=== PATIENT | female | born 1950 | race Caucasian/White ===

== ENCOUNTER 2020-11-24 10:51 | Outpatient (REF) | payer MEDICARE, SELFPAY ==
[2020-11-24 19:21] LABS: Baso%MD 0.6 %; Eos%MD 0.9 %; Hematocrit 33.1 % (37-47); Hemoglobin 10.3 g/dl (12.0-16.0); IG%MD 0.9 %; Lymph%MD 27.3 %; Mean Corpuscular HGB Conc 31.1 g/dl (31.0-35.0); Mean Corpuscular Hemoglobin 26.8 pg (27.0-33.0); Mean Corpuscular Volume 86.2 fL (80-98); Mean Platelet Volume 8.9 fL (9.4-12.3); Mono%MD 9.5 %; NRBC Pct Auto 0.4 /100WBC (0.0-0.2); Neut%MD 60.8 %; Platelet Count 364 X10*3/uL (160-400); Red Blood Count 3.84 X10*6/uL (4.20-5.50); Red Cell Distribution Width 18.8 % (11.0-16.0); White Blood Count 7.8 X10*3/uL (4.8-10.8)
[2020-11-25 06:49] LABS: Band Neutrophils Percent 0 % (3-5); Eosinophils Absolute Manual 0.1 X10*3/UL (0.0-0.8); Eosinophils Percent Manual 1 % (0-4); Lymphocytes Absolute Manual 2.7 X10*3/uL (0.6-4.8); Lymphocytes Percent Manual 35 % (20-40); Monocytes Absolute Manual 0.7 X10*3/uL (0.0-1.2); Monocytes Percent Manual 9 % (2-11); Neutrophils Absolute Manual 4.3 X10*3/uL (2.2-7.9); Neutrophils Percent Manual 55 % (45-73)
[2020-11-25 06:53] LABS: Platelet Estimate NORMAL (NORMAL); Platelet Morphology Comment NORMAL; RBC Morphology NORMAL
== END 2020-11-24 10:52 | disposition home or self-care (01) ==
LOC: HO.MDS 10:51
PROVIDERS: Visit Provider Internal Medicine
DX: D64.9 Anemia, unspecified (principal)
CPT/HCPCS: 36415; 36430; 85007; 85027; 86850; 86900; 86901; 86923; P9016

== ENCOUNTER 2021-03-19 12:34 | Outpatient (REF) | payer MEDICARE, SELFPAY ==
--- NOTE | ~2021-03-19 | MM_ITS ---
EXAMINATION: MM SCREENING DIGITAL BREAST TOMOSYNTHESIS, BILATERAL CLINICAL INFORMATION: Screening. Asymptomatic. The lifetime risk of breast cancer based on the Tyrer-Cuzick Model is 3.6%. COMPARISON: Mammography: September 02, 2019 and studies dating back to July 05, 2012 TECHNIQUE: Digital breast tomosynthesis is performed in both the craniocaudal and mediolateral oblique views along with computer-aided detection (CAD). Synthesized 2D images are generated from the tomosynthesis. FINDINGS: There are scattered areas of fibroglandular density (ACR BI-RADS breast composition Category b). There are no significant masses, abnormal calcifications, or other abnormalities. MM/MM tomosynthesis screening BI IMPRESSION: There are no significant changes from prior study. ASSESSMENT: BI-RADS 1: Negative RECOMMENDATION: Routine annual mammography screening. This patient's information was entered into a reminder system with a target due date for their next mammogram.
== END 2021-03-19 12:35 | disposition home or self-care (01) ==
LOC: HO.MAMMO 12:34
PROVIDERS: Visit Provider Internal Medicine
DX: Z12.31 Encounter for screening mammogram for malignant neoplasm of breast (principal)
CPT/HCPCS: 77063; 77067

== ENCOUNTER 2021-05-10 11:34 | Outpatient (REF) | payer MEDICARE, SELFPAY ==
[2021-05-10 13:52] LABS: MANUAL DIFF FLAG NO
[2021-05-10 14:01] LABS: Basophils Percent Auto 0.4 % (0-2); Eosinophils Absolute Auto 0.1 X10*3/uL (0.0-0.4); Eosinophils Percent Auto 1.7 % (0-4); Hematocrit 29.4 % (37-47); Hemoglobin 9.1 g/dl (12.0-16.0); Imm Gran Abs Auto 0.02 X10*3/uL (0.00-0.03); Imm Gran Pct Auto 0.4 % (0.0-0.4); Immature Retic Fraction 34.9 % (3.0-15.9); Lymphocytes Absolute Auto 1.7 X10*3/uL (1.2-4.9); Lymphocytes Percent Auto 34.7 % (20-40); Mean Corpuscular Hemoglobin 29.8 pg (27.0-33.0); Mean Corpuscular Volume 96.4 fL (80-98); Mean Platelet Volume 9.2 fL (9.4-12.3); Monocytes Absolute Auto 0.2 X10*3/uL (0.1-1.2); Monocytes Percent Auto 4.8 % (2-11); NRBC Pct Auto 0.4 /100WBC (0.0-0.2); Neutrophils Absolute Auto 2.8 X10*3/uL (2.0-8.3); Platelet Count 364 X10*3/uL (160-400); Red Blood Count 3.05 X10*6/uL (4.20-5.50); Red Cell Distribution Width 18.6 % (11.0-16.0); Retic HGB Equivalent 38.4 pg (30.0-35.0); Reticulocyte Percent 1.2 % (0.5-1.8); Reticulocytes Absolute 0.036 X10*6/uL (0.026-0.095); White Blood Count 4.8 X10*3/uL (4.8-10.8)
[2021-05-10 14:15] LABS: Alanine Aminotransferase 15 U/L (0-31); Albumin Level 3.9 g/dL (3.5-5.0); Alkaline Phosphatase 57 U/L (39-117); Anion Gap 16 (12-20); Aspartate Amino Transferase 19 U/L (5-31); Bilirubin Total 0.5 mg/dL (0.0-1.0); Blood Urea Nitrogen 33 mg/dL (9-16); Calcium 9.4 mg/dL (8.4-10.2); Carbon Dioxide 21 mmol/L (22-29); Chloride 106 mmol/L (96-108); Cholesterol 161 mg/dL; Estimated Glomerular Filt Rate 39; Glucose Random 104 mg/dL (60-115); HDL Cholesterol 42 mg/dL; Iron 108 mcg/dL (30-160); LDL Cholesterol Calculated 75 mg/dl; Percent Iron Saturation 26 % (15-50); Potassium 4.6 mmol/L (3.3-5.1); Sodium 138 mmol/L (135-145); Total Iron Binding Capacity 414 mcg/dL (228-428); Total Protein 6.9 g/dL (6.5-8.0); Triglycerides 221 mg/dL; Unsaturated Iron Binding 306 ug/dL
[2021-05-10 14:39] LABS: Ferritin 112 ng/mL (10-250); Free T4 (Free Thyroxine) 1.01 ng/dL (0.71-1.85); Thyroid Stimulating Hormone 0.78 uIU/mL (0.32-4.0)
[2021-05-10 15:10] LABS: Folate 14.1 ng/mL (> or = 4.0); Vitamin B12 361 pg/mL (200-900)
== END 2021-05-10 11:35 | disposition home or self-care (01) ==
LOC: HO.HMGCLDS 11:34
PROVIDERS: PCP Internal Medicine; Visit Provider Internal Medicine
DX: I10 Essential (primary) hypertension (principal); K22.70 Barrett's esophagus without dysplasia; E78.00 Pure hypercholesterolemia, unspecified
CPT/HCPCS: 36415; 80053; 80061; 82306; 82607; 82728; 82746; 83540; 84439; 84443; 85025; 85045

== ENCOUNTER 2021-07-01 11:39 | Outpatient (REF) | payer MEDICARE, SELFPAY ==
[2021-07-01 14:23] LABS: MANUAL DIFF FLAG NO
[2021-07-01 14:28] LABS: Basophils Percent Auto 0.2 % (0-2); Eosinophils Absolute Auto 0.1 X10*3/uL (0.0-0.4); Eosinophils Percent Auto 2.1 % (0-4); Hemoglobin 9.4 g/dl (12.0-16.0); Imm Gran Abs Auto 0.03 X10*3/uL (0.00-0.03); Imm Gran Pct Auto 0.5 % (0.0-0.4); Lymphocytes Absolute Auto 1.6 X10*3/uL (1.2-4.9); Lymphocytes Percent Auto 28.6 % (20-40); Mean Corpuscular HGB Conc 31.3 g/dl (31.0-35.0); Mean Corpuscular Volume 95.8 fL (80-98); Mean Platelet Volume 9.4 fL (9.4-12.3); Monocytes Absolute Auto 0.4 X10*3/uL (0.1-1.2); Monocytes Percent Auto 6.4 % (2-11); Neutrophils Absolute Auto 3.5 X10*3/uL (2.0-8.3); Neutrophils Percent Auto 62.2 % (45-73); Platelet Count 340 X10*3/uL (160-400); Red Blood Count 3.13 X10*6/uL (4.20-5.50); Red Cell Distribution Width 16.2 % (11.0-16.0); White Blood Count 5.6 X10*3/uL (4.8-10.8)
[2021-07-01 14:51] LABS: Iron 150 mcg/dL (30-160); Percent Iron Saturation 38 % (15-50); Total Iron Binding Capacity 400 mcg/dL (228-428); Unsaturated Iron Binding 250 ug/dL
[2021-07-01 15:07] LABS: Ferritin 76 ng/mL (10-250)
== END 2021-07-01 11:40 | disposition home or self-care (01) ==
LOC: HO.10HDL 11:39
PROVIDERS: Visit Provider Internal Medicine
DX: D64.9 Anemia, unspecified (principal)
CPT/HCPCS: 36415; 82728; 83540; 85025

== ENCOUNTER → 2021-07-23 09:12 | Outpatient (REF) | payer MEDICARE, SELFPAY ==
--- NOTE | 2021-07-23 09:17 | ECG_ITS ---
Test Reason : htn Blood Pressure : / mmHG Vent. Rate : 109 BPM Atrial Rate : 109 BPM P-R Int : 182 ms QRS Dur : 080 ms QT Int : 322 ms P-R-T Axes : 064 003 071 degrees QTc Int : 433 ms Sinus tachycardia Otherwise normal ECG When compared with ECG of 18-OCT-2019 16:34, Nonspecific T wave abnormality no longer evident in Inferior leads Nonspecific T wave abnormality, improved in Lateral leads Referred By: Daphne Bryan Electronically Signed By:YULIET NAM
--- NOTE | 2021-07-23 09:17 | CA_ITS ---
Transthoracic Echocardiogram Patient (Last, First, Middle): Wendy Ulloa L Gender: Female Date of : 1950 Age: 70 Procedure Date: 07/23/2021 Procedure Type: Transthoracic Echocardiogram Location: OP Height: 152.4 cm Weight: 99.79 kg BSA: 1.94 m2 Heart Rate: bpm BP: 125 / 90 mmHg Supercharger Mechanic: DEMETRIS/KIRAN Referring MD: Daphne Bryan MD Instruction Librarian: Rodriguez Smith MD Symptoms: I10 - Essential (primary) hypertension Study Quality: Fair ECG Rhythm: Sinus Conclusions: - 1. Normal LV systolic function with grade 1 diastolic dysfunction 2. Normal cardiac valvular Doppler 3. No gross pericardial effusion Findings Left Ventricle Normal left ventricular size, thickness, and systolic function. The visually estimated ejection fraction is between 60-65%. Spectral Doppler is indicative of an impaired relaxation filling pattern. E/E prime ratio is <8, consistent with normal filling pressures. Evidence suggests grade I (mild) diastolic dysfunction. Right Ventricle Normal right ventricular cavity size and systolic function. Atria The left atrium is normal in size. Interatrial shunt cannot be excluded. The right atrium was not well visualized. Aortic Valve Normal aortic valve structure and function. There is no aortic valve stenosis. There is no aortic valve regurgitation. Mitral Valve Likely normal mitral valve structure and function. There is mild mitral annular calcification. There is trace mitral valve regurgitation. There is no mitral valve stenosis. Pulmonic Valve The pulmonic valve was not well visualized. Tricuspid Valve Likely normal tricuspid valve structure and function. Tricuspid regurgitation envelope is inadequate for calculation of right ventricular systolic pressure. Great Vessels All visible segments of the aorta are normal in size. The pulmonary artery was not well visualized. Venous The inferior vena cava is normal in size and collapses greater than 50% with inspiration. Pericardium/Pleural There is no evidence of pericardial effusion. Prior Study Comparison No significant change compared to prior study dated: 10/19/2019. Measurements 2D Linear Measurements IVSd: 1.05 0.6-0.9/0.6-1.0 cm LVIDd: 2.40 3.9-5.3/4.2-5.9 cm LVIDd Index: 1.24 2.4-3.2/2.2-3.1 cm/m2 LVIDs: 1.74 2.0-3.6 cm LVPWd: 0.88 0.7-1.1 cm Ao Root: 3.10 2.1-3.5 cm LA Diam: 2.80 2.7-3.8/3.0-4.0 cm LAIDs Index: 1.44 1.5-2.3 cm/m2 LV Mass: 70.17 67-162/88-224 g LV Mass Index: 36.17 43-95/49-115 g/m2 LVOT Diam: 2.00 3.0+(-)1.3 cm 2D Systolic Function EF 4C: 64.80 >55% EF 2C: 62.90 >55% EF BiP: 64.00 >55% Mitral Valve E'Lateral: 7.51 E'Medial: 6.64 Aortic Valve AoV Pk Mansoor: 1.31 AoV Mn Mansoor: 0.92 AoV VTI: 0.22 AoV Pk Grad: 7.00 Aov Mn Grad: 4.00 ALEJANDRA Cont.VTI: 2.48 LVOT LVOT Pk Mansoor: 0.92 LVOT Mn Mansoor: 0.70 LVOT VTI: 0.17 LVOT Pk Grad: 3.00 LVOT Mn Grad: 2.00 LVOT Diam: 2.00 LVOT Area: 3.14 Diastolic Function E'Medial: 6.64 E' Laterial: 7.51 Right Ventricle TAPSE (mm): 1.95 TVS' Mansoor: 9.68 Great Vessels Aorta Ao Root-2D: 3.10 2.0-3.7 cm Ao Asc: 3.20 2.1-3.4 cm Ao Arch: 2.70 Updated in Other Vendor System with Status of Final Rodriguez Smith MD electronically signed on 07/23/2021 4:28:36 PM with status of Final
== END ==
LOC: HO.CARD 09:12
PROVIDERS: PCP Internal Medicine; Visit Provider Internal Medicine
DX: I10 Essential (primary) hypertension (principal)
CPT/HCPCS: 93005; 93306

== ENCOUNTER 2021-07-30 12:43 | Outpatient (REF) | payer MEDICARE, SELFPAY ==
--- NOTE | ~2021-07-30 | XR_ITS ---
EXAMINATION: XR LUMBOSACRAL SPINE CLINICAL INFORMATION: Intervertebral disc degeneration. COMPARISON: Lumbar spine MRI dated 06/19/2008. TECHNIQUE: 3 views of the lumbosacral spine. FINDINGS: Normal vertebral body alignment. The lumbar lordosis is maintained. No acute fracture or subluxation. No loss of vertebral body height. Multilevel loss of intervertebral disc height with anterior endplate osteophytes. Multilevel bilateral facet arthropathy, most prominent at L4-S1. No lytic or blastic osseous lesion. Probable calcified fibroid. Atherosclerotic calcifications. IVC filter at the level of L2-L3. XR/XR lumbar spine 2-3V IMPRESSION: Moderate multilevel degenerative disc disease. Multilevel bilateral facet arthropathy, most prominent at L4-S1. Findings are progressed when compared to the prior MRI in 2007.
--- NOTE | ~2021-07-30 | XR_ITS ---
EXAMINATION: XR CHEST CLINICAL INFORMATION: Hypertension COMPARISON: Previous chest x-ray 10/18/2019 and chest CTA September 2019 TECHNIQUE: 2 views of the chest were obtained. FINDINGS: The cardiac and mediastinal contours are stable. The lungs are clear. There is no pleural effusion or pneumothorax. There is severe arthritis at the right shoulder joint. There are degenerative changes of the spine. IVC filter is partially visualized. XR/XR chest 2V IMPRESSION: No evidence for acute disease in the chest.
== END 2021-07-30 12:44 | disposition home or self-care (01) ==
LOC: HO.XRAY 12:43
PROVIDERS: PCP Internal Medicine; Visit Provider Internal Medicine
DX: M51.36 Other intervertebral disc degeneration, lumbar region (principal); I10 Essential (primary) hypertension
CPT/HCPCS: 71046; 72100

== ENCOUNTER 2021-09-28 14:18 | Outpatient (REF) | payer MEDICARE, SELFPAY ==
[2021-09-28 16:39] LABS: MANUAL DIFF FLAG NO
[2021-09-28 16:41] LABS: Basophils Percent Auto 0.5 % (0-2); Eosinophils Absolute Auto 0.1 X10*3/uL (0.0-0.4); Eosinophils Percent Auto 2.9 % (0-4); Hematocrit 23.8 % (37.0-47.0); Hemoglobin 7.3 g/dl (12.0-16.0); Imm Gran Abs Auto 0.02 X10*3/uL (0.00-0.03); Imm Gran Pct Auto 0.5 % (0.0-0.4); Lymphocytes Percent Auto 47.5 % (20-40); Mean Corpuscular HGB Conc 30.7 g/dl (31.0-35.0); Mean Corpuscular Hemoglobin 30.7 pg (27.0-33.0); Mean Platelet Volume 9.2 fL (9.4-12.3); Monocytes Absolute Auto 0.2 X10*3/uL (0.1-1.2); Monocytes Percent Auto 5.6 % (2-11); NRBC Pct Auto 0.5 /100WBC (0.0-0.2); Neutrophils Absolute Auto 1.8 x10*3/uL (2.0-8.3); Platelet Count 178 X10*3/uL (160-400); Red Blood Count 2.38 X10*6/uL (4.20-5.50); Red Cell Distribution Width 18.8 % (11.0-16.0); Retic HGB Equivalent 35.4 pg (30.0-35.0); Reticulocyte Percent 2.2 % (0.5-1.8); Reticulocytes Absolute 0.052 X10*6/uL (0.026-0.095); White Blood Count 4.1 X10*3/uL (4.8-10.8)
[2021-09-28 17:02] LABS: Iron 84 mcg/dL (30-160); Percent Iron Saturation 20 % (15-50); Total Iron Binding Capacity 413 mcg/dL (228-428); Unsaturated Iron Binding 329 ug/dL
[2021-09-28 17:22] LABS: Ferritin 195 ng/mL (10-250)
[2021-09-28 17:44] LABS: Folate > 20.0 ng/mL (> or = 4.0); Vitamin B12 1462 pg/mL (200-900)
== END 2021-09-28 14:19 | disposition home or self-care (01) ==
LOC: HO.HMGCLDS 14:18
PROVIDERS: PCP Internal Medicine; Visit Provider Internal Medicine
DX: D64.9 Anemia, unspecified (principal)
CPT/HCPCS: 36415; 82607; 82728; 82746; 83540; 85025; 85045

== ENCOUNTER 2021-10-11 16:01 | Inpatient (IN) | payer MEDICARE, SELFPAY ==
--- NOTE | 2021-10-11 | ECG_ITS ---
Test Reason : sob/anemia Blood Pressure : / mmHG Vent. Rate : 113 BPM Atrial Rate : 113 BPM P-R Int : 182 ms QRS Dur : 072 ms QT Int : 318 ms P-R-T Axes : 051 -05 032 degrees QTc Int : 436 ms Sinus tachycardia Inferior infarct , age undetermined Abnormal ECG When compared with ECG of 23-JUL-2021 09:37, No significant change was found Referred By: Generic ED Physician Electronically Signed By:VINNY MONTERO MD
--- NOTE | ~2021-10-11 | XR_ITS ---
EXAMINATION: XR CHEST CLINICAL INFORMATION: Difficulty breathing. COMPARISON: Multiple priors. Most recent chest radiograph dated from 07/30/2021. TECHNIQUE: PA view of the chest was obtained. FINDINGS: Normal cardiomediastinal silhouette. Clear lungs. No pleural effusions or pneumothorax. No acute osseous findings. Again noted advanced degenerative changes in the right greater than left shoulders. XR/XR chest 1V IMPRESSION: No acute cardiopulmonary findings.
[2021-10-11 17:52] VITALS: BP 111/71; PULSE 115; RESP 18; TEMP 36.8; O2SAT 100; BMI 41.0
[2021-10-11 19:12] LABS: Anion Gap 14 (12-20); Blood Urea Nitrogen 26 mg/dL (9-16); Carbon Dioxide 21 mmol/L (22-29); Chloride 106 mmol/L (96-108); Creatinine Clr Calc Pharmacy 39.4; Estimated Glomerular Filt Rate 39; Glucose Random 101 mg/dL (60-115); Potassium 4.1 mmol/L (3.3-5.1); Sodium 137 mmol/L (135-145)
[2021-10-11 19:14] LABS: Basophils Percent Auto 0.4 % (0-2); Eosinophils Percent Auto 1.3 % (0-4); Hematocrit 21.6 % (37.0-47.0); Imm Gran Abs Auto 0.01 X10*3/uL (0.00-0.03); Imm Gran Pct Auto 0.4 % (0.0-0.4); Lymphocytes Absolute Auto 1.3 X10*3/uL (1.2-4.9); Lymphocytes Percent Auto 58.2 % (20-40); MANUAL DIFF FLAG SCAN; Mean Corpuscular HGB Conc 31.9 g/dl (31.0-35.0); Mean Corpuscular Hemoglobin 32.2 pg (27.0-33.0); Mean Corpuscular Volume 100.9 fL (80.0-98.0); Mean Platelet Volume 9.7 fL (9.4-12.3); Monocytes Absolute Auto 0.1 X10*3/uL (0.1-1.2); Monocytes Percent Auto 4.4 % (2-11); NRBC Pct Auto 0.9 /100WBC (0.0-0.2); Neutrophils Absolute Auto 0.8 x10*3/uL (2.0-8.3); Neutrophils Percent Auto 35.3 % (45-73); Platelet Count 205 X10*3/uL (160-400); Red Blood Count 2.14 X10*6/uL (4.20-5.50); Red Cell Distribution Width 19.3 % (11.0-16.0); SCAN SMEAR FLAG 1
[2021-10-11 19:15] LABS: COVID-19 Test Negative (Negative)
[2021-10-11 19:16] LABS: White Blood Count 2.3 X10*3/uL (4.8-10.8)
[2021-10-11 19:17] LABS: Hemoglobin 6.9 g/dl (12.0-16.0)
[2021-10-11 19:34] LABS: SLIDE REVIEW VERIFIED
[2021-10-11 20:00] VITALS: BP 113/55; PULSE 114; RESP 18; TEMP 37.6; O2SAT 98
[2021-10-11 20:03] LABS: OBS1 NEGATIVE (NEGATIVE)
[2021-10-11 20:04] LABS: OBS Int Ctl Valid YES
--- NOTE | 2021-10-11 20:04 | ED.GENADULT ---
HPI - General Adult General Chief complaint: Recheck/Abnormal Lab/Rx Stated complaint: SOB/Anemic (history of blood clots in lungs) Time Seen by Provider: 10/11/21 19:53 History of Present Illness HPI narrative: Patient is 70 years old presents today with generalized malaise weakness. Palpitation. Worse with ambulation. Shortness of breath got worse with ambulation. History of DVT patient is on Eliquis. No coughing or congestion or upper respiratory symptoms no fever no chills. Patient got sent in for further evaluation of her weakness. Related Data Home Medications Medication Instructions Recorded Confirmed hydrocodone 5 mg-acetaminophen 325 1 tab PO QID PRN 12/29/20 10/11/21 mg tablet folic acid 1 mg tablet 1 tab PO SUMOWETHFRSA@0900 10/11/21 10/11/21 infliximab 100 mg intravenous See Rx Instructions .ROUTE .COMPLEX 10/11/21 10/11/21 solution (Remicade) methotrexate sodium 2.5 mg tablet 22.5 mg PO TU@0900 10/11/21 10/11/21 omeprazole 20 mg capsule,delayed 20 mg PO DAILY@0630 10/11/21 10/11/21 release simvastatin 5 mg tablet 5 mg PO BEDTIME 10/11/21 10/11/21 Previous Rx's Medication Instructions Recorded apixaban 2.5 mg tablet (Eliquis) 2.5 mg PO BID #180 tab 12/29/20 cyanocobalamin (vitamin B-12) 1,000 mcg PO DAILY #90 tab 01/07/21 1,000 mcg tablet fenofibrate 160 mg tablet 160 mg PO DAILY #90 tab 01/07/21 hydrochlorothiazide 25 mg tablet 25 mg PO QAM #90 tab 04/12/21 quinapril 40 mg tablet 40 mg PO DAILY #90 tab 08/27/21 Allergies Allergy/AdvReac Type Severity Reaction Status Date / Time No Known Allergies Allergy Verified 07/26/21 16:52 [No Known Allergies*] Review of Systems Review of Systems: Positive generalized malaise weakness no coughing or congestion or upper respiratory symptoms no diaphoresis all system reviewed otherwise negative PMFSH Past Medical History Attestation statement: The following information was validated with the patient. Medical History Anemia Barretts esophagus Benign essential hypertension Breast cancer screening by mammogram GERD (gastroesophageal reflux disease) History of alcohol abuse History of blood transfusion Hx of deep venous thrombosis Hypercholesterolemia Medicare annual wellness visit, initial Obesity Obstructive sleep apnea Presence of IVC filter Pulmonary embolism Restless leg syndrome Rheumatoid arthritis Tubular adenoma of colon Venous stasis dermatitis Vitamin D deficiency Surgical History History of eyelid surgery History of tonsillectomy Hx of arthroscopic knee surgery Hx of heart artery stent Family History Family History Father History of stomach cancer Mother Social History Social History Housing: House Alcohol intake: former Patient Tobacco Use Status: Former Tobacco user Quit Date: 1979 Cigarette Packs Per Day: 2 e-Cigarette/Vaping Use: Never Used Second Hand Smoke Exposure: No Advance Directives: No Advance Directives Information Provided: Yes service: No Current occupational status: retired Physical Exam Vital Signs: Vital Signs: Last Vital Signs Temp 97.2 F 10/11/21 21:05 Pulse 114 H 10/11/21 21:05 Resp 18 10/11/21 21:05 BP 107/56 L 10/11/21 21:05 Pulse Ox 97 10/11/21 21:05 BMI result Body Mass Index 41.0 Appearance: Alert. Oriented X3. No acute distress. Eyes: Pupils equal, round and reactive to light. ENT: Pharynx normal. Neck: Normal inspection. Neck supple. No lymph nodes noted. No crepitus CVS: Normal heart rate and rhythm. Pulses normal. Normal S1 and S2 Respiratory: No respiratory distress. Breath sounds normal. No Wheezing. No rales Abdomen: Soft and nontender. No rigidity. No distention. good BS x4 Skin: Skin warm and dry. Normal skin color. Normal skin turgor. rectal exam showed brown stool. Extremities: No lower extremity edema. Neurovascular intact to all extremities. No Lacerations. No Rash Neuro: Oriented X 3. No motor deficit. No sensory deficit. Moving all extermities. No slurred speech Medical Decision Making MDM Narrative Medical decision making narrative: Patient's hemoglobin was 6.9. Will start transfusion of 1 unit of blood. Type was screen was done. Patient's heart rate is 115 will obtain EKG. Will admit patient for further evaluation of anemia as patient is also on Eliquis for DVT /PE. Lab Data Result diagrams: 10/11/21 18:29 10/11/21 18:29 Labs: Lab Results 10/11/21 10/11/21 10/11/21 Range/Units 18:29 18:29 18:29 WBC 2.3 L (4.8-10.8) X10*3/uL RBC 2.14 L (4.20-5.50) X10*6/uL Hgb 6.9 L* (12.0-16.0) g/dl Hct 21.6 L (37.0-47.0) % MCV 100.9 H (80.0-98.0) fL MCH 32.2 (27.0-33.0) pg MCHC 31.9 (31.0-35.0) g/dl RDW 19.3 H (11.0-16.0) % Plt Count 205 (160-400) X10*3/uL MPV 9.7 (9.4-12.3) fL Immature Gran % (Auto) 0.4 (0.0-0.4) % Neut % (Auto) 35.3 L (45-73) % Lymph % (Auto) 58.2 H (20-40) % [place] % (Auto) 4.4 (2-11) % Eos % (Auto) 1.3 (0-4) % Baso % (Auto) 0.4 (0-2) % Lymph # (Auto) 1.3 (1.2-4.9) X10*3/uL [place] # (Auto) 0.1 (0.1-1.2) X10*3/uL Eos # (Auto) 0.0 (0.0-0.4) X10*3/uL Baso # (Auto) 0.0 (0.0-0.2) X10*3/uL Abs Immat Gran (auto) 0.01 (0.00-0.03) X10*3/uL Absolute Neuts (auto) 0.8 L (2.0-8.3) x10*3/uL Absolute Nucleated RBC 0.020 H (0.0-0.012) X10*3/uL Nucleated RBC % (auto) 0.9 H (0.0-0.2) /100WBC Smear Tech's Comments VERIFIED Sodium 137 (135-145) mmol/L Potassium 4.1 (3.3-5.1) mmol/L Chloride 106 (96-108) mmol/L Carbon Dioxide 21 L (22-29) mmol/L Anion Gap 14 (12-20) BUN 26 H (9-16) mg/dL Creatinine 1.33 (0.5-1.4) mg/dL Estim Creat Clear Calc 39.4 Estimated GFR 39 Random Glucose 101 (60-115) mg/dL Calcium 9.0 (8.4-10.2) mg/dL Stool Occult Blood (NEGATIVE) COVID-19 (JOSSELINE) Negative (Negative) COVID-19 Clin Com See Note 10/11/21 Range/Units 19:56 WBC (4.8-10.8) X10*3/uL RBC (4.20-5.50) X10*6/uL Hgb (12.0-16.0) g/dl Hct (37.0-47.0) % MCV (80.0-98.0) fL MCH (27.0-33.0) pg MCHC (31.0-35.0) g/dl RDW (11.0-16.0) % Plt Count (160-400) X10*3/uL MPV (9.4-12.3) fL Immature Gran % (Auto) (0.0-0.4) % Neut % (Auto) (45-73) % Lymph % (Auto) (20-40) % [place] % (Auto) (2-11) % Eos % (Auto) (0-4) % Baso % (Auto) (0-2) % Lymph # (Auto) (1.2-4.9) X10*3/uL [place] # (Auto) (0.1-1.2) X10*3/uL Eos # (Auto) (0.0-0.4) X10*3/uL Baso # (Auto) (0.0-0.2) X10*3/uL Abs Immat Gran (auto) (0.00-0.03) X10*3/uL Absolute Neuts (auto) (2.0-8.3) x10*3/uL Absolute Nucleated RBC (0.0-0.012) X10*3/uL Nucleated RBC % (auto) (0.0-0.2) /100WBC Smear Tech's Comments Sodium (135-145) mmol/L Potassium (3.3-5.1) mmol/L Chloride (96-108) mmol/L Carbon Dioxide (22-29) mmol/L Anion Gap (12-20) BUN (9-16) mg/dL Creatinine (0.5-1.4) mg/dL Estim Creat Clear Calc Estimated GFR Random Glucose (60-115) mg/dL Calcium (8.4-10.2) mg/dL Stool Occult Blood NEGATIVE (NEGATIVE) COVID-19 (JOSSELINE) (Negative) COVID-19 Clin Com Discharge Plan Discharge Clinical Impression: Anemia Patient Disposition: Admitted As Inpatient
--- NOTE | 2021-10-11 20:49 | PHA.MEDREC ---
Pharmacy Consult ? Medication Reconciliation Pharmacy has completed the medication reconciliation. Spoke with patient in ED. She had a list of medications with her.
[2021-10-11 21:05] VITALS: BP 107/56; PULSE 114; RESP 18; TEMP 36.2; O2SAT 97
[2021-10-11 23:09] VITALS: BP 101/63; PULSE 100; RESP 18; TEMP 36.8; O2SAT 98
--- NOTE | 2021-10-11 23:12 | P.HPHOSP_ITS ---
History of Present Illness Date of Service: 10/11/21 Chief Complaint: dizziness this is a 70-year-old female with past medical history of rheumatoid arthritis, pulmonary embolism on Eliquis, anxiety and depression, GERD, JUSTIN, hypertension, HLD presents to the hospital with complaints of dizziness, and shortness of breath on exertion. Patient reports that she has generally been feeling weak and fatigued. She has no headache, no change in vision, no chest pain, no cough, no fever or chills, no abdominal pain nausea or vomiting, no diarrhea constipation at this time, no urinary symptoms and no lower extremity edema. Patient reports that last week she had bleeding per rectum from her hemorrhoids after straining because she was constipated for a week but has been use laxatives and has been moving her bowels regularly with no constipation, no Yesica or bloody stools. She denies any hematemesis or hemoptysis. patient reports that she had a colonoscopy about 2 years ago which was reported to be normal patient reports history of using NSAIDs about a year ago but has stopped since. on arrival to the ED patient found to have a temp of 97.2?, heart rate of 114, respiratory rate of 18, blood pressure 113/55, satting 98% on room air Labs are significant for WBC count of 2.3, hemoglobin of 6.9 (patient had labs done on 09/28 which showed WBC count of 4.1 and hemoglobin of 7.3 but there does not seem to be a follow-up with that, her baseline is around 9-10 ), hematocrit of 21.6, BUN of 26, creatinine of 1.33 ( around her baseline) , ferritin of 269, stool occult negative patient will be admitted further management Review of Systems Review of Systems: Yes all other systems are reviewed and are negative [facility] Medical History Anemia Barretts esophagus Benign essential hypertension Breast cancer screening by mammogram GERD (gastroesophageal reflux disease) History of alcohol abuse History of blood transfusion Hx of deep venous thrombosis Hypercholesterolemia Medicare annual wellness visit, initial Obesity Obstructive sleep apnea Presence of IVC filter Pulmonary embolism Restless leg syndrome Rheumatoid arthritis Tubular adenoma of colon Venous stasis dermatitis Vitamin D deficiency Family History Father History of stomach cancer Mother Surgical History History of eyelid surgery History of tonsillectomy Hx of arthroscopic knee surgery Hx of heart artery stent Social History Household Members: Spouse Housing: House Do you presently have visiting nurse or other home services: No Alcohol intake: former Patient Tobacco Use Status: Former Tobacco user Quit Date: 1979 Cigarette Packs Per Day: 2 e-Cigarette/Vaping Use: Never Used Second Hand Smoke Exposure: No Use of substances other than those prescribed or required for medical reasons: No Have you been hit, kicked, punched, or otherwise hurt by someone within the past year? If so, by whom?: No Do you feel safe in your current relationship?: Yes Is there a partner from a previous relationship who is making you feel unsafe now?: No Are you made to feel afraid or neglected: No Advance Directives: No Advance Directives Information Provided: Yes Do you have thoughts of harming others: None Do you have a plan to hurt others: No Plan Recently lost weight without trying: No Nutrition Risks: No Nutritional Risk service: No Current occupational status: retired [employer] Allergies Allergy/AdvReac Type Severity Reaction Status Date / Time No Known Allergies Allergy Verified 07/26/21 16:52 [No Known Allergies*] Active Medications: Current Medications Pharmacy Consult (Consult Rx Perform Med Rec) 1 each MISCELLANE ONCE PRN PRN Reason: Consult order Home Medications Medication Instructions Recorded Confirmed Last Taken Type hydrocodone 5 mg-acetaminophen 325 1 tab PO QID PRN 12/29/20 10/11/21 Unknown History mg tablet folic acid 1 mg tablet 1 tab PO SUMOWETHFRSA@0900 10/11/21 10/11/21 10/11/21 History infliximab 100 mg intravenous See Rx Instructions .ROUTE .COMPLEX 10/11/21 10/11/21 Unknown History solution (Remicade) methotrexate sodium 2.5 mg tablet 22.5 mg PO TU@0900 10/11/21 10/11/21 10/04/21 History omeprazole 20 mg capsule,delayed 20 mg PO DAILY@0630 10/11/21 10/11/21 10/11/21 History release simvastatin 5 mg tablet 5 mg PO BEDTIME 10/11/21 10/11/21 10/10/21 History Physical Exam Vital Signs and Narrative: Vital Signs: Last Vital Signs Temp 98.2 F 10/11/21 23:09 Pulse 100 10/11/21 23:09 Resp 18 10/11/21 23:09 BP 101/63 10/11/21 23:09 Pulse Ox 98 10/11/21 23:09 BMI result Body Mass Index 41.0 Const: General: cooperative and no acute distress Orientation/consciousness: patient oriented x3 Eyes: General: appearance normal, both eyes and all related structures Pupils: Equal, round and reactive pupils present Resp: Effort & Inspection: normal respiratory effort Auscultation: clear to auscultation bilaterally Cardio: Rate: regular rate Rhythm: regular rhythm GI: Palpation (GI): Soft to palpation Auscultation: normal bowel sounds Skin: General skin exam: no rashes or lesions noted Neuro: General: patient oriented x3 Cranial nerves: Yes Equal, round and reactive pupils present Cognition (Neuro): normal cognition Extrem: General: Yes normal to inspection and Yes no pedal edema Results Labs CBC and Chem 7: 10/11/21 18:29 10/11/21 18:29 Labs: Laboratory Results - last 24 hr 10/11/21 10/11/21 10/11/21 18:29 18:29 18:29 MCV 100.9 H MCH 32.2 MCHC 31.9 RDW 19.3 H Plt Count 205 MPV 9.7 Immature Gran % (Auto) 0.4 Neut % (Auto) 35.3 L Lymph % (Auto) 58.2 H [place] % (Auto) 4.4 Eos % (Auto) 1.3 Baso % (Auto) 0.4 Lymph # (Auto) 1.3 [place] # (Auto) 0.1 Eos # (Auto) 0.0 Baso # (Auto) 0.0 Abs Immat Gran (auto) 0.01 Absolute Neuts (auto) 0.8 L Absolute Nucleated RBC 0.020 H Nucleated RBC % (auto) 0.9 H Smear Tech's Comments VERIFIED Anion Gap 14 Estim Creat Clear Calc 39.4 Estimated GFR 39 Random Glucose 101 Calcium 9.0 Stool Occult Blood COVID-19 (JOSSELINE) Negative COVID-19 Clin Com See Note Crossmatch 10/11/21 10/11/21 19:56 22:57 MCV MCH MCHC RDW Plt Count MPV Immature Gran % (Auto) Neut % (Auto) Lymph % (Auto) [place] % (Auto) Eos % (Auto) Baso % (Auto) Lymph # (Auto) [place] # (Auto) Eos # (Auto) Baso # (Auto) Abs Immat Gran (auto) Absolute Neuts (auto) Absolute Nucleated RBC Nucleated RBC % (auto) Smear Tech's Comments Anion Gap Estim Creat Clear Calc Estimated GFR Random Glucose Calcium Stool Occult Blood NEGATIVE COVID-19 (JOSSELINE) COVID-19 Clin Com Crossmatch See Detail Imaging Radiologist's Impressions: Impressions Chest X-Ray 10/11/21 18:09 IMPRESSION: No acute cardiopulmonary findings. Assessment and Plan (1) Macrocytic anemia: Status: Acute 70-year-old female who presents to the hospital with complaints of dizziness, shortness of breath on exertion found to have anemia # macrocytic anemia - GI bleed versus anemia of chronic disease given her history of rheumatoid arthritis - patient reports a week of GI bleed, perforation reports history of hemorrhoids - receiving 2 units of PRBC in the ED - will follow H&H post transfusion - consult automotive professional - may need follow-up outpatient with Hematology-Oncology given her leukopenia as well - will hold Eliquis # dizziness/shortness of breath - most likely secondary to symptomatic anemia - patient receiving PRBC - monitor for resolution of symptoms # hypertension - blood pressure slightly on the lower side - will hold antihypertensive - follow BP, resume antihypertensives once BP stabilizes # rheumatoid arthritis - continue home meds DVT prophylaxis: SCDs Quality Stroke Does the patient have a stroke diagnosis?: No VTE Prior VTE?: No VTE Risk Level:: Medical - moderate - high VTE Device Contraindication: Treatment Not Indicated VTE Drug Contraindication: N/A - Med Ordered
[2021-10-12] VITALS (11 sets, daily range): BP systolic 107–134; BP diastolic 40–67; PULSE 94–105; RESP 15–20; TEMP 36.2–37; O2SAT 98–100
[2021-10-12 00:25] LABS: Ferritin 269 ng/mL (10-250)
--- NOTE | 2021-10-12 01:43 | PC.NURSE ---
Pt a/o x4, offers no complaints. H/H low, 1unit PRBC ordered and transfused. VSS, no s/sx reaction noted. Pt awaiting m/s bed.
[2021-10-12] MEDS: 0.9 % Sodium Chloride Flush 3 ML SYRINGE IVFLUSH ×2 (03:46→19:57)
--- NOTE | 2021-10-12 03:46 | PC.NURSE ---
Report given to M/S RN. Plan for transport to floor.
[2021-10-12 05:53] LABS: Basophils Percent Auto 0.3 % (0-2); Eosinophils Absolute Auto 0.1 X10*3/uL (0.0-0.4); Eosinophils Percent Auto 2.2 % (0-4); Hematocrit 24.8 % (37.0-47.0); Hemoglobin 7.8 g/dl (12.0-16.0); Lymphocytes Absolute Auto 2.1 X10*3/uL (1.2-4.9); Lymphocytes Percent Auto 67.1 % (20-40); MANUAL DIFF FLAG SCAN; Mean Corpuscular HGB Conc 31.5 g/dl (31.0-35.0); Mean Corpuscular Hemoglobin 30.5 pg (27.0-33.0); Mean Corpuscular Volume 96.9 fL (80.0-98.0); Mean Platelet Volume 9.9 fL (9.4-12.3); Monocytes Absolute Auto 0.2 X10*3/uL (0.1-1.2); Monocytes Percent Auto 4.7 % (2-11); Neutrophils Absolute Auto 0.8 x10*3/uL (2.0-8.3); Neutrophils Percent Auto 25.7 % (45-73); Platelet Count 198 X10*3/uL (160-400); Red Blood Count 2.56 X10*6/uL (4.20-5.50); Red Cell Distribution Width 20.4 % (11.0-16.0); SCAN SMEAR FLAG 1; White Blood Count 3.2 X10*3/uL (4.8-10.8)
[2021-10-12] MEDS: Omeprazole 20 MG CAPSULE.DR PO (06:02)
[2021-10-12] MEDS: Lactated Ringers 1,000 ML 80 ML IVCONT (06:03)
[2021-10-12 06:18] LABS: SLIDE REVIEW VERIFIED
[2021-10-12 06:19] LABS: Anion Gap 13 (12-20); Blood Urea Nitrogen 22 mg/dL (9-16); Calcium 9.1 mg/dL (8.4-10.2); Carbon Dioxide 21 mmol/L (22-29); Chloride 106 mmol/L (96-108); Creatinine Clr Calc Pharmacy 38.6; Estimated Glomerular Filt Rate 38; Glucose Random 91 mg/dL (60-115); Potassium 3.8 mmol/L (3.3-5.1); Sodium 136 mmol/L (135-145)
[2021-10-12] MEDS: Fenofibrate 160 MG TABLET PO (08:01)
[2021-10-12] MEDS: Cyanocobalamin (Vitamin B-12) 1,000 MCG TABLET 1000 MCG PO (08:01)
--- NOTE | 2021-10-12 08:48 | PM.EVENT ---
Event Note Date of Service: 10/12/21 Event Note: GI--Patient known to our practice. Will plan to see later today for full consult. Thanks
[2021-10-12 09:05] LABS: Folate > 20.0 ng/mL (> or = 4.0); Vitamin B12 1603 pg/mL (200-900)
[2021-10-12] MEDS: metHOTREXate sodium 2.5 MG TABLET 22.5 MG PO (09:22)
--- NOTE | 2021-10-12 10:00 | P.PNIM_ITS ---
Subjective Subjective Date of Service: 10/12/21 Review of Systems follow-up anemia Feeling better today Denies chest pain, shortness of breath- All other systems reviewed are negative Physical Exam Vital Signs: Vital Signs: Last Vital Signs Temp 98.1 F 10/12/21 07:54 Pulse 99 10/12/21 07:54 Resp 16 10/12/21 07:54 BP 128/58 L 10/12/21 07:54 Pulse Ox 99 10/12/21 07:54 BMI result Body Mass Index 41.0 Appearing in no acute distress lung sounds are clear to auscultation heart regular rate rhythm, clear S1, S2 positive bowel sounds, abdomen is soft, nontender neuro patient is alert x3, no focal deficits Objective Data Active Medications Acetaminophen (Acetaminophen 325 Mg Tablet) 650 mg PO Q6H PRN PRN Reason: Pain, Mild (Pain Scale 1-3) Hydrocodone Bitart/Acetaminophen (Hydrocodone Bit/Acetam 5/325 Tablet) 1 tab PO QID PRN PRN Reason: Pain (Scale Score 4-6) Atorvastatin Calcium (Atorvastatin Calcium 10 Mg Tablet) 5 mg PO BEDTIME [facility] Cyanocobalamin (Cyanocobalamin (Vitamin B-12) 1,000 Mcg Tablet) 1,000 mcg PO DAILY [facility] Last Admin: 10/12/21 08:01 Dose: 1,000 mcg Documented by: KALPANA Docusate Sodium (Docusate Sodium 100 Mg Capsule) 100 mg PO DAILY PRN PRN Reason: Constipation Fenofibrate (Fenofibrate 160 Mg Tablet) 160 mg PO DAILY [facility] Last Admin: 10/12/21 08:01 Dose: 160 mg Documented by: KALPANA Folic Acid (Folic Acid 1 Mg Tablet) 1 mg PO SUMOWETHFRSA@0900 [facility] Lactated Ringer's (Lr) 1,000 mls @ 80 mls/hr IVCONT .[id number] [facility] Last Admin: 10/12/21 06:03 Dose: 80 mls/hr Documented by: DWIGHT Methotrexate (Methotrexate Sodium 2.5 Mg Tablet) 22.5 mg PO TU@0900 [facility] Last Admin: 10/12/21 09:22 Dose: 22.5 mg Documented by: KALPANA Omeprazole (Omeprazole 20 Mg Capsule.) 20 mg PO DAILY@0630 [facility] Last Admin: 10/12/21 06:02 Dose: 20 mg Documented by: DWIGHT Ondansetron HCl (Ondansetron Hcl 4 Mg/2 Ml Vial) 4 mg IVPUSH Q8H PRN PRN Reason: Nausea and Vomiting Pharmacy Consult (Consult Rx Perform Med Rec) 1 each MISCELLANE ONCE PRN PRN Reason: Consult order Sodium Chloride (0.9 % Sodium Chloride Flush 3 Ml Syringe) 3 ml IVFLUSH QSHIFT [facility] Last Admin: 10/12/21 08:02 Dose: Not Given Documented by: KALPANA Non-Admin Reason: IV Running Labs CBC & Chem 7: 10/12/21 05:17 10/12/21 05:17 Labs: Laboratory Results - last 24 hr 10/11/21 10/11/21 10/11/21 18:29 18:29 18:29 MCV 100.9 H MCH 32.2 MCHC 31.9 RDW 19.3 H Plt Count 205 MPV 9.7 Immature Gran % (Auto) 0.4 Neut % (Auto) 35.3 L Lymph % (Auto) 58.2 H [place] % (Auto) 4.4 Eos % (Auto) 1.3 Baso % (Auto) 0.4 Lymph # (Auto) 1.3 [place] # (Auto) 0.1 Eos # (Auto) 0.0 Baso # (Auto) 0.0 Abs Immat Gran (auto) 0.01 Absolute Neuts (auto) 0.8 L Absolute Nucleated RBC 0.020 H Nucleated RBC % (auto) 0.9 H Smear Tech's Comments VERIFIED Smear Path Review SEE NOTE Anion Gap 14 Estim Creat Clear Calc 39.4 Estimated GFR 39 Random Glucose 101 Calcium 9.0 Ferritin Vitamin B12 Folate Stool Occult Blood COVID-19 (JOSSELINE) Negative COVID-19 Clin Com See Note Blood Type Antibody Screen Crossmatch 10/11/21 10/11/21 10/11/21 19:56 22:57 23:26 MCV MCH MCHC RDW Plt Count MPV Immature Gran % (Auto) Neut % (Auto) Lymph % (Auto) [place] % (Auto) Eos % (Auto) Baso % (Auto) Lymph # (Auto) [place] # (Auto) Eos # (Auto) Baso # (Auto) Abs Immat Gran (auto) Absolute Neuts (auto) Absolute Nucleated RBC Nucleated RBC % (auto) Smear Tech's Comments Smear Path Review Anion Gap Estim Creat Clear Calc Estimated GFR Random Glucose Calcium Ferritin 269 H Vitamin B12 Folate Stool Occult Blood NEGATIVE COVID-19 (JOSSELINE) COVID-19 [employer] Blood Type A Positive Antibody Screen NEGATIVE Crossmatch See Detail 10/11/21 10/12/21 10/12/21 23:26 05:17 05:17 MCV 96.9 MCH 30.5 MCHC 31.5 RDW 20.4 H Plt Count 198 MPV 9.9 Immature Gran % (Auto) 0.0 Neut % (Auto) 25.7 L Lymph % (Auto) 67.1 H [place] % (Auto) 4.7 Eos % (Auto) 2.2 Baso % (Auto) 0.3 Lymph # (Auto) 2.1 [place] # (Auto) 0.2 Eos # (Auto) 0.1 Baso # (Auto) 0.0 Abs Immat Gran (auto) 0.00 Absolute Neuts (auto) 0.8 L Absolute Nucleated RBC 0.000 Nucleated RBC % (auto) 0.0 Smear Tech's Comments VERIFIED Smear Path Review Anion Gap 13 Estim Creat Clear Calc 38.6 Estimated GFR 38 Random Glucose 91 Calcium 9.1 Ferritin Vitamin B12 1603 H Folate > 20.0 Stool Occult Blood COVID-19 (JOSSELINE) COVID-19 Clin Com Blood Type Antibody Screen Crossmatch Assessment and Plan (1) Macrocytic anemia: Status: Acute (2) Anemia: Status: Acute Assessment and Plan: 70-year-old female who presents to the hospital with complaints of dizziness, shortness of breath on exertion found to have anemia Suspected anemia of chronic disease with hx of rheumatoid arthritis, macrocytic anemia GI bleed versus anemia of chronic disease given her history of rheumatoid arthritis, hemorrhoidal bleeding Received 2 units of packed red blood cells H&H stable today Seen and evaluated by Gastroenterology likely EEG today Eliquis on hold Dizziness. Resolved Secondary to symptomatic anemia Transfused Hypertension. Stable blood pressure Hold antihypertensives in light of anemia to avoid hypotension History rheumatoid arthritis Continue home medications History of PE/ DVT Hold Eliquis due to anemia Morbid obesity. BMO 41.0 Discussed the importance of weight management DVT prophylaxis:? SCDs Attending Dr. Cervantes Full code Quality Stroke Does the patient have a stroke diagnosis?: No VTE Prior VTE?: No VTE Risk Level:: Medical - moderate - high VTE Device Contraindication: Treatment Not Indicated VTE Drug Contraindication: N/A - Med Ordered
--- NOTE | 2021-10-12 10:13 | MHC.CM.PN ---
IMM 10/12/21, EMR REVIEWED, PT ADMITTED W/ANEMIA, PT IS A&OX3, PT REPORTS SHE LIVES W/HER , PT IS INDEPENDENT W/CARE HAS A WALKER SHE USES FOR OCCASIONAL OUTINGS AND NO OTHER DME, PT HAS NO HOME SERVICES AND REPORTS SHE DOES NOT FEEL THEY ARE NEEDED AT THIS TIME, PT VERIFIES PCP IS GABBY ALAS AND HCP IS ROGE OLIVARES [phone], COPY REQUESTED. D/C PLAN: HOME W/NO SERVICES, FAMILY FOR TRANSPORT
--- NOTE | 2021-10-12 10:46 | P.CDIC_ITS ---
CDI Concurrent Query Documentation Clarification: PHYSICIAN'S DOCUMENTATION REQUEST Date of Query: 10/12/21 1047 Patient Name: Wendy Ulloa Admit Date: 10/11/21 Dear Doctor, A review of the medical record indicates additional documentation may be needed. Please review below and update the documentation accordingly. Clinical Indicators: Risk Factors/Clinical Indicators/Treatments Dizziness, short of breath, weakness, fatigue. HGB 6.9 7.8 HCT 21.6 24.8 Transfuse 2 units PRBC. Monitior H/H Symptomatic anemia. Based on the above, could you clarify in the Progress Notes which of the following is the most likely type of anemia you are evaluating, treating, and/or monitoring? * Acute blood loss anemia * Acute blood loss anemia with baseline chronic anemia * Anemia of chronic disease- indicate if neoplastic disease, CKD, or other * Chronic iron deficiency anemia due to acute blood loss * Other ? please specify * Unable to determine Use of terms such as suspected, likely, concern for, or probable (associated with a specific diagnosis that is being evaluated, monitored, or treated as if it exists) are acceptable and can be coded in the inpatient setting, when documented at the time of discharge. Thank you, Jaqui Shepherd [facility], CDIS Extension: [phone] Please use your independent medical judgment in providing your response. THIS QUERY IS PART OF THE PERMANENT MEDICAL RECORD Provider Response: Other Other Diagnosis: Anemia of Chronic disease -- possibly RA
--- NOTE | 2021-10-12 14:43 | PM.EVENT ---
Event Note Date of Service: 10/12/21 Event Note: GI consult dictated Anemia without signs of chronic GI blood loss. Occult blood negative and no iron deficiency. EGD/Colonoscopy in 2019 negative for any significant findings of bleeding Some self limited hemorrhoidal bleeding last week, improved with Miralax. Repeating EGD/ colonoscopy at this time is unlikely to show any changes from 2019. Rec: Advance diet, continue ppi and miralax prn f/u with Dr Tiwari.
[2021-10-12] MEDS: Atorvastatin Calcium 10 MG TABLET 5 MG PO (19:56)
--- NOTE | 2021-10-12 20:52 | CONS_ITS ---
DATE OF SERVICE: 10/12/2021 REFERRING PHYSICIAN: Katerine Handley REASON FOR CONSULTATION: Anemia. HISTORY OF PRESENT ILLNESS: The patient is a pleasant 70-year-old woman, who was admitted to the hospital after presenting to the emergency room on the advice of her physician when blood count was found to be low. She has a history of anemia and is followed by Dr. Tiwari for this. She had blood work done through her sales facilitator's office that showed a low hematocrit and was advised to come to the emergency room. Evaluation there included laboratory studies, which showed a hematocrit of 21.6, which was down from 23.8 in August 2 weeks prior. She received transfusion of 1 unit of packed red blood cells overnight and her hematocrit this morning is 24.8. Digital rectal examination on admission showed brown stool that was occult blood negative. She did report some rectal bleeding last week from hemorrhoids when she was constipated, but this was self-limited and stopped on its own after she took some MiraLAX. She had some lightheadedness and shortness of breath, which has improved since her transfusion. She has no complaints of black stool or upper GI upset. She has been on omeprazole for about 4 years for history of gastroesophageal reflux disease. She previously underwent upper endoscopy and colonoscopy in March of 2019, which showed a moderate-sized hiatal hernia, no Hardin's on biopsies, where she had previous focal Hardin's on a prior endoscopy. There was mild antral gastritis with biopsies that were negative for H pylori. Her colonoscopy is basically negative except for some internal hemorrhoids. She has not been required to take iron and her last iron studies showed a ferritin of 269 with an iron saturation of 20%. PAST MEDICAL HISTORY: 1. Gastroesophageal reflux disease with focal Hardin's esophagus as above. 2.Colonoscopy 04/17, internal hemorrhoids, prior hx of tubular adenomas. 3. Hypertension. 4. Alcohol abuse, none since 1996. 5. Shingles involving the left eye,. 6. Sleep apnea without CPAP. 7. Urinary incontinence. 8. 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 9. Anemia. She did require 1 prior blood transfusion of 2 units of packed red blood cells in the past. 10. Rheumatoid arthritis. CURRENT MEDICATIONS: Her current medication list is reviewed in the chart. She does not take NSAIDs. ALLERGIES: THERE ARE NONE REPORTED. FAMILY HISTORY: This is negative for GI malignancy. SOCIAL HISTORY: She does not smoke or drink. 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 REVIEW OF SYSTEMS: SKIN: No pruritus. HEENT: Negative. CARDIOPULMONARY: No shortness of breath or chest pain currently. GASTROINTESTINAL: As above. GENITOURINARY: Negative. NEUROPSYCHIATRIC: Negative. PHYSICAL EXAMINATION: GENERAL: Shows a pleasant female, in no acute distress. VITAL SIGNS: Reviewed in the electronic medical record and are stable. SKIN: Anicteric. HEENT: Shows no scleral icterus. NECK: Without lymphadenopathy or thyromegaly. LUNGS: Clear. HEART: Shows a regular rate and rhythm. S1, S2. No murmur. ABDOMEN: Soft without focal masses or tenderness. Bowel sounds are present. No organomegaly is noted. EXTREMITIES: Without edema. LABORATORY DATA: Reviewed. IMPRESSION: Anemia. At this time, she appears quite stable with no evidence of active GI bleeding and stools that were negative for occult blood on admission. Her lack of iron deficiency suggests this is not a chronic GI blood loss process, although she did have some recent self-limited hemorrhoidal bleeding. We discussed endoscopy and colonoscopy, which she has had within the past couple of years and she would prefer to avoid repeating these if not necessary. I would recommend continuing proton pump inhibitor for her reflux symptoms, which she has had under good control on her present regimen. She can continue to use MiraLAX to prevent constipation and I would recommend advancing her diet and monitoring her clinically. If she does show signs of GI blood loss with Hemoccult-positive stools in the future, consideration could be given to small-bowel capsule endoscopy. Thanks for asking me to see her. I will follow her in the hospital with you. MD SARANYA Jennings/MAURY / [id number] [place]AR[place]
[2021-10-13] VITALS (10 sets, daily range): BP systolic 96–137; BP diastolic 53–77; PULSE 91–115; RESP 16–18; TEMP 36.2–36.7; O2SAT 97–100
[2021-10-13] MEDS: Omeprazole 20 MG CAPSULE.DR PO (05:39)
[2021-10-13 06:39] LABS: Hematocrit 23.3 % (37.0-47.0); Hemoglobin 7.1 g/dl (12.0-16.0); Mean Corpuscular HGB Conc 30.5 g/dl (31.0-35.0); Mean Corpuscular Hemoglobin 30.1 pg (27.0-33.0); Mean Corpuscular Volume 98.7 fL (80.0-98.0); NRBC Pct Auto 0.6 /100WBC (0.0-0.2); Platelet Count 151 X10*3/uL (160-400); Red Blood Count 2.36 X10*6/uL (4.20-5.50); Red Cell Distribution Width 20.3 % (11.0-16.0); White Blood Count 3.4 X10*3/uL (4.8-10.8)
[2021-10-13 07:04] LABS: Anion Gap 15 (12-20); Blood Urea Nitrogen 17 mg/dL (9-16); Calcium 8.3 mg/dL (8.4-10.2); Carbon Dioxide 19 mmol/L (22-29); Chloride 106 mmol/L (96-108); Estimated Glomerular Filt Rate 43; Glucose Random 94 mg/dL (60-115); Potassium 4.1 mmol/L (3.3-5.1); Sodium 136 mmol/L (135-145)
[2021-10-13] MEDS: Fenofibrate 160 MG TABLET PO (07:29)
[2021-10-13] MEDS: Cyanocobalamin (Vitamin B-12) 1,000 MCG TABLET 1000 MCG PO (07:29)
[2021-10-13] MEDS: Folic Acid 1 MG TABLET PO (07:29)
[2021-10-13] MEDS: 0.9 % Sodium Chloride Flush 3 ML SYRINGE IVFLUSH ×3 (07:29→19:54)
--- NOTE | 2021-10-13 10:40 | HO.PM.IMPN ---
Subjective Subjective Date of Service: 10/13/21 Interval History: the patient was seen and evaluated this morning Laying in bed, feels and reports lightheadedness upon standing up Hemoglobin low at 7.1 No bleeding reported Denies any fever, chills or shortness of breath No reported other overnight events. Systemic review: No fever, chills But reports weakness and lightheadedness No chest pain, palpitation No shortness of breath or coughing No abdominal pain, nausea or vomiting No urinary symptoms No any rash or wounds Physical Exam Vital Signs: Vital Signs: Last Vital Signs Temp 97.5 F 10/13/21 09:44 Pulse 110 H 10/13/21 10:24 Resp 18 10/13/21 09:44 BP 114/53 L 10/13/21 10:24 Pulse Ox 99 10/13/21 07:41 BMI result Body Mass Index 41.0 Const: Other: Constitutional : Alert, oriented, not in distress Neck : Normal inspection, Supple Cardiovascular : RRR, S1 S2, no lower extremity edema Respiratory : Good bilateral air entry, no crackles, wheezes or rhonchi Gastrointestinal: soft, lax, Normal bowel sounds, Non tender Skin : Warm, Dry Neurological : Alert & oriented x3, No focal deficit Objective Data Active Medications Acetaminophen (Acetaminophen 325 Mg Tablet) 650 mg PO Q6H PRN PRN Reason: Pain, Mild (Pain Scale 1-3) Hydrocodone Bitart/Acetaminophen (Hydrocodone Bit/Acetam 5/325 Tablet) 1 tab PO QID PRN PRN Reason: Pain (Scale Score 4-6) Atorvastatin Calcium (Atorvastatin Calcium 10 Mg Tablet) 5 mg PO BEDTIME [facility] Last Admin: 10/12/21 19:56 Dose: 5 mg Documented by: ELVIA Cyanocobalamin (Cyanocobalamin (Vitamin B-12) 1,000 Mcg Tablet) 1,000 mcg PO DAILY [facility] Last Admin: 10/13/21 07:29 Dose: 1,000 mcg Documented by: LAUREEN Docusate Sodium (Docusate Sodium 100 Mg Capsule) 100 mg PO DAILY PRN PRN Reason: Constipation Fenofibrate (Fenofibrate 160 Mg Tablet) 160 mg PO DAILY [facility] Last Admin: 10/13/21 07:29 Dose: 160 mg Documented by: LAUREEN Folic Acid (Folic Acid 1 Mg Tablet) 1 [facility] Last Admin: 10/13/21 07:29 Dose: 1 mg Documented by: LAUREEN Methotrexate (Methotrexate Sodium 2.5 Mg Tablet) 22.5 mg PO TU@899 [facility] Last Admin: 10/12/21 09:22 Dose: 22.5 mg Documented by: KALPANA Omeprazole (Omeprazole 20 Mg Capsule.Dr) 20 mg PO DAILY@0630 [facility] Last Admin: 10/13/21 05:39 Dose: 20 mg Documented by: ELVIA Ondansetron HCl (Ondansetron Hcl 4 Mg/2 Ml Vial) 4 mg IVPUSH Q8H PRN PRN Reason: Nausea and Vomiting Pharmacy Consult (Consult Rx Perform Med Rec) 1 each MISCELLANE ONCE PRN PRN Reason: Consult order Sodium Chloride (0.9 % Sodium Chloride Flush 3 Ml Syringe) 3 ml IVFLUSH QSHIFT [facility] Last Admin: 10/13/21 07:29 Dose: 3 ml Documented by: LAUREEN Labs CBC & Chem 7: 10/13/21 05:52 10/13/21 05:52 Labs: Laboratory Results - last 24 hr 10/11/21 10/13/21 10/13/21 22:57 05:52 05:52 MCV 98.7 H MCH 30.1 MCHC 30.5 L RDW 20.3 H Plt Count 151 L MPV 10.0 Absolute Nucleated RBC 0.020 H Nucleated RBC % (auto) 0.6 H Anion Gap 15 Estim Creat Clear Calc 43.0 Estimated GFR 43 Random Glucose 94 Calcium 8.3 L D Blood Type A Positive Antibody Screen NEGATIVE Crossmatch See Detail Assessment and Plan (1) Macrocytic anemia: Status: Acute (2) Acute on chronic anemia: Status: Acute Assessment and Plan: 70-year-old female who presents to the hospital with complaints of dizziness, shortness of breath on exertion found to have anemia Suspected anemia of chronic disease with hx of rheumatoid arthritis, macrocytic anemia GI bleed versus anemia of chronic disease given her history of rheumatoid arthritis, hemorrhoidal bleeding Received 2 units of packed red blood cells H&H at 7.1 today, no bleeding, likely delusional to give a 3rd unit of blood GI input appreciated, no need for intervention Restart Eliquis Check LFT Dizziness. Upon standing Secondary to symptomatic anemia To give a 3rd unit of packed RBCs Hypertension. Stable blood pressure Hold antihypertensives in light of anemia to avoid hypotension History rheumatoid arthritis Continue home medications History of PE/ DVT To restart Eliquis due to anemia Morbid obesity. BMO 41.0 Discussed the importance of weight management DVT prophylaxis:? SCDs Attending Dr. Cervantes Full code Quality Stroke Does the patient have a stroke diagnosis?: No VTE Prior VTE?: No VTE Risk Level:: Medical - moderate - high VTE Device Contraindication: Treatment Not Indicated VTE Drug Contraindication: N/A - Med Ordered
[2021-10-13 11:03] LABS: Alanine Aminotransferase 11 U/L (0-31); Albumin Level 3.3 g/dL (3.5-5.0); Alkaline Phosphatase 47 U/L (39-117); Aspartate Amino Transferase 17 U/L (5-31); Bilirubin Direct 0.3 mg/dL (0.0-0.5); Bilirubin Total 0.5 mg/dL (0.0-1.0)
--- NOTE | 2021-10-13 13:47 | P.PNGI_ITS ---
Subjective Subjective Date of Service: 10/13/21 Interval History: no bleeding tolerating diet received second unit of prbc's today Critical Care Time (minutes): 0 Physical Exam Vital Signs: Vital Signs: Last Vital Signs Temp 97.8 F 10/13/21 12:33 Pulse 95 10/13/21 12:33 Resp 18 10/13/21 12:33 BP 137/66 10/13/21 12:33 Pulse Ox 100 10/13/21 11:07 BMI result Body Mass Index 41.0 GI: Other: abdomen is soft and nontender Objective Data Labs CBC & Chem 7: 10/13/21 05:52 10/13/21 05:52 Procedures Date of Service Date of Service: 10/13/21 Progress Note: A&P Assessment and plan (1) Macrocytic anemia: Status: Acute Assessment and Plan: appears stable has outpatient f/u with Dr Melendez in October Fall Risk Details Current Medications: Current Medications Acetaminophen (Acetaminophen 325 Mg Tablet) 650 mg PO Q6H PRN PRN Reason: Pain, Mild (Pain Scale 1-3) Hydrocodone Bitart/Acetaminophen (Hydrocodone Bit/Acetam 5/325 Tablet) 1 tab PO QID PRN PRN Reason: Pain (Scale Score 4-6) Atorvastatin Calcium (Atorvastatin Calcium 10 Mg Tablet) [address] [facility] Last Admin: 10/12/21 19:56 Dose: 5 mg Documented by: Cyanocobalamin (Cyanocobalamin (Vitamin B-12) 1,000 Mcg Tablet) 1,[address] [facility] Last Admin: 10/13/21 07:29 Dose: 1,000 mcg Documented by: Docusate Sodium (Docusate Sodium 100 Mg Capsule) 100 mg PO DAILY PRN PRN Reason: Constipation Fenofibrate (Fenofibrate 160 Mg Tablet) [address] [facility] Last Admin: 10/13/21 07:29 Dose: 160 mg Documented by: Folic Acid (Folic Acid 1 Mg Tablet) 1 mg PO [facility]@0900 [facility] Last Admin: 10/13/21 07:29 Dose: 1 mg Documented by: Methotrexate (Methotrexate Sodium 2.5 Mg Tablet) 22.5 mg PO TU@0900 [facility] Last Admin: 10/12/21 09:22 Dose: 22.5 mg Documented by: Omeprazole (Omeprazole 20 Mg Capsule.) 20 mg PO DAILY@0630 [facility] Last Admin: 10/13/21 05:39 Dose: 20 mg Documented by: Ondansetron HCl (Ondansetron Hcl 4 Mg/2 Ml Vial) 4 mg IVPUSH Q8H PRN PRN Reason: Nausea and Vomiting Pharmacy Consult (Consult Rx Perform Med Rec) 1 each MISCELLANE ONCE PRN PRN Reason: Consult order Sodium Chloride (0.9 % Sodium Chloride Flush 3 Ml Syringe) [address] [facility] Last Admin: 10/13/21 07:29 Dose: 3 ml Documented by: Time Spent With Patient Time: Total time spent is greater than 50% in coordination of care (as documented) at patient's floor/unit and/or counseling patient: Time with patient: less than 15 minutes Quality Stroke Does the patient have a stroke diagnosis?: No VTE Prior VTE?: No VTE Risk Level:: Medical - moderate - high VTE Device Contraindication: Treatment Not Indicated VTE Drug Contraindication: N/A - Med Ordered
--- NOTE | 2021-10-13 15:46 | MHC.CM.PN ---
PER HOSPITALIST PT TRANSFUSED TODAY AND ANTIC SHE WILL BE READY FOR D/C HOME NO SERVICES TOMORROW 10/14/21.
[2021-10-13] MEDS: Atorvastatin Calcium 10 MG TABLET 5 MG PO (19:53)
[2021-10-13] MEDS: Docusate Sodium 100 MG CAPSULE PO (19:53)
[2021-10-14 03:43] VITALS: BP 120/74; PULSE 111; RESP 18; TEMP 36.3; O2SAT 97
[2021-10-14] MEDS: Omeprazole 20 MG CAPSULE.DR PO (05:46)
[2021-10-14 06:24] LABS: Hematocrit 24.2 % (37.0-47.0); Hemoglobin 7.7 g/dl (12.0-16.0); Mean Corpuscular HGB Conc 31.8 g/dl (31.0-35.0); Mean Corpuscular Hemoglobin 29.7 pg (27.0-33.0); Mean Corpuscular Volume 93.4 fL (80.0-98.0); Mean Platelet Volume 10.3 fL (9.4-12.3); Platelet Count 122 X10*3/uL (160-400); Red Blood Count 2.59 X10*6/uL (4.20-5.50); Red Cell Distribution Width 18.9 % (11.0-16.0)
[2021-10-14 07:47] VITALS: BP 145/74; PULSE 101; RESP 16; TEMP 36.4; O2SAT 98
[2021-10-14] MEDS: 0.9 % Sodium Chloride Flush 3 ML SYRINGE IVFLUSH (08:09)
[2021-10-14] MEDS: Fenofibrate 160 MG TABLET PO (08:09)
[2021-10-14] MEDS: Folic Acid 1 MG TABLET PO (08:09)
[2021-10-14] MEDS: Cyanocobalamin (Vitamin B-12) 1,000 MCG TABLET 1000 MCG PO (08:09)
--- NOTE | 2021-10-14 09:52 | PM.DS ---
DS: Providers Provider Date of Service: 10/14/21 Date of admission: 10/11/21 23:10 Primary care physician: Daphne Bryan MD Consults: 10/12/21 02:06 Consult to Gastroenterology Routine Consulting Provider: Memo Melendez Reason for consultation: gi bleed Has provider been notified: No DS: Diagnosis Discharge Diagnosis (1) Macrocytic anemia: Status: Acute (2) Acute on chronic anemia: Status: Acute (3) Symptomatic anemia: Status: Acute DS: Summary Hospital Course Hospital Course: Admission note HPI ?this is a 70-year-old female with past medical history of rheumatoid arthritis, pulmonary embolism on Eliquis, anxiety and depression, GERD, JUSTIN, hypertension, HLD presents to the hospital with complaints of dizziness, and shortness of breath on exertion.? Patient reports that she has generally been feeling weak and fatigued.? She has no headache, no change in vision, no chest pain, no cough, no fever or chills, no abdominal pain nausea or vomiting, no diarrhea constipation at this time, no urinary symptoms and no lower extremity edema.? Patient reports that last week she had bleeding per rectum from her hemorrhoids after straining because she was constipated for a week but has been use laxatives and has been moving her bowels? regularly with no constipation, no Yesica or bloody stools.? She denies any hematemesis or hemoptysis. ?patient reports that she had a colonoscopy about 2 years ago which was reported to be normal ?patient reports history of using NSAIDs about a year ago but has stopped since. ?on arrival to the ED patient found to have a temp of 97.2?, heart rate of 114, respiratory rate of 18, blood pressure 113/55, satting 98% on room? air Labs are significant for? WBC count of 2.3, hemoglobin of 6.9 (patient had labs done on 09/28 which showed WBC count of 4.1 and hemoglobin of 7.3 but there does not seem to be a follow-up with that, her baseline is around 9-10 ), hematocrit of 21.6, BUN of 26, creatinine of 1.33 ( around her baseline) , ferritin of 269, ?stool occult negative ?patient will be admitted further management Hospital course The patient was admitted to the hospital for symptomatic anemia. Received 2 units of blood transfusion in the emergency for low hemoglobin below 7. Occult blood was negative. Evaluated by Gastroenterology who recommended no intervention needed as the patient had recent workup done with negative findings. Her symptoms are believed to be secondary to chronic diseases including rheumatoid arthritis, CKD and being on anti rheumatoid medications like methotrexate and infliximab. Iron stores, folic acid and B12 were all within normal. No evidence of hemolysis was noted. The patient received 3rd unit of blood as she continue to complain of lightheadedness with good response as she was able to ambulate with no reported shortness of breath, lightheadedness or dizziness. Plan to continue her home medications and to follow-up with hematology and PCP as scheduled. to repeat CBC next week. Time Spent with Patient Time attestation: Total time spent providing and/or coordinating discharge services: Discharge coordination time: Greater than 30 minutes Quality: Stroke Does the patient have a stroke diagnosis?: No Physical Exam Vital Signs: Vital Signs: Last Vital Signs Temp 97.6 F 10/14/21 07:47 Pulse 101 H 10/14/21 07:47 Resp 16 10/14/21 07:47 BP 145/74 H 10/14/21 07:47 Pulse Ox 98 10/14/21 07:47 BMI result Body Mass Index 41.0 Const: Other: Constitutional : Alert, oriented, not in distress Neck : Normal inspection, Supple Cardiovascular : RRR, S1 S2, no lower extremity edema Respiratory : Good bilateral air entry, no crackles, wheezes or rhonchi Gastrointestinal: soft, lax, Normal bowel sounds, Non tender Skin : Warm, Dry Neurological : Alert & oriented x3, No focal deficit DS: Data Data Completed and Pending Labs on day of discharge: Laboratory Results - last 24 hr 10/11/21 10/13/21 10/14/21 22:57 05:52 06:11 WBC 4.0 L RBC 2.59 L Hgb 7.7 L Hct 24.2 L MCV 93.4 D MCH 29.7 MCHC 31.8 RDW 18.9 H Plt Count 122 L MPV 10.3 Absolute Nucleated RBC 0.000 Nucleated RBC % (auto) 0.0 Total Bilirubin 0.5 Direct Bilirubin 0.3 AST 17 ALT 11 Alkaline Phosphatase 47 Total Protein 6.0 L Albumin 3.3 L Crossmatch See Detail Discharge Plan Discharge Patient Disposition: Home, Self-Care Discharge Diagnosis: Acute on chronic anemia Symptomatic anemia Referrals: [facility] [Outside] - 1 Day Po,Daphne Rodriguez MD [Primary Care Provider] - 1 Week Discharge Medications: Continued cyanocobalamin (vitamin B-12) 1,000 mcg tablet 1,000 mcg PO DAILY Qty: 90 RF: 5 fenofibrate 160 mg tablet 160 mg PO DAILY Qty: 90 RF: 3 hydrochlorothiazide 25 mg tablet 25 mg PO QAM Qty: 90 RF: 3 quinapril 40 mg tablet 40 mg PO DAILY Qty: 90 RF: 3 hydrocodone-acetaminophen 5-325 mg tablet 1 tab PO QID PRN (Reason: Pain (Scale Score 4-6)) RF: 0 Eliquis 2.5 mg Tablet 2.5 mg PO BID Qty: 180 RF: 4 methotrexate sodium 2.5 mg tablet 22.5 mg PO TU@0900 RF: 0 infliximab [Remicade] 100 mg Recon Soln See Rx Instructions .ROUTE .COMPLEX RF: 0 folic acid 1 mg tablet 1 tab PO SUMOWETHFRSA@0900 RF: 0 simvastatin 5 mg tablet 5 mg PO BEDTIME RF: 0 omeprazole 20 mg capsule,delayed release(DR/EC) 20 mg PO DAILY@0630 RF: 0 Discharge Orders: Discharge Order (Routine); Ordered 10/14/21 Ordered By: Olinda Beltre Diet: advance to usual diet Activity on Discharge: As tolerated Stand Alone Forms: Patient Portal Discharge page Other Ambulatory Orders: Complete Blood Count no Diff (Routine) Timeframe: 1 Week Facility: [facility] - Location: [address] [place] [address]-Lab Ordered By: Olinda Beltre Care Plan Goals: Read below Health Concerns: Read below Plan of Treatment: Read below Assessment: You were admitted to the hospital for evaluation of difficulty breathing and weakness. Found to have a drop in your hemoglobin level. Received blood transfusion and evaluated by tongue binder who did not repeat endoscopies for you as they were done recently. The change in your blood level is likely related to chronic rheumatoid arthritis and its medications. Your iron, B12 and folic acid levels were all within normal. To repeat CBC in 1 week To follow-up with your primary care for further evaluation and possible hematology referral if needed. Discharge Date/Time: 10/14/21 10:24
== END 2021-10-14 10:24 | disposition home or self-care (01) | DRG 812 ==
LOC: HO.ED 20:08 → HO.EDOVER 23:16 → HO.S3 10-12 03:31
PROVIDERS: Nurse Practitioner Acute Care; Admitting Provider Internal Medicine; Emergency Provider Emergency Medicine Emergency Medical Services; PCP Internal Medicine; Visit Provider Student in an Organized Health Care Education/Training Program
DX: D64.81 Anemia due to antineoplastic chemotherapy (principal); Z68.41 Body mass index [BMI] 40.0-44.9, adult; T45.1X5A Adverse effect of antineoplastic and immunosuppressive drugs, initial encounter; T39.4X5A Adverse effect of antirheumatics, not elsewhere classified, initial encounter; Y92.9 Unspecified place or not applicable; D63.8 Anemia in other chronic diseases classified elsewhere; F10.11 Alcohol abuse, in remission; M06.9 Rheumatoid arthritis, unspecified; I10 Essential (primary) hypertension; K64.8 Other hemorrhoids; E66.01 Morbid (severe) obesity due to excess calories; Z86.711 Personal history of pulmonary embolism; Z20.822 Contact with and (suspected) exposure to COVID-19; Z87.891 Personal history of nicotine dependence; Z79.01 Long term (current) use of anticoagulants; Z79.899 Other long term (current) drug therapy
CPT/HCPCS: 36415; 51798; 71045; 80048; 80076; 82272; 82607; 82728; 82746; 85025; 85027; 86850; 86900; 86901; 86923; 87635; 93005; 97162; 99285; P9016

== ENCOUNTER 2021-10-26 12:18 | Outpatient (REF) | payer MEDICARE, SELFPAY ==
[2021-10-26 13:49] LABS: MANUAL DIFF FLAG NO
[2021-10-26 14:02] LABS: Basophils Percent Auto 0.9 % (0-2); Eosinophils Absolute Auto 0.1 X10*3/uL (0.0-0.4); Eosinophils Percent Auto 3.2 % (0-4); Hematocrit 27.7 % (37.0-47.0); Hemoglobin 8.7 g/dl (12.0-16.0); Imm Gran Abs Auto 0.03 X10*3/uL (0.00-0.03); Imm Gran Pct Auto 0.7 % (0.0-0.4); Lymphocytes Absolute Auto 1.5 X10*3/uL (1.2-4.9); Lymphocytes Percent Auto 33.6 % (20-40); Mean Corpuscular HGB Conc 31.4 g/dl (31.0-35.0); Mean Corpuscular Volume 98.6 fL (80.0-98.0); Mean Platelet Volume 9.7 fL (9.4-12.3); Monocytes Absolute Auto 0.7 X10*3/uL (0.1-1.2); Monocytes Percent Auto 15.9 % (2-11); Neutrophils Percent Auto 45.7 % (45-73); Red Blood Count 2.81 X10*6/uL (4.20-5.50); Red Cell Distribution Width 20.1 % (11.0-16.0); White Blood Count 4.3 X10*3/uL (4.8-10.8)
[2021-10-26 14:07] LABS: Platelet Count 664 X10*3/uL (160-400)
[2021-10-26 14:09] LABS: D Dimer High Sensitivity 418 NG/ML
[2021-10-26 14:14] LABS: Alanine Aminotransferase 9 U/L (0-31); Albumin Level 3.5 g/dL (3.5-5.0); Alkaline Phosphatase 53 U/L (39-117); Anion Gap 11 (12-20); Aspartate Amino Transferase 21 U/L (5-31); Bilirubin Total 0.3 mg/dL (0.0-1.0); Blood Urea Nitrogen 24 mg/dL (9-16); Calcium 8.9 mg/dL (8.4-10.2); Carbon Dioxide 23 mmol/L (22-29); Chloride 110 mmol/L (96-108); Estimated Glomerular Filt Rate 41; Glucose Random 89 mg/dL (60-115); Potassium 4.1 mmol/L (3.3-5.1); Sodium 140 mmol/L (135-145); Total Protein 6.4 g/dL (6.5-8.0)
[2021-10-26 14:38] LABS: Ferritin 197 ng/mL (10-250)
== END 2021-10-26 12:19 | disposition home or self-care (01) ==
LOC: HO.HMGCLDS 12:18
PROVIDERS: Internal Medicine Medical Oncology; PCP Internal Medicine; Visit Provider Nurse Practitioner Acute Care
DX: I26.99 Other pulmonary embolism without acute cor pulmonale (principal); D64.9 Anemia, unspecified
CPT/HCPCS: 36415; 80053; 82728; 85025; 85027; 85379

== ENCOUNTER 2021-12-17 10:09 | Outpatient (REF) | payer MEDICARE, SELFPAY ==
[2021-12-17 11:39] LABS: MANUAL DIFF FLAG NO
[2021-12-17 11:50] LABS: Basophils Absolute Auto 0.1 X10*3/uL (0.0-0.2); Basophils Percent Auto 1.2 % (0-2); Eosinophils Absolute Auto 0.1 X10*3/uL (0.0-0.4); Eosinophils Percent Auto 2.6 % (0-4); Hematocrit 26.8 % (37.0-47.0); Hemoglobin 8.1 g/dl (12.0-16.0); Imm Gran Abs Auto 0.04 X10*3/uL (0.00-0.03); Imm Gran Pct Auto 0.8 % (0.0-0.4); Lymphocytes Absolute Auto 1.8 X10*3/uL (1.2-4.9); Lymphocytes Percent Auto 35.1 % (20-40); Mean Corpuscular HGB Conc 30.2 g/dl (31.0-35.0); Mean Corpuscular Hemoglobin 31.6 pg (27.0-33.0); Mean Corpuscular Volume 104.7 fL (80.0-98.0); Mean Platelet Volume 9.5 fL (9.4-12.3); Monocytes Absolute Auto 0.7 X10*3/uL (0.1-1.2); Monocytes Percent Auto 13.4 % (2-11); Neutrophils Absolute Auto 2.3 x10*3/uL (2.0-8.3); Neutrophils Percent Auto 46.9 % (45-73); Platelet Count 727 X10*3/uL (160-400); Red Blood Count 2.56 X10*6/uL (4.20-5.50); Red Cell Distribution Width 21.4 % (11.0-16.0)
[2021-12-17 11:58] LABS: D Dimer High Sensitivity 185 NG/ML
[2021-12-17 11:59] LABS: Alanine Aminotransferase 6 U/L (0-31); Albumin Level 3.5 g/dL (3.5-5.0); Alkaline Phosphatase 52 U/L (39-117); Anion Gap 13 (12-20); Aspartate Amino Transferase 18 U/L (5-31); Bilirubin Total 0.3 mg/dL (0.0-1.0); Blood Urea Nitrogen 21 mg/dL (9-16); Carbon Dioxide 22 mmol/L (22-29); Chloride 110 mmol/L (96-108); Cholesterol 161 mg/dL; Estimated Glomerular Filt Rate 35; Glucose Fasting 102 mg/dL (60-99); HDL Cholesterol 34 mg/dL; LDL Cholesterol Calculated 80 mg/dl; Potassium 4.8 mmol/L (3.3-5.1); Sodium 140 mmol/L (135-145); Total Protein 6.6 g/dL (6.5-8.0); Triglycerides 238 mg/dL
== END 2021-12-17 10:10 | disposition home or self-care (01) ==
LOC: HO.HMGCLDS 10:09
PROVIDERS: Absent Provider Internal Medicine Medical Oncology; PCP Internal Medicine; Referring Provider Internal Medicine Medical Oncology; Visit Provider Nurse Practitioner Acute Care
DX: I26.99 Other pulmonary embolism without acute cor pulmonale (principal); D64.9 Anemia, unspecified
CPT/HCPCS: 36415; 80053; 80061; 85025; 85379

== ENCOUNTER 2022-06-13 10:08 | Outpatient (REF) | payer MEDICARE, SELFPAY ==
[2022-06-13 11:56] LABS: Estimated Average Glucose 111 mg/dL; Hemoglobin A1c % 5.5 %
[2022-06-13 12:02] LABS: Basophils Percent Auto 0.8 % (0-2); Eosinophils Absolute Auto 0.1 X10*3/uL (0.0-0.4); Eosinophils Percent Auto 3.2 % (0-4); Hematocrit 24.7 % (37.0-47.0); Hemoglobin 7.9 g/dl (12.0-16.0); Imm Gran Abs Auto 0.01 X10*3/uL (0.00-0.03); Imm Gran Pct Auto 0.4 % (0.0-0.4); Immature Retic Fraction 10.1 % (3.0-15.9); Lymphocytes Absolute Auto 1.7 X10*3/uL (1.2-4.9); Lymphocytes Percent Auto 68.1 % (20-40); MANUAL DIFF FLAG SCAN; Mean Corpuscular Volume 90.8 fL (80.0-98.0); Mean Platelet Volume 10.1 fL (9.4-12.3); Monocytes Absolute Auto 0.1 X10*3/uL (0.1-1.2); Monocytes Percent Auto 3.6 % (2-11); NRBC Pct Auto 0.8 /100WBC (0.0-0.2); Neutrophils Absolute Auto 0.6 x10*3/uL (2.0-8.3); Neutrophils Percent Auto 23.9 % (45-73); Red Blood Count 2.72 X10*6/uL (4.20-5.50); Red Cell Distribution Width 22.5 % (11.0-16.0); Retic HGB Equivalent 40.6 pg (30.0-35.0); Reticulocyte Percent 0.5 % (0.5-1.8); Reticulocytes Absolute 0.012 X10*6/uL (0.026-0.095); SCAN SMEAR FLAG 1
[2022-06-13 12:04] LABS: White Blood Count 2.5 X10*3/uL (4.8-10.8)
[2022-06-13 12:08] LABS: Alanine Aminotransferase 14 U/L (0-31); Albumin Level 3.7 g/dL (3.5-5.0); Alkaline Phosphatase 61 U/L (39-117); Anion Gap 18 (12-20); Aspartate Amino Transferase 19 U/L (5-31); Bilirubin Total 0.7 mg/dL (0.0-1.0); Blood Urea Nitrogen 34 mg/dL (9-16); C Reactive Protein 0.37 mg/dL (< or = 0.50); Calcium 8.8 mg/dL (8.4-10.2); Carbon Dioxide 18 mmol/L (22-29); Chloride 106 mmol/L (96-108); Cholesterol 143 mg/dL; Estimated Glomerular Filt Rate 33; Glucose Random 106 mg/dL (60-115); HDL Cholesterol 35 mg/dL; Iron 226 mcg/dL (30-160); LDL Cholesterol Calculated 62 mg/dl; Percent Iron Saturation 60 % (15-50); Potassium 4.5 mmol/L (3.3-5.1); Sodium 137 mmol/L (135-145); Total Iron Binding Capacity 375 mcg/dL (228-428); Total Protein 6.7 g/dL (6.5-8.0); Triglycerides 231 mg/dL; Unsaturated Iron Binding 149 ug/dL
[2022-06-13 12:19] LABS: Ferritin 238 ng/mL (10-250); Free T4 (Free Thyroxine) 0.98 ng/dL (0.71-1.85); Thyroid Stimulating Hormone 1.17 uIU/mL (0.32-4.0)
[2022-06-13 12:24] LABS: Platelet Count 221 X10*3/uL (160-400)
[2022-06-13 12:25] LABS: SLIDE REVIEW VERIFIED
[2022-06-13 12:33] LABS: Folate > 20.0 ng/mL (> or = 4.0); Vitamin B12 258 pg/mL (200-900)
[2022-06-13 13:25] LABS: Erythrocyte Sedimentation Rate 54 MM/HR (0-20)
== END 2022-06-13 10:09 | disposition home or self-care (01) ==
LOC: HO.HMGCLDS 10:08
PROVIDERS: PCP Internal Medicine; Visit Provider Internal Medicine
DX: R73.01 Impaired fasting glucose (principal); E78.00 Pure hypercholesterolemia, unspecified
CPT/HCPCS: 36415; 80053; 80061; 82306; 82607; 82728; 82746; 83036; 83540; 84439; 84443; 85025; 85045; 85652; 86140

== ENCOUNTER 2022-06-15 12:50 | Outpatient (REF) | payer MEDICARE, SELFPAY ==
[2022-06-15 13:55] LABS: Appearance Urine Clear; Color Urine Yellow; Glucose Urine UA Negative (Negative); Leukocyte Esterase Urine Negative (Negative); Nitrite Urine Negative (Negative); PH 5.5 (5.0-8.0); Urine Blood Negative (Negative); Urine Ketones Negative (Negative); Urine Protein Negative (Neg-Trace)
[2022-06-15 13:58] LABS: Bacteria Urine None Seen (None Seen); Hyaline Casts Urine 0-2 /LPF (0-2); RBC Urine 0-2 /HPF (0-2); Squamous Epithelial Cell Urine 0-2 /HPF (0-2); WBC Urine 0-5 /HPF (0-5)
== END 2022-06-15 12:51 | disposition home or self-care (01) ==
LOC: HO.HMGCLNP 12:50
PROVIDERS: PCP Internal Medicine; Visit Provider Internal Medicine
DX: R73.01 Impaired fasting glucose (principal)
CPT/HCPCS: 81001

== ENCOUNTER 2022-06-17 07:19 | Outpatient (REF) | payer MEDICARE, SELFPAY ==
[2022-06-17 14:58] LABS: Basophils Percent Auto 0.3 % (0-2); Eosinophils Absolute Auto 0.1 X10*3/uL (0.0-0.4); Eosinophils Percent Auto 2.4 % (0-4); Hematocrit 32.3 % (37.0-47.0); Hemoglobin 10.6 g/dl (12.0-16.0); Imm Gran Abs Auto 0.01 X10*3/uL (0.00-0.03); Imm Gran Pct Auto 0.3 % (0.0-0.4); Lymphocytes Absolute Auto 1.8 X10*3/uL (1.2-4.9); Lymphocytes Percent Auto 54.6 % (20-40); MANUAL DIFF FLAG SCAN; Mean Corpuscular HGB Conc 32.8 g/dl (31.0-35.0); Mean Corpuscular Hemoglobin 30.2 pg (27.0-33.0); Monocytes Absolute Auto 0.1 X10*3/uL (0.1-1.2); Monocytes Percent Auto 2.1 % (2-11); Neutrophils Absolute Auto 1.3 x10*3/uL (2.0-8.3); Neutrophils Percent Auto 40.3 % (45-73); Platelet Count 145 X10*3/uL (160-400); Red Blood Count 3.51 X10*6/uL (4.20-5.50); Red Cell Distribution Width 20.6 % (11.0-16.0); SCAN SMEAR FLAG 1; White Blood Count 3.3 X10*3/uL (4.8-10.8)
[2022-06-17 15:20] LABS: SLIDE REVIEW VERIFIED
== END 2022-06-17 07:20 | disposition home or self-care (01) ==
LOC: HO.MDS 07:19
PROVIDERS: Visit Provider Internal Medicine
DX: D64.9 Anemia, unspecified (principal); Z67.11 Type A blood, Rh negative
CPT/HCPCS: 36415; 36430; 85025; 86850; 86900; 86901; 86923; P9016

== ENCOUNTER 2022-09-08 13:22 | Outpatient (REF) | payer MEDICARE, SELFPAY ==
--- NOTE | ~2022-09-08 | MM_ITS ---
EXAMINATION: BONE DENSITOMETRY CLINICAL INDICATION: Osteoporosis. COMPARISON: Baseline BD dated 01/18/2007. TECHNIQUE: Using a [employer] DXA System (software version: 13.1) manufactured by [employer], dual-energy x-ray absorptiometry was performed of the lumbar spine and left hip. The images are of good technical quality. Summary results are attached. FINDINGS: AP SPINE L2-L4 (excluding L1): The data of L1-L4 has been changed to exclude the L1 vertebral body, because degenerative changes at this level may cause overestimation of lumbar spine density. Current: BMD 1.016 g/cm2, Z-score -0.8, T-score -1.5, osteopenia, 4.2% decrease from baseline (<5% change is not significant). Baseline: BMD 1.060 g/cm2. LEFT FEMUR, NECK: Current: BMD 0.863 g/cm2, Z-score 0.0, T-score -1.3, osteopenia. Baseline: BMD 1.094 g/cm2. LEFT FEMUR, TOTAL: Current: BMD 0.862 g/cm2, Z-score -0.2, T-score -1.2, osteopenia, 20.1% decrease from baseline (<5% change is not significant). Baseline: BMD 1.079 g/cm2. IDENTIFIED RISK FACTORS: Menopause, glucocorticoids (chronic), history of fracture (adult), low calcium intake, osteoporosis, rheumatoid arthritis. HISTORY OF FRACTURE: Shoulder. MEDICATIONS: None listed. MM/XR DEXA axial skeleton IMPRESSION: 1. DIAGNOSIS: Osteopenia based on the lowest T-score value of -1.5 in the lumbar spine applying World Health Organization criteria. 2. 10-YEAR FRACTURE RISK PREDICTION, FRAX: Major osteoporotic fracture (clinical spine, forearm, hip or shoulder) 26.8%. Hip fracture 4.9%. 3. Treatment Recommendations: NOF guidelines recommend consideration for treatment in postmenopausal women and men age 50 and older presenting with the following: -A hip or vertebral (clinical or morphometric) fracture. -T-score less than or equal to -2.5 at the femoral neck or spine after appropriate evaluation to exclude secondary causes. -Low bone mass at the hip or spine and a 10-year fracture probability by FRAX of greater than or equal to 3% for hip fracture or greater than or equal to 20% for major osteoporotic fracture based on the [place] adapted WHO algorithm. 4. Other Recommendations: All treatment decisions require clinical judgment and consideration of individual patient factors, including patient preferences, comorbidities, previous drug use, risk factors not captured in the FRAX model (e.g. frailty, falls, vitamin D deficiency, increased bone turnover, interval significant decline in bone density) and possible under or overestimation of fracture risk by FRAX. Additional medical evaluation for secondary cause of low bone mineral density may be appropriate. FUTURE SCAN RECOMMENDATION: People with diagnosed cases of osteoporosis or at high risk for fracture should have regular bone mineral density tests. For patients eligible for Medicare, routine testing is allowed once every 2 years. The testing frequency can be increased to one year for patients who have rapidly progressing disease, those who are receiving or discontinuing medical therapy to restore bone mass, or have additional risk factors.
--- NOTE | ~2022-09-08 | MM_ITS ---
EXAMINATION: MM SCREENING DIGITAL BREAST TOMOSYNTHESIS, BILATERAL CLINICAL INFORMATION: Screening. Asymptomatic. COMPARISON: Mammography: March 19, 2021 and studies dating back to March 02, 2015 TECHNIQUE: Digital breast tomosynthesis is performed in both the craniocaudal and mediolateral oblique views along with computer-aided detection (CAD). Synthesized 2D images are generated from the tomosynthesis. FINDINGS: There are scattered areas of fibroglandular density (ACR BI-RADS breast composition Category b). There are no significant masses, abnormal calcifications, or other abnormalities. MM/MM tomosynthesis screening BI IMPRESSION: No significant changes from prior exam. ASSESSMENT: BI-RADS 1: Negative RECOMMENDATION: Routine annual mammography screening. This patient's information was entered into a reminder system with a target due date for their next mammogram.
== END 2022-09-08 13:23 | disposition home or self-care (01) ==
LOC: HO.MAMMO 13:22
PROVIDERS: PCP Internal Medicine; Visit Provider Internal Medicine
DX: Z12.31 Encounter for screening mammogram for malignant neoplasm of breast (principal); Z13.820 Encounter for screening for osteoporosis; M81.0 Age-related osteoporosis without current pathological fracture; Z78.0 Asymptomatic menopausal state
CPT/HCPCS: 77063; 77067; 77080

== ENCOUNTER 2023-05-29 10:44 | Outpatient (REF) | payer MEDICARE, SELFPAY ==
[2023-05-29 13:42] LABS: MANUAL DIFF FLAG NO
[2023-05-29 13:51] LABS: Basophils Percent Auto 0.8 % (0-2); Eosinophils Absolute Auto 0.1 X10*3/uL (0.0-0.4); Eosinophils Percent Auto 2.5 % (0-4); Hematocrit 31.5 % (37.0-47.0); Hemoglobin 9.8 g/dl (12.0-16.0); Imm Gran Abs Auto 0.02 X10*3/uL (0.00-0.03); Imm Gran Pct Auto 0.4 % (0.0-0.4); Lymphocytes Percent Auto 38.8 % (20-40); Mean Corpuscular HGB Conc 31.1 g/dl (31.0-35.0); Mean Corpuscular Hemoglobin 29.9 pg (27.0-33.0); Mean Platelet Volume 9.6 fL (9.4-12.3); Monocytes Absolute Auto 0.3 X10*3/uL (0.1-1.2); Monocytes Percent Auto 6.4 % (2-11); Neutrophils Absolute Auto 2.6 x10*3/uL (2.0-8.3); Neutrophils Percent Auto 51.1 % (45-73); Platelet Count 322 X10*3/uL (160-400); Red Blood Count 3.28 X10*6/uL (4.20-5.50); Red Cell Distribution Width 16.7 % (11.0-16.0); White Blood Count 5.2 X10*3/uL (4.8-10.8)
[2023-05-29 14:28] LABS: Erythrocyte Sedimentation Rate 34 MM/HR (0-20)
[2023-05-29 14:41] LABS: Folate 14.5 ng/mL (> or = 4.0); Vitamin B12 294 pg/mL (200-900)
[2023-05-29 15:00] LABS: Alanine Aminotransferase 10 U/L (0-31); Albumin Level 3.6 g/dL (3.5-5.0); Alkaline Phosphatase 42 U/L (39-117); Anion Gap 13 (12-20); Aspartate Amino Transferase 17 U/L (5-31); Bilirubin Total 0.4 mg/dL (0.0-1.0); Blood Urea Nitrogen 19 mg/dL (9-16); C Reactive Protein 0.29 mg/dL (< or = 0.50); Calcium 9.4 mg/dL (8.4-10.2); Carbon Dioxide 20 mmol/L (22-29); Chloride 108 mmol/L (96-108); Cholesterol 140 mg/dL; Estimated Glomerular Filt Rate 46; Free T4 (Free Thyroxine) 0.92 ng/dL (0.71-1.85); Glucose Random 92 mg/dL (60-115); HDL Cholesterol 38 mg/dL; LDL Cholesterol Calculated 69 mg/dl; Potassium 4.2 mmol/L (3.3-5.1); Sodium 137 mmol/L (135-145); Thyroid Stimulating Hormone 0.88 uIU/mL (0.32-4.0); Total Protein 6.9 g/dL (6.5-8.0); Triglycerides 169 mg/dL; Vitamin D 25-OH Total 26.5 ng/mL (>30)
== END 2023-05-29 10:45 | disposition home or self-care (01) ==
LOC: HO.HMGCLDS 10:44
PROVIDERS: PCP Internal Medicine; Visit Provider Internal Medicine
DX: E78.00 Pure hypercholesterolemia, unspecified (principal); M06.9 Rheumatoid arthritis, unspecified; E55.9 Vitamin D deficiency, unspecified; M81.0 Age-related osteoporosis without current pathological fracture
CPT/HCPCS: 36415; 80053; 80061; 82306; 82607; 82746; 84439; 84443; 85025; 85652; 86140

== ENCOUNTER 2023-05-30 14:13 | Outpatient (AMB) | payer MEDICARE, SELFPAY ==
[2023-05-30 14:26] VITALS: BP 104/62; PULSE 102; O2SAT 97; BMI 38.9
--- NOTE | 2023-05-30 14:26 | MHC.PC.OV ---
Vital Signs 05/30/23 14:26 Height 4 ft 10 in Weight 84.368 kg BMI 38.9 BP 104/62 Blood Pressure Location Lt brachial Position Sitting Pulse 102 H Pulse Source Pulse Oximeter Pulse Oximetry (%) 97 Oxygen Delivery Method Room Air Intake Visit Reasons: RA Allergies No Known Allergies [No Known Allergies*] Allergy (Verified 02/20/23 13:12) Medication List - Last Reconciled 05/30/23 by Daphne Bryan MD apixaban (Eliquis) 2.5 mg PO BID benzonatate 200 mg PO BID-TID PRN bupropion HCl (Wellbutrin SR) 100 mg PO BID 30 days cholecalciferol (vitamin D3) 50 mcg PO DAILY 90 days cyanocobalamin (vitamin B-12) 1,000 mcg PO DAILY fenofibrate 160 mg PO DAILY folic acid 1 tab PO SUMOWETHFRSA@0900 infliximab (Remicade) every 2 months lisinopril 20 mg PO DAILY meclizine 25 mg PO BID PRN omeprazole 20 mg PO DAILY@0630 oxycodone-acetaminophen 5-325 mg (Percocet) 1 tab PO TID PRN 30 days semaglutide 1 mg (0.75 mL) subcut QWEEK 1 month simvastatin 5 mg PO BEDTIME Tobacco use date assessed: 02/20/23 Dental Screening Dental Screen Date: 05/30/23 Did you have a dental visit in the last 12 months?: Yes Did you have a dental problem in the last 6 months where you did not have access to dental care?: No Was dental information given to patient?: Patient has dentist HPI RA HPI Details 72-year-old obese female with rheumatoid arthritis hypercholesterolemia hypertension Hardin's esophagus history of pulmonary embolism and impaired glucose tolerance last seen in January 2023 blood work was requested and is here for follow-up. Colonoscopy up-to-date mammogram up-to-date bone density up-to-date. RA - seeing Dr. Landa [facility] Medical History (Updated 05/30/23 @ 15:09 by Daphne Bryan MD) Anemia Barretts esophagus Benign essential hypertension Breast cancer screening by mammogram GERD (gastroesophageal reflux disease) History of alcohol abuse Hospital discharge follow-up Hx of deep venous thrombosis Hypercholesterolemia Medicare annual wellness visit, initial Obesity Obstructive sleep apnea Pre-op exam Presence of IVC filter Pulmonary embolism Restless leg syndrome Rheumatoid arthritis Symptomatic anemia Tubular adenoma of colon Venous stasis dermatitis Vitamin D deficiency Surgical History (Updated 06/15/22 @ 13:27 by IVAN Bowling) History of cataract surgery History of eyelid surgery History of tonsillectomy Hx of arthroscopic knee surgery Hx of heart artery stent Family History (Updated 05/30/23 @ 14:[address] CMA) Father History of stomach cancer Mother Social History Household Members: Spouse Housing: House Do you presently have visiting nurse or other home services: No Alcohol intake: former Patient Tobacco Use Status: Former Tobacco user Quit Date: 1979 Cigarette Packs Per Day: 2 Years Smoked: quit 1979 e-Cigarette/Vaping Use: Never Used Second Hand Smoke Exposure: No service: No Current occupational status: retired Cognitive needs: No Hearing needs: No Vision needs: Yes Questionnaire PHQ-9 Over the last 2 weeks, how often have you been bothered by any of the following problems? 1. Little interest or pleasure in doing things: more than half the days 2. Feeling down, depressed, or hopeless: more than half the days 3. Trouble falling or staying asleep, or sleeping too much: nearly every day 4. Feeling tired or having little energy: nearly every day 5. Poor appetite or overeating: several days 6. Feeling bad about yourself - or that you are a failure or have let yourself or your family down: not at all 7. Trouble concentrating on things, such as reading the newspaper or watching television: not at all 8. Moving or speaking so slowly that other people could have noticed. Or the opposite - being so fidgety or restless that you have been moving around a lot more than usual: not at all 9. Thoughts that you would be better off or of hurting yourself in some way: not at all Total score: 11 Depression Screening Interpretation: Positive Source: Developed by Drs. Memo Yu, Ely Dunbar, Obed Frazier and colleagues, with an educational james from [employer]. Thrive Questionnaire Date Thrive assessed: 11/17/22 ABBY-7 AMB Questionnaire ABBY-7 Date ABBY - 7 assessed: 11/17/22 Source: Developed by Drs. Memo Yu, Ely Dunbar, Obed Frazier and colleagues, with an educational james from [employer]. Physical exam (Primary Care) Vital Signs: Last Vital Signs Pulse 102 H 05/30/23 14:26 BP 104/62 05/30/23 14:26 Pulse Ox 97 05/30/23 14:26 Oxygen Delivery Method Room Air 05/30/23 14:26 BMI result Body Mass Index 38.9 Tobacco/Smoking Status: Tobacco use Status Tobacco use date assessed 02/20/23 05/30/23 14:29 Patient Tobacco Use Status Former Tobacco user 05/30/23 14:29 e-Cigarette/Vaping Use Never Used 05/30/23 14:29 PHQ-9: PHQ-9 Score PHQ-9: Total score 11 05/30/23 15:03 Depression Screening Interpretation: Positive Thrive Assessment: Date of Thrive Assessment Date Thrive assessed 11/17/22 05/30/23 14:29 Const General: alert; No acute distress Eyes Conjunctivae: conjunctivae normal Resp Auscultation: clear to auscultation bilaterally Cardio Rate: regular rate Rhythm: regular rhythm GI Inspection: Yes normal to inspection Extrem General: Yes normal to inspection and No edema Immunizations tetanus-diphtheria toxoids-Td Performing Provider: Daphne Bryan MD Administered by: Saloni Way CMA on 05/30/23 15:17 Dose Route Admin Location Lot Number Expiration Date NDC Passenger [employer] 0.5 mL IM Left Deltoid [id number] 03/04/24 [address]-9 [employer] VIS Given Date VIS Provided VIS Publication Date 05/30/23 Single Vaccine 21 Eligibility Eligibility Date Funding Source Not [facility] Eligible 05/30/23 State funds Assessment and Plan Assessment & Plan (1) Hypercholesterolemia: Code(s): E78.00 - Pure hypercholesterolemia, unspecified Plan: Avoid fried foods, chicken skin, eggs, butter margarine, pastries and meat. Be it pork or beef they have a lot of cholesterol LDL goal of less than 130 and triglyceride of less than 150 patient is on simvastatin 5 mg once a day (2) GERD (gastroesophageal reflux disease): Code(s): K21.9 - Gastro-esophageal reflux disease without esophagitis Plan: Avoid the foods that causes that usually spicy foods, tomato products, juices, coffee, soda and foods that your sensitive to. After eating do not lie down, allow 3-4 hours before in lie down. And keep the head of bed above 30 degrees to avoid the acid from going up. (3) Benign essential hypertension: Comment: September 2019 ejection fraction 65-70% Code(s): I10 - Essential (primary) hypertension Plan: Continue with blood pressure medication. Decrease salt intake and exercise patient is on lisinopril 20 mg once a day (4) Barretts esophagus: Code(s): K22.70 - Hardin's esophagus without dysplasia Qualifiers: Hardin's esophagus type: without dysplasia Qualified Code(s): K22.70 - Hardin's esophagus without dysplasia Plan: Avoid the foods that causes that usually spicy foods, tomato products, juices, coffee, soda and foods that your sensitive to. After eating do not lie down, allow 3-4 hours before in lie down. And keep the head of bed above 30 degrees to avoid the acid from going up. (5) Obstructive sleep apnea: Comment: cannot tolerate CPAP Code(s): G47.33 - Obstructive sleep apnea (adult) (pediatric) Plan: Discussed importance of CPAP (6) Obesity: Code(s): E66.9 - Obesity, unspecified Qualifiers: Body mass index: BMI 40.0-44.9 Obesity classification: adult class 3 (BMI >= 40) Obesity type: due to excess calories Serious obesity comorbidity presence: with serious comorbidity Qualified Code(s): E66.01 - Morbid (severe) obesity due to excess calories; Z68.41 - Body mass index [BMI]40.0-44.9, adult Plan: Diet and exercise (7) DDD (degenerative disc disease), lumbar: Code(s): M51.36 - Other intervertebral disc degeneration, lumbar region Plan: Narcotic pain meds: Is being prescribed with the understanding that these medications are potentially addictive and should be used only when absolutely necessary and must always be secured. Any remaining pills should be safely disposed off appropriately. Patient is advised that narcotics can impaired judgment and one should not drive or operate heavy machinery while taking these medications. Never share these medications with anybody and do not leave them unattended. They will not be replaced under any circumstances. (8) Pulmonary embolism: Comment: September 2019 with right leg DVT IVC filter placed balloon embolectomy Dr. Oneil October 2019 Code(s): I26.99 - Other pulmonary embolism without acute cor pulmonale Qualifiers: Acute cor pulmonale presence: without acute cor pulmonale Chronicity: chronic Pulmonary embolism type: unspecified Qualified Code(s): I27.82 - Chronic pulmonary embolism Plan: Continue with anticoagulation (9) Anemia: Code(s): D64.9 - Anemia, unspecified Plan: Continue to monitor (10) Impaired fasting glucose: Code(s): R73.01 - Impaired fasting glucose Plan: Decrease the amount of carbohydrate intake, pasta, bread, rice and potatoes are all sugar and that is aside from all the sweet stuff, remember that fruits are good but they are Sweet also. (11) Depression: Code(s): F32.A - Depression, unspecified Orders: Orders Td State Immunization Today Z23 - Encounter for immunization Medications: New bupropion HCl (Wellbutrin SR) 100 mg PO BID 60 tabs 2RF 30 days F32.A - Depression, unspecified Changed From semaglutide for 4 weeks 0.5 mg (0.736 mL) subcut QWEEK 4 weeks 3.2 mL 1RF E66.01 - Morbid (severe) obesity due to excess calories, Z68.41 - Body mass index [BMI] 40.0-44.9, adult To semaglutide for 4 weeks 1 mg (0.75 mL) subcut QWEEK 3.75 mL 3RF 1 month E66.01 - Morbid (severe) obesity due to excess calories, Z68.41 - Body mass index [BMI] 40.0-44.9, adult Coding Level of Care Code Est Pt Level 4 (40249) Diagnoses Hypercholesterolemia E78.00 GERD (gastroesophageal reflux disease) K21.9 Benign essential hypertension I10 Barretts esophagus K22.70 Hardin's esophagus type: without dysplasia Obstructive sleep apnea G47.33 Obesity E66.01; Z68.41 Body mass index: BMI 40.0-44.9 Obesity classification: adult class 3 (BMI >= 40) Obesity type: due to excess calories Serious obesity comorbidity presence: with serious comorbidity DDD (degenerative disc disease), lumbar M51.36 Pulmonary embolism I27.82 Acute cor pulmonale presence: without acute cor pulmonale Chronicity: chronic Pulmonary embolism type: unspecified Anemia D64.9 Impaired fasting glucose R73.01 Depression F32.A
== END 2023-05-30 15:25 | disposition home or self-care (01) ==
PROVIDERS: PCP Internal Medicine; Visit Provider Internal Medicine
DX: K21.9 Gastro-esophageal reflux disease without esophagitis (principal); I10 Essential (primary) hypertension; E66.01 Morbid (severe) obesity due to excess calories; Z68.41 Body mass index [BMI] 40.0-44.9, adult; K22.70 Barrett's esophagus without dysplasia; E78.00 Pure hypercholesterolemia, unspecified; G47.33 Obstructive sleep apnea (adult) (pediatric); M51.36 Other intervertebral disc degeneration, lumbar region; I27.82 Chronic pulmonary embolism; D64.9 Anemia, unspecified; R73.01 Impaired fasting glucose; F32.A Depression, unspecified
CPT/HCPCS: 90471; 90714; 99214

== ENCOUNTER 2023-10-10 15:06 | Outpatient (AMB) | payer MEDICARE, SELFPAY ==
--- NOTE | 2023-10-10 15:24 | A.OFFPC_ITS ---
Vital Signs 10/10/23 15:25 Height 4 ft 10 in Weight 165 lb 2 oz BMI 34.5 BP 130/76 Blood Pressure Location Lt brachial Position Sitting Pulse 93 Pulse Source Pulse Oximeter Pulse Oximetry (%) 99 Oxygen Delivery Method Room Air Intake Visit Reasons: CAD, CKD, DM, hyperlipidemia, HTN Intake Note: Patient is here to follow up on CAD, CKD, DM, Hyperlipidemia, HTN. Retirement Plan Specialist Required: No Veterinary Manager: Not Required per policy Accompanied by: Self / Same As Patient Allergies No Known Allergies [No Known Allergies*] Allergy (Verified 10/10/23 15:25) Tobacco use date assessed: 10/10/23 Fall risk assessment: No Falls in past year Last assessed Fall Risk: 10/10/23 Dental Screening Dental Screen Date: 10/10/23 Did you have a dental visit in the last 12 months?: Yes Did you have a dental problem in the last 6 months where you did not have access to dental care?: No Was dental information given to patient?: Patient has dentist HPI CAD, CKD, DM, hyperlipidemia, HTN HPI Details 72-year-old obese female(noted weight lo ss) with hypercholesterolemia GERD hypertension Hardin's esophagus obstructive sleep apnea and lumbar degenerative disc disease last seen in May 2023. Patient is up-to-date with colonoscopy March 2019 5 years due for mammogram up-to-date with bone density. Patient follows up with Rheumatology last seen in 08/31/2023 rheumatoid arthritis RF positive have stop taking the medication due to costs but advised to keep the medication. April 2023 is blood work showing anemia has no follow-up blood work low B12 low vitamin-D normal sugar chronic kidney disease. on ozempic for the weight and not DM [facility] Medical History (Updated 07/11/23 @ 11:48 by [employer] [place]) Breast cancer screening by mammogram Pre-op exam Hospital discharge follow-up Symptomatic anemia Pulmonary embolism Anemia Medicare annual wellness visit, initial Presence of IVC filter History of alcohol abuse Venous stasis dermatitis Obesity Vitamin D deficiency Barretts esophagus Benign essential hypertension Restless leg syndrome Obstructive sleep apnea GERD (gastroesophageal reflux disease) Tubular adenoma of colon Rheumatoid arthritis Hx of deep venous thrombosis Hypercholesterolemia Surgical History History of cataract surgery History of eyelid surgery History of tonsillectomy Hx of arthroscopic knee surgery Hx of heart artery stent Family History Father History of stomach cancer Mother Social History Household Members: Spouse Housing: House Do you presently have visiting nurse or other home services: No Alcohol intake: former Patient Tobacco Use Status: Former Tobacco user Quit Date: 1979 Cigarette Packs Per Day: 2 Years Smoked: quit 1979 e-Cigarette/Vaping Use: Never Used Second Hand Smoke Exposure: No service: No Current occupational status: retired Cognitive needs: No Hearing needs: No Vision needs: Yes Questionnaire Thrive Questionnaire Date Thrive assessed: 11/17/22 ABBY-7 AMB Questionnaire ABBY-7 Date ABBY - 7 assessed: 11/17/22 Source: Developed by Drs. Memo Yu, Ely Dunbar, Obed Frazier and colleagues, with an educational james from [employer]. Physical exam (Primary Care) Vital Signs: Last Vital Signs Pulse 93 10/10/23 15:25 BP 130/76 10/10/23 15:25 Pulse Ox 99 10/10/23 15:25 Oxygen Delivery Method Room Air 10/10/23 15:25 BMI result Body Mass Index 34.5 Tobacco/Smoking Status: Tobacco use Status Tobacco use date assessed 10/10/23 10/10/23 15:26 Patient Tobacco Use Status Former Tobacco user 10/10/23 15:26 e-Cigarette/Vaping Use Never Used 10/10/23 15:26 Thrive Assessment: Date of Thrive Assessment Date Thrive assessed 11/17/22 10/10/23 15:26 Const General: alert; No acute distress Eyes Conjunctivae: conjunctivae normal Resp Auscultation: clear to auscultation bilaterally Cardio Rate: regular rate Rhythm: regular rhythm GI Inspection: Yes normal to inspection Extrem General: Yes normal to inspection and No edema Results AMB Hemoglobin A1c AMB Hemoglobin A1c 5.3 % Last Edit by IVAN Butler on 10/10/23 15:48 Results Reviewed Results Reviewed: Laboratory Last Values Hgb A1c (Clinic) 5.3 % (4.0-6.0) 10/10/23 15:47 Assessment and Plan Assessment & Plan (1) Hypercholesterolemia: Code(s): E78.00 - Pure hypercholesterolemia, unspecified Plan: Avoid fried foods, chicken skin, eggs, butter margarine, pastries and meat. Be it pork or beef they have a lot of cholesterol LDL goal of less than 100 and triglyceride of less than 150 (2) Rheumatoid arthritis: Code(s): M06.9 - Rheumatoid arthritis, unspecified Qualifiers: Rheumatoid arthritis location: multiple sites Rheumatoid factor presence: unspecified presence Qualified Code(s): M06.9 - Rheumatoid arthritis, unspecified Plan: Continue to follow-up with Rheumatology (3) GERD (gastroesophageal reflux disease): Code(s): K21.9 - Gastro-esophageal reflux disease without esophagitis Plan: Avoid the foods that causes that usually spicy foods, tomato products, juices, coffee, soda and foods that your sensitive to. After eating do not lie down, allow 3-4 hours before in lie down. And keep the head of bed above 30 degrees to avoid the acid from going up. (4) Benign essential hypertension: Comment: September 2019 ejection fraction 65-70% Code(s): I10 - Essential (primary) hypertension Plan: Continue with blood pressure medication. Decrease salt intake and exercise patient is on lisinopril 20 mg once a day (5) Obesity: Code(s): E66.9 - Obesity, unspecified Qualifiers: Body mass index: BMI 40.0-44.9 Obesity classification: adult class 3 (BMI >= 40) Obesity type: due to excess calories Serious obesity comorbidity presence: with serious comorbidity Qualified Code(s): E66.01 - Morbid (severe) obesity due to excess calories; Z68.41 - Body mass index [BMI]40.0-44.9, adult Plan: Diet and exercise (6) Barretts esophagus: Code(s): K22.70 - Hardin's esophagus without dysplasia Qualifiers: Hardin's esophagus type: without dysplasia Qualified Code(s): K22.70 - Hardin's esophagus without dysplasia Plan: Avoid the foods that causes that usually spicy foods, tomato products, juices, coffee, soda and foods that your sensitive to. After eating do not lie down, allow 3-4 hours before in lie down. And keep the head of bed above 30 degrees to avoid the acid from going up. (7) DDD (degenerative disc disease), lumbar: Code(s): M51.36 - Other intervertebral disc degeneration, lumbar region Plan: Narcotic pain meds: Is being prescribed with the understanding that these medications are potentially addictive and should be used only when absolutely necessary and must always be secured. Any remaining pills should be safely disposed off appropriately. Patient is advised that narcotics can impaired judgment and one should not drive or operate heavy machinery while taking these medications. Never share these medications with anybody and do not leave them unattended. They will not be replaced under any circumstances. (8) Pulmonary embolism: Comment: September 2019 with right leg DVT IVC filter placed balloon embolectomy Dr. Oneil October 2019 Code(s): I26.99 - Other pulmonary embolism without acute cor pulmonale Qualifiers: Acute cor pulmonale presence: without acute cor pulmonale Chronicity: chronic Pulmonary embolism type: unspecified Qualified Code(s): I27.82 - Chronic pulmonary embolism Plan: Continue with anticoagulation (9) Impaired fasting glucose: Code(s): R73.01 - Impaired fasting glucose Plan: Decrease the amount of carbohydrate intake, pasta, bread, rice and potatoes are all sugar and that is aside from all the sweet stuff, remember that fruits are good but they are Sweet also. Orders: Orders AMB Hemoglobin A1c Today R73.01 - Impaired fasting glucose Coding Level of Care Code Est Pt Level 4 (51040) Diagnoses Hypercholesterolemia E78.00 Rheumatoid arthritis involving multiple sites, unspecified whether rheumatoid factor present M06.9 Rheumatoid arthritis location: multiple sites Rheumatoid factor presence: unspecified presence GERD (gastroesophageal reflux disease) K21.9 Benign essential hypertension I10 Class 3 severe obesity due to excess calories with serious comorbidity and body mass index (BMI) of 40.0 to 44.9 in adult E66.01; Z68.41 Body mass index: BMI 40.0-44.9 Obesity classification: adult class 3 (BMI >= 40) Obesity type: due to excess calories Serious obesity comorbidity presence: with serious comorbidity Hardin's esophagus without dysplasia K22.70 Hardin's esophagus type: without dysplasia DDD (degenerative disc disease), lumbar M51.36 Chronic pulmonary embolism without acute cor pulmonale, unspecified pulmonary embolism type I27.82 Acute cor pulmonale presence: without acute cor pulmonale Chronicity: chronic Pulmonary embolism type: unspecified Impaired fasting glucose R73.01
[2023-10-10 15:25] VITALS: BP 130/76; PULSE 93; O2SAT 99; BMI 34.5
== END 2023-10-10 16:22 | disposition home or self-care (01) ==
PROVIDERS: PCP Internal Medicine; Visit Provider Internal Medicine
DX: E78.00 Pure hypercholesterolemia, unspecified (principal); M06.9 Rheumatoid arthritis, unspecified; Z68.41 Body mass index [BMI] 40.0-44.9, adult; E66.01 Morbid (severe) obesity due to excess calories; I27.82 Chronic pulmonary embolism; R73.01 Impaired fasting glucose; K21.9 Gastro-esophageal reflux disease without esophagitis; I10 Essential (primary) hypertension; K22.70 Barrett's esophagus without dysplasia; M51.36 Other intervertebral disc degeneration, lumbar region
CPT/HCPCS: 83036; 99214

== ENCOUNTER 2024-01-10 11:08 | Outpatient (AMB) | payer MEDICARE, SELFPAY ==
--- NOTE | 2024-01-10 11:17 | A.OFFPC_ITS ---
Vital Signs 01/10/24 11:18 Height 4 ft 10 in Weight 168 lb BMI 35.1 BP 122/70 Blood Pressure Location Lt brachial Position Sitting Pulse 88 Pulse Source Pulse Oximeter Pulse Oximetry (%) 97 Oxygen Delivery Method Room Air Intake Visit Reasons: RA, LDDD, IGT, Allergies No Known Allergies [No Known Allergies*] Allergy (Verified 01/10/24 11:19) Medication List - Last Reconciled 01/10/24 by Daphne Bryan MD apixaban (Eliquis) 2.5 mg PO BID bupropion HCl (Wellbutrin SR) 100 mg PO BID 30 days cholecalciferol (vitamin D3) 50 mcg PO DAILY 90 days cyanocobalamin (vitamin B-12) 1,000 mcg PO DAILY fenofibrate 160 mg PO DAILY folic acid 1 tab PO SUMOWETHFRSA@0900 infliximab (Remicade) every 2 months lisinopril 20 mg PO DAILY meclizine 25 mg PO BID PRN omeprazole 20 mg PO DAILY@0630 oxycodone-acetaminophen 5-325 mg (Percocet) 1 tab PO TID semaglutide 2 mg (0.75 mL) subcut QWEEK 1 month sennosides-docusate sodium 8.6-50 mg (Senna Plus) 2 tab-caps (2 x 8.6-50 mg) PO BEDTIME 30 days simvastatin 5 mg PO BEDTIME Tobacco use date assessed: 01/10/24 Dental Screening Dental Screen Date: 01/10/24 Did you have a dental visit in the last 12 months?: Yes Did you have a dental problem in the last 6 months where you did not have access to dental care?: No Was dental information given to patient?: Patient has dentist HPI RA, LDDD, IGT, HPI Details 73-year-old obese female with hyperchole sterolemia rheumatoid arthritis GERD hypertension Barretts esophagus and lumbar degenerative disc disease last seen in September 2023. Patient's colonoscopy is due this year last time having March 2019 mammogram is due bone density is up-to-date patient comes in for follow-up. 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 portable diagnosis osteoarthritis [facility] Medical History (Updated 01/10/24 @ 11:41 by Daphne Bryan MD) Breast cancer screening by mammogram Pre-op exam Hospital discharge follow-up Symptomatic anemia Pulmonary embolism Anemia Medicare annual wellness visit, initial Presence of IVC filter History of alcohol abuse Venous stasis dermatitis Obesity Vitamin D deficiency Barretts esophagus Benign essential hypertension Restless leg syndrome Obstructive sleep apnea GERD (gastroesophageal reflux disease) Tubular adenoma of colon Rheumatoid arthritis Hx of deep venous thrombosis Hypercholesterolemia Surgical History History of cataract surgery History of eyelid surgery History of tonsillectomy Hx of arthroscopic knee surgery Hx of heart artery stent Family History Father History of stomach cancer Mother Social History Household Members: Spouse Housing: House Do you presently have visiting nurse or other home services: No Alcohol intake: former Patient Tobacco Use Status: Former Tobacco user Quit Date: 1979 Tobacco use type: Cigarette Cigarette Packs Per Day: 2 Years Smoked: quit 1979 Packs Per Year: 0 e-Cigarette/Vaping Use: Never Used Second Hand Smoke Exposure: No service: No Current occupational status: retired Cognitive needs: No Hearing needs: No Vision needs: Yes Questionnaire PHQ-9 Over the last 2 weeks, how often have you been bothered by any of the following problems? 1. Little interest or pleasure in doing things: more than half the days 2. Feeling down, depressed, or hopeless: more than half the days 3. Trouble falling or staying asleep, or sleeping too much: nearly every day 4. Feeling tired or having little energy: nearly every day 5. Poor appetite or overeating: several days 6. Feeling bad about yourself - or that you are a failure or have let yourself o r your family down: not at all 7. Trouble concentrating on things, such as reading the newspaper or watching television: not at all 8. Moving or speaking so slowly that other people could have noticed. Or the opposite - being so fidgety or restless that you have been moving around a lot more than usual: not at all 9. Thoughts that you would be better off or of hurting yourself in some way: not at all Total score: 11 Depression Screening Interpretation: Positive Depression Screening Done: Yes Source: Developed by Drs. Memo L. GigiEly valle, Obed Frazier and colleagues, with an educational james from [employer]. Thrive Questionnaire Date Thrive assessed: 01/10/24 I am a: Patient What is your living situation today?: I have a steady place to live Within the past 12 months, did the food you bought not last and you didn't have the money to get more?: Never true Within the past 12 months, did you worry whether your food would run out before you got money to buy more?: Never true Do you have trouble paying for medicines?: No Do you have trouble getting transportation to medical appointments?: No Do you have trouble paying your heating and electricity bill?: No Do you have trouble taking care of your child, family member or friend?: No Do you have trouble with day-to-day activities such as bathing, preparing meals, shopping, managing finances, etc.?: No Are you currently unemployed and looking for a job?: No Are you interested in more education?: No Currently or been in a relationship where the following occur: no concerns reported THRIVE Score: 0 AUDIT C Alcohol Use Questionnaire (AUDIT-C) 1. How often do you have a drink containing alcohol?: Never 3. How often do you have six or more drinks on one occasion?: Never Total Score: 0 ABBY-7 AMB Questionnaire ABBY-7 Date ABBY - 7 assessed: 01/10/24 Feeling nervous, anxious, or on edge: 0 = Not at all Not being able to stop or control worryin = Not at all Worrying too much about different things: 0 = Not at all Trouble relaxin = Not at all Being so restless that it is hard to sit still: 0 = Not at all Becoming easily annoyed or irritable: 0 = Not at all Feeling afraid as if something awful might happen: 0 = Not at all Total ABBY-7 score (0-4 normal; 5-9 mild; 10-14 moderate; 15-21 severe): 0 Source: Developed by Drs. Memo Yu, Obed Rush and colleagues, with an educational james from [employer]. Physical exam (Primary Care) Vital Signs: Last Vital Signs Pulse 88 01/10/24 11:18 BP 122/70 01/10/24 11:18 Pulse Ox 97 03/13/24 11:18 Oxygen Delivery Method Room Air 01/10/24 11:18 BMI result Body Mass Index 35.1 Tobacco/Smoking Status: Tobacco use Status Tobacco use date assessed 01/10/24 01/10/24 11:20 Patient Tobacco Use Status Former Tobacco user 01/10/24 11:20 Tobacco use type Cigarette 01/10/24 11:20 e-Cigarette/Vaping Use Never Used 01/10/24 11:20 PHQ-9: PHQ-9 Score PHQ-9: Total score 11 01/10/24 11:20 Depression Screening Interpretation: Positive Thrive Assessment: Date of Thrive Assessment Date Thrive assessed 01/10/24 01/10/24 11:20 Currently or been in a relationship where the following occur: no concerns reported Const General: alert; No acute distress Eyes Conjunctivae: conjunctivae normal Resp Auscultation: clear to auscultation bilaterally Cardio Rate: regular rate Rhythm: regular rhythm GI Inspection: Yes normal to inspection Extrem General: Yes normal to inspection and No edema Assessment and Plan Assessment & Plan (1) Rheumatoid arthritis: Code(s): M06.9 - Rheumatoid arthritis, unspecified Qualifiers: Rheumatoid arthritis location: multiple sites Rheumatoid factor presence: unspecified presence Qualified Code(s): M06.9 - Rheumatoid arthritis, unspecified Plan: Continue to follow-up with Rheumatology on Remicade (2) Hypercholesterolemia: Code(s): E78.00 - Pure hypercholesterolemia, unspecified Plan: Avoid fried foods, chicken skin, eggs, butter margarine, pastries and meat. Be it pork or beef they have a lot of cholesterol LDL goal of less than 130 and triglyceride of less than 150. On simvastatin 5 mg at bedtime (3) GERD (gastroesophageal reflux disease): Code(s): K21.9 - Gastro-esophageal reflux disease without esophagitis Plan: Avoid the foods that causes that usually spicy foods, tomato products, juices, coffee, soda and foods that your sensitive to. After eating do not lie down, allow 3-4 hours before in lie down. And keep the head of bed above 30 degrees to avoid the acid from going up. (4) Obstructive sleep apnea: Comment: cannot tolerate CPAP Code(s): G47.33 - Obstructive sleep apnea (adult) (pediatric) Plan: Discussed importance of obstructive sleep apnea treatment (5) Benign essential hypertension: Comment: September 2019 ejection fraction 65-70% Code(s): I10 - Essential (primary) hypertension Plan: Continue with blood pressure medication. Decrease salt intake and exercise on lisinopril 20 mg once a day (6) Obesity: Code(s): E66.9 - Obesity, unspecified Qualifiers: Obesity type: due to excess calories Obesity classification: adult class 3 (BMI >= 40) Serious obesity comorbidity presence: with serious comorbidity Body mass index: BMI 40.0-44.9 Qualified Code(s): E66.01 - Morbid (severe) obesity due to excess calories; Z68.41 - Body mass index [BMI]40.0- 44.9, adult Plan: Diet and exercise (7) DDD (degenerative disc disease), lumbar: Code(s): M51.36 - Other intervertebral disc degeneration, lumbar region Plan: Narcotic pain meds: Is being prescribed with the understanding that these medications are potentially addictive and should be used only when absolutely necessary and must always be secured. Any remaining pills should be safely disposed off appropriately. Patient is advised that narcotics can impaired judgment and one should not drive or operate heavy machinery while taking these medications. Never share these medications with anybody and do not leave them unattended. They will not be replaced under any circumstances. (8) Anemia: Code(s): D64.9 - Anemia, unspecified Plan: Stable continue to monitor (9) Impaired fasting glucose: Code(s): R73.01 - Impaired fasting glucose Plan: Decrease the amount of carbohydrate intake, pasta, bread, rice and potatoes are all sugar and that is aside from all the sweet stuff, remember that fruits are good but they are Sweet also. (10) Tubular adenoma of colon: Code(s): D12.6 - Benign neoplasm of colon, unspecified Plan: Patient is reminded about colonoscopy Medications: New semaglutide (Rybelsus) 7 mg PO DAILY 90 tabs 0RF E66.01 - Morbid (severe) obesity due to excess calories, Z68.41 - Body mass index [BMI] 40.0-44.9, adult Discontinued semaglutide for 4 weeks Discontinued Reason: Insurance Denied 2 mg (0.75 mL) subcut QWEEK 1 month 3.75 mL 3RF E66.01 - Morbid (severe) obesity due to excess calories, Z68.41 - Body mass index [BMI] 40.0-44.9, adult Coding Level of Care Code Est Pt Level 4 (79741) Diagnoses Rheumatoid arthritis involving multiple sites, unspecified whether rheumatoid factor present M06.9 Rheumatoid arthritis location: multiple sites Rheumatoid factor presence: unspecified presence Hypercholesterolemia E78.00 GERD (gastroesophageal reflux disease) K21.9 Obstructive sleep apnea G47.33 Benign essential hypertension I10 Class 3 severe obesity due to excess calories with serious comorbidity and body mass index (BMI) of 40.0 to 44.9 in adult E66.01; Z68.41 Obesity type: due to excess calories Obesity classification: adult class 3 (BMI >= 40) Serious obesity comorbidity presence: with serious comorbidity Body mass index: BMI 40.0-44.9 DDD (degenerative disc disease), lumbar M51.36 Anemia D64.9 Impaired fasting glucose R73.01 Tubular adenoma of colon D12.6
[2024-01-10 11:18] VITALS: BP 122/70; PULSE 88; O2SAT 97; BMI 35.1
== END 2024-01-10 11:56 | disposition home or self-care (01) ==
PROVIDERS: PCP Internal Medicine; Visit Provider Internal Medicine
DX: M06.9 Rheumatoid arthritis, unspecified (principal); E66.01 Morbid (severe) obesity due to excess calories; Z68.41 Body mass index [BMI] 40.0-44.9, adult; E78.00 Pure hypercholesterolemia, unspecified; K21.9 Gastro-esophageal reflux disease without esophagitis; G47.33 Obstructive sleep apnea (adult) (pediatric); I10 Essential (primary) hypertension; M51.36 Other intervertebral disc degeneration, lumbar region; D64.9 Anemia, unspecified; R73.01 Impaired fasting glucose; D12.6 Benign neoplasm of colon, unspecified
CPT/HCPCS: 99214

== ENCOUNTER 2024-01-24 11:42 | Inpatient (IN) | payer MEDICARE, SELFPAY ==
[2024-01-24] VITALS (8 sets, daily range): BP systolic 132–163; BP diastolic 60–86; PULSE 95–116; RESP 13–20; TEMP 30.2–37.2; O2SAT 97–100; BMI 33.9; BMI 34.7
--- NOTE | ~2024-01-24 | FL_ITS ---
EXAMINATION: XR FLUOROSCOPY WITH IMAGES CLINICAL INFORMATION: Ankle fracture. COMPARISON: None available. TECHNIQUE: Fluoroscopy Supervised By: Dr. Ty Whiting. Fluoroscopy Time: 0.2 minutes. Cumulative Dose: 1.01 mGy. DAP: 00.0175 Gycm2. Images: 2. FINDINGS: 2 images demonstrate hardware overlying the medial and lateral malleolus. Please see Dr. Ty Whiting's report for full details. FL/FL guidance in OR IMPRESSION: Fluoroscopy and spot films provided during ORIF of ankle fracture.
--- NOTE | ~2024-01-24 | CT_ITS ---
EXAMINATION: CT HEAD WITHOUT CONTRAST CLINICAL INFORMATION: Syncope, Mechanical fall, Blunt head trauma with possible loss of consciousness, significant head injury and posttraumatic headache. COMPARISON: None available. TECHNIQUE: Contiguous axial imaging was performed from the skull base to vertex without intravenous administration of contrast. This CT examination was performed using dose optimization techniques as appropriate, variously including the following: *Automated exposure control *Adjustment of mA and/or kV according to patient size (this includes techniques or standardized protocols for targeted exams where dose is matched to indication/reason for exam; i.e. extremities or head) *Use of iterative reconstruction technique DLP: 869.77 mGy-cm FINDINGS: Ventricles, sulci and cisterns are dilated. Extensive confluent abnormal decreased attenuation is found in bilateral frontal, parietal and occipital deep white matter. There is no midline shift, no abnormal intra- or extra- axial fluid accumulation. Bianchi and white matter differentiation is normal. Bone window images show no evidence of skull fracture. Small air-fluid level is seen in the right maxillary sinus. Bilateral ethmoid sinuses show mild mucosal thickening. CT/CT head/brain wo IV con IMPRESSION: 1. Marked age related cerebral atrophy, ventriculomegaly, extensive ischemic white matter disease due to microangiopathy are seen. 2. No intracranial hemorrhage or skull fracture is seen. 3. No evidence of space occupying lesion could be found. 4. The current plain CT scan of the brain shows no diagnostic evidence of acute cerebral infarction. 5. Acute right maxillary sinusitis is present.
--- NOTE | ~2024-01-24 | CT_ITS ---
EXAMINATION: CT ANGIOGRAM OF THE CHEST WITH AND WITHOUT CONTRAST (CT PULMONARY ANGIOGRAM FOR PE) CLINICAL INFORMATION: Reason for Exam tachycardia, near syncope. hx pe COMPARISON: Previous chest x-ray September 2021 and chest CTA September 2019 TECHNIQUE: Prior to contrast administration, noncontrast localization images were obtained. Subsequently, multidetector volumetric imaging was performed from the thoracic inlet to below the diaphragms following the administration of 65 mL Omnipaque 350 intravenous contrast. No contrast reaction reported Sagittal, coronal, and MIP oblique sagittal reformatted images were obtained on the CT workstation, uploaded to PACS, and reviewed. This CT examination was performed using dose optimization techniques as appropriate, variously including the following: *Automated exposure control *Adjustment of mA and/or kV according to patient size (this includes techniques or standardized protocols for targeted exams where dose is matched to indication/reason for exam; i.e. extremities or head) *Use of iterative reconstruction technique Total exam dose-length product 385 mGy-cm FINDINGS: QUALITY OF STUDY/CONTRAST BOLUS: Satisfactory. PULMONARY ARTERIES: No pulmonary emboli. THORACIC AORTA: No aneurysm. LUNG: No focal consolidation. Small left apical 2 mm nodule axial image 56 series 7. PLEURA: No pleural effusion or pneumothorax. MEDIASTINUM: Slightly enlarged heart. No pericardial effusion. No hilar or mediastinal lymphadenopathy. No evidence of septal bowing or right heart strain. CORONARY ARTERY CALCIFICATION: Mild CHEST WALL/AXILLA: No axillary or internal mammary lymphadenopathy. OSSEOUS STRUCTURES: No acute or suspicious osseous abnormality. Degenerative changes of the spine and right shoulder. UPPER ABDOMEN: Small cyst in the upper pole of the right kidney. No reflux of contrast into the hepatic veins to suggest elevated right heart pressures. CT/CT angio chest PE protocol IMPRESSION: No evidence of pulmonary embolism. VTE: negative
--- NOTE | ~2024-01-24 | XR_ITS ---
EXAMINATIONS: Left foot Clinical information pain in metatarsals COMPARISON: None TECHNIQUE: AP and lateral views of left foot. FINDINGS: There is undisplaced fracture of medial malleolus. Ankle mortise preserved. There is diffuse osteopenia. There is plantar and small cyst exterior calcaneal spurring. There is soft tissue swelling. There are changes of osteoarthritis in the carpometacarpal joints and intervertebral phalangeal joints. EXAMINATION: Left ankle COMPARISON: 08/25/2010 TECHNIQUE: AP, lateral and oblique views of left ankle FINDINGS: There is undisplaced fracture of medial malleolus. Ankle mortise is maintained. There is questionable undisplaced fracture of the lateral malleolus. There is plantar and small superior calcaneal spurring. There is prominent soft tissue swelling surrounds the ankle. XR/XR ankle LT min 3V IMPRESSION: Undisplaced fracture of medial malleolus. Questionable undisplaced fracture of lateral malleolus. Calcaneal spurring. Undisplaced fracture of the medial malleolus and questionably undisplaced fracture of lateral malleolus. EXAMINATION: Left tibia and fibula COMPARISON: None TECHNIQUE: AP and lateral views of left tibia and fibula FINDINGS: There is spiral mildly displaced fracture of the mid shaft of left fibula and known fracture of the medial malleolus. There is diffuse osteopenia. IMPRESSION: Spiral fracture through the midshaft of the left fibula.
--- NOTE | ~2024-01-24 | CT_ITS ---
EXAMINATION: CT CERVICAL SPINE WITHOUT CONTRAST CLINICAL INFORMATION: Mechanical fall, cervical spine injury and pain COMPARISON: None available. TECHNIQUE: Multiple 3.0 and 0.6 mm axial images were obtained from base of skull to T1 levels without IV contrast enhancement. Sagittal and coronal 2.0 mm bone window images were reconstructed from axial image data. This CT examination was performed using dose optimization techniques as appropriate, variously including the following: *Automated exposure control *Adjustment of mA and/or kV according to patient size (this includes techniques or standardized protocols for targeted exams where dose is matched to indication/reason for exam; i.e. extremities or head) *Use of iterative reconstruction technique DLP: 869.77 mGy-cm FINDINGS: There is mild left-sided torticollis. C1/C2: Bony structures are intact with normal alignment. There are decrease in predental interval, mixed sclerotic and subcortical erosive changes in the odontoid process and anterior C1 arch, broken off osteophytes below the C1 arch. There is no spinal stenosis. C2/C3: Bony structures are intact with normal alignment. There is no spinal stenosis. There is moderate asymmetric left C2/C3 neuroforaminal stenosis. Bilateral apophyseal joints are intact with normal alignment. C3/C4: Bony structures are intact with anterior C3 on C4 displacement by 0.2 cm. There is no spinal stenosis. There is severe left C3/C4 neuroforaminal stenosis. Bilateral apophyseal joints are intact with normal alignment. C4/C5: Bony structures are intact with anterior C4 on C5 displacement by 0.2 cm. There is no spinal stenosis. There is marked asymmetric left C4/C5 neuroforaminal stenosis. Bilateral apophyseal joints are intact with normal alignment. C5/C6: Bony structures are intact with normal alignment. There is no spinal stenosis. There is mild asymmetric left C5/C6 neuroforaminal stenosis. Bilateral apophyseal joints are intact with normal alignment. C6/C7: Bony structures are intact with normal alignment. There is no spinal stenosis. There is marked left C6/C7 neuroforaminal stenosis. Bilateral apophyseal joints are intact with normal alignment. C7/T1: Bony structures are intact with normal alignment. There is no spinal stenosis. Bilateral C7/T1 neuroforamina are patent. Bilateral apophyseal joints are intact with normal alignment. Multilevel bilateral apophyseal joint and uncovertebral joint osteoarthritis with loss of joint space, sclerosis, facet hypertrophy and osteophytosis are seen. CT/CT cervical spine wo IV con IMPRESSION: 1. No evidence of acute fracture or dislocation. 2. Advanced atlantoaxial joint osteoarthritis. 3. Multilevel advanced cervical spondylosis. 4. Grade 1 C3-C4 and C4-C5 anterolisthesis and mild left-sided torticollis. 5. Moderate left C2-C3, severe left C3-C4, marked left C4-C5, mild left C5-C6 and marked left C6-C7 neuroforamina stenosis.
--- NOTE | ~2024-01-24 | XR_ITS ---
EXAMINATIONS: Left foot Clinical information pain in metatarsals COMPARISON: None TECHNIQUE: AP and lateral views of left foot. FINDINGS: There is undisplaced fracture of medial malleolus. Ankle mortise preserved. There is diffuse osteopenia. There is plantar and small cyst exterior calcaneal spurring. There is soft tissue swelling. There are changes of osteoarthritis in the carpometacarpal joints and intervertebral phalangeal joints. EXAMINATION: Left ankle COMPARISON: 08/25/2010 TECHNIQUE: AP, lateral and oblique views of left ankle FINDINGS: There is undisplaced fracture of medial malleolus. Ankle mortise is maintained. There is questionable undisplaced fracture of the lateral malleolus. There is plantar and small superior calcaneal spurring. There is prominent soft tissue swelling surrounds the ankle. XR/XR tibia fibula LT 2V IMPRESSION: Undisplaced fracture of medial malleolus. Questionable undisplaced fracture of lateral malleolus. Calcaneal spurring. Undisplaced fracture of the medial malleolus and questionably undisplaced fracture of lateral malleolus. EXAMINATION: Left tibia and fibula COMPARISON: None TECHNIQUE: AP and lateral views of left tibia and fibula FINDINGS: There is spiral mildly displaced fracture of the mid shaft of left fibula and known fracture of the medial malleolus. There is diffuse osteopenia. IMPRESSION: Spiral fracture through the midshaft of the left fibula.
--- NOTE | ~2024-01-24 | XR_ITS ---
EXAMINATIONS: Left foot Clinical information pain in metatarsals COMPARISON: None TECHNIQUE: AP and lateral views of left foot. FINDINGS: There is undisplaced fracture of medial malleolus. Ankle mortise preserved. There is diffuse osteopenia. There is plantar and small cyst exterior calcaneal spurring. There is soft tissue swelling. There are changes of osteoarthritis in the carpometacarpal joints and intervertebral phalangeal joints. EXAMINATION: Left ankle COMPARISON: 08/25/2010 TECHNIQUE: AP, lateral and oblique views of left ankle FINDINGS: There is undisplaced fracture of medial malleolus. Ankle mortise is maintained. There is questionable undisplaced fracture of the lateral malleolus. There is plantar and small superior calcaneal spurring. There is prominent soft tissue swelling surrounds the ankle. XR/XR foot LT min 3V IMPRESSION: Undisplaced fracture of medial malleolus. Questionable undisplaced fracture of lateral malleolus. Calcaneal spurring. Undisplaced fracture of the medial malleolus and questionably undisplaced fracture of lateral malleolus. EXAMINATION: Left tibia and fibula COMPARISON: None TECHNIQUE: AP and lateral views of left tibia and fibula FINDINGS: There is spiral mildly displaced fracture of the mid shaft of left fibula and known fracture of the medial malleolus. There is diffuse osteopenia. IMPRESSION: Spiral fracture through the midshaft of the left fibula.
--- NOTE | 2024-01-24 12:27 | ECG_ITS ---
Test Reason : fall/dizzness Blood Pressure : / mmHG Vent. Rate : 100 BPM Atrial Rate : 100 BPM P-R Int : 192 ms QRS Dur : 076 ms QT Int : 358 ms P-R-T Axes : 066 -10 029 degrees QTc Int : 461 ms Sinus rhythm with Premature atrial complexes Otherwise normal ECG When compared with ECG of 11-OCT-2021 18:20, Premature atrial complexes are now Present Referred By: Dominick Wells Electronically Signed By:
--- NOTE | 2024-01-24 12:30 | ED_ITS ---
HPI - Fall General Chief Complaint: Fall Stated Complaint: UNWITNESSED FALL + FALL Time Seen by Provider: 01/24/24 12:09 Source: patient Mode of arrival: ambulatory Limitations: no limitations History of Present Illness HPI Narrative: 73 year old female with 50 pound weight while on Ozempic no longer on the medication has chronic pain due to RA on oxycodone BID at baseline vertigo, depression, PE, obesity, DDD, DVT, HTN, Obstructive sleep apnea, GERD, HLD. Who presents to the ER after an unwitnessed fall. She states she had up to the bathroom she felt lightheaded she has not take a few more steps and then she feels like she banged her ankle she states she is unable to put any weight on the ankle she does have chronic pain but does not usually to her left foot it usually her right foot that she is issues with she denies hitting her head she denies loss of consciousness chest pain cough or fever. MD complaint: fall Related Data Home Medications Medication Instructions Recorded Confirmed folic acid 1 mg tablet 1 tab PO SUMOWETHFRSA@0900 10/11/21 01/10/24 infliximab 100 mg intravenous See Rx Instructions .Route .COMPLEX 10/11/21 01/10/24 solution (Remicade) Previous Rx's Medication Instructions Recorded cholecalciferol (vitamin D3) 50 50 mcg PO DAILY 90 days #90 caps 06/15/22 mcg (2,000 unit) capsule cyanocobalamin (vitamin B-12) 1,000 mcg PO DAILY #90 tabs 06/15/22 1,000 mcg tablet meclizine 25 mg tablet 25 mg PO BID PRN dizziness #20 tabs 11/17/22 apixaban 2.5 mg tablet (Eliquis) 2.5 mg PO BID #180 tabs 02/20/23 omeprazole 20 mg capsule,delayed 20 mg PO DAILY@0630 #90 caps 09/08/23 release simvastatin 5 mg tablet 5 mg PO BEDTIME #90 tabs 10/20/23 bupropion HCl 100 mg tablet,12 hr 100 mg PO BID 30 days #180 tabs 11/20/23 sustained-release (Wellbutrin SR) fenofibrate 160 mg tablet 160 mg PO DAILY #90 tabs 12/09/23 lisinopril 20 mg tablet 20 mg PO DAILY #30 tabs 12/17/23 oxycodone-acetaminophen 5 mg-325 1 tab PO TID pain #69 tabs 12/25/23 mg tablet (Percocet) sennosides 8.6 mg-docusate sodium 2 tab-cap (2 x 8.6-50 mg) PO 12/25/23 50 mg tablet (Senna Plus) BEDTIME 30 days #60 tabs semaglutide 7 mg tablet (Rybelsus) 7 mg PO DAILY #90 tabs 01/10/24 Allergies Allergy/AdvReac Type Severity Reaction Status Date / Time No Known Allergies Allergy Verified 01/24/24 12:00 [No Known Allergies*] Review of Systems 2 Review of Systems: Review of systems: General: Patient denies any fever chills recent illness Musculoskeletal: Denies back pain or body aches or other injuries HEENT: denies headache, runny nose, ear pain Respiratory: denies shortness of breath, cough Cardiovascular: no chest pain or palpitations : denies dysuria, frequency Abdomen: no nausea vomiting denies abdominal pain Extremities: no swelling, left foot and ankle pain Skin: no diaphoresis Yes all other systems are reviewed and are negative [facility] Past Medical History Medical History (Updated 01/24/24 @ 14:06 by Dominick Wells DO) Breast cancer screening by mammogram Pre-op exam Hospital discharge follow-up Symptomatic anemia Pulmonary embolism Anemia Medicare annual wellness visit, initial Presence of IVC filter History of alcohol abuse Venous stasis dermatitis Obesity Vitamin D deficiency Barretts esophagus Benign essential hypertension Restless leg syndrome Obstructive sleep apnea GERD (gastroesophageal reflux disease) Tubular adenoma of colon Rheumatoid arthritis Hx of deep venous thrombosis Hypercholesterolemia Surgical History History of cataract surgery History of eyelid surgery History of tonsillectomy Hx of arthroscopic knee surgery Hx of heart artery stent Family History Family History Father History of stomach cancer Mother Social History Social History Household Members: Spouse Housing: House Do you presently have visiting nurse or other home services: No Alcohol intake: former Patient Tobacco Use Status: Former Tobacco user Quit Date: 1979 Tobacco use type: Cigarette Cigarette Packs Per Day: 2 Years Smoked: quit 1980 Smoked in Last 30 Days: No e-Cigarette/Vaping Use: Never Used Second Hand Smoke Exposure: No Use of substances other than those prescribed or required for medical reasons: No Advance Directives: No Advance Directives Information Provided: Yes service: No Current occupational status: retired Cognitive needs: No Hearing needs: No Vision needs: Yes Physical Exam 2 Vital Signs: Vital Signs: Last Vital Signs Temp 98.1 F 01/24/24 12:00 Pulse 109 H 01/24/24 14:30 Resp 14 01/24/24 14:30 BP 163/86 H 01/24/24 14:30 Pulse Ox 98 01/24/24 14:30 O2 Del Method Room Air 01/24/24 14:30 BMI result Body Mass Index 33.9 Neurological exam: CN II- XII tested. Patient is alert and oriented to person place and time. Patient has no dysphagia or dysarthia, denies good vision in all four vision [place] no nystagmus on exam, good strength to upper and lower extremities with normal reflexes to brachioradialis, wrist, patella and achilles. Negative romberg, good finger to nose and heel to hopkins. General: Well-appearing well-nourished in no signs of distress HEENT: Normocephalic atraumatic Neck: No signs of JVD, no masses no tenderness or lymphadenopathy Cardiovascular: Regular rate and rhythm Respiratory: Clear to auscultation bilaterally Abdomen: Soft nontender no masses Extremities: Normal pedal pulses no signs of edema no redness or signs of trauma patient is tender to all her metacarpals as well as her posterior foot and medial aspect of her ankle pain with dorsiflexion of her foot Skin: Dry warm no rashes Back: No tenderness full ROM Course Course Course Narrative: Patient splinted by me had CT and XR consultation with hospitalist and Orthopedics. Will admit for syncope Medications Administered Discontinued Medications Generic Name Dose Route Start Last Admin Trade Name Juan PRN Reason Stop Dose Admin Acetaminophen 650 mg 01/24/24 12:26 01/24/24 12:58 Acetaminophen 325 Mg Tablet PO 01/24/24 12:27 650 mg ONCE ONE Administration Sodium Chloride 1,000 mls @ 999 mls/hr 01/24/24 12:30 01/24/24 14:04 Ns IV 01/24/24 13:30 Infused .Q1H1M VICTOR HUGO Infusion Oxycodone HCl 5 mg 01/24/24 12:29 01/24/24 12:59 Oxycodone Hcl Immed Release 5 Mg Tablet PO 01/24/24 12:30 5 mg ONCE ONE Administration Procedures Orthopedic Splinting/Casting Injury #1: Side: left Lower Extremity Injury Location: lower leg Lower Extremity Immobilizer: posterior splint and stirrup splint Other Orthopedic Equipment: crutches Medical Decision Making Medical Decision Making [facility] Narrative: Patient has had weight loss she is on blood pressure medications and the daughter is concerned that is leading to this I will check labs give an EKG patient for x-ray she denies any head I do not think she needs a complete trauma eval CT head or neck any other imaging other than isolated to ankle where she states she has all her pain. Differential Diagnosis Differential Diagnoses: The differential diagnosis associated with the presentation includes Fall ankle or foot contusion versus fracture dizziness near-syncope syncope Admission/Observation Consideration of admission/observation: Escalation of care including admission/observation considered Will admit for syncope Consult Healthcare Provider Management of the patient was discussed with: Hospitalist and Bat Person I spoke to Viridiana Power about the fracture and splinting and is aware of the need for admission. I spoke with Dr. Moore who agreed with the admission. Lab Data [facility] Lab Attestation statement: I reviewed the patient's lab results. 01/24/24 12:43 01/24/24 12:43 Labs: Lab Results 01/24/24 Range/Units 12:43 WBC 7.8 (4.8-10.8) X10*3/uL RBC 3.03 L (4.20-5.50) X10*6/uL Hgb 8.6 L (12.0-16.0) g/dl Hct 27.0 L (37.0-47.0) % MCV 89.1 (80.0-98.0) fL MCH 28.4 (27.0-33.0) pg MCHC 31.9 (31.0-35.0) g/dl RDW 19.3 H (11.0-16.0) % Plt Count 317 (160-400) X10*3/uL MPV 9.0 L (9.4-12.3) fL Immature Gran % (Auto) 0.4 (0.0-0.4) % Neut % (Auto) 82.9 H (45-73) % Lymph % (Auto) 8.8 L (20-40) % [place] % (Auto) 7.2 (2-11) % Eos % (Auto) 0.4 (0-4) % Baso % (Auto) 0.3 (0-2) % Lymph # (Auto) 0.7 L (1.2-4.9) X10*3/uL [place] # (Auto) 0.6 (0.1-1.2) X10*3/uL Eos # (Auto) 0.0 (0.0-0.4) X10*3/uL Baso # (Auto) 0.0 (0.0-0.2) X10*3/uL Abs Immat Gran (auto) 0.03 (0.00-0.03) X10*3/uL Absolute Neuts (auto) 6.4 (2.0-8.3) x10*3/uL Absolute Nucleated RBC 0.000 (0.0-0.012) X10*3/uL Nucleated RBC % (auto) 0.0 (0.0-0.2) /100WBC Sodium 140 (135-145) mmol/L Potassium 4.0 (3.3-5.1) mmol/L Chloride 109 H (96-108) mmol/L Carbon Dioxide 24 (22-29) mmol/L Anion Gap 11 L (12-20) BUN 23 H (9-16) mg/dL Creatinine 1.19 (0.5-1.4) mg/dL Estim Creat Clear Calc 36.3 Estimated GFR 44 Random Glucose 109 (60-115) mg/dL Calcium 9.3 (8.4-10.2) mg/dL Total Bilirubin 0.4 (0.0-1.0) mg/dL Direct Bilirubin 0.2 (0.0-0.5) mg/dL AST 25 (5-31) U/L ALT 14 (0-31) U/L Alkaline Phosphatase 60 (39-117) U/L Total Creatine Kinase 106 (26-140) U/L Total Protein 7.2 (6.5-8.0) g/dL Albumin 3.6 (3.5-5.0) g/dL Lipase 47 (8-78) U/L Independent Interpretation I performed an independent interpretation of an: EKG Interpretation: Two EKGs were done while patient is in the emergency department 1 at 1247 which showed a rate of 97 normal sinus rhythm normal intervals no signs of ischemia no previous for comparison interpreted by me Second EKG was done at 12:59. Rate 100 normal sinus rhythm normal intervals no signs of ischemia no change from previous interpreted by me Radiology Impression Discussion of test interpretation with radiology: I have reviewed the radiologist's reading. Independent Historian Clinical information obtained from an independent historian. History obtained from or confirmed by: Other Daughter is at the bedside. External Record Review External record reviewed: Inpatient record Prescription Management I considered prescription management with: Pain Medication Chronic Conditions Patient?s care impacted by: Diabetes and Hypertension 50 pound weight while on Ozempic no longer on the medication has chronic pain due to RA on oxycodone BID at baseline vertigo, depression, PE, obesity, DDD, DVT, HTN, Obstructive sleep apnea, GERD, HLD Social Determinants Patient?s care significantly limited by Social Determinants of Health including: Inadequate housing Core Measures AMI core measures followed: Yes Discharge Plan Discharge Clinical Impression: Closed [place]uve fracture of left lower extremity, Syncope, Fall Patient Disposition: Admitted As Inpatient
[2024-01-24] MEDS: 0.9 % Sodium Chloride 1,000 ML 999 ML IV (12:45)
[2024-01-24 12:55] LABS: MANUAL DIFF FLAG NO
[2024-01-24 12:57] LABS: Basophils Percent Auto 0.3 % (0-2); Eosinophils Percent Auto 0.4 % (0-4); Hemoglobin 8.6 g/dl (12.0-16.0); Imm Gran Abs Auto 0.03 X10*3/uL (0.00-0.03); Imm Gran Pct Auto 0.4 % (0.0-0.4); Lymphocytes Absolute Auto 0.7 X10*3/uL (1.2-4.9); Lymphocytes Percent Auto 8.8 % (20-40); Mean Corpuscular HGB Conc 31.9 g/dl (31.0-35.0); Mean Corpuscular Hemoglobin 28.4 pg (27.0-33.0); Mean Corpuscular Volume 89.1 fL (80.0-98.0); Monocytes Absolute Auto 0.6 X10*3/uL (0.1-1.2); Monocytes Percent Auto 7.2 % (2-11); Neutrophils Absolute Auto 6.4 x10*3/uL (2.0-8.3); Neutrophils Percent Auto 82.9 % (45-73); Platelet Count 317 X10*3/uL (160-400); Red Blood Count 3.03 X10*6/uL (4.20-5.50); Red Cell Distribution Width 19.3 % (11.0-16.0); White Blood Count 7.8 X10*3/uL (4.8-10.8)
[2024-01-24] MEDS: Acetaminophen 325 MG TABLET 650 MG PO ×2 (12:58→20:37)
[2024-01-24] MEDS: oxyCODONE HCl Immed Release 5 MG TABLET PO ×2 (12:59→20:36)
[2024-01-24 13:09] LABS: Alanine Aminotransferase 14 U/L (0-31); Albumin Level 3.6 g/dL (3.5-5.0); Alkaline Phosphatase 60 U/L (39-117); Anion Gap 11 (12-20); Aspartate Amino Transferase 25 U/L (5-31); Bilirubin Direct 0.2 mg/dL (0.0-0.5); Bilirubin Total 0.4 mg/dL (0.0-1.0); Blood Urea Nitrogen 23 mg/dL (9-16); Calcium 9.3 mg/dL (8.4-10.2); Carbon Dioxide 24 mmol/L (22-29); Chloride 109 mmol/L (96-108); Creatinine Clr Calc Pharmacy 36.3; Estimated Glomerular Filt Rate 44; Glucose Random 109 mg/dL (60-115); Lipase 47 U/L (8-78); Sodium 140 mmol/L (135-145); Total Protein 7.2 g/dL (6.5-8.0)
--- NOTE | 2024-01-24 14:08 | PC.NURSE ---
L leg splinted by md galo at bedside. +CMS. pt tolerated well. splint c/d/i, no issues. appears that pain control meds helped. no distress.
--- NOTE | 2024-01-24 16:56 | P.HPHOSP_ITS ---
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 The patient reports she had gotten out of the shower and upon exiting the bathroom felt lightheaded and fell to the ground. She denies any loss of consciousness or head injury. She denies any prodrome including blurred vision, tunnel vision, palpitations, shortness of breath, chest pain. No focal weakness, paresthesias, slurred speech, facial droop, headaches. She was unable to get up from the floor due to pain and swelling in the left ankle and culture daughter who subsequently called EMS. On arrival, patient tachycardic to 109, and hypertensive to 163/86 on admission, vital signs otherwise stable. There is no leukocytosis. There is a stable normocytic anemia with H/H 8.6/27.0%. Renal function baseline, electrolyte levels normal. Hepatic function normal. Total CK 106. Troponin pending. Head CT negative for acute intracranial abnormality. Cervical spine CT negative for acute osseous abnormality but shows multilevel advanced cervical spondylosis and anterolisthesis with torticollis among other chronic findings. X-ray of the left tibia/fibula/foot/ankle shows spiral fracture through the midshaft of the left fibula. In ED, given Tylenol, 1 L IV NS, and 5 mg oxycodone. Review of Systems 2 Review of Systems: General: No fevers, malaise, unintentional weight loss HEENT: No blurred vision, diplopia. No sore throat, nasal congestion, rhinorrhea, sinus pain, ear pain Cardiovascular: No chest pain, palpitations, or leg edema Respiratory: No shortness of breath, wheezing, cough GI: No abdominal pain, nausea, vomiting, diarrhea, constipation, melena, hematochezia : No dysuria, hematuria, increased urinary frequency, decreased urinary output MSK: No myalgia, back pain. +pain L ankle Neuro: No headaches, weakness, paresthesias. +lightheadedness Skin: No rashes or lesions PMFSH Medical History Breast cancer screening by mammogram Pre-op exam Hospital discharge follow-up Symptomatic anemia Pulmonary embolism Anemia Medicare annual wellness visit, initial Presence of IVC filter History of alcohol abuse Venous stasis dermatitis Obesity Vitamin D deficiency Barretts esophagus Benign essential hypertension Restless leg syndrome Obstructive sleep apnea GERD (gastroesophageal reflux disease) Tubular adenoma of colon Rheumatoid arthritis Hx of deep venous thrombosis Hypercholesterolemia Family History Father History of stomach cancer Mother Surgical History History of cataract surgery History of eyelid surgery History of tonsillectomy Hx of arthroscopic knee surgery Hx of heart artery stent Social History Household Members: Spouse Housing: House Do you presently have visiting nurse or other home services: No Alcohol intake: former Patient Tobacco Use Status: Former Tobacco user Quit Date: 1979 Tobacco use type: Cigarette Cigarette Packs Per Day: 2 Years Smoked: quit 1979 Smoked in Last 30 Days: No e-Cigarette/Vaping Use: Never Used Second Hand Smoke Exposure: No Use of substances other than those prescribed or required for medical reasons: No Advance Directives: No Advance Directives Information Provided: Yes service: No Current occupational status: retired Cognitive needs: No Hearing needs: No Vision needs: Yes Meds Allergies Allergy/AdvReac Type Severity Reaction Status Date / Time No Known Allergies Allergy Verified 01/24/24 12:00 [No Known Allergies*] Active Medications: Current Medications Acetaminophen (Acetaminophen 325 Mg Tablet) 650 mg PO Q6H PRN PRN Reason: Pain, Mild (Pain Scale 1-3) Ondansetron HCl (Ondansetron Hcl 4 Mg/2 Ml Vial) 4 mg IVPUSH Q8H PRN PRN Reason: Nausea and Vomiting Oxycodone HCl (Oxycodone Hcl Immed Release 5 Mg Tablet) 5 mg PO Q6H PRN PRN Reason: Pain, Severe (Pain Scale 7-10) Senna (Sennosides 8.6 Mg Tablet) 17.2 mg PO BEDTIME PRN PRN Reason: Constipation Sodium Chloride (0.9 % Sodium Chloride Flush 3 Ml Syringe) 3 ml IVFLUSH QSHIFT [facility] Home Medications Medication Instructions Recorded Confirmed Last Taken Type folic acid 1 mg tablet 1 tab PO ESSENCE@0900 10/11/21 01/10/24 10/11/21 History infliximab 100 mg intravenous See Rx Instructions .Route .COMPLEX 10/11/21 01/10/24 Unknown History solution (Remicade) methotrexate sodium 2.5 mg tablet mg PO 01/24/24 Unknown History Physical Exam 2 Vital Signs and Narrative: Vital Signs: Last Vital Signs Temp 98.1 F 01/24/24 12:00 Pulse 109 H 01/24/24 14:30 Resp 14 01/24/24 14:30 BP 163/86 H 01/24/24 14:30 Pulse Ox 98 01/24/24 14:30 O2 Del Method Room Air 01/24/24 14:30 BMI result Body Mass Index 33.9 Constitutional - Awake and Alert, No apparent distress Eyes - PERRLA, EOMI Cardiovascular - S1S2, RRR, No edema Respiratory - Normal lung expansion, Normal respiratory effort, No respiratory distress, CTA bilaterally Gastrointestinal - NT / ND; +BS; No rebound or guarding Extremities - no calf tenderness bilaterally, no swelling MSK- LLE immobilized in fiberglass splint. Toes are pink and warm with sensation in tact and full rom Skin - Warm/Dry Neurological - Alert & oriented x3, CN II-XII in tact Psychological - Appropriate affect Results Labs 01/24/24 12:43 01/24/24 12:43 Labs: Laboratory Results - last 24 hr 01/24/24 12:43 MCV 89.1 MCH 28.4 MCHC 31.9 RDW 19.3 H Plt Count 317 MPV 9.0 L Immature Gran % (Auto) 0.4 Neut % (Auto) 82.9 H Lymph % (Auto) 8.8 L Morehouse % (Auto) 7.2 Eos % (Auto) 0.4 Baso % (Auto) 0.3 Lymph # (Auto) 0.7 L Morehouse # (Auto) 0.6 Eos # (Auto) 0.0 Baso # (Auto) 0.0 Abs Immat Gran (auto) 0.03 Absolute Neuts (auto) 6.4 Absolute Nucleated RBC 0.000 Nucleated RBC % (auto) 0.0 Anion Gap 11 L Estim Creat Clear Calc 36.3 Estimated GFR 44 Random Glucose 109 Calcium 9.3 Total Bilirubin 0.4 Direct Bilirubin 0.2 AST 25 ALT 14 Alkaline Phosphatase 60 Total Creatine Kinase 106 Total Protein 7.2 Albumin 3.6 Lipase 47 Imaging Radiologist's Impressions: Impressions Ankle X-Ray 01/24/24 13:15 IMPRESSION: Undisplaced fracture of medial malleolus. Questionable undisplaced fracture of lateral malleolus. Calcaneal spurring. Undisplaced fracture of the medial malleolus and questionably undisplaced fracture of lateral malleolus. EXAMINATION: Left tibia and fibula COMPARISON: None TECHNIQUE: AP and lateral views of left tibia and fibula FINDINGS: There is spiral mildly displaced fracture of the mid shaft of left fibula and known fracture of the medial malleolus. There is diffuse osteopenia. IMPRESSION: Spiral fracture through the midshaft of the left fibula. Foot X-Ray 01/24/24 13:15 IMPRESSION: Undisplaced fracture of medial malleolus. Questionable undisplaced fracture of lateral malleolus. Calcaneal spurring. Undisplaced fracture of the medial malleolus and questionably undisplaced fracture of lateral malleolus. EXAMINATION: Left tibia and fibula COMPARISON: None TECHNIQUE: AP and lateral views of left tibia and fibula FINDINGS: There is spiral mildly displaced fracture of the mid shaft of left fibula and known fracture of the medial malleolus. There is diffuse osteopenia. IMPRESSION: Spiral fracture through the midshaft of the left fibula. Tibia/Fibula X-Ray 01/24/24 13:43 IMPRESSION: Undisplaced fracture of medial malleolus. Questionable undisplaced fracture of lateral malleolus. Calcaneal spurring. Undisplaced fracture of the medial malleolus and questionably undisplaced fracture of lateral malleolus. EXAMINATION: Left tibia and fibula COMPARISON: None TECHNIQUE: AP and lateral views of left tibia and fibula FINDINGS: There is spiral mildly displaced fracture of the mid shaft of left fibula and known fracture of the medial malleolus. There is diffuse osteopenia. IMPRESSION: Spiral fracture through the midshaft of the left fibula. Cervical Spine CT 01/24/24 14:26 IMPRESSION: 1. No evidence of acute fracture or dislocation. 2. Advanced atlantoaxial joint osteoarthritis. 3. Multilevel advanced cervical spondylosis. 4. Grade 1 C3-C4 and C4-C5 anterolisthesis and mild left-sided torticollis. 5. Moderate left C2-C3, severe left C3-C4, marked left C4-C5, mild left C5-C6 and marked left C6-C7 neuroforamina stenosis. Head CT 01/24/24 14:26 IMPRESSION: 1. Marked age related cerebral atrophy, ventriculomegaly, extensive ischemic white matter disease due to microangiopathy are seen. 2. No intracranial hemorrhage or skull fracture is seen. 3. No evidence of space occupying lesion could be found. 4. The current plain CT scan of the brain shows no diagnostic evidence of acute cerebral infarction. 5. Acute right maxillary sinusitis is present. 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 EKG shows NSR, rate [address]/T- wave abnormality -check echocardiogram -orthostatic vital signs as tolerated. Given 1 L IV NS in the ED -no acute anemia. Renal function and electrolyte levels normal. Troponin pending. -check CTA chest given history PE, tachycardia, and patient only on Eliquis 2.5 mg b.i.d. -monitor on telemetry # spiral fracture of the left fibula -immobilized in fiberglass splint -orthopedic consult -pain management p.r.n. -PT eval # history of PE/DVT -continue Eliquis # RA -on Remicade. Continue methotrexate, oxycodone # GERD -continue PPI # hypertension -continue lisinopril # mood disorder -continue home meds DVT prophylaxis-Eliquis Full code Quality Stroke Does the patient have a stroke diagnosis?: No VTE Prior VTE?: Yes VTE Risk Level:: Medical - moderate - high VTE Device Contraindication: Treatment Not Indicated VTE Drug Contraindication: N/A - Med Ordered
[2024-01-24] MEDS: iohexoL 350 MG/ML 100 ML INFUS..BTL IV (17:14)
--- NOTE | 2024-01-24 17:51 | PHA.MEDREC ---
Pharmacy Consult ? Medication Reconciliation Pharmacy has completed the medication reconciliation. Confirmed medications with Patient and through claim historyt.
[2024-01-24 18:24] LABS: Troponin-I High Sensitivity 3.6 ng/L (<3.5-17.0)
--- NOTE | 2024-01-24 18:28 | PC.NURSE ---
purewick applied. boosted. no distress
--- NOTE | 2024-01-24 19:03 | MHC.CM.ED ---
ANNE 01/23. Met with patient placed into observation. Pt is A&Ox4. Daughters are at the bedside. Pt lives alone. She was about 1 year ago. Uses a walker and a cane. Has no services. Pt feels she is independent. Still drives. PCP verified. HCP reviewed, completed and signed. HCP#1/daughter Constance Rivera ([phone]) and HCP #2/daughter Jessica Leiva ([phone]). THRIVE assessment negative. PT is pending. Family is requesting [facility], as daughter Jessica works there. Pt has a spiral fx of L fibula and FX medial malleolus/lateral malleolus. Daughters tell CM that patient could use help at home, as they are both cleaning and grocery shopping for their mother.. They do not mind helping her, but would appreciate more help in the home. They are concerned with ability to ambulate safely in the home. Pt met with [facility] in the past, but did not want any services. Pt tells CM that she did not qualify for free care with [facility]. CM explained to patient and daughters that an new consult to [facility] for home care and life alert could be helpful and perhaps less costly for the patient than hiring a private housekeeping service. Pt is very agreeable to obtaining a life alert. Pt will consider [facility] again. Will place task with daughterJessica as the contact. D/C plan: [facility] as first choice. At this time, pt does not have a medicare qualifying stay. No STR referrals placed at this time. CM will follow for discharge planning. CM contact card given.
--- NOTE | 2024-01-24 19:25 | PC.NURSE ---
Spoke with provider Rere SUTTON, pt able to go to med/sx with telemetry.
[2024-01-24] MEDS: 0.9 % Sodium Chloride Flush 3 ML SYRINGE IVFLUSH (22:26)
[2024-01-25] MEDS: Acetaminophen 325 MG TABLET 650 MG PO ×2 (02:37→16:19)
[2024-01-25] MEDS: oxyCODONE HCl Immed Release 5 MG TABLET PO ×3 (02:37→20:01)
[2024-01-25 04:00] VITALS: BP 134/72; PULSE 104; RESP 16; TEMP 37.1; O2SAT 97
[2024-01-25 06:07] LABS: MANUAL DIFF FLAG NO
[2024-01-25 06:09] LABS: Basophils Percent Auto 0.2 % (0-2); Eosinophils Absolute Auto 0.1 X10*3/uL (0.0-0.4); Eosinophils Percent Auto 0.8 % (0-4); Hematocrit 24.6 % (37.0-47.0); Hemoglobin 7.8 g/dl (12.0-16.0); Imm Gran Abs Auto 0.03 X10*3/uL (0.00-0.03); Imm Gran Pct Auto 0.5 % (0.0-0.4); Lymphocytes Absolute Auto 1.6 X10*3/uL (1.2-4.9); Lymphocytes Percent Auto 24.9 % (20-40); Mean Corpuscular HGB Conc 31.7 g/dl (31.0-35.0); Mean Corpuscular Hemoglobin 28.1 pg (27.0-33.0); Mean Corpuscular Volume 88.5 fL (80.0-98.0); Mean Platelet Volume 9.3 fL (9.4-12.3); Monocytes Absolute Auto 0.6 X10*3/uL (0.1-1.2); Monocytes Percent Auto 10.3 % (2-11); NRBC Pct Auto 0.3 /100WBC (0.0-0.2); Neutrophils Absolute Auto 3.9 x10*3/uL (2.0-8.3); Neutrophils Percent Auto 63.3 % (45-73); Platelet Count 292 X10*3/uL (160-400); Red Blood Count 2.78 X10*6/uL (4.20-5.50); Red Cell Distribution Width 19.2 % (11.0-16.0); White Blood Count 6.2 X10*3/uL (4.8-10.8)
[2024-01-25 06:23] LABS: Anion Gap 11 (12-20); Blood Urea Nitrogen 21 mg/dL (9-16); Calcium 8.7 mg/dL (8.4-10.2); Carbon Dioxide 22 mmol/L (22-29); Chloride 110 mmol/L (96-108); Creatinine Clr Calc Pharmacy 41.3; Estimated Glomerular Filt Rate 51; Glucose Random 109 mg/dL (60-115); Sodium 139 mmol/L (135-145)
--- NOTE | 2024-01-25 07:00 | CA_ITS ---
Transthoracic Echocardiogram Patient (Last, First, Middle): Wendy Ulloa L Gender: Female Date of : 1950 Age: 73 Procedure Date: 01/25/2024 Procedure Type: Transthoracic Echocardiogram Location: S3W Height: 149.86 cm Weight: 77.57 kg BSA: 1.73 m2 Heart Rate: bpm BP: 139 / 67 mmHg Staff Physical Therapist: SB Referring MD: Rere SUTTON Symptoms: near syncope Study Quality: Adequate Conclusions: - Normal left ventricular cavity size. There is mildly increased left ventricular wall thickness. The left ventricular systolic function is hyperdynamic. The visually estimated ejection fraction is >70%. There is no evidence of regional wall motion abnormalities. Diastolic function is indeterminate on the basis of available data. - Normal right ventricular cavity size and systolic function. Findings Left Ventricle Normal left ventricular cavity size. There is mildly increased left ventricular wall thickness. The left ventricular systolic function is hyperdynamic. The visually estimated ejection fraction is >70%. There is no evidence of regional wall motion abnormalities. Diastolic function is indeterminate on the basis of available data. Right Ventricle Normal right ventricular cavity size and systolic function. Atria The left atrium is normal in size. Aortic Valve Normal aortic valve structure and function. There is no aortic valve stenosis. There is no aortic valve regurgitation. Mitral Valve The mitral valve appears normal. There is no mitral valve regurgitation. There is no mitral valve stenosis. Pulmonic Valve The pulmonic valve is likely normal. Tricuspid Valve Normal tricuspid valve structure. There is mild tricuspid valve regurgitation. Tricuspid regurgitation envelope is inadequate for calculation of right ventricular systolic pressure. Normal right atrial pressure. Great Vessels All visible segments of the aorta are normal in size. Venous The inferior vena cava is normal in size and collapses greater than 50% with inspiration. Pericardium/Pleural There is no evidence of pericardial effusion. Prior Study Comparison No significant change compared to prior study dated: 07/23/2021. Measurements 2D Linear Measurements IVSd: 1.04 0.6-0.9/0.6-1.0 cm LVIDd: 4.59 3.9-5.3/4.2-5.9 cm LVIDd Index: 2.65 2.4-3.2/2.2-3.1 cm/m2 LVIDs: 2.97 2.0-3.6 cm LVPWd: 1.07 0.7-1.1 cm LA Diam: 2.90 2.7-3.8/3.0-4.0 cm LAIDs Index: 1.68 1.5-2.3 cm/m2 LV Mass: 212.22 67-162/88-224 g LV Mass Index: 122.67 43-95/49-115 g/m2 LVOT Diam: 1.70 3.0+(-)1.3 cm 2D Systolic Function EF 4C: 72.80 >55% EF 2C: 70.90 >55% EF BiP: 71.70 >55% Mitral Valve MV Pk E: 0.94 MV PK A: 1.24 E/A: 0.80 E'Lateral: 10.10 E/E' Lat: 9.30 Aortic Valve AoV Pk Mansoor: 1.84 AoV Mn Mansoor: 1.36 AoV VTI: 0.33 AoV Pk Grad: 14.00 Aov Mn Grad: 8.00 ALEJANDRA Cont.VTI: 1.67 LVOT LVOT Pk Mansoor: 1.44 LVOT Mn Mansoor: 0.90 LVOT VTI: 0.25 LVOT Pk Grad: 8.00 LVOT Mn Grad: 4.00 LVOT Diam: 1.70 LVOT Area: 2.27 Diastolic Function MV Pk E: 0.94 MV Pk A: 1.24 E/A: 0.80 E' Laterial: 10.10 E/E' Lat: 9.30 Right Ventricle TAPSE (mm): 24.40 TVS' Mansoor: 16.70 Great Vessels Aorta Sinus of Valsalva: 3.00 2.0-3.5 cm Ao Asc: 3.30 2.1-3.4 cm Pulmonary Valve PV Pk Mansoor: 1.13 Peak PV Grad: 5.00 Updated in Other Vendor System with Status of Final Zelalem Youssef MD electronically signed on 01/25/2024 4:24:52 PM with status of Final
[2024-01-25 07:20] VITALS: BP 139/67; PULSE 102; RESP 16; TEMP 36.8; O2SAT 96
[2024-01-25] MEDS: 0.9 % Sodium Chloride Flush 3 ML SYRINGE IVFLUSH ×2 (07:46→16:13)
--- NOTE | 2024-01-25 09:14 | HO.PM.IMPN ---
Subjective Subjective Date of Service: 01/25/24 Interval History: no new events Physical Exam Vital Signs: Vital Signs: Last Vital Signs Temp 98.2 F 01/25/24 07:20 Pulse 102 H 01/25/24 07:20 Resp 16 01/25/24 07:20 BP 139/67 01/25/24 07:20 Pulse Ox 96 01/25/24 07:20 O2 Del Method Room Air 01/25/24 07:20 BMI result Body Mass Index 34.7 General: AO X 3, no acute distress Resp: CTA bilateral, no accessory muscles used CVS: S1,S2,RRR GI: soft, non tender, non distended Neuro: motor grossly intact, alert Psych: appropriate affect, appropriate insight Objective Data Active Medications Acetaminophen (Acetaminophen 325 Mg Tablet) 650 mg PO Q6H PRN PRN Reason: Pain, Mild (Pain Scale 1-3) Last Admin: 01/25/24 02:37 Dose: 650 mg Documented By: MARIO Atorvastatin Calcium (Atorvastatin Calcium 10 Mg Tablet) 5 mg PO DAILY [facility] Bupropion HCl (Bupropion Hcl Xl 150 Mg Tab.Er.24h) 150 mg PO DAILY [facility] Fenofibrate (Fenofibrate 160 Mg Tablet) 160 mg PO DAILY [facility] Fluticasone Propionate (Fluticasone Propionate Nasal 16 Gm [place]) 1 spray NOSTRIL-B DAILY [facility] Folic Acid (Folic Acid 1 Mg Tablet) 1 mg PO SUMOWETHFRSA@0900 [facility] Omeprazole (Omeprazole 20 Mg Capsule.Dr) 20 mg PO DAILY@0630 [facility] Ondansetron HCl (Ondansetron Hcl 4 Mg/2 Ml Vial) 4 mg IVPUSH Q8H PRN PRN Reason: Nausea and Vomiting Oxycodone HCl (Oxycodone Hcl Immed Release 5 Mg Tablet) 5 mg PO Q6H PRN PRN Reason: Pain, Severe (Pain Scale 7-10) Last Admin: 01/25/24 02:37 Dose: 5 mg Documented By: MARIO Prednisolone Acetate (Prednisolone Acetate 1 % Oph Susp 5 Ml Drpbtl) 1 drop EYE-LEFT BEDTIME [facility] Senna (Sennosides 8.6 Mg Tablet) 17.2 mg PO BEDTIME PRN PRN Reason: Constipation Sodium Chloride (0.9 % Sodium Chloride Flush 3 Ml Syringe) 3 ml IVFLUSH QSHIFT [facility] Last Admin: 01/25/24 07:46 Dose: 3 ml Documented By: ALICE Labs 01/25/24 05:10 01/25/24 05:10 Labs: Laboratory Results - last 24 hr 01/24/24 01/24/24 01/25/24 12:43 17:52 05:10 MCV 89.1 88.5 MCH 28.4 28.1 MCHC 31.9 31.7 RDW 19.3 H 19.2 H Plt Count 317 292 MPV 9.0 L 9.3 L Immature Gran % (Auto) 0.4 0.5 H Neut % (Auto) 82.9 H 63.3 Lymph % (Auto) 8.8 L 24.9 Owen % (Auto) 7.2 10.3 Eos % (Auto) 0.4 0.8 Baso % (Auto) 0.3 0.2 Lymph # (Auto) 0.7 L 1.6 Owen # (Auto) 0.6 0.6 Eos # (Auto) 0.0 0.1 Baso # (Auto) 0.0 0.0 Abs Immat Gran (auto) 0.03 0.03 Absolute Neuts (auto) 6.4 3.9 Absolute Nucleated RBC 0.000 0.020 H Nucleated RBC % (auto) 0.0 0.3 H Anion Gap 11 L 11 L Estim Creat Clear Calc 36.3 41.3 Estimated GFR 44 51 Random Glucose 109 109 Calcium 9.3 8.7 D Total Bilirubin 0.4 Direct Bilirubin 0.2 AST 25 ALT 14 Alkaline Phosphatase 60 Total Creatine Kinase 106 Troponin I High Sens 3.6 Total Protein 7.2 Albumin 3.6 Lipase 47 Assessment and Plan (1) Near syncope: Status: Acute Plan 73F PMH bppv, DVT/PE on eliquis, josé, RA presented with near syncope complicated by left fibula fracture near syncope no events on tele, unable to do orthostatics cta negative for pe follow up echo left fibular fracture ortho eval history dvt/pe holding eliquis until ortho eval RA holding mtx inpatient gerd ppi full code reason for continued hospitalization:awaiting ortho, echo Quality Stroke Does the patient have a stroke diagnosis?: No VTE Prior VTE?: Yes VTE Risk Level:: Medical - moderate - high VTE Device Contraindication: Treatment Not Indicated VTE Drug Contraindication: N/A - Med Ordered
[2024-01-25] MEDS: buPROPion HCl XL 150 MG TAB.ER.24H PO (09:47)
[2024-01-25] MEDS: Folic Acid 1 MG TABLET PO (09:48)
[2024-01-25] MEDS: Atorvastatin Calcium 10 MG TABLET 5 MG PO (09:48)
[2024-01-25] MEDS: Butalb/Acetamin/Caff 50/325/40 TABLET 1 TAB PO ×3 (09:49→22:09)
[2024-01-25] MEDS: Fenofibrate 160 MG TABLET PO (09:49)
[2024-01-25] MEDS: Fluticasone Propionate Nasal 16 GM SPRAY 1 SPRAY NOSTRIL-B (09:50)
--- NOTE | 2024-01-25 10:25 | P.CONOP_ITS ---
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 The patient reports she had gotten out of the shower and upon exiting the bathroom felt lightheaded and fell to the ground. She denies any loss of consciousness or head injury. She was unable to get up from the floor due to pain and swelling in the left ankle. EMS was called and she was transported to the ED. X-ray of the left tibia/fibula/foot/ankle shows spiral fracture through the midshaft of the left fibula. She was placed in a splint and orthopedics was consulted for further recommendations Review of Systems 2 Review of Systems: per hpi [facility] Past Medical History Medical History Breast cancer screening by mammogram Pre-op exam Hospital discharge follow-up Symptomatic anemia Pulmonary embolism Anemia Medicare annual wellness visit, initial Presence of IVC filter History of alcohol abuse Venous stasis dermatitis Obesity Vitamin D deficiency Barretts esophagus Benign essential hypertension Restless leg syndrome Obstructive sleep apnea GERD (gastroesophageal reflux disease) Tubular adenoma of colon Rheumatoid arthritis Hx of deep venous thrombosis Hypercholesterolemia Family History Family History Father History of stomach cancer Mother Surgical History Surgical History History of cataract surgery History of eyelid surgery History of tonsillectomy Hx of arthroscopic knee surgery Hx of heart artery stent Social History Social History Household Members: None Housing: House Do you presently have visiting nurse or other home services: No Alcohol intake: former Patient Tobacco Use Status: Former Tobacco user Quit Date: 1979 Tobacco use type: Cigarette Cigarette Packs Per Day: 2 Years Smoked: quit 1979 e-Cigarette/Vaping Use: Never Used Second Hand Smoke Exposure: No service: No Current occupational status: retired Cognitive needs: No Hearing needs: No Vision needs: Yes Meds Allergies Allergy/AdvReac Type Severity Reaction Status Date / Time No Known Allergies Allergy Verified 01/24/24 12:00 [No Known Allergies*] Active Medications: Current Medications Acetaminophen (Acetaminophen 325 Mg Tablet) 650 mg PO Q6H PRN PRN Reason: Pain, Mild (Pain Scale 1-3) Last Admin: 01/25/24 02:37 Dose: 650 mg Acetaminophen/Butalbital/Caffeine (Butalb/Acetamin/Caff 50/325/40 Tablet) 1 tab PO Q4H PRN PRN Reason: Headache Last Admin: 01/25/24 09:49 Dose: 1 tab Atorvastatin Calcium (Atorvastatin Calcium 10 Mg Tablet) 5 mg PO DAILY [facility] Last Admin: 01/25/24 09:48 Dose: 5 mg Bupropion HCl (Bupropion Hcl Xl 150 Mg Tab.Er.24h) 150 mg PO DAILY [facility] Last Admin: 01/25/24 09:47 Dose: 150 mg Fenofibrate (Fenofibrate 160 Mg Tablet) 160 mg PO DAILY [facility] Last Admin: 01/25/24 09:49 Dose: 160 mg Fluticasone Propionate (Fluticasone Propionate Nasal 16 Gm [place]) 1 spray NOSTRIL-B DAILY [facility] Last Admin: 01/25/24 09:50 Dose: 1 spray Folic Acid (Folic Acid 1 Mg Tablet) 1 mg PO SUMOWEFR@0900 [facility] Last Admin: 01/25/24 09:48 Dose: 1 mg Omeprazole (Omeprazole 20 Mg Capsule.Dr) 20 mg PO DAILY@0630 [facility] Ondansetron HCl (Ondansetron Hcl 4 Mg/2 Ml Vial) 4 mg IVPUSH Q8H PRN PRN Reason: Nausea and Vomiting Oxycodone HCl (Oxycodone Hcl Immed Release 5 Mg Tablet) 5 mg PO Q6H PRN PRN Reason: Pain, Severe (Pain Scale 7-10) Last Admin: 01/25/24 02:37 Dose: 5 mg Prednisolone Acetate (Prednisolone Acetate 1 % Oph Susp 5 Ml Drpbtl) 1 drop EYE-LEFT BEDTIME [facility] Senna (Sennosides 8.6 Mg Tablet) 17.2 mg PO BEDTIME PRN PRN Reason: Constipation Sodium Chloride (0.9 % Sodium Chloride Flush 3 Ml Syringe) 3 ml IVFLUSH QSHIFT [facility] Last Admin: 01/25/24 07:46 Dose: 3 ml Home Medications Medication Instructions Recorded Confirmed Last Taken Type folic acid 1 mg tablet 1 tab PO SUMOWETHFRSA@0900 10/11/21 01/24/24 01/23/24 History infliximab 100 mg intravenous See Rx Instructions .Route .COMPLEX 10/11/21 01/10/24 01/17/24 History solution (Remicade) chlorpheniramine-pseudoephedrine 2 1 tab PO DAILY 01/24/24 01/24/24 Unknown History mg-30 mg tablet fluticasone propionate 50 1 spray intranasal DAILY 01/24/24 01/24/24 Unknown History mcg/actuation nasal spray,suspension methotrexate sodium 2.5 mg tablet 20 mg PO TU 01/24/24 01/24/24 01/23/24 History oxycodone-acetaminophen 5 mg-325 1 tab PO DAILY@1300 PRN pain 01/24/24 01/24/24 Unknown History mg tablet oxycodone-acetaminophen 5 mg-325 1 tab PO BID pain 01/24/24 01/24/24 01/23/24 History mg tablet (Percocet) prednisolone acetate 1 % eye 1 drp ophthalmic-Left BEDTIME 01/24/24 01/24/24 01/23/24 History drops,suspension Physical Exam 2 Vital Signs: Vital Signs: Last Vital Signs Temp 98.2 F 01/25/24 07:20 Pulse 102 H 01/25/24 07:20 Resp 16 01/25/24 07:20 BP 139/67 01/25/24 07:20 Pulse Ox 96 01/25/24 07:20 O2 Del Method Room Air 01/25/24 07:20 BMI result Body Mass Index 34.7 Const: General: cooperative, healthy appearing, comfortable and no acute distress Extrem: Other: Left ankle in a splint. she has good cap refill of the toes and sensation intact. Results Labs 01/25/24 05:10 01/25/24 05:10 Labs: Abnormal lab results 01/24/24 01/25/24 Range/Units 12:43 05:10 RBC 3.03 L 2.78 L (4.20-5.50) X10*6/uL Hgb 8.6 L 7.8 L (12.0-16.0) g/dl Hct 27.0 L 24.6 L (37.0-47.0) % RDW 19.3 H 19.2 H (11.0-16.0) % MPV 9.0 L 9.3 L (9.4-12.3) fL Immature Gran % (Auto) 0.5 H (0.0-0.4) % Neut % (Auto) 82.9 H (45-73) % Lymph % (Auto) 8.8 L (20-40) % Lymph # (Auto) 0.7 L (1.2-4.9) X10*3/uL Absolute Nucleated RBC 0.020 H (0.0-0.012) X10*3/uL Nucleated RBC % (auto) 0.3 H (0.0-0.2) /100WBC Chloride 109 H 110 H (96-108) mmol/L Anion Gap 11 L 11 L (12-20) BUN 23 H 21 H (9-16) mg/dL H & H 01/24/24 01/25/24 Range/Units 12:43 05:10 Hgb 8.6 L 7.8 L (12.0-16.0) g/dl Hct 27.0 L 24.6 L (37.0-47.0) % All other labs normal. Diagnostic results Ankle/Foot x-ray: report reviewed (IMPRESSION: Spiral fracture through the midshaft of the left fibula.) Assessment and Plan (1) Closed [place] fracture of left lower extremity: Status: Acute Plan COntinue splint NWB strict elevation f/u in clinic next week to discuss surgery Eliquis will need to be held 72 hrs prior to surgery-anticipate holding monday incase surgery is booked for next week Procedures Date of Service Date of Service: 01/25/24
--- NOTE | 2024-01-25 11:36 | MHC.CM.PN ---
Addendum entered by Suzie Reaves 01/26/24 08:30: [facility] HAS RESCINDED BED OFFER AFTER REVIEWING ORTHO NOTE. NO FACILITIES ARE WILLING TO ACCEPT PT WHILE SURGERY IS PENDING PT IS UNABLE TO DC HOME WHERE SHE LIVES ALONE AND HAS NO CONSISTENT ASSISTANCE PT UNABLE TO GO TO STR DUE TO OBSERVATION STATUS AT THIS TIME THERE IS NO SAFE DC PLAN FOR THIS PT Addendum entered by Suzie Reaves 01/25/24 13:50: [facility] UNABLE TO OFFER A BED [facility] IS OFFERING FOR TOMORROW PT CURRENTLY GETTING AN ECHO CM SPOKE TO BOTH OF PTS DAUGHTERS/HCPS, JOSE [phone], AND TICO [phone] BOTH ARE AWARE OF THE BED OFFER AND HAVE ACCEPTED Original Note: CM MET WITH PT AND DAUGHTER AT BEDSIDE PT LIVES ALONE AND IS INDEPENDENT WITH CARE AT BASELINE PT USES A CANE AND WALKER, AND HAS MOBILITY ISSUES AT BASELINE DUE TO ARTHRITIS PER REPORT 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 ACUTE REHAB [facility] IS PREFERRED PER PT/DAUGHTER REPORT
[2024-01-25 11:51] VITALS: BP 139/67; PULSE 102; O2SAT 96
[2024-01-25] MEDS: Apixaban 2.5 MG TABLET PO ×2 (12:04→19:58)
[2024-01-25 15:06] VITALS: BP 124/57; PULSE 100; RESP 16; TEMP 36.2; O2SAT 96
[2024-01-25 19:04] VITALS: BP 129/86; PULSE 110; RESP 17; TEMP 36.3; O2SAT 96
[2024-01-25] MEDS: prednisoLONE Acetate 1 % Oph Susp 5 ML DRPBTL 1 DROP EYE-LEFT (19:57)
[2024-01-25 20:05] VITALS: PULSE 106
[2024-01-26] MEDS: 0.9 % Sodium Chloride Flush 3 ML SYRINGE IVFLUSH ×3 (00:25→22:11)
[2024-01-26 03:25] VITALS: BP 143/67; PULSE 104; RESP 18; TEMP 36.4; O2SAT 98
[2024-01-26] MEDS: Omeprazole 20 MG CAPSULE.DR PO (05:54)
[2024-01-26] MEDS: Fluticasone Propionate Nasal 16 GM SPRAY 1 SPRAY NOSTRIL-B (06:56)
[2024-01-26] MEDS: Folic Acid 1 MG TABLET PO (06:57)
[2024-01-26] MEDS: Apixaban 2.5 MG TABLET PO ×2 (06:57→22:05)
[2024-01-26] MEDS: oxyCODONE HCl Immed Release 5 MG TABLET PO ×3 (06:57→22:10)
[2024-01-26] MEDS: Atorvastatin Calcium 10 MG TABLET 5 MG PO (06:57)
[2024-01-26] MEDS: Fenofibrate 160 MG TABLET PO (06:57)
[2024-01-26] MEDS: buPROPion HCl XL 150 MG TAB.ER.24H PO (06:57)
[2024-01-26 07:25] VITALS: BP 114/61; PULSE 97; RESP 18; TEMP 36.2; O2SAT 97
--- NOTE | 2024-01-26 07:47 | P.PNIM_ITS ---
Subjective Subjective Date of Service: 01/26/24 Interval History: pain controlled Physical Exam 2 Vital Signs: Vital Signs: Last Vital Signs Temp 97.2 F 01/26/24 07:25 Pulse 97 01/26/24 07:25 Resp 18 01/26/24 07:25 BP 114/61 01/26/24 07:25 Pulse Ox 97 01/26/24 07:25 O2 Del Method Room Air 01/26/24 07:25 BMI result Body Mass Index 34.7 Const: General: cooperative, healthy appearing, comfortable and no acute distress Extrem: Other: Left ankle in a splint. she has good cap refill of the toes and sensation intact. Objective Data Active Medications Acetaminophen (Acetaminophen 325 Mg Tablet) 650 mg PO Q6H PRN PRN Reason: Pain, Mild (Pain Scale 1-3) Last Admin: 01/25/24 16:19 Dose: 650 mg Documented By: SUN Acetaminophen/Butalbital/Caffeine (Butalb/Acetamin/Caff 50/325/40 Tablet) 1 tab PO Q4H PRN PRN Reason: Headache Last Admin: 01/25/24 22:09 Dose: 1 tab Documented By: SUN Apixaban (Apixaban 2.5 Mg Tablet) 2.5 mg PO BID [facility] Stop: 01/28/24 05:00 Last Admin: 01/26/24 06:57 Dose: 2.5 mg Documented By: LAUREEN Atorvastatin Calcium (Atorvastatin Calcium 10 Mg Tablet) 5 mg PO DAILY [facility] Last Admin: 01/26/24 06:57 Dose: 5 mg Documented By: LAUREEN Bupropion HCl (Bupropion Hcl Xl 150 Mg Tab.Er.24h) 150 mg PO DAILY [facility] Last Admin: 01/26/24 06:57 Dose: 150 mg Documented By: LAUREEN Fenofibrate (Fenofibrate 160 Mg Tablet) 160 mg PO DAILY [facility] Last Admin: 01/26/24 06:57 Dose: 160 mg Documented By: LAUREEN Fluticasone Propionate (Fluticasone Propionate Nasal 16 Gm [place]) 1 spray NOSTRIL-B DAILY [facility] Last Admin: 01/26/24 06:56 Dose: 1 spray Documented By: LAUREEN Folic Acid (Folic Acid 1 Mg Tablet) [address] [facility] Last Admin: 01/26/24 06:57 Dose: 1 mg Documented By: LAUREEN Omeprazole (Omeprazole 20 Mg Capsule.Dr) 20 mg PO DAILY@0630 [facility] Last Admin: 01/26/24 05:54 Dose: 20 mg Documented By: TACO Ondansetron HCl (Ondansetron Hcl 4 Mg/2 Ml Vial) 4 mg IVPUSH Q8H PRN PRN Reason: Nausea and Vomiting Oxycodone HCl (Oxycodone Hcl Immed Release 5 Mg Tablet) 5 mg PO Q6H PRN PRN Reason: Pain, Severe (Pain Scale 7-10) Last Admin: 01/26/24 06:57 Dose: 5 mg Documented By: LAUREEN Prednisolone Acetate (Prednisolone Acetate 1 % Oph Susp 5 Ml Drpbtl) 1 drop EYE-LEFT BEDTIME [facility] Last Admin: 01/25/24 19:57 Dose: 1 drop Documented By: SUN Senna (Sennosides 8.6 Mg Tablet) 17.2 mg PO BEDTIME PRN PRN Reason: Constipation Sodium Chloride (0.9 % Sodium Chloride Flush 3 Ml Syringe) 3 ml IVFLUSH QSHIFT [facility] Last Admin: 01/26/24 06:58 Dose: 3 ml Documented By: LAUREEN Labs 01/25/24 05:10 01/25/24 05:10 Assessment and Plan (1) Near syncope: Status: Acute Plan 73F PMH bppv, DVT/PE on eliquis, josé, RA presented with near syncope complicated by left fibula fracture near syncope no events on tele, unable to do orthostatics cta negative for pe echo unremarkable left fibular fracture ortho appreciated waiting for swelling to go down prior to surgery planned for 01/31/24 hold eliquis from 01/28/24 history dvt/pe eliquis (unclear why on low dose) hold preop from 01/28/24 RA holding mtx inpatient gerd ppi full code reason for continued hospitalization:unable to manage at home with fibular fracture Quality Stroke Does the patient have a stroke diagnosis?: No VTE Prior VTE?: Yes VTE Risk Level:: Medical - moderate - high VTE Device Contraindication: Treatment Not Indicated VTE Drug Contraindication: N/A - Med Ordered
[2024-01-26] MEDS: 0.9 % Sodium Chloride 1,000 ML 200 ML IVCONT (08:14)
--- NOTE | 2024-01-26 12:46 | MHC.CM.PN ---
EMR REVIEWED AND PER MD ROUNDS, PT WILL REMAIN IN HOSPITAL UNTIL SURGERY. PT HAS BEEN MADE I/P AND IMM DELIVERED. PT GIVES PERMISSION TO THIS CM TO UPDATE DAUGHTER. MESSAGE LEFT FOR HCP /DAUGHTER JOSE. CM WILL CONTINUE TO FOLLOW FOR ANY CHANGE TO DC PLAN/NEEDS.
[2024-01-26] MEDS: Docusate Sodium 100 MG CAPSULE PO (14:05)
[2024-01-26] MEDS: Butalb/Acetamin/Caff 50/325/40 TABLET 1 TAB PO ×2 (15:12→22:10)
[2024-01-26 15:18] VITALS: BP 116/60; PULSE 100; RESP 16; TEMP 36.7; O2SAT 98
[2024-01-26 19:55] VITALS: BP 123/60; PULSE 92; RESP 20; TEMP 36.7; O2SAT 97
[2024-01-26 20:00] VITALS: BP 118/60; PULSE 100; RESP 16; TEMP 36.3
[2024-01-26] MEDS: prednisoLONE Acetate 1 % Oph Susp 5 ML DRPBTL 1 DROP EYE-LEFT (22:05)
[2024-01-27 03:22] VITALS: BP 129/63; PULSE 93; RESP 20; TEMP 36.3; O2SAT 98
[2024-01-27] MEDS: Omeprazole 20 MG CAPSULE.DR PO (06:39)
[2024-01-27] MEDS: Butalb/Acetamin/Caff 50/325/40 TABLET 1 TAB PO ×2 (07:04→20:50)
[2024-01-27 07:51] VITALS: BP 132/60; PULSE 86; RESP 18; TEMP 36.2; O2SAT 98
--- NOTE | 2024-01-27 08:49 | HO.PM.IMPN ---
Subjective Subjective Date of Service: 01/27/24 Interval History: pain controlled Physical Exam Vital Signs: Vital Signs: Last Vital Signs Temp 97.2 F 01/27/24 07:51 Pulse 86 01/27/24 07:51 Resp 18 01/27/24 07:51 BP 132/60 01/27/24 07:51 Pulse Ox 98 01/27/24 07:51 O2 Del Method Room Air 01/27/24 07:51 BMI result Body Mass Index 34.7 Const: General: cooperative, healthy appearing, comfortable and no acute distress Extrem: Other: Left ankle in a splint. she has good cap refill of the toes and sensation intact. Objective Data Active Medications Acetaminophen (Acetaminophen 325 Mg Tablet) 650 mg PO Q6H PRN PRN Reason: Pain, Mild (Pain Scale 1-3) Last Admin: 01/25/24 16:19 Dose: 650 mg Documented By: SUN Acetaminophen/Butalbital/Caffeine (Butalb/Acetamin/Caff 50/325/40 Tablet) 1 tab PO Q4H PRN PRN Reason: Headache Last Admin: 01/27/24 07:04 Dose: 1 tab Documented By: DHIRAJ Apixaban (Apixaban 2.5 Mg Tablet) 2.5 mg PO BID [facility] Stop: 01/28/24 05:00 Last Admin: 01/26/24 22:05 Dose: 2.5 mg Documented By: VICTOR MANUEL Atorvastatin Calcium (Atorvastatin Calcium 10 Mg Tablet) 5 mg PO DAILY [facility] Last Admin: 01/26/24 06:57 Dose: 5 mg Documented By: LAUREEN Bupropion HCl (Bupropion Hcl Xl 150 Mg Tab.Er.24h) 150 mg PO DAILY [facility] Last Admin: 01/26/24 06:57 Dose: 150 mg Documented By: LAUREEN Docusate Sodium (Docusate Sodium 100 Mg Capsule) 100 mg PO BID PRN PRN Reason: Constipation Last Admin: 01/26/24 14:05 Dose: 100 mg Documented By: ALICE Fenofibrate (Fenofibrate 160 Mg Tablet) 160 mg PO DAILY [facility] Last Admin: 01/26/24 06:57 Dose: 160 mg Documented By: LAUREEN Fluticasone Propionate (Fluticasone Propionate Nasal 16 Gm [place]) 1 spray NOSTRIL-B DAILY [facility] Last Admin: 01/26/24 06:56 Dose: 1 spray Documented By: LAUREEN Folic Acid (Folic Acid 1 Mg Tablet) 1 mg PO SUMOWETHFRSA@0900 [facility] Last Admin: 01/26/24 06:57 Dose: 1 mg Documented By: LAUREEN Omeprazole (Omeprazole 20 Mg Capsule.Dr) 20 mg PO DAILY@0630 [facility] Last Admin: 01/27/24 06:39 Dose: 20 mg Documented By: DHIRAJ Ondansetron HCl (Ondansetron Hcl 4 Mg/2 Ml Vial) 4 mg IVPUSH Q8H PRN PRN Reason: Nausea and Vomiting Oxycodone HCl (Oxycodone Hcl Immed Release 5 Mg Tablet) 5 mg PO Q6H PRN PRN Reason: Pain, Severe (Pain Scale 7-10) Last Admin: 01/26/24 22:10 Dose: 5 mg Documented By: VICTOR MANUEL Prednisolone Acetate (Prednisolone Acetate 1 % Oph Susp 5 Ml Drpbtl) 1 drop EYE-LEFT BEDTIME [facility] Last Admin: 01/26/24 22:05 Dose: 1 drop Documented By: VICTOR MANUEL Senna (Sennosides 8.6 Mg Tablet) 17.2 mg PO BEDTIME PRN PRN Reason: Constipation Sodium Chloride (0.9 % Sodium Chloride Flush 3 Ml Syringe) 3 ml IVFLUSH QSHIFT [facility] Last Admin: 01/26/24 22:11 Dose: 3 ml Documented By: VICTOR MANUEL Labs 01/25/24 05:10 01/25/24 05:10 Assessment and Plan (1) Near syncope: Status: Acute Plan 73F PMH bppv, DVT/PE on eliquis, josé, RA presented with near syncope complicated by left fibula fracture near syncope no events on tele, unable to do orthostatics cta negative for pe echo unremarkable left fibular fracture ortho appreciated waiting for swelling to go down prior to surgery planned for 01/31/24 hold eliquis starting from 01/28/24 history dvt/pe eliquis (unclear why on low dose,should address as outpatient) hold preop from 01/28/24 RA holding mtx inpatient gerd ppi full code reason for continued hospitalization:unable to manage at home with fibular fracture Quality Stroke Does the patient have a stroke diagnosis?: No VTE Prior VTE?: Yes VTE Risk Level:: Medical - moderate - high VTE Device Contraindication: Treatment Not Indicated VTE Drug Contraindication: N/A - Med Ordered
[2024-01-27] MEDS: 0.9 % Sodium Chloride Flush 3 ML SYRINGE IVFLUSH ×3 (08:53→20:39)
[2024-01-27] MEDS: Folic Acid 1 MG TABLET PO (08:53)
[2024-01-27] MEDS: Atorvastatin Calcium 10 MG TABLET 5 MG PO (08:53)
[2024-01-27] MEDS: Fenofibrate 160 MG TABLET PO (08:53)
[2024-01-27] MEDS: oxyCODONE HCl Immed Release 5 MG TABLET PO ×2 (08:54→18:44)
[2024-01-27] MEDS: buPROPion HCl XL 150 MG TAB.ER.24H PO (08:54)
[2024-01-27] MEDS: Apixaban 2.5 MG TABLET PO ×2 (08:54→20:39)
[2024-01-27] MEDS: Fluticasone Propionate Nasal 16 GM SPRAY 1 SPRAY NOSTRIL-B (08:56)
[2024-01-27 11:53] VITALS: BP 138/63; PULSE 98; RESP 20; TEMP 36.4; O2SAT 99
[2024-01-27 15:26] VITALS: BP 119/59; PULSE 100; RESP 20; TEMP 36.3; O2SAT 99
[2024-01-27 20:00] VITALS: BP 147/63; PULSE 98; RESP 20; TEMP 36.7; O2SAT 97
[2024-01-27] MEDS: prednisoLONE Acetate 1 % Oph Susp 5 ML DRPBTL 1 DROP EYE-LEFT (20:50)
[2024-01-28] VITALS (7 sets, daily range): BP systolic 119–141; BP diastolic 55–67; PULSE 92–108; RESP 18–20; TEMP 36.3–37.1; O2SAT 97–100
[2024-01-28] MEDS: Omeprazole 20 MG CAPSULE.DR PO (05:40)
--- NOTE | 2024-01-28 06:37 | PC.NURSE ---
this nurse got reported from previous nurse during the day pt used bedside commode for BMx2. therefore, offered to use bedside commode at night too. however, pt strongly wants to use purewick at night. Left leg NWB. no other issues. will cont. monitor.
--- NOTE | 2024-01-28 08:26 | HO.PM.IMPN ---
Subjective Subjective Date of Service: 01/28/24 Interval History: comfortable Physical Exam Vital Signs: Vital Signs: Last Vital Signs Temp 97.6 F 01/28/24 07:13 Pulse 94 01/28/24 07:13 Resp 18 01/28/24 07:13 BP 141/67 H 01/28/24 07:13 Pulse Ox 97 01/28/24 07:13 O2 Del Method Room Air 01/28/24 07:13 BMI result Body Mass Index 34.7 Const: General: cooperative, healthy appearing, comfortable and no acute distress Extrem: Other: Left ankle in a splint. she has good cap refill of the toes and sensation intact. Objective Data Active Medications Acetaminophen (Acetaminophen 325 Mg Tablet) 650 mg PO Q6H PRN PRN Reason: Pain, Mild (Pain Scale 1-3) Last Admin: 01/25/24 16:19 Dose: 650 mg Documented By: SUN Acetaminophen/Butalbital/Caffeine (Butalb/Acetamin/Caff 50/325/40 Tablet) 1 tab PO Q4H PRN PRN Reason: Headache Last Admin: 01/27/24 20:50 Dose: 1 tab Documented By: MARIO Atorvastatin Calcium (Atorvastatin Calcium 10 Mg Tablet) 5 mg PO DAILY [facility] Last Admin: 01/27/24 08:53 Dose: 5 mg Documented By: SARAH Bupropion HCl (Bupropion Hcl Xl 150 Mg Tab.Er.24h) 150 mg PO DAILY [facility] Last Admin: 01/27/24 08:54 Dose: 150 mg Documented By: SARAH Docusate Sodium (Docusate Sodium 100 Mg Capsule) 100 mg PO BID PRN PRN Reason: Constipation Last Admin: 01/26/24 14:05 Dose: 100 mg Documented By: ALICE Fenofibrate (Fenofibrate 160 Mg Tablet) 160 mg PO DAILY [facility] Last Admin: 01/27/24 08:53 Dose: 160 mg Documented By: SARAH Fluticasone Propionate (Fluticasone Propionate Nasal 16 Gm [place]) 1 spray NOSTRIL-B DAILY [facility] Last Admin: 01/27/24 08:56 Dose: 1 spray Documented By: SARAH Folic Acid (Folic Acid 1 Mg Tablet) 1 mg PO SUMOWETHFRSA@0900 [facility] Last Admin: 01/27/24 08:53 Dose: 1 mg Documented By: SARAH Omeprazole (Omeprazole 20 Mg Capsule.Dr) 20 mg PO DAILY@0630 [facility] Last Admin: 01/28/24 05:40 Dose: 20 mg Documented By: MARIO Ondansetron HCl (Ondansetron Hcl 4 Mg/2 Ml Vial) 4 mg IVPUSH Q8H PRN PRN Reason: Nausea and Vomiting Oxycodone HCl (Oxycodone Hcl Immed Release 5 Mg Tablet) 5 mg PO Q6H PRN PRN Reason: Pain, Severe (Pain Scale 7-10) Last Admin: 01/27/24 18:44 Dose: 5 mg Documented By: SARAH Prednisolone Acetate (Prednisolone Acetate 1 % Oph Susp 5 Ml Drpbtl) 1 drop EYE-LEFT BEDTIME [facility] Last Admin: 01/27/24 20:50 Dose: 1 drop Documented By: MARIO Senna (Sennosides 8.6 Mg Tablet) 17.2 mg PO BEDTIME PRN PRN Reason: Constipation Sodium Chloride (0.9 % Sodium Chloride Flush 3 Ml Syringe) 3 ml IVFLUSH QSHIFT [facility] Last Admin: 01/27/24 20:39 Dose: 3 ml Documented By: MARIO Labs 01/25/24 05:10 01/25/24 05:10 Assessment and Plan (1) Near syncope: Status: Acute Plan 73F PMH bppv, DVT/PE on eliquis, josé, RA presented with near syncope complicated by left fibula fracture near syncope no events on tele, unable to do orthostatics cta negative for pe echo unremarkable left fibular fracture ortho appreciated waiting for swelling to go down prior to surgery planned for 01/31/24 holding eliquis, last dose 01/27/24 history dvt/pe eliquis (unclear why on low dose,should address as outpatient) hold preop last dose 01/27/24 RA holding mtx inpatient gerd ppi full code reason for continued hospitalization:unable to manage at home with fibular fracture Quality Stroke Does the patient have a stroke diagnosis?: No VTE Prior VTE?: Yes VTE Risk Level:: Medical - moderate - high VTE Device Contraindication: Treatment Not Indicated VTE Drug Contraindication: N/A - Med Ordered
[2024-01-28] MEDS: Atorvastatin Calcium 10 MG TABLET 5 MG PO (09:12)
[2024-01-28] MEDS: 0.9 % Sodium Chloride Flush 3 ML SYRINGE IVFLUSH ×2 (09:12→15:29)
[2024-01-28] MEDS: Folic Acid 1 MG TABLET PO (09:13)
[2024-01-28] MEDS: oxyCODONE HCl Immed Release 5 MG TABLET PO ×3 (09:13→21:16)
[2024-01-28] MEDS: Fenofibrate 160 MG TABLET PO (09:13)
[2024-01-28] MEDS: buPROPion HCl XL 150 MG TAB.ER.24H PO (09:15)
[2024-01-28] MEDS: Fluticasone Propionate Nasal 16 GM SPRAY 1 SPRAY NOSTRIL-B (09:15)
[2024-01-28] MEDS: Acetaminophen 325 MG TABLET 650 MG PO (20:02)
[2024-01-28] MEDS: Butalb/Acetamin/Caff 50/325/40 TABLET 1 TAB PO (20:03)
[2024-01-28] MEDS: prednisoLONE Acetate 1 % Oph Susp 5 ML DRPBTL 1 DROP EYE-LEFT (20:04)
[2024-01-29] VITALS (7 sets, daily range): BP systolic 119–144; BP diastolic 57–69; PULSE 88–95; RESP 16–18; TEMP 36.1–36.5; O2SAT 97–99
[2024-01-29] MEDS: 0.9 % Sodium Chloride Flush 3 ML SYRINGE IVFLUSH ×4 (00:30→23:54)
[2024-01-29] MEDS: oxyCODONE HCl Immed Release 5 MG TABLET PO ×4 (03:43→22:03)
[2024-01-29] MEDS: Omeprazole 20 MG CAPSULE.DR PO (06:35)
--- NOTE | 2024-01-29 08:48 | P.PNIM_ITS ---
Subjective Subjective Date of Service: 01/29/24 Interval History: comfortable Physical Exam 2 Vital Signs: Vital Signs: Last Vital Signs Temp 97.5 F 01/29/24 07:25 Pulse 88 01/29/24 07:25 Resp 18 01/29/24 07:25 BP 144/69 H 01/29/24 07:25 Pulse Ox 97 01/29/24 07:25 O2 Del Method Room Air 01/29/24 07:25 BMI result Body Mass Index 34.7 Const: General: cooperative, healthy appearing, comfortable and no acute distress Extrem: Other: Left ankle in a splint. she has good cap refill of the toes and sensation intact. Objective Data Active Medications Acetaminophen (Acetaminophen 325 Mg Tablet) 650 mg PO Q6H PRN PRN Reason: Pain, Mild (Pain Scale 1-3) Last Admin: 01/28/24 20:02 Dose: 650 mg Documented By: SARAH Acetaminophen/Butalbital/Caffeine (Butalb/Acetamin/Caff 50/325/40 Tablet) 1 tab PO Q4H PRN PRN Reason: Headache Last Admin: 01/28/24 20:03 Dose: 1 tab Documented By: SARAH Atorvastatin Calcium (Atorvastatin Calcium 10 Mg Tablet) 5 mg PO DAILY [facility] Last Admin: 01/28/24 09:12 Dose: 5 mg Documented By: SARAH Bupropion HCl (Bupropion Hcl Xl 150 Mg Tab.Er.24h) 150 mg PO DAILY [facility] Last Admin: 01/28/24 09:15 Dose: 150 mg Documented By: SARAH Docusate Sodium (Docusate Sodium 100 Mg Capsule) 100 mg PO BID PRN PRN Reason: Constipation Last Admin: 01/26/24 14:05 Dose: 100 mg Documented By: ALICE Fenofibrate (Fenofibrate 160 Mg Tablet) 160 mg PO DAILY [facility] Last Admin: 01/28/24 09:13 Dose: 160 mg Documented By: SARAH Fluticasone Propionate (Fluticasone Propionate Nasal 16 Gm [place]) 1 spray NOSTRIL-B DAILY [facility] Last Admin: 01/28/24 09:15 Dose: 1 spray Documented By: SARAH Folic Acid (Folic Acid 1 Mg Tablet) 1 [facility] Last Admin: 01/28/24 09:13 Dose: 1 mg Documented By: SARAH Omeprazole (Omeprazole 20 Mg Capsule.Dr) 20 mg PO DAILY@0630 [facility] Last Admin: 01/29/24 06:35 Dose: 20 mg Documented By: TACO Ondansetron HCl (Ondansetron Hcl 4 Mg/2 Ml Vial) 4 mg IVPUSH Q8H PRN PRN Reason: Nausea and Vomiting Oxycodone HCl (Oxycodone Hcl Immed Release 5 Mg Tablet) 5 mg PO Q6H PRN PRN Reason: Pain, Severe (Pain Scale 7-10) Last Admin: 01/29/24 03:43 Dose: 5 mg Documented By: TACO Prednisolone Acetate (Prednisolone Acetate 1 % Oph Susp 5 Ml Drpbtl) 1 drop EYE-LEFT BEDTIME [facility] Last Admin: 01/28/24 20:04 Dose: 1 drop Documented By: SARAH Senna (Sennosides 8.6 Mg Tablet) 17.2 mg PO BEDTIME PRN PRN Reason: Constipation Sodium Chloride (0.9 % Sodium Chloride Flush 3 Ml Syringe) 3 ml IVFLUSH QSHIFT [facility] Last Admin: 01/29/24 00:30 Dose: 3 ml Documented By: TACO Labs 01/25/24 05:10 01/25/24 05:10 Assessment and Plan (1) Near syncope: Status: Acute Plan 73F PMH bppv, DVT/PE on eliquis, josé, RA presented with near syncope complicated by left fibula fracture near syncope no events on tele, unable to do orthostatics cta negative for pe echo unremarkable left fibular fracture ortho appreciated waiting for swelling to go down prior to surgery planned for 01/31/24 continue to hold eliquis, last dose 01/27/24 history dvt/pe eliquis (unclear why on low dose,should address as outpatient) hold preop last dose 01/27/24 RA holding mtx inpatient gerd ppi full code reason for continued hospitalization:unable to manage at home with fibular fracture Quality Stroke Does the patient have a stroke diagnosis?: No VTE Prior VTE?: Yes VTE Risk Level:: Medical - moderate - high VTE Device Contraindication: Treatment Not Indicated VTE Drug Contraindication: N/A - Med Ordered
--- NOTE | 2024-01-29 09:00 | PM.PNORT ---
Subjective Subjective Date of Service: 01/29/24 Interval history: Left ankle fracture -continues to remain NWB in splint Physical Exam Vital Signs: Vital Signs: Last Vital Signs Temp 97.5 F 01/29/24 07:25 Pulse 88 01/29/24 07:25 Resp 18 01/29/24 07:25 BP 144/69 H 01/29/24 07:25 Pulse Ox 97 01/29/24 07:25 O2 Del Method Room Air 01/29/24 07:25 BMI result Body Mass Index 34.7 Extrem: Other: left ankle skin is intact, minial swelling, no pressure sores or blisters noted, nvi. Procedures Date of Service Date of Service: 01/29/24 Progress Note: A&P Assessment and plan (1) Closed [place] fracture of left lower extremity: Status: Acute Assessment and Plan: I discussed the case withDr Whiting and explained the extent of the injury to the patient and options available which include surgical intervention. I explained the procedure in detail along with the length of recovery and rehab course. I explained the risk, benefits and alternatives. Risk including, but not limited to infection, blood clots, bleeding, non union or malunion and nerve/tissue damage to surrounding areas. I answered all their questions and with their understanding they have consented to move forward with Operative Fixation of the left ankle. The patient is on Eliquis and this has been on hold to proceed with Surgery 01/31/24 . NPO aftermonday . Time Spent With Patient Time: Total time managing care of this patient today ____ minutes. Quality Stroke Does the patient have a stroke diagnosis?: No VTE Prior VTE?: Yes VTE Risk Level:: Medical - moderate - high VTE Device Contraindication: Treatment Not Indicated VTE Drug Contraindication: N/A - Med Ordered
[2024-01-29] MEDS: Atorvastatin Calcium 10 MG TABLET 5 MG PO (09:51)
[2024-01-29] MEDS: Fluticasone Propionate Nasal 16 GM SPRAY 1 SPRAY NOSTRIL-B (09:52)
[2024-01-29] MEDS: Fenofibrate 160 MG TABLET PO (09:52)
[2024-01-29] MEDS: Folic Acid 1 MG TABLET PO (09:52)
[2024-01-29] MEDS: buPROPion HCl XL 150 MG TAB.ER.24H PO (09:52)
[2024-01-29] MEDS: Butalb/Acetamin/Caff 50/325/40 TABLET 1 TAB PO ×3 (09:56→23:51)
--- NOTE | 2024-01-29 13:36 | MHC.CM.PN ---
per rounds pt to go to or wed
[2024-01-29] MEDS: Acetaminophen 325 MG TABLET 650 MG PO ×2 (14:01→22:03)
[2024-01-29] MEDS: prednisoLONE Acetate 1 % Oph Susp 5 ML DRPBTL 1 DROP EYE-LEFT (22:03)
[2024-01-30 03:43] VITALS: BP 132/63; PULSE 88; RESP 18; TEMP 37.1; O2SAT 97
[2024-01-30] MEDS: Omeprazole 20 MG CAPSULE.DR PO (06:11)
[2024-01-30 07:22] VITALS: BP 148/66; PULSE 94; RESP 18; TEMP 36.1; O2SAT 97
--- NOTE | 2024-01-30 08:48 | P.PNIM_ITS ---
Subjective Subjective Date of Service: 01/30/24 Interval History: comfortable, pain manageable Physical Exam 2 Vital Signs: Vital Signs: Last Vital Signs Temp 96.9 F 01/30/24 07:22 Pulse 94 01/30/24 07:22 Resp 18 01/30/24 07:22 BP 148/66 H 01/30/24 07:22 Pulse Ox 97 01/30/24 07:22 O2 Del Method Room Air 01/30/24 07:22 BMI result Body Mass Index 34.7 Extrem: Other: left ankle skin is intact, minial swelling, no pressure sores or blisters noted, nvi. Objective Data Active Medications Acetaminophen (Acetaminophen 325 Mg Tablet) 650 mg PO Q6H PRN PRN Reason: Pain, Mild (Pain Scale 1-3) Last Admin: 01/29/24 22:03 Dose: 650 mg Documented By: LAUREEN Acetaminophen/Butalbital/Caffeine (Butalb/Acetamin/Caff 50/325/40 Tablet) 1 tab PO Q4H PRN PRN Reason: Headache Last Admin: 01/29/24 23:51 Dose: 1 tab Documented By: TACO Atorvastatin Calcium (Atorvastatin Calcium 10 Mg Tablet) 5 mg PO DAILY [facility] Last Admin: 01/29/24 09:51 Dose: 5 mg Documented By: ALICE Bupropion HCl (Bupropion Hcl Xl 150 Mg Tab.Er.24h) 150 mg PO DAILY [facility] Last Admin: 01/29/24 09:52 Dose: 150 mg Documented By: ALICE Docusate Sodium (Docusate Sodium 100 Mg Capsule) 100 mg PO BID PRN PRN Reason: Constipation Last Admin: 01/26/24 14:05 Dose: 100 mg Documented By: ALICE Fenofibrate (Fenofibrate 160 Mg Tablet) 160 mg PO DAILY [facility] Last Admin: 01/29/24 09:52 Dose: 160 mg Documented By: ALICE Fluticasone Propionate (Fluticasone Propionate Nasal 16 Gm [place]) 1 spray NOSTRIL-B DAILY [facility] Last Admin: 01/29/24 09:52 Dose: 1 spray Documented By: ALICE Folic Acid (Folic Acid 1 Mg Tablet) 1 mg PO SUMOWETHFRSA@0900 [facility] Last Admin: 01/29/24 09:52 Dose: 1 mg Documented By: ALICE Cefazolin Sodium/Dextrose (Ancef) 2 gm in 50 mls @ 100 mls/hr IV PREOP ONE Stop: 01/31/24 00:31 Omeprazole (Omeprazole 20 Mg Capsule.Dr) 20 mg PO DAILY@0630 [facility] Last Admin: 01/30/24 06:11 Dose: 20 mg Documented By: TACO Ondansetron HCl (Ondansetron Hcl 4 Mg/2 Ml Vial) 4 mg IVPUSH Q8H PRN PRN Reason: Nausea and Vomiting Oxycodone HCl (Oxycodone Hcl Immed Release 5 Mg Tablet) 5 mg PO Q6H PRN PRN Reason: Pain, Severe (Pain Scale 7-10) Last Admin: 01/29/24 22:03 Dose: 5 mg Documented By: LAUREEN Prednisolone Acetate (Prednisolone Acetate 1 % Oph Susp 5 Ml Drpbtl) 1 drop EYE-LEFT BEDTIME [facility] Last Admin: 01/29/24 22:03 Dose: 1 drop Documented By: LAUREEN Senna (Sennosides 8.6 Mg Tablet) 17.2 mg PO BEDTIME PRN PRN Reason: Constipation Sodium Chloride (0.9 % Sodium Chloride Flush 3 Ml Syringe) 3 ml IVFLUSH QSHIFT [facility] Last Admin: 01/29/24 23:54 Dose: 3 ml Documented By: TACO Labs 01/25/24 05:10 01/25/24 05:10 Assessment and Plan (1) Near syncope: Status: Acute Plan 73F PMH bppv, DVT/PE on eliquis, josé, RA presented with near syncope complicated by left fibula fracture near syncope no events on tele, unable to do orthostatics cta negative for pe echo unremarkable left fibular fracture ortho appreciated waiting for swelling to go down prior to surgery planned for 01/31/24, NPO after midnight tonight continue to hold eliquis, last dose 01/27/24 history dvt/pe eliquis (unclear why she was only on low dose) holding preop, last dose 01/27/24 RA holding mtx inpatient gerd ppi full code reason for continued hospitalization:unable to manage at home with fibular fracture Quality Stroke Does the patient have a stroke diagnosis?: No VTE Prior VTE?: Yes VTE Risk Level:: Medical - moderate - high VTE Device Contraindication: Treatment Not Indicated VTE Drug Contraindication: N/A - Med Ordered
[2024-01-30] MEDS: Atorvastatin Calcium 10 MG TABLET 5 MG PO (10:27)
[2024-01-30] MEDS: buPROPion HCl XL 150 MG TAB.ER.24H PO (10:27)
[2024-01-30] MEDS: oxyCODONE HCl Immed Release 5 MG TABLET PO ×2 (10:27→20:39)
[2024-01-30] MEDS: Fluticasone Propionate Nasal 16 GM SPRAY 1 SPRAY NOSTRIL-B (10:28)
[2024-01-30] MEDS: 0.9 % Sodium Chloride Flush 3 ML SYRINGE IVFLUSH ×3 (10:28→23:42)
[2024-01-30] MEDS: Fenofibrate 160 MG TABLET PO (10:28)
[2024-01-30 11:48] VITALS: BP 130/59; PULSE 105; RESP 20; TEMP 36.6; O2SAT 99
[2024-01-30 15:17] VITALS: BP 125/59; PULSE 103; RESP 18; TEMP 36.3; O2SAT 97
[2024-01-30] MEDS: Acetaminophen 325 MG TABLET 650 MG PO (17:22)
[2024-01-30 19:18] VITALS: BP 137/62; PULSE 105; RESP 18; TEMP 36.8; O2SAT 100
[2024-01-30] MEDS: prednisoLONE Acetate 1 % Oph Susp 5 ML DRPBTL 1 DROP EYE-LEFT (20:38)
[2024-01-30] MEDS: Butalb/Acetamin/Caff 50/325/40 TABLET 1 TAB PO (20:42)
[2024-01-30 23:39] VITALS: BP 132/62; PULSE 93; RESP 16; TEMP 36.3; O2SAT 98
[2024-01-31] VITALS (12 sets, daily range): BP systolic 113–158; BP diastolic 56–90; PULSE 92–99; RESP 16–20; TEMP 36.1–37.1; O2SAT 94–100
[2024-01-31 09:24] LABS: Hematocrit 24.7 % (37.0-47.0); Hemoglobin 7.7 g/dl (12.0-16.0); Mean Corpuscular HGB Conc 31.2 g/dl (31.0-35.0); Mean Corpuscular Volume 89.8 fL (80.0-98.0); Mean Platelet Volume 9.2 fL (9.4-12.3); Platelet Count 277 X10*3/uL (160-400); Red Blood Count 2.75 X10*6/uL (4.20-5.50); Red Cell Distribution Width 19.4 % (11.0-16.0)
[2024-01-31] MEDS: oxyCODONE HCl Immed Release 5 MG TABLET PO ×2 (09:37→23:48)
[2024-01-31] MEDS: Fluticasone Propionate Nasal 16 GM SPRAY 1 SPRAY NOSTRIL-B (09:39)
[2024-01-31] MEDS: 0.9 % Sodium Chloride Flush 3 ML SYRINGE IVFLUSH ×3 (09:42→23:48)
[2024-01-31] MEDS: Butalb/Acetamin/Caff 50/325/40 TABLET 1 TAB PO ×3 (11:41→23:50)
--- NOTE | 2024-01-31 12:16 | P.PNIM_ITS ---
Subjective Subjective Date of Service: 01/31/24 Interval History: Seen and evaluated Feels better overall Low Hb 7.7 waiting for surgeryu Review of Systems Review of Systems: Yes all other systems are reviewed and are negative Physical Exam 2 Vital Signs: Vital Signs: Last Vital Signs Temp 98.4 F 01/31/24 12:00 Pulse 93 01/31/24 12:00 Resp 16 01/31/24 12:00 BP 129/61 01/31/24 12:00 Pulse Ox 96 01/31/24 12:00 O2 Del Method Room Air 01/31/24 12:00 BMI result Body Mass Index 34.7 Const: Other: Constitutional : Awake, interactive, not in distress Neck : Normal inspection, Supple Cardiovascular : RRR, no JVP, no lower extremity edema Respiratory : good bilateral air entry, no crackles, wheezes or rhonchi Gastrointestinal: soft, lax, Normal bowel sounds, Non tender Skin : Warm, Dry Extremities: LLE covered with dressing Neurological : Alert & oriented x3, No focal deficit Objective Data Active Medications Acetaminophen (Acetaminophen 325 Mg Tablet) 650 mg PO Q6H PRN PRN Reason: Pain, Mild (Pain Scale 1-3) Last Admin: 01/30/24 17:22 Dose: 650 mg Documented By: SUN Acetaminophen/Butalbital/Caffeine (Butalb/Acetamin/Caff 50/325/40 Tablet) 1 tab PO Q4H PRN PRN Reason: Headache Last Admin: 01/31/24 11:41 Dose: 1 tab Documented By: ALICE Atorvastatin Calcium (Atorvastatin Calcium 10 Mg Tablet) 5 mg PO DAILY [facility] Last Admin: 01/31/24 09:47 Dose: Not Given Documented By: ALICE Non-Admin Reason: NPO Bupropion HCl (Bupropion Hcl Xl 150 Mg Tab.Er.24h) 150 mg PO DAILY [facility] Last Admin: 01/31/24 09:47 Dose: Not Given Documented By: ALICE Non-Admin Reason: NPO Docusate Sodium (Docusate Sodium 100 Mg Capsule) 100 mg PO BID PRN PRN Reason: Constipation Last Admin: 01/26/24 14:05 Dose: 100 mg Documented By: ALICE Fenofibrate (Fenofibrate 160 Mg Tablet) 160 mg PO DAILY [facility] Last Admin: 01/31/24 09:47 Dose: Not Given Documented By: ALICE Non-Admin Reason: NPO Fluticasone Propionate (Fluticasone Propionate Nasal 16 Gm [place]) 1 spray NOSTRIL-B DAILY [facility] Last Admin: 01/31/24 09:39 Dose: 1 spray Documented By: ALICE Folic Acid (Folic Acid 1 Mg Tablet) 1 mg PO SUMOWETHFRSA@0900 [facility] Last Admin: 01/31/24 09:47 Dose: Not Given Documented By: ALICE Non-Admin Reason: NPO Omeprazole (Omeprazole 20 Mg Capsule.Dr) 20 mg PO DAILY@0630 [facility] Last Admin: 01/31/24 05:51 Dose: Not Given Documented By: TACO Non-Admin Reason: NPO Ondansetron HCl (Ondansetron Hcl 4 Mg/2 Ml Vial) 4 mg IVPUSH Q8H PRN PRN Reason: Nausea and Vomiting Oxycodone HCl (Oxycodone Hcl Immed Release 5 Mg Tablet) 5 mg PO Q6H PRN PRN Reason: Pain, Severe (Pain Scale 7-10) Last Admin: 01/31/24 09:37 Dose: 5 mg Documented By: ALICE Prednisolone Acetate (Prednisolone Acetate 1 % Oph Susp 5 Ml Drpbtl) 1 drop EYE-LEFT BEDTIME [facility] Last Admin: 01/30/24 20:38 Dose: 1 drop Documented By: SUN Senna (Sennosides 8.6 Mg Tablet) 17.2 mg PO BEDTIME PRN PRN Reason: Constipation Sodium Chloride (0.9 % Sodium Chloride Flush 3 Ml Syringe) 3 ml IVFLUSH QSHIFT [facility] Last Admin: 01/31/24 09:42 Dose: 3 ml Documented By: ALICE Labs 01/31/24 08:44 01/25/24 05:10 Labs: Laboratory Results - last 24 hr 01/31/24 01/31/24 08:44 11:24 MCV 89.8 MCH 28.0 MCHC 31.2 RDW 19.4 H Plt Count 277 MPV 9.2 L Absolute Nucleated RBC 0.000 Nucleated RBC % (auto) 0.0 Blood Type A Positive Antibody Screen NEGATIVE Crossmatch See Detail Assessment and Plan (1) Near syncope: Status: Acute (2) Fall: Status: Acute (3) Closed [place] fracture of left lower extremity: Status: Acute Plan 73F PMH bppv, DVT/PE on eliquis, josé, RA presented with near syncope complicated by left fibula fracture left fibular fracture ortho following NPO for surgery today continue to hold eliquis, last dose 01/27/24 Morphine for pain control PT tomorrow near syncope no events on tele, unable to do orthostatics cta negative for pe echo unremarkable Anemia of chronic disease Hb stable at 7.7 Prepare 1 unit PRBCs monitor CBC history dvt/pe eliquis (unclear why she was only on low dose) holding preop, last dose 01/27/24 RA holding mtx inpatient gerd ppi full code reason for continued hospitalization:pending surgical intervention for fibular fracture Quality Stroke Does the patient have a stroke diagnosis?: No VTE Prior VTE?: Yes VTE Risk Level:: Medical - moderate - high VTE Device Contraindication: Treatment Not Indicated VTE Drug Contraindication: N/A - Med Ordered
--- NOTE | 2024-01-31 13:13 | MHC.CM.PN ---
met with tiffany and pt ,pt to have surgery today ..explined what acute rehabs are following tiffany says [facility] is her first choice
--- NOTE | 2024-01-31 13:40 | MHC.SHP ---
Pre-Procedural Eval Section A - 24 Hr Update-Section A only Date of Service: 01/31/24 The patient is an INPATIENT: Yes Changes since office visit: No Cold of Flu in the past 2 weeks, No New Medical Problems, No Changes in Medication and No Patient answered all questions The patient has been examined within 24 hours of the surgical procedure. The History & Physical has been completed within 30 days and I have reviewed it.: Yes Section B - Complete if H&P > 30 days Chief Complaint: near syncope Allergies: Allergies Allergy/AdvReac Type Severity Reaction Status Date / Time No Known Allergies Allergy Verified 01/24/24 12:00 [No Known Allergies*] Plan I have reviewed the history and physical and performed a pertinent physical examination on my patient. No changes have occurred unless specified. Time Spent With Patient Time: Total time managing care of this patient today ____ minutes.
--- NOTE | 2024-01-31 14:08 | PC.NURSE ---
timeout at 1404 pt verbalized understanding tolerated block well vss
--- NOTE | 2024-01-31 14:27 | P.CONAN_ITS ---
HPI - Anesthesia Eval Consult details Narrative: 73 yo F admitted for left ankle fracture PMFSH Active Problems Active Problems: All Active Problems (Updated 01/24/24 @ 17:17 by LESLEY Shepherd) Near syncope (Acute) Fall (Acute) Syncope (Acute) Closed Maisonneuve fracture of left lower extremity (Acute) Tubular adenoma of colon (Acute) Depression (Acute) COVID-19 virus infection (Acute) Vertigo (Acute) Osteopenia (Acute) Encounter for subsequent annual wellness visit (AWV) in Medicare patient (Acute) Impaired fasting glucose (Acute) Anemia (Acute) Pulmonary embolism (Acute) Anxiety and depression (Acute) DDD (degenerative disc disease), lumbar (Acute) Right leg DVT (Acute) Obesity (Acute) Barretts esophagus (Acute) Benign essential hypertension (Acute) Obstructive sleep apnea (Acute) GERD (gastroesophageal reflux disease) (Acute) Rheumatoid arthritis (Acute) Hypercholesterolemia (Acute) Past Medical History Medical History Breast cancer screening by mammogram Pre-op exam Hospital discharge follow-up Symptomatic anemia Pulmonary embolism Anemia Medicare annual wellness visit, initial Presence of IVC filter History of alcohol abuse Venous stasis dermatitis Obesity Vitamin D deficiency Barretts esophagus Benign essential hypertension Restless leg syndrome Obstructive sleep apnea GERD (gastroesophageal reflux disease) Tubular adenoma of colon Rheumatoid arthritis Hx of deep venous thrombosis Hypercholesterolemia Family History Family History Father History of stomach cancer Mother Family history of problems with anesthesia: No Surgical History Surgical History History of cataract surgery History of eyelid surgery History of tonsillectomy Hx of arthroscopic knee surgery Hx of heart artery stent History of Problems with Anesthesia: No Social History Social History Household Members: None Housing: House Do you presently have visiting nurse or other home services: No Alcohol intake: former Patient Tobacco Use Status: Former Tobacco user Quit Date: 1979 Tobacco use type: Cigarette Cigarette Packs Per Day: 2 Years Smoked: quit 1979 e-Cigarette/Vaping Use: Never Used Second Hand Smoke Exposure: No service: No Current occupational status: retired Cognitive needs: No Hearing needs: No Vision needs: Yes Meds Allergies Allergy/AdvReac Type Severity Reaction Status Date / Time No Known Allergies Allergy Verified 01/24/24 12:00 [No Known Allergies*] Active Medications: Current Medications Acetaminophen (Acetaminophen 325 Mg Tablet) 650 mg PO Q6H PRN PRN Reason: Pain, Mild (Pain Scale 1-3) Last Admin: 01/30/24 17:22 Dose: 650 mg Acetaminophen/Butalbital/Caffeine (Butalb/Acetamin/Caff 50/325/40 Tablet) 1 tab PO Q4H PRN PRN Reason: Headache Last Admin: 01/31/24 11:41 Dose: 1 tab Atorvastatin Calcium (Atorvastatin Calcium 10 Mg Tablet) 5 mg PO DAILY [facility] Last Admin: 01/31/24 09:47 Dose: Not Given Bupropion HCl (Bupropion Hcl Xl 150 Mg Tab.Er.24h) 150 mg PO DAILY [facility] Last Admin: 01/31/24 09:47 Dose: Not Given Docusate Sodium (Docusate Sodium 100 Mg Capsule) 100 mg PO BID PRN PRN Reason: Constipation Last Admin: 01/26/24 14:05 Dose: 100 mg Fenofibrate (Fenofibrate 160 Mg Tablet) 160 mg PO DAILY [facility] Last Admin: 01/31/24 09:47 Dose: Not Given Fluticasone Propionate (Fluticasone Propionate Nasal 16 Gm [place]) 1 spray NOSTRIL-B DAILY [facility] Last Admin: 01/31/24 09:39 Dose: 1 spray Folic Acid (Folic Acid 1 Mg Tablet) 1 mg PO SUMOWETHFRSA@0900 [facility] Last Admin: 01/31/24 09:47 Dose: Not Given Omeprazole (Omeprazole 20 Mg Capsule.Dr) 20 mg PO DAILY@0630 [facility] Last Admin: 01/31/24 05:51 Dose: Not Given Ondansetron HCl (Ondansetron Hcl 4 Mg/2 Ml Vial) 4 mg IVPUSH Q8H PRN PRN Reason: Nausea and Vomiting Oxycodone HCl (Oxycodone Hcl Immed Release 5 Mg Tablet) 5 mg PO Q6H PRN PRN Reason: Pain, Severe (Pain Scale 7-10) Last Admin: 01/31/24 09:37 Dose: 5 mg Prednisolone Acetate (Prednisolone Acetate 1 % Oph Susp 5 Ml Drpbtl) 1 drop EYE-LEFT BEDTIME [facility] Last Admin: 01/30/24 20:38 Dose: 1 drop Senna (Sennosides 8.6 Mg Tablet) 17.2 mg PO BEDTIME PRN PRN Reason: Constipation Sodium Chloride (0.9 % Sodium Chloride Flush 3 Ml Syringe) 3 ml IVFLUSH QSHIFT [facility] Last Admin: 01/31/24 09:42 Dose: 3 ml Home Medications Medication Instructions Recorded Confirmed Last Taken Type folic acid 1 mg tablet 1 tab PO SUMOWETHFRSA@0900 10/11/21 01/24/24 01/23/24 His tory infliximab 100 mg intravenous See Rx Instructions .Route .COMPLEX 10/11/21 01/10/24 01/17/24 History solution (Remicade) chlorpheniramine-pseudoephedrine 2 1 tab PO DAILY 01/24/24 01/24/24 Unknown History mg-30 mg tablet fluticasone propionate 50 1 spray intranasal DAILY 01/24/24 01/24/24 Unknown History mcg/actuation nasal spray,suspension methotrexate sodium 2.5 mg tablet 20 mg PO TU 01/24/24 01/24/24 01/23/24 History oxycodone-acetaminophen 5 mg-325 1 tab PO DAILY@1300 PRN pain 01/24/24 01/24/24 Unknown History mg tablet oxycodone-acetaminophen 5 mg-325 1 tab PO BID pain 01/24/24 01/24/24 01/23/24 History mg tablet (Percocet) prednisolone acetate 1 % eye 1 drp ophthalmic-Left BEDTIME 01/24/24 01/24/24 01/23/24 History drops,suspension Exam Exam Date and Time: January 31, 2024 1400 Height,Weight and Vital Signs: Height 4 ft 11 in Weight 78 kg Last Vital Signs Temp 98.4 F 01/31/24 13:32 Pulse 96 01/31/24 13:32 Resp 20 01/31/24 13:32 BP 142/79 H 01/31/24 13:32 Pulse Ox 97 01/31/24 13:32 O2 Del Method Room Air 01/31/24 13:32 Pertinent Lab Results Pertinent Lab Results: Laboratory Tests 01/24/24 01/24/24 01/25/24 12:43 17:52 05:10 WBC 7.8 6.2 RBC 3.03 L 2.78 L Hgb 8.6 L 7.8 L Hct 27.0 L 24.6 L MCV 89.1 88.5 MCH 28.4 28.1 MCHC 31.9 31.7 RDW 19.3 H 19.2 H Plt Count 317 292 MPV 9.0 L 9.3 L Immature Gran % (Auto) 0.4 0.5 H Neut % (Auto) 82.9 H 63.3 Lymph % (Auto) 8.8 L 24.9 [place] % (Auto) 7.2 10.3 Eos % (Auto) 0.4 0.8 Baso % (Auto) 0.3 0.2 Lymph # (Auto) 0.7 L 1.6 [place] # (Auto) 0.6 0.6 Eos # (Auto) 0.0 0.1 Baso # (Auto) 0.0 0.0 Abs Immat Gran (auto) 0.03 0.03 Absolute Neuts (auto) 6.4 3.9 Absolute Nucleated RBC 0.000 0.020 H Nucleated RBC % (auto) 0.0 0.3 H Sodium 140 139 Potassium 4.0 4.0 Chloride 109 H 110 H Carbon Dioxide 24 22 Anion Gap 11 L 11 L BUN 23 H 21 H Creatinine 1.19 1.06 Estim Creat Clear Calc 36.3 41.3 Estimated GFR 44 51 Random Glucose 109 109 Calcium 9.3 8.7 D Total Bilirubin 0.4 Direct Bilirubin 0.2 AST 25 ALT 14 Alkaline Phosphatase 60 Total Creatine Kinase 106 Troponin I High Sens 3.6 Total Protein 7.2 Albumin 3.6 Lipase 47 Blood Type Antibody Screen Crossmatch 01/31/24 01/31/24 08:44 11:24 WBC 7.0 RBC 2.75 L Hgb 7.7 L Hct 24.7 L MCV 89.8 MCH 28.0 MCHC 31.2 RDW 19.4 H Plt Count 277 MPV 9.2 L Immature Gran % (Auto) Neut % (Auto) Lymph % (Auto) [place] % (Auto) Eos % (Auto) Baso % (Auto) Lymph # (Auto) [place] # (Auto) Eos # (Auto) Baso # (Auto) Abs Immat Gran (auto) Absolute Neuts (auto) Absolute Nucleated RBC 0.000 Nucleated RBC % (auto) 0.0 Sodium Potassium Chloride Carbon Dioxide Anion Gap BUN Creatinine Estim Creat Clear Calc Estimated GFR Random Glucose Calcium Total Bilirubin Direct Bilirubin AST ALT Alkaline Phosphatase Total Creatine Kinase Troponin I High Sens Total Protein Albumin Lipase Blood Type A Positive Antibody Screen NEGATIVE Crossmatch See Detail Airway Mallampati Class: I TM Dist: >3cm Neck ROM: Full Loose/Missing/Broken Teeth: No (patient denies any loose or broken teeth) Heart: S1S2 Lungs: CTAB Assessment and Plan Assessment Anesthesia Assessment: Anesthesia Plan Discussed and Chart Reviewed Final Anesthetic Review Family History of Problems with Anesthesia: No History of Problems with Anesthesia: No NPO: Yes ASA Class: II and Emergency Final Preanesthetic Review: No Changes in Pt Med Stat, Meds/Allgs Chart Reviewed, Consent Obtained/Reviewed and Anes Risks/Benef Reviewed Patient Risk: Low Procedure Risk: Intermediate Assessment/Block/Sedation in SS: Assess/Block/Sedation-SS Anesthetic Plan Anesthetic Plan: GA, Regional Block (left adductor canal and left sciatic) and Agree w/ Assess. and Plan
--- NOTE | 2024-01-31 15:22 | PM.OP ---
Brief Operative Note Date of Service: 01/31/24 Pre-op diagnosis: Left medial malleolous fracture with syndesmosis disruption Post-op diagnosis: same Procedure: ORIF medial mal ORIF syndesmosis Implants: [place] 36 mm cannulated screws x 2 Cici syndesmosis button Surgeon: Ty Whiting MD Anesthesia: GETA and local Was an Outside Sales Account Executive used for this Procedure?: Yes Outside Sales Account Executive: Santa Guajardo Estimated blood loss (mL): 10 IV fluids (mL): 600 Pathology: none sent Condition: stable Disposition: PACU
--- NOTE | 2024-01-31 16:28 | PC.NURSE ---
addressed need for sequentials order for Right leg with Dr. Beltre
[2024-01-31] MEDS: prednisoLONE Acetate 1 % Oph Susp 5 ML DRPBTL 1 DROP EYE-LEFT (19:38)
[2024-02-01 02:05] VITALS: BP 136/75; PULSE 93; RESP 16; TEMP 36.7; O2SAT 95
[2024-02-01] MEDS: Acetaminophen 325 MG TABLET 650 MG PO (05:40)
[2024-02-01] MEDS: Omeprazole 20 MG CAPSULE.DR PO (06:02)
[2024-02-01 06:25] LABS: Hematocrit 28.5 % (37.0-47.0); Hemoglobin 9.1 g/dl (12.0-16.0); Mean Corpuscular HGB Conc 31.9 g/dl (31.0-35.0); Mean Corpuscular Hemoglobin 28.5 pg (27.0-33.0); Mean Corpuscular Volume 89.3 fL (80.0-98.0); Mean Platelet Volume 9.3 fL (9.4-12.3); Platelet Count 267 X10*3/uL (160-400); Red Blood Count 3.19 X10*6/uL (4.20-5.50); Red Cell Distribution Width 18.4 % (11.0-16.0)
[2024-02-01 06:41] LABS: Anion Gap 11 (12-20); Blood Urea Nitrogen 27 mg/dL (9-16); Carbon Dioxide 23 mmol/L (22-29); Chloride 108 mmol/L (96-108); Creatinine Clr Calc Pharmacy 53.4; Estimated Glomerular Filt Rate > 60; Glucose Random 81 mg/dL (60-115); Potassium 3.9 mmol/L (3.3-5.1); Sodium 138 mmol/L (135-145)
[2024-02-01 07:02] VITALS: BP 132/62; PULSE 88; RESP 20; TEMP 36.7; O2SAT 97
[2024-02-01 07:36] VITALS: BP 122/72; PULSE 77; RESP 20; TEMP 36.7; O2SAT 95
[2024-02-01] MEDS: Atorvastatin Calcium 10 MG TABLET 5 MG PO (08:11)
[2024-02-01] MEDS: Folic Acid 1 MG TABLET PO (08:12)
[2024-02-01] MEDS: oxyCODONE HCl Immed Release 5 MG TABLET PO ×2 (08:12→15:31)
[2024-02-01] MEDS: buPROPion HCl XL 150 MG TAB.ER.24H PO (08:13)
[2024-02-01] MEDS: Fenofibrate 160 MG TABLET PO (08:13)
[2024-02-01] MEDS: Fluticasone Propionate Nasal 16 GM SPRAY 1 SPRAY NOSTRIL-B (08:14)
[2024-02-01] MEDS: 0.9 % Sodium Chloride Flush 3 ML SYRINGE IVFLUSH (08:16)
[2024-02-01 09:06] VITALS: BP 122/72; PULSE 77; O2SAT 95
--- NOTE | 2024-02-01 09:25 | HO.POSTANES ---
Post Anesthesia Evaluation Post Anesthesia Evaluation Date of Service: 02/01/24 Vital Signs: Vital Signs Temp Pulse Resp BP Pulse Ox O2 Del Method 02/01/24 09:06 77 122/72 95 02/01/24 07:36 98.1 F 77 20 122/72 95 Room Air 02/01/24 07:02 98.1 F 88 20 132/62 97 Room Air 02/01/24 02:05 98.0 F 93 16 136/75 95 Room Air Anesthesia: Nerve Block and General Mental Status: Awake Pain Control: Satisfactory Nausea/Vomiting: None Hydration: Adequate Anesthesia-Related Issues: No Anes. Related Issues
--- NOTE | 2024-02-01 09:39 | HO.PM.IMPN ---
Subjective Subjective Date of Service: 02/01/24 Interval History: Seen and evaluated Feels better overall HB improved to 9.1 post OP day 1 waiting for PT eval Review of Systems Review of Systems: Yes all other systems are reviewed and are negative Physical Exam Vital Signs: Vital Signs: Last Vital Signs Temp 98.1 F 02/01/24 07:36 Pulse 77 02/01/24 09:06 Resp 20 02/01/24 07:36 BP 122/72 02/01/24 09:06 Pulse Ox 95 02/01/24 09:06 O2 Del Method Room Air 02/01/24 07:36 O2 Flow Rate 8 01/31/24 15:30 BMI result Body Mass Index 34.7 Const: Other: Constitutional : Awake, interactive, not in distress Neck : Normal inspection, Supple Cardiovascular : RRR, no JVP, no lower extremity edema Respiratory : good bilateral air entry, no crackles, wheezes or rhonchi Gastrointestinal: soft, lax, Normal bowel sounds, Non tender Skin : Warm, Dry Extremities: LLE covered with dressing Neurological : Alert & oriented x3, No focal deficit Objective Data Active Medications Acetaminophen (Acetaminophen 325 Mg Tablet) 650 mg PO Q6H PRN PRN Reason: Pain, Mild (Pain Scale 1-3) Last Admin: 02/01/24 05:40 Dose: 650 mg Documented By: MARIO Acetaminophen/Butalbital/Caffeine (Butalb/Acetamin/Caff 50/325/40 Tablet) 1 tab PO Q4H PRN PRN Reason: Headache Last Admin: 01/31/24 23:50 Dose: 1 tab Documented By: MARIO Apixaban (Apixaban 2.5 Mg Tablet) 2.5 mg PO BID [facility] Atorvastatin Calcium (Atorvastatin Calcium 10 Mg Tablet) 5 mg PO DAILY [facility] Last Admin: 02/01/24 08:11 Dose: 5 mg Documented By: PADMINI Bupropion HCl (Bupropion Hcl Xl 150 Mg Tab.Er.24h) 150 mg PO DAILY [facility] Last Admin: 02/01/24 08:13 Dose: 150 mg Documented By: PADMINI Docusate Sodium (Docusate Sodium 100 Mg Capsule) 100 mg PO BID PRN PRN Reason: Constipation Last Admin: 01/26/24 14:05 Dose: 100 mg Documented By: ALICE Fenofibrate (Fenofibrate 160 Mg Tablet) 160 mg PO DAILY [facility] Last Admin: 02/01/24 08:13 Dose: 160 mg Documented By: PADMINI Fluticasone Propionate (Fluticasone Propionate Nasal 16 Gm [place]) 1 spray NOSTRIL-B DAILY [facility] Last Admin: 02/01/24 08:14 Dose: 1 spray Documented By: PADMINI Folic Acid (Folic Acid 1 Mg Tablet) 1 mg PO SUMOWETHFRSA@0900 [facility] Last Admin: 02/01/24 08:12 Dose: 1 mg Documented By: PADMINI Cefazolin Sodium/Dextrose (Ancef) 2 gm in 50 mls @ 100 mls/hr IV POSTOP [facility] Omeprazole (Omeprazole 20 Mg Capsule.Dr) 20 mg PO DAILY@0630 [facility] Last Admin: 02/01/24 06:02 Dose: 20 mg Documented By: MARIO Ondansetron HCl (Ondansetron Hcl 4 Mg/2 Ml Vial) 4 mg IVPUSH Q8H PRN PRN Reason: Nausea and Vomiting Oxycodone HCl (Oxycodone Hcl Immed Release 5 Mg Tablet) 5 mg PO Q6H PRN PRN Reason: Pain, Severe (Pain Scale 7-10) Last Admin: 02/01/24 08:12 Dose: 5 mg Documented By: PADMINI Prednisolone Acetate (Prednisolone Acetate 1 % Oph Susp 5 Ml Drpbtl) 1 drop EYE-LEFT BEDTIME [facility] Last Admin: 01/31/24 19:38 Dose: 1 drop Documented By: SUN Senna (Sennosides 8.6 Mg Tablet) 17.2 mg PO BEDTIME PRN PRN Reason: Constipation Sodium Chloride (0.9 % Sodium Chloride Flush 3 Ml Syringe) 3 ml IVFLUSH QSHIFT [facility] Last Admin: 02/01/24 08:16 Dose: 3 ml Documented By: PADMINI Labs 02/01/24 06:18 02/01/24 06:18 Labs: Laboratory Results - last 24 hr 01/31/24 02/01/24 11:24 06:18 MCV 89.3 MCH 28.5 MCHC 31.9 RDW 18.4 H Plt Count 267 MPV 9.3 L Absolute Nucleated RBC 0.000 Nucleated RBC % (auto) 0.0 Anion Gap 11 L Estim Creat Clear Calc 53.4 Estimated GFR > 60 Random Glucose 81 Calcium 9.0 Blood Type A Positive Antibody Screen NEGATIVE Crossmatch See Detail Assessment and Plan (1) Near syncope: Status: Acute (2) Closed [place] fracture of left lower extremity: Status: Acute Plan 73F PMH bppv, DVT/PE on eliquis, josé, RA presented with near syncope complicated by left fibula fracture left fibular fracture s\p OP day 1 ortho following resume eliquis Morphine for pain control PT near syncope no events on tele, unable to do orthostatics cta negative for pe echo unremarkable Anemia of chronic disease Hb stable at 9.1 post 1 unit PRBCs monitor CBC history dvt/pe eliquis (unclear why she was only on low dose) holding preop, last dose 01/27/24 RA holding mtx inpatient gerd ppi full code reason for continued hospitalization: post op for pain control pending PT eval and safe discharge planning Quality Stroke Does the patient have a stroke diagnosis?: No VTE Prior VTE?: Yes VTE Risk Level:: Medical - moderate - high VTE Device Contraindication: Treatment Not Indicated VTE Drug Contraindication: N/A - Med Ordered
--- NOTE | 2024-02-01 09:44 | PM.PNORT ---
Subjective Subjective Date of Service: 02/01/24 Interval history: POD 1 s/p ORIF left ankle no overnight events resting in bed with splint denies sob, cp, palpitations Physical Exam Vital Signs: Vital Signs: Last Vital Signs Temp 98.1 F 02/01/24 07:36 Pulse 77 02/01/24 09:06 Resp 20 02/01/24 07:36 BP 122/72 02/01/24 09:06 Pulse Ox 95 02/01/24 09:06 O2 Del Method Room Air 02/01/24 07:36 O2 Flow Rate 8 01/31/24 15:30 BMI result Body Mass Index 34.7 Const: General: cooperative, healthy appearing and no acute distress Resp: Effort & Inspection: normal respiratory effort and able to speak in complete sentences Cardio: Rate: regular rate Peripheral pulses: Peripheral pulses 2+ throughout GI: Palpation (GI): Soft to palpation Skin: General skin exam: no rashes or lesions noted Extrem: Other: left ankle splint clean , dry and intact. Sensation intact in toes. Procedures Date of Service Date of Service: 02/01/24 Progress Note: A&P Assessment and plan (1) Closed [place] fracture of left lower extremity: Status: Acute Plan NWB LLE elevate above heart with 3 pillows resume eliquis 48 hrs post op fu with ortho in 2 weeks Time Spent With Patient Time: Total time managing care of this patient today ____ minutes. Quality Stroke Does the patient have a stroke diagnosis?: No VTE Prior VTE?: Yes VTE Risk Level:: Medical - moderate - high VTE Device Contraindication: Treatment Not Indicated VTE Drug Contraindication: N/A - Med Ordered
[2024-02-01 12:15] VITALS: BP 137/61; PULSE 98; RESP 20; O2SAT 96
--- NOTE | 2024-02-01 12:28 | MHC.CM.PN ---
DP: PT HAS BEEN MEDICALLY CLEARED TO DC [place] AT [facility]. BLS TRANSPORT SET UP FOR 4:30 PM VIA [facility]. RN AWARE. CENTER UPDATED. PT WILL NOTIFY HER DAUGHTER OF TRANSFER.
--- NOTE | 2024-02-01 13:23 | P.DS_ITS ---
DS: Providers Provider Date of Service: 02/01/24 Date of admission: 01/26/24 09:54 Primary care physician: Daphne Bryan MD Consults: 01/24/24 16:55 Consult to Orthopedics Routine Consulting Provider: [facility] [place] [facility] Reason for consultation: L ankle fracture 01/25/24 12:02 Consult to Wound Care Routine Reason for consultation: area on right inner thigh. 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 The patient reports she had gotten out of the shower and upon exiting the bathroom felt lightheaded and fell to the ground. She denies any loss of consciousness or head injury. She denies any prodrome including blurred vision, tunnel vision, palpitations, shortness of breath, chest pain. No focal weakness, paresthesias, slurred speech, facial droop, headaches. She was unable to get up from the floor due to pain and swelling in the left ankle and culture daughter who subsequently called EMS. On arrival, patient tachycardic to 109, and hypertensive to 163/86 on admission, vital signs otherwise stable. There is no leukocytosis. There is a stable normocytic anemia with H/H 8.6/27.0%. Renal function baseline, electrolyte levels normal. Hepatic function normal. Total CK 106. Troponin pending. Head CT negative for acute intracranial abnormality. Cervical spine CT negative for acute osseous abnormality but shows multilevel advanced cervical spondylosis and anterolisthesis with torticollis among other chronic findings. X-ray of the left tibia/fibula/foot/ankle shows spiral fracture through the midshaft of the left fibula. In ED, given Tylenol, 1 L IV NS, and 5 mg oxycodone. Hospital course # left Maisonneuve fibular fracture resulted from near syncope and fall. evaluated by orthopeding team who did an ORIF with good response as she was able to participate with PT. To use Oxycodone as needed for pain. Resume Eliquis 4/ morning. NWB for 6 weeks left leg. To follow with Orthopedic as outpatient. # near syncope no events on tele, unable to do orthostatics because of pain from the fracture. when participated with PT no signs of orthostatic findings. CTA negative for PE. echo unremarkable. To start PT on discharge # Anemia of chronic disease Hb of 7.7. Improved to 9.1 post 1 unit PRBCs. stable after surgery # history dvt/pe Eliquis held during hospital stay for surgery. (unclear why she was only on low dose). To restart Heparin 4/ morning. # RA Held Methotrexate while inpatient. To restart as outpatient. Discharge Plan NWB x 6 weeks operative leg * Keep splint clean, dry and intact * Elevate leg above the level of the heart on 3 pillows * Any questions or concerns please call the office GRACIE * Follow up with Orthopedics in 2 weeks. Time Attestation Discharge Coordination Time (in mins): 44 Quality: Safe Use of Opioids Does Pt have an Active Cancer Diagnosis on the Problem List?: No Quality: Stroke Does the patient have a stroke diagnosis?: No Physical Exam Vital Signs: Vital Signs: Last Vital Signs Temp 98.1 F 02/01/24 07:36 Pulse 98 02/01/24 12:15 Resp 20 02/01/24 12:15 BP 137/61 02/01/24 12:15 Pulse Ox 96 02/01/24 12:15 O2 Del Method Room Air 02/01/24 12:15 O2 Flow Rate 8 01/31/24 15:30 BMI result Body Mass Index 34.7 Const: Other: Constitutional : Awake, interactive, not in distress Neck : Normal inspection, Supple Cardiovascular : RRR, no JVP, no lower extremity edema Respiratory : good bilateral air entry, no crackles, wheezes or rhonchi Gastrointestinal: soft, lax, Normal bowel sounds, Non tender Skin : Warm, Dry Extremities: LLE covered with dressing Neurological : Alert & oriented x3, No focal deficit DS: Data Data Completed and Pending Completed studies during hospitalization [Text1]: Procedures Transfusion of Nonautologous Red Blood Cells into Peripheral Vein, Percutaneous Approach (10/11/21) Labs on day of discharge: Laboratory Results - last 24 hr 01/31/24 02/01/24 11:24 06:18 WBC 10.0 RBC 3.19 L Hgb 9.1 L Hct 28.5 L MCV 89.3 MCH 28.5 MCHC 31.9 RDW 18.4 H Plt Count 267 MPV 9.3 L Absolute Nucleated RBC 0.000 Nucleated RBC % (auto) 0.0 Sodium 138 Potassium 3.9 Chloride 108 Carbon Dioxide 23 Anion Gap 11 L BUN 27 H Creatinine 0.82 Estim Creat Clear Calc 53.4 Estimated GFR > 60 Random Glucose 81 Calcium 9.0 Crossmatch See Detail Imaging Chest x-ray: Radiologist's impression: ITS Impressions Ankle X-Ray 01/24/24 13:15 IMPRESSION: Undisplaced fracture of medial malleolus. Questionable undisplaced fracture of lateral malleolus. Calcaneal spurring. Undisplaced fracture of the medial malleolus and questionably undisplaced fracture of lateral malleolus. EXAMINATION: Left tibia and fibula COMPARISON: None TECHNIQUE: AP and lateral views of left tibia and fibula FINDINGS: There is spiral mildly displaced fracture of the mid shaft of left fibula and known fracture of the medial malleolus. There is diffuse osteopenia. IMPRESSION: Spiral fracture through the midshaft of the left fibula. Foot X-Ray 01/24/24 13:15 IMPRESSION: Undisplaced fracture of medial malleolus. Questionable undisplaced fracture of lateral malleolus. Calcaneal spurring. Undisplaced fracture of the medial malleolus and questionably undisplaced fracture of lateral malleolus. EXAMINATION: Left tibia and fibula COMPARISON: None TECHNIQUE: AP and lateral views of left tibia and fibula FINDINGS: There is spiral mildly displaced fracture of the mid shaft of left fibula and known fracture of the medial malleolus. There is diffuse osteopenia. IMPRESSION: Spiral fracture through the midshaft of the left fibula. Tibia/Fibula X-Ray 01/24/24 13:43 IMPRESSION: Undisplaced fracture of medial malleolus. Questionable undisplaced fracture of lateral malleolus. Calcaneal spurring. Undisplaced fracture of the medial malleolus and questionably undisplaced fracture of lateral malleolus. EXAMINATION: Left tibia and fibula COMPARISON: None TECHNIQUE: AP and lateral views of left tibia and fibula FINDINGS: There is spiral mildly displaced fracture of the mid shaft of left fibula and known fracture of the medial malleolus. There is diffuse osteopenia. IMPRESSION: Spiral fracture through the midshaft of the left fibula. Cervical Spine CT 01/24/24 14:26 IMPRESSION: 1. No evidence of acute fracture or dislocation. 2. Advanced atlantoaxial joint osteoarthritis. 3. Multilevel advanced cervical spondylosis. 4. Grade 1 C3-C4 and C4-C5 anterolisthesis and mild left-sided torticollis. 5. Moderate left C2-C3, severe left C3-C4, marked left C4-C5, mild left C5-C6 and marked left C6-C7 neuroforamina stenosis. Head CT 01/24/24 14:26 IMPRESSION: 1. Marked age related cerebral atrophy, ventriculomegaly, extensive ischemic white matter disease due to microangiopathy are seen. 2. No intracranial hemorrhage or skull fracture is seen. 3. No evidence of space occupying lesion could be found. 4. The current plain CT scan of the brain shows no diagnostic evidence of acute cerebral infarction. 5. Acute right maxillary sinusitis is present. Chest CTA 01/24/24 17:20 IMPRESSION: No evidence of pulmonary embolism. VTE: negative Guidance Fluoroscopy 01/31/24 14:30 IMPRESSION: Fluoroscopy and spot films provided during ORIF of ankle fracture. Discharge Plan Discharge Anticipated Discharge Date/Time: 02/01/24 13:19 Patient Disposition: [facility] Discharge Diagnosis: Syncope Fibula fracture Referrals: [facility] [Outside] - 1 Week (TRANSFER FOR ACUTE REHAB) Viridiana Power PA-C [Physician Investment Recovery Technician] - 2 Weeks (02/15/24 14:00 [facility] Viridiana Power PA-C) Po,Daphne Rodriguez MD [Primary Care Provider] - 1 Week Discharge Medications: New oxycodone 5 mg Tablet 5 mg PO Q6H PRN (Reason: Pain, Severe (Pain Scale 7-10)) Qty: 20 0RF Rx Instructions: Partial Fill upon patient request. Continued omeprazole 20 mg capsule,delayed release(DR/EC) 20 mg PO DAILY@0630 Qty: 90 2RF simvastatin 5 mg tablet 5 mg PO BEDTIME Qty: 90 2RF bupropion HCl [Wellbutrin SR] 100 mg tablet sustained-release 12 hr 100 mg PO BID 30 Days Qty: 180 2RF fenofibrate 160 mg tablet 160 mg PO DAILY Qty: 90 3RF lisinopril 20 mg tablet 20 mg PO DAILY Qty: 30 2RF infliximab [Remicade] 100 mg Recon Soln See Rx Instructions .ROUTE .COMPLEX Rx Instructions: every 2 months folic acid 1 mg tablet 1 tab PO SUMOWETHFRSA@0900 Rx Instructions: all days except monday methotrexate sodium 2.5 mg tablet 20 mg PO prednisolone acetate 1 % drops,suspension 1 drp ophthalmic-Left BEDTIME fluticasone propionate 50 mcg/actuation [place],Suspension 1 spray INTRANASAL DAILY Rx Instructions: administer into each nostril chlorpheniramine-pseudoephed 2-30 mg Tablet 1 tab PO DAILY Eliquis 2.5 mg tablet 2.5 mg PO BID Qty: 180 3RF Held oxycodone-acetaminophen 5-325 mg tablet 1 tab PO DAILY@1300 PRN (Reason: pain) Hold Instructions: Use Oxycodone PRN oxycodone-acetaminophen [Percocet] 5-325 mg tablet 1 tab PO BID Hold Instructions: Use Oxycodone PRN Patient Comments: patient takes 1 tab BID and 1 tab PRN Rx Instructions: Partial Fill upon patient request. Discharge Orders: Discharge Order (Routine); Ordered 02/01/24 Ordered By: Olinda Beltre Diet: Advance to usual diet Activity on Discharge: As tolerated Stand Alone Forms: Patient Portal Discharge page Print Language: Singaporean Care Plan Goals: Read below Health Concerns: Read below Plan of Treatment: * NWB x 6 weeks operative leg * Keep splint clean, dry and intact * Elevate leg above the level of the heart on 3 pillows * Any questions or concerns please call the office GRACIE * Follow up with Orthopedics in 2 weeks. Assessment: Oxycodone as needed for pain.
--- NOTE | 2024-02-01 14:35 | HO.WOUND ---
Wound Consult: Initial 73yr old?F admitted to [facility] [place] on 01/25 - See progress notes and H&P for detailed history.? Wound consult placed for right upper thigh wound.? Patient agreeable to assessment and photo documentation.? Patient reports she has this area of irritation that comes and goes and is in correlation to her level of moisture. She reports often her skin folds are moist and this area is often affected by the moist friction. Assessed today and appears to be resurfacing - there is some areas of moist macerated tissue and the area is within her skin fold - No erythema, no fluctuance and no indiration. Recommend topical treatment of Barrier cream to protect from friction and moisture and to consider Interdry after areas fully resolves. Recommendations: 1. Right Upper Thigh - under skin fold - Cleanse with routine cleansing, pat dry. Apply thin layer of barrier cream to protect from moisture and friction. Apply twice a day. and PRN. Re-consult wound care Nurse for wound deterioration or wound changes.
[2024-02-01 15:06] VITALS: BP 133/60; PULSE 98; RESP 20; TEMP 36.6; O2SAT 97
[2024-02-01] MEDS: Docusate Sodium 100 MG CAPSULE PO (15:32)
[2024-02-01 17:31] VITALS: BMI 34.7
--- NOTE | 2024-02-02 17:02 | P.OP_ITS ---
Operative Note Operative Note Date of Service: 01/31/24 Narrative: Date of Service: 01/31/24 Pre-op diagnosis: Left medial malleolous fracture with syndesmosis disruption Post-op diagnosis: same Procedure: ORIF medial mal ORIF syndesmosis Implants: Cici 36 mm cannulated screws x 2 Cici syndesmosis button Surgeon: Ty Whiting MD Anesthesia: GETA and local Was an Student Life Dean used for this Procedure?: Yes Student Life Dean: Santa Guajardo Estimated blood loss (mL): 10 IV fluids (mL): 600 Pathology: none sent Condition: stable Disposition: PACU Procedure in detail: Patient was brought to the operating room and placed supine on the operative table. All bony prominences were well padded and a time-out was called to identify proper site proper procedure proper surgeon. IV antibiotics per weight were administered. I began by palpating the transverse medial malleolar fract ure and a full thickness flap skin incision was made. Full-thickness skin flaps were developed and 2 threaded K-wires were then placed from distal to proximal and perpendicular to the fracture. Biplanar fluoroscopy was used to confirm positioning and then they were overdrilled and 2 36 mm 4.0 partially-threaded cannulated cancellous screws were placed across the fracture. I was satisfied with the position and the fracture reduction based on biplanar fluoroscopy. This syndesmosis was tested using external rotation test and the medial clear space opened up. I therefore made a dorie incision over the lateral malleolus at the level of the physeal scar and drilled from posterior to anterior and lateral to medial through 4 cortices. A [place] syndesmosis button was then passed through and tightened. Prior to this the fibula was over-drilled and the button was tightened into this space. Fluoroscopic images were again obtained and I was satisfied with the reduction. The external rotation stress test was subsequently negative. Therefore all instrumentation was removed and copious irrigation was performed. Absorbable suture and trevin were used for closure and the patient was placed into sterile dressings and a well-padded posterior splint. Tourniquet was let down and the patient was extubated brought to recovery room in stable condition there were no known complications.
== END 2024-02-01 17:49 | disposition skilled nursing facility (03) | DRG 494 ==
LOC: HO.ED 16:08 → HO.EDOVER 17:05 → HO.S3 20:09
PROVIDERS: Orthopaedic Surgery; Admitting Provider Physician Assistant; Emergency Provider Student in an Organized Health Care Education/Training Program; PCP Internal Medicine; Visit Provider Student in an Organized Health Care Education/Training Program
PROC: 0QSH04Z Reposition Left Tibia with Internal Fixation Device, Open Approach (ICD-10-PCS; principal; 2024-01-31 15:10)
DX: S82.862A Displaced Maisonneuve's fracture of left leg, initial encounter for closed fracture (principal); W19.XXXA Unspecified fall, initial encounter; K21.9 Gastro-esophageal reflux disease without esophagitis; M06.9 Rheumatoid arthritis, unspecified; G89.18 Other acute postprocedural pain; G47.33 Obstructive sleep apnea (adult) (pediatric); Z87.891 Personal history of nicotine dependence; D63.8 Anemia in other chronic diseases classified elsewhere; Z86.718 Personal history of other venous thrombosis and embolism; Z86.711 Personal history of pulmonary embolism; Z79.01 Long term (current) use of anticoagulants; Z79.51 Long term (current) use of inhaled steroids; Z79.620 Long term (current) use of immunosuppressive biologic; Z79.899 Other long term (current) drug therapy
CPT/HCPCS: 36415; 70450; 71275; 72125; 73590; 73610; 73630; 80048; 80076; 82550; 83690; 84484; 85025; 85027; 86850; 86900; 86901; 86923; 93005; 93306; 97162; 99221; 99285; C1713; J0690; J1100; J2405; J2704; J2795; J3010; P9016; Q9957; Q9967

== ENCOUNTER 2024-01-24 16:48 | Outpatient (BNV) | payer MEDICARE, SELFPAY | END 2024-01-25 07:00 | PROVIDERS: Admitting Provider Physician Assistant; Emergency Provider Student in an Organized Health Care Education/Training Program; PCP Internal Medicine; Visit Provider Internal Medicine Cardiovascular Disease | DX: I36.1 Nonrheumatic tricuspid (valve) insufficiency (principal) | CPT/HCPCS: 93306 ==

== ENCOUNTER → 2024-01-24 16:48 | Outpatient (BNV) | payer MEDICARE, SELFPAY | PROVIDERS: Admitting Provider Physician Assistant; Emergency Provider Student in an Organized Health Care Education/Training Program; PCP Internal Medicine; Visit Provider Physician Assistant | DX: S82.55XA Nondisplaced fracture of medial malleolus of left tibia, initial encounter for closed fracture (principal) | CPT/HCPCS: 27766; 27829; 99024; 99221; 99232 ==

== ENCOUNTER → 2024-01-24 16:48 | Outpatient (BNV) | payer MEDICARE, SELFPAY | PROVIDERS: Admitting Provider Physician Assistant; Emergency Provider Student in an Organized Health Care Education/Training Program; PCP Internal Medicine; Visit Provider Physician Assistant | DX: R55 Syncope and collapse (principal); W19.XXXA Unspecified fall, initial encounter; S82.862A Displaced Maisonneuve's fracture of left leg, initial encounter for closed fracture | CPT/HCPCS: 99223; 99231; 99232; 99239 ==

== ENCOUNTER 2024-02-15 12:38 | Outpatient (REF) | payer MEDICARE, SELFPAY ==
--- NOTE | ~2024-02-15 | XR_ITS ---
EXAMINATION: XR ANKLE, LEFT CLINICAL INFORMATION: Pain in left ankle and joints of left foot Splint off COMPARISON: 01/24/2024 ankle and tibia/fibula TECHNIQUE: AP, lateral, and mortise views of the left ankle. FINDINGS: There is marked soft tissue swelling about the ankle. Skin trevin are seen along the medial and lateral aspect of the ankle. 2 screws and another fastener transfix a fracture the medial malleolus. A small bony button is seen in the lateral malleolus. There is partial visualization of the mildly displaced fracture of the midshaft of the left fibula. XR/XR ankle LT min 3V IMPRESSION: Status post ORIF medial malleolar and lateral malleolar fractures.
== END 2024-02-15 12:39 | disposition home or self-care (01) ==
LOC: HO.HOSX 12:38
PROVIDERS: Visit Provider Physician Assistant
DX: S82.862A Displaced Maisonneuve's fracture of left leg, initial encounter for closed fracture (principal); X58.XXXA Exposure to other specified factors, initial encounter; Y93.9 Activity, unspecified; Y92.9 Unspecified place or not applicable; Y99.9 Unspecified external cause status
CPT/HCPCS: 29405; 73610; 99212

== ENCOUNTER 2024-02-15 13:49 | Outpatient (AMB) | payer MEDICARE, SELFPAY ==
[2024-02-15 14:22] VITALS: BMI 34.5
--- NOTE | 2024-02-15 14:22 | A.OFFVIS_ITS ---
Vital Signs 02/15/24 14:22 Height 4 ft 11 in Weight 171 lb BMI 34.5 Intake Visit Reasons: PO- ORIF Lt Ankle 01/31/24 Intake Note: Wendy 73 yr old female presents today for her P/O visit for her ORIF left ankle from 01/31/24. XRays updated in office. Patient reports she is doing well, states no pain at the moment. Allergies No Known Allergies [No Known Allergies*] Allergy (Verified 02/15/24 14:23) HPI HPI PO- ORIF Lt Ankle 01/31/24: Details: 73 yo female returns to the office today s/ ORIF left nakle 01/31/[address] Whiting. She states her pain is tolerable. She continues to remain NWB. No concerns. [facility] Medical History Breast cancer screening by mammogram Pre-op exam Hospital discharge follow-up Symptomatic anemia Pulmonary embolism Anemia Medicare annual wellness visit, initial Presence of IVC filter History of alcohol abuse Venous stasis dermatitis Obesity Vitamin D deficiency Barretts esophagus Benign essential hypertension Restless leg syndrome Obstructive sleep apnea GERD (gastroesophageal reflux disease) Tubular adenoma of colon Rheumatoid arthritis Hx of deep venous thrombosis Hypercholesterolemia Surgical History History of cataract surgery History of eyelid surgery History of tonsillectomy Hx of arthroscopic knee surgery Hx of heart artery stent Family History Father History of stomach cancer Mother Social History Household Members: None Housing: House Do you presently have visiting nurse or other home services: No Alcohol intake: former Patient Tobacco Use Status: Former Tobacco user Quit Date: 1979 Tobacco use type: Cigarette Cigarette Packs Per Day: 2 Years Smoked: quit 1979 e-Cigarette/Vaping Use: Never Used Second Hand Smoke Exposure: No service: No Current occupational status: retired Cognitive needs: No Hearing needs: No Vision needs: Yes Review of Systems Const All systems reviewed & are unremarkable except as noted in HPI and below Physical Exam Vital Signs: BMI result Body Mass Index 34.5 Const General: cooperative and no acute distress Orientation/consciousness: patient oriented x3 Resp Effort & Inspection: normal respiratory effort and able to speak in complete sentences Cardio Peripheral pulses: Peripheral pulses 2+ throughout Neuro General: patient oriented x3 Extrem Other: left ankle skin clean, dry and intact. No erythema or drainage. Calf supple, non tender, NVI. Office Procedures Casting/Splints [id number] Leg Cast Application Procedure code (CPT) selection complete Results Reviewed Results Reviewed: Xrays were obtained in the office today and personally reviewed by me of the left ankle show intact orthopedic hardware with mortise intact. Assessment & Plan Assessment & Plan (1) Closed Mamichelleneuve fracture of left lower extremity: Comment: January 2024 ORIF Code(s): S82.862A - Displaced John's fracture of left leg, initial encounter for closed fracture Category: Medical Plan Crawley removed today, steri strips applied today. She was placed in a SLC NWB x4 weeks. She will see me back in 4 weeks with cast off and xrays, sooner if needed. Orders: Orders XR ankle LT min 3V Today M25.572 - Pain in left ankle and joints of left foot
== END 2024-02-15 15:15 | disposition home or self-care (01) ==
PROVIDERS: PCP Internal Medicine; Visit Provider Physician Assistant
DX: S82.862A Displaced Maisonneuve's fracture of left leg, initial encounter for closed fracture (principal)
CPT/HCPCS: 29405; 99024

== ENCOUNTER 2024-03-14 12:29 | Outpatient (REF) | payer MEDICARE, SELFPAY ==
--- NOTE | ~2024-03-14 | XR_ITS ---
EXAMINATION: XR ANKLE, LEFT CLINICAL INFORMATION: Pain in left ankle and joints of left foot. COMPARISON: Prior x-ray of the left ankle most recent 02/15/2024 TECHNIQUE: AP, lateral, and mortise views of the left ankle. FINDINGS: Postsurgical changes redemonstrated with orthopedic unchanged including suture button device with wires noted medially and laterally. 2 screws extending proximally to the medial malleolus fracture. Alignment unchanged Fracture remains visible but unchanged. Minimal callus formation medially. Alignment of the talocrural joint normal. Small calcaneal spurs unchanged. XR/XR ankle LT min 3V IMPRESSION: 1. Stable postoperative changes related to ORIF of medial malleolus fracture. 2. Minimal callus formation medially.
== END 2024-03-14 12:30 | disposition home or self-care (01) ==
LOC: HO.HOSX 12:29
PROVIDERS: Visit Provider Physician Assistant
DX: S82.862D Displaced Maisonneuve's fracture of left leg, subsequent encounter for closed fracture with routine healing (principal)
CPT/HCPCS: 73610; 99212

== ENCOUNTER 2024-03-14 13:14 | Outpatient (AMB) | payer MEDICARE, SELFPAY ==
--- NOTE | 2024-03-14 13:20 | MHC.OFFVIS ---
Intake Visit Reasons: PO-ORIF Lt Ankle 01/31/24-follow up Intake Note: Wendy 73 year old female presents today for her post operative visit s/p left ankle ORIF, DOS 01/31/24. Cast off and xrays updated. Patient reports she is doing well, states she has no pain or discomfort. Allergies No Known Allergies [No Known Allergies*] Allergy (Verified 03/14/24 13:20) HPI HPI PO-ORIF Lt Ankle 01/31/24-follow up: Details: 73-year-old female who returns to the office today for post-op left ankle ORIF, 01/31/24. She states she has no pain or discomfort and is doing well overall. She has no concerns today. [facility] Medical History Breast cancer screening by mammogram Pre-op exam Hospital discharge follow-up Symptomatic anemia Pulmonary embolism Anemia Medicare annual wellness visit, initial Presence of IVC filter History of alcohol abuse Venous stasis dermatitis Obesity Vitamin D deficiency Barretts esophagus Benign essential hypertension Restless leg syndrome Obstructive sleep apnea GERD (gastroesophageal reflux disease) Tubular adenoma of colon Rheumatoid arthritis Hx of deep venous thrombosis Hypercholesterolemia Surgical History History of cataract surgery History of eyelid surgery History of tonsillectomy Hx of arthroscopic knee surgery Hx of heart artery stent Family History Father History of stomach cancer Mother Social History Household Members: None Housing: House Do you presently have visiting nurse or other home services: No Alcohol intake: former Patient Tobacco Use Status: Former Tobacco user Quit Date: 1979 Tobacco use type: Cigarette Cigarette Packs Per Day: 2 Years Smoked: quit 1979 e-Cigarette/Vaping Use: Never Used Second Hand Smoke Exposure: No service: No Current occupational status: retired Cognitive needs: No Hearing needs: No Vision needs: Yes Review of Systems Const All systems reviewed & are unremarkable except as noted in HPI and below Physical Exam Const General: cooperative and no acute distress Orientation/consciousness: patient oriented x3 Resp Effort & Inspection: normal respiratory effort and able to speak in complete sentences Cardio Peripheral pulses: Peripheral pulses 2+ throughout Neuro General: patient oriented x3 Extrem Other: Left ankle: Incision well healed. No erythema, no swelling, no tenderness to palpation over the surgical site. She has good ROM with mild stiffness and weakness. Calf supple, nontender. NVI. Results Reviewed Results Reviewed: Xrays were obtained in the office today and personally reviewed by me of the left ankle show interval healing with intact orthopedic hardware. Proximal fibula fracture stable with interval healing. Assessment & Plan Assessment & Plan (1) Closed Maisonneuve fracture of left lower extremity: Comment: January 2024 ORIF Code(s): S82.862A - Displaced Maisonneuve's fracture of left leg, initial encounter for closed fracture Category: Medical Qualifiers: Encounter type: subsequent encounter Fracture alignment: displaced Fracture healing: with routine healing Qualified Code(s): S82.862D - Displaced Maisonneuve's fracture of left leg, subsequent encounter for closed fracture with routine healing Plan She was transitioned to a tall walking boot weight bearing as tolerated. She will begin a course of physical therapy to work on ROM, gentle strengthening and proprioceptive training. I would like to see her back in 6 weeks with x-rays, sooner if needed. Orders: Orders PT Evaluation and Treatment Today S82.862A - Displaced Maisonneuve's fracture of left leg, initial encounter for closed fracture XR ankle LT min 3V Today M25.572 - Pain in left ankle and joints of left foot Patient Instructions: Scribed for iVridiana Power PA-C, by Ric Tubbs medical laboratory technical officer, on 03/14/2024 at 1:30 PM EST.? I, Viridiana Power PA-C, have personally reviewed and agree with the information entered by the scribe. Coding Level of Care Code Global (06212) Diagnoses Closed displaced Maisonneuve fracture of left lower extremity with routine healing, subsequent encounter S82.862D Encounter type: subsequent encounter Fracture alignment: displaced Fracture healing: with routine healing
== END 2024-03-14 14:33 | disposition home or self-care (01) ==
PROVIDERS: PCP Internal Medicine; Visit Provider Physician Assistant
DX: S82.862D Displaced Maisonneuve's fracture of left leg, subsequent encounter for closed fracture with routine healing (principal)
CPT/HCPCS: 99024

== ENCOUNTER 2024-05-01 12:10 | Outpatient (REF) | payer MEDICARE, SELFPAY ==
--- NOTE | ~2024-05-01 | XR_ITS ---
EXAMINATION: XR ANKLE, LEFT CLINICAL INFORMATION: Pain in the left ankle and joints of the left foot. COMPARISON: 03/14/2024. TECHNIQUE: AP, lateral, and mortise views of the left ankle. FINDINGS: Unchanged alignment of the hardware at the left ankle status post medial malleolar fracture fixation with retrograde partially-threaded cannulated screws as well as a tightrope procedure at the distal tibiofibular syndesmosis. Ankle alignment also appears unchanged. Increased parosteal bone at the medial malleolus with associated osseous bridging. No fractures. Bones are osteopenic. Talocrural joint appears relatively well-preserved. Mild osteoarthritis is evident in the subtalar joint. Prominent os trigonum. Mild multifocal osteoarthritis is noted in the midfoot. Moderate sized enthesopathic spur is present at the plantar fascial origin on the calcaneus. Small enthesopathic spur is present at the Achilles tendon insertion on the calcaneus. Generalized soft tissue swelling at the ankle and foot. Basilar calcifications. XR/XR ankle LT min 3V IMPRESSION: 1. Progressive healing of the medial malleolar fracture status post fixation. 2. Mild multifocal osteoarthritis in the midfoot and hindfoot.
== END 2024-05-01 12:11 | disposition home or self-care (01) ==
LOC: HO.HOSX 12:10
PROVIDERS: PCP Internal Medicine; Visit Provider Physician Assistant
DX: S82.862D Displaced Maisonneuve's fracture of left leg, subsequent encounter for closed fracture with routine healing (principal)
CPT/HCPCS: 73610; 99212

== ENCOUNTER 2024-05-01 12:10 | Outpatient (AMB) | payer MEDICARE, SELFPAY ==
[2024-05-01 12:50] VITALS: BMI 34.5
--- NOTE | 2024-05-01 12:50 | A.OFFVIS_ITS ---
Vital Signs 05/01/24 12:50 Height 4 ft 11 in Weight 171 lb BMI 34.5 Intake Visit Reasons: PO-ORIF Lt Ankle 01/31/24-follow up Intake Note: Wendy 73 year old female presents today for her post operative visit s/p left ankle ORIF, DOS 01/31/24. Xrays updated in office. Patient reports she is doing well, states that she believes her pain is related to arthritis. She continues to work with in home therapy, states her ROM has improved. She continues to wear walking boot as instructed. Allergies No Known Allergies [No Known Allergies*] Allergy (Verified 05/03/24 09:47) HPI HPI PO-ORIF Lt Ankle 01/31/24-follow up: Details: 73-year-old female who returns to the office today for post-op left ankle ORIF, 04/23/[address] Whiting. She continues to have pain in her ankle which she attributes to her arthritis however she is doing well otherwise. She continues to work in home therapy with benefits. She has been wearing her walking boot as instructed. She has no other concerns today. [facility] Medical History Breast cancer screening by mammogram Pre-op exam Hospital discharge follow-up Symptomatic anemia Pulmonary embolism Anemia Medicare annual wellness visit, initial Presence of IVC filter History of alcohol abuse Venous stasis dermatitis Obesity Vitamin D deficiency Barretts esophagus Benign essential hypertension Restless leg syndrome Obstructive sleep apnea GERD (gastroesophageal reflux disease) Tubular adenoma of colon Rheumatoid arthritis Hx of deep venous thrombosis Hypercholesterolemia Surgical History History of cataract surgery History of eyelid surgery History of tonsillectomy Hx of arthroscopic knee surgery Hx of heart artery stent Family History Father History of stomach cancer Mother Social History Household Members: None Housing: House Do you presently have visiting nurse or other home services: No Alcohol intake: former Patient Tobacco Use Status: Former Tobacco user Tobacco use type: Cigarette Cigarette Packs Per Day: 2 Years Smoked: quit 1979 e-Cigarette/Vaping Use: Never Used Second Hand Smoke Exposure: No service: No Current occupational status: retired Cognitive needs: No Hearing needs: No Vision needs: Yes Review of Systems Const All systems reviewed & are unremarkable except as noted in HPI and below Physical Exam Vital Signs: BMI result Body Mass Index 34.5 Const General: cooperative and no acute distress Orientation/consciousness: patient oriented x3 Resp Effort & Inspection: normal respiratory effort and able to speak in complete sentences Cardio Peripheral pulses: Peripheral pulses 2+ throughout Neuro General: patient oriented x3 Extrem Other: Left ankle: Incision well healed. No erythema, no swelling, no tenderness to palpation over the surgical site. She has good ROM with mild stiffness and weakness. Calf supple, nontender. NVI. Results Reviewed Results Reviewed: Xrays were obtained in the office today and personally reviewed by me of the left ankle show interval healing with intact orthopedic hardware. Proximal fibula fracture stable with interval healing. Assessment & Plan Assessment & Plan (1) Closed Maisonneuve fracture of left lower extremity: Comment: January 2024 ORIF Code(s): S82.862A - Displaced Maisonneuve's fracture of left leg, initial encounter for closed fracture Category: Medical Qualifiers: Encounter type: subsequent encounter Fracture alignment: displaced Fracture healing: with routine healing Qualified Code(s): S82.862D - Displaced Maisonneuve's fracture of left leg, subsequent encounter for closed fracture with routine healing Plan She was transitioned a lace up ankle brace. She will continue with physical therapy to regain her strength. She will increase activities as tolerated and see me back as needed. Orders: Orders XR ankle LT min 3V 05/01/24 M25.572 - Pain in left ankle and joints of left foot Medications: Discontinued tirzepatide (weight loss) (Zepbound) Discontinued Reason: Insurance Denied 2.5 mg (0.5 mL) subcut QWEEK 4 weeks 2 mL 0RF E66.01 - Morbid (severe) obesity due to excess calories, Z68.41 - Body mass index [BMI] 40.0-44.9, adult Patient Instructions: Scribed for Viridiana Power PA-C, by Ric Tubbs medical supply technician, on 05/01/2024 at 12:30 PM EST.? I, Viridiana Power PA-C, have personally reviewed and agree with the information entered by the scribe. Coding Level of Care Code Est Pt Level 3 (99091) Diagnoses Closed displaced Maisonneuve fracture of left lower extremity with routine healing, subsequent encounter S82.862D Encounter type: subsequent encounter Fracture alignment: displaced Fracture healing: with routine healing
== END 2024-05-01 13:43 | disposition home or self-care (01) ==
PROVIDERS: PCP Internal Medicine; Visit Provider Physician Assistant
DX: S82.862D Displaced Maisonneuve's fracture of left leg, subsequent encounter for closed fracture with routine healing (principal)
CPT/HCPCS: 99213

== ENCOUNTER 2024-05-03 09:17 | Outpatient (AMB) | payer MEDICARE, SELFPAY ==
[2024-05-03 09:42] VITALS: BP 138/84; PULSE 100; O2SAT 97; BMI 40.1
--- NOTE | 2024-05-03 09:42 | MHC.PC.OV ---
Vital Signs 05/03/24 09:42 Height 4 ft 11 in Weight 198 lb 10.184 oz BMI 40.1 BP 138/84 Blood Pressure Location Lt brachial Position Sitting Pulse 100 Pulse Source Pulse Oximeter Pulse Oximetry (%) 97 Oxygen Delivery Method Room Air Intake Visit Reasons: Lumbar DDD, gerd Foreign Broadcast Specialist Required: No Accompanied by: Self / Same As Patient Allergies No Known Allergies [No Known Allergies*] Allergy (Verified 05/03/24 09:47) Tobacco use date assessed: 01/10/24 Fall risk assessment: 1 Fall in past year Last assessed Fall Risk: 05/03/24 Dental Screening Dental Screen Date: 01/10/24 HPI Lumbar DDD, gerd HPI Details 73-YEAR-OLD MORBIDLY OBESE FEMALE WITH RHEUMATOID ARTHRITIS OBSTRUCTIVE SLEEP APNEA GERD HYPERCHOLESTEROLEMIA HYPERTENSION LUMBAR DEGENERATIVE DISC DISEASE IMPAIRED GLUCOSE TOLERANCE LAST SEEN IN 01/17/2024. Patient's colonoscopy March 2019 and was advised to have it done this year. Mammogram is due. Review of the notes seen Orthopedics had an ORIF left ankle 01/31/2024 patient had a near syncopal episode and fall x-ray showing spiral fracture mid shaft of the left fibula. ankle is feeling better. concern about depression [facility] Medical History Breast cancer screening by mammogram Pre-op exam Hospital discharge follow-up Symptomatic anemia Pulmonary embolism Anemia Medicare annual wellness visit, initial Presence of IVC filter History of alcohol abuse Venous stasis dermatitis Obesity Vitamin D deficiency Barretts esophagus Benign essential hypertension Restless leg syndrome Obstructive sleep apnea GERD (gastroesophageal reflux disease) Tubular adenoma of colon Rheumatoid arthritis Hx of deep venous thrombosis Hypercholesterolemia Surgical History History of cataract surgery History of eyelid surgery History of tonsillectomy Hx of arthroscopic knee surgery Hx of heart artery stent Family History Father History of stomach cancer Mother Social History Household Members: None Housing: House Do you presently have visiting nurse or other home services: No Alcohol intake: former Patient Tobacco Use Status: Former Tobacco user Tobacco use type: Cigarette Cigarette Packs Per Day: 2 Years Smoked: quit 1979 e-Cigarette/Vaping Use: Never Used Second Hand Smoke Exposure: No service: No Current occupational status: retired Cognitive needs: No Hearing needs: No Vision needs: Yes Questionnaire PHQ-9 Over the last 2 weeks, how often have you been bothered by any of the following problems? 1. Little interest or pleasure in doing things: more than half the days 2. Feeling down, depressed, or hopeless: nearly every day 3. Trouble falling or staying asleep, or sleeping too much: nearly every day 4. Feeling tired or having little energy: nearly every day 5. Poor appetite or overeating: nearly every day 6. Feeling bad about yourself - or that you are a failure or have let yourself or your family down: nearly every day 7. Trouble concentrating on things, such as reading the newspaper or watching television: nearly every day 8. Moving or speaking so slowly that other people could have noticed. Or the opposite - being so fidgety or restless that you have been moving around a lot more than usual: nearly every day 9. Thoughts that you would be better off or of hurting yourself in some way: not at all Total score: 23 Depression Screening Interpretation: Positive Depression Screening Done: Yes 98591 - PHQ-9 Billing: Yes Source: Developed by Drs. Memo Yu, Obed Rush and colleagues, with an educational james from [employer]. Thrive Questionnaire Date Thrive assessed: 01/25/24 ABBY-7 AMB Questionnaire ABBY-7 Date ABBY - 7 assessed: 01/10/24 Source: Developed by Ely Mar Kurt Kroenke and colleagues, with an educational james from [employer]. Physical exam (Primary Care) Vital Signs: Last Vital Signs Pulse 100 05/03/24 09:42 BP 138/84 05/03/24 09:42 Pulse Ox 97 05/03/24 09:42 Oxygen Delivery Method Room Air 05/03/24 09:42 BMI result Body Mass Index 40.1 Tobacco/Smoking Status: Tobacco use Status Tobacco use date assessed 01/10/24 05/03/24 09:44 Patient Tobacco Use Status Former Tobacco user 05/03/24 09:44 Tobacco use type Cigarette 05/03/24 09:44 e-Cigarette/Vaping Use Never Used 05/03/24 09:44 Depression Screening Interpretation: Positive Thrive Assessment: Date of Thrive Assessment Date Thrive assessed 01/25/24 05/03/24 09:44 Const General: alert; No acute distress Eyes Conjunctivae: conjunctivae normal Resp Auscultation: clear to auscultation bilaterally Cardio Rate: regular rate Rhythm: regular rhythm GI Inspection: Yes normal to inspection Extrem General: Yes normal to inspection and No edema Assessment and Plan Assessment & Plan (1) Closed Maisonneuve fracture of left lower extremity: Comment: January 2024 ORIF Code(s): S82.862A - Displaced Maisonneuve's fracture of left leg, initial encounter for closed fracture Qualifiers: Encounter type: subsequent encounter Fracture alignment: displaced Fracture healing: with routine healing Qualified Code(s): S82.862D - Displaced Maisonneuve's fracture of left leg, subsequent encounter for closed fracture with routine healing Plan: Patient being followed up by orthopedics (2) Rheumatoid arthritis: Code(s): M06.9 - Rheumatoid arthritis, unspecified Qualifiers: Rheumatoid arthritis location: multiple sites Rheumatoid factor presence: unspecified presence Qualified Code(s): M06.9 - Rheumatoid arthritis, unspecified Plan: Continue to follow-up with Rheumatology (3) GERD (gastroesophageal reflux disease): Code(s): K21.9 - Gastro-esophageal reflux disease without esophagitis Plan: Avoid the foods that causes that usually spicy foods, tomato products, juices, coffee, soda and foods that your sensitive to. After eating do not lie down, allow 3-4 hours before in lie down. And keep the head of bed above 30 degrees to avoid the acid from going up. (4) Hypercholesterolemia: Code(s): E78.00 - Pure hypercholesterolemia, unspecified Plan: Avoid fried foods, chicken skin, eggs, butter margarine, pastries and meat. Be it pork or beef they have a lot of cholesterol LDL goal of less than 130 and triglyceride of less than 150 (5) Benign essential hypertension: Comment: September 2019 ejection fraction 65-70% Code(s): I10 - Essential (primary) hypertension Plan: Blood pressure continue with lisinopril 20 mg once a day (6) DDD (degenerative disc disease), lumbar: Code(s): M51.36 - Other intervertebral disc degeneration, lumbar region (7) Major depression: Code(s): F32.9 - Major depressive disorder, single episode, unspecified (8) Obesity: Code(s): E66.9 - Obesity, unspecified Qualifiers: Obesity type: due to excess calories Obesity classification: adult class 3 (BMI >= 40) Serious obesity comorbidity presence: with serious comorbidity Body mass index: BMI 40.0-44.9 Qualified Code(s): E66.01 - Morbid (severe) obesity due to excess calories; Z68.41 - Body mass index [BMI]40.0-44.9, adult Orders: Orders Comprehensive Met. Panel Today R73.01 - Impaired fasting glucose Free T4 (Free Thyroxine) Today R73.01 - Impaired fasting glucose Thyroid Stimulating Hormone Today R73.01 - Impaired fasting glucose Vitamin D 25-OH Total Today R73.01 - Impaired fasting glucose Ferritin Today R73.01 - Impaired fasting glucose IRON PROFILE Today R73.01 - Impaired fasting glucose UA w Microscopic Today R73.01 - Impaired fasting glucose Reticulocyte Count Today R73.01 - Impaired fasting glucose Complete Blood Count Auto Diff Today R73.01 - Impaired fasting glucose Lipid Panel Today E78.00 - Pure hypercholesterolemia, unspecified, R73.01 - Impaired fasting glucose Vitamin B12 and Folate Today R73.01 - Impaired fasting glucose Hemoglobin A1c Today R73.01 - Impaired fasting glucose Referrals Psychiatry Referral F32.9 - Major depressive disorder, single episode, unspecified Medications: New tirzepatide (weight loss) (Zepbound) 2.5 mg (0.5 mL) subcut QWEEK 4 weeks 2 mL 0RF E66.01 - Morbid (severe) obesity due to excess calories, Z68.41 - Body mass index [BMI] 40.0-44.9, adult sertraline 25 mg PO DAILY 30 tabs 3RF F32.9 - Major depressive disorder, single episode, unspecified tirzepatide (weight loss) (Zepbound) 2.5 mg (0.5 mL) subcut QWEEK 4 weeks 2 mL 0RF E66.01 - Morbid (severe) obesity due to excess calories, Z68.41 - Body mass index [BMI] 40.0-44.9, adult Coding Level of Care Code Est Pt Level 4 (78254) Diagnoses Closed displaced Maisonneuve fracture of left lower extremity with routine healing, subsequent encounter S82.862D Encounter type: subsequent encounter Fracture alignment: displaced Fracture healing: with routine healing Rheumatoid arthritis involving multiple sites, unspecified whether rheumatoid factor present M06.9 Rheumatoid arthritis location: multiple sites Rheumatoid factor presence: unspecified presence GERD (gastroesophageal reflux disease) K21.9 Hypercholesterolemia E78.00 Benign essential hypertension I10 DDD (degenerative disc disease), lumbar M51.36 Major depression F32.9 Class 3 severe obesity due to excess calories with serious comorbidity and body mass index (BMI) of 40.0 to 44.9 in adult E66.01; Z68.41 Obesity type: due to excess calories Obesity classification: adult class 3 (BMI >= 40) Serious obesity comorbidity presence: with serious comorbidity Body mass index: BMI 40.0-44.9
== END 2024-05-03 10:27 | disposition home or self-care (01) ==
PROVIDERS: PCP Internal Medicine; Visit Provider Internal Medicine
DX: M06.9 Rheumatoid arthritis, unspecified (principal); E66.01 Morbid (severe) obesity due to excess calories; Z68.41 Body mass index [BMI] 40.0-44.9, adult; S82.862D Displaced Maisonneuve's fracture of left leg, subsequent encounter for closed fracture with routine healing; K21.9 Gastro-esophageal reflux disease without esophagitis; E78.00 Pure hypercholesterolemia, unspecified; M51.36 Other intervertebral disc degeneration, lumbar region; I10 Essential (primary) hypertension; F32.9 Major depressive disorder, single episode, unspecified
CPT/HCPCS: 99214

== ENCOUNTER → 2024-07-04 14:13 | Outpatient (RCR) | payer MEDICARE, SELFPAY ==
[2020-12-29 08:39] LABS: MANUAL DIFF FLAG NO
[2020-12-29 08:54] VITALS: BP 147/72; PULSE 106; TEMP 36.6; O2SAT 98; BMI 44.4
--- NOTE | 2020-12-29 09:06 | P.PNHO_ITS ---
Medical Summary - Medical Summary Date of Service: 12/29/20 Chief complaint: Follow-up for: Anemia. Medical Summary: DIAGNOSIS: RIGHT LEG DVT. PE. CURRENT THERAPY: STATUS POST THROMBOLYSIS AND IVC FILTER PLACEMENT, September. ELIQUIS 5 MG B.I.D. Interval History Interval history: This is a pleasant 70 year-old lady, here for a follow up visit. She tells me that few weeks ago she felt rather fatigued. Her hemoglobin had dropped down to 7. She was given 2 units of blood. She denies any obvious GI bleeding however she did admit to taking Advil for her arthritis. She is not taking it any more. She uses hydrocodone 2-3 times a day, as needed. She follows with [facility]. She tells me she has been feeling a bit tired however her energy level is better than before. She has not been sleeping too well. She denies fever nor chills. No headache no dizziness. No chest pain or trouble breathing. She denies abdominal pain nausea vomiting heartburn indigestion. Bowels are working without any gross blood in it. She enjoys a good appetite. She has gained some weight, likely related to the carbs. Denies lower extremity edema. She is in good spirits. Rest of the review of systems is unremarkable. Previous history: She has history of rheumatoid arthritis. She is on methotrexate and Remicade. Last February, she was noted to have a drop in the Hgb to 8.1 grams, from 9.7 gms. She was advised to come in for Anemia work up. Review of Systems - Constitutional Reports no additional constitutional complaints - Eyes Reports no additional eye complaints - ENT Reports no additional ear, nose, mouth, and throat complaints - Cardiovascular Reports no additional cardiovascular complaints - Respiratory Reports no additional respiratory complaints - Gastrointestinal Reports no additional gastrointestinal complaints - Genitourinary Reports no additional female genitourinary complaints - Musculoskeletal Reports no additional musculoskeletal complaints - Integumentary/Breasts Skin/Breast: Reports no additional skin complaints - Neurologic Reports no additional neurologic complaints - Psychiatric Reports no additional psychiatric complaints - Endocrine Reports no additional endocrine complaints - Hematologic/Lymphatic Reports no additional hematologic/lymphatic complaints - Allergic/Immunologic Reports no additional allergic/immunologic complaints [facility] Medical History: Medical History (Last Updated 12/29/20 @ 08:58 by Mady Wilkins) History of blood transfusion Hx of deep venous thrombosis Hypercholesterolemia Functional capacity: independent ambulation Patient : No Family History: Family History (Last Updated 12/29/20 @ 09:00 by Mady Wilkins) Father History of stomach cancer Mother Surgical History: Surgical History (Last Updated 12/29/20 @ 08:58 by Mady Wilkins) Hx of arthroscopic knee surgery Hx of heart artery stent Social History: Social History (Last Updated 12/29/20 @ 08:57 by Mady Wilkins) Alcohol History: Alcohol intake: former Alcohol History Details: Alcohol intake frequency: does not drink Tobacco History: Smoking Status: Former smoker Smoking Quit Date: 40 years Nutrition Assessment: Patient : No Smoking status: Former smoker Oncology Screenings - ECOG Performance Status ECOG Performance Status: 0 Home Medications and Allergies Home Medications Medication Instructions Recorded Confirmed Type simvastatin 5 mg tablet 5 mg PO QPM 11/03/20 12/29/20 History hydrocodone-acetaminophen tab PO 12/29/20 12/29/20 History Allergies Allergy/AdvReac Type Severity Reaction Status Date / Time No Known Allergies Allergy Unverified 07/16/20 14:56 [No Known Allergies*] Exam Vital signs: Vital Signs Temp 97.8 F 12/29/20 08:54 Pulse 106 H 12/29/20 08:54 BP 147/72 H 12/29/20 08:54 Pulse Ox 98 12/29/20 08:54 Intake & Output 12/28/20 12/29/20 12/29/20 18:59 06:59 18:59 Other: Weight 103.1 kg [place] Weight in Grams [id number] Weight 103.1 kg Body Mass Index 44.4 - Constitutional Present: no acute distress - Routine HEENT Exam Head: Present: normal inspection Eye: Present: normal appearance ENT: Present: mucous membranes moist - Routine Neck Exam Present: full ROM - Routine Respiratory Exam Present: CTAB - Routine Cardiovascular Exam Cardiovascular: Present: RRR, S1, S2 - Routine Abdominal Exam Present: soft, nontender - Routine Rectal Exam Patient deferred: digital exam - Routine Extremities Exam Present: nontender - Routine Back/Spine/Pelvis Exam Back/Spine: Present: full ROM - Routine Skin Exam Present: intact - Routine Neurological Exam Present: alert, oriented X3 - Routine Psychiatric Exam Present: normal affect Data - Labs CBC & Chem 7: 12/29/20 08:38 12/29/20 08:38 Progress Note: A/P (1) Pulmonary embolism Status: Acute Assessment and plan: This is a pleasant, 70 year-old lady, with history of sleep apnea; chronic anemia; hypertension; dyslipidemia; rheumatoid arthritis, on methotrexate, and Remicade; acid reflux/Hardin's esophagus. She presented to the hospital October 18 2019, with increasing dyspnea, and right lower extremity pain and swelling. She was found to have a Pulmonary Embolism and right leg Deep Vein Thrombosis. This was most likely related to prolonged sitting, at a conference back in August. No other recent travel, surgery or trauma. She was evaluated by vascular and considered a candidate for thrombolysis. October 21 2019, she had: Placement of vena cava filter. Placement of thrombolysis catheter: Through which she was given tPA. She had a good result. She was then started on anticoagulation with Eliquis. She has been using compression stockings. She has been tolerating the Eliquis. I offered to switch to Xarelto due to insurance reasons however she tells me she has coupons. So she is all set for now. I checked a D-dimer to gauge her response: This is down to 516, previously 4121, from September. I proceeded with the hypercoagulable workup. This came back negative. She tells me she has been feeling rather fatigued. She was noted to be more anemic. I received labs from Dr. Landa's office. Her hemoglobin has dropped. Done to 8.1. Previously 9.7. I requested her to come in for anemia workup. She could have an occult GI bleed related to the anticoagulation. Or it could be medication related, she is on Remicade and methotrexate. Her work up done today, is non revealing. Most likely she has Anemia of chronic disease. She has mild kidney disease. She has a collagen vascular disorder. Few weeks ago she was noted to be anemic with hemoglobin down to 7. She did require a couple of units of blood. I am concerned about ongoing GI bleeding. I wanted to referred her to GI however she did not want to at this point. D-dimer today is 237. She has completed about 15 months of anticoagulant therapy. She has an IVC filter. I am concerned about ongoing GI bleeding. PLAN: I will lower the dose of Eliquis to 2 maintenance 2.5 mg b.i.d. Will continue to monitor her carefully. She will return in 3 months for a follow-up visit. Thank you, CC: Dr. Bryan. Dr. Oneil. - Time Spent With Patient Total time spent is greater than 50% in coordination of care (as documented) at patient's floor/unit and/or counseling patient: 25 - 35 minutes
[2020-12-29 09:13] LABS: Basophils Percent Auto 0.7 % (0-2); Eosinophils Absolute Auto 0.2 X10*3/uL (0.0-0.4); Eosinophils Percent Auto 3.4 % (0-4); Hematocrit 33.4 % (37-47); Hemoglobin 10.4 g/dl (12.0-16.0); Imm Gran Abs Auto 0.05 X10*3/uL (0.00-0.03); Imm Gran Pct Auto 0.8 % (0.0-0.4); Lymphocytes Absolute Auto 1.7 X10*3/uL (1.2-4.9); Lymphocytes Percent Auto 27.9 % (20-40); Mean Corpuscular HGB Conc 31.1 g/dl (31.0-35.0); Mean Corpuscular Hemoglobin 27.4 pg (27.0-33.0); Mean Corpuscular Volume 87.9 fL (80-98); Monocytes Absolute Auto 0.6 X10*3/uL (0.1-1.2); Monocytes Percent Auto 10.4 % (2-11); Neutrophils Absolute Auto 3.4 X10*3/uL (2.0-8.3); Neutrophils Percent Auto 56.8 % (45-73); Platelet Count 281 X10*3/uL (160-400)
[2020-12-29 09:26] LABS: D Dimer 237 NG/ML
[2020-12-29 09:52] LABS: Alanine Aminotransferase 16 U/L (0-31); Albumin Level 3.9 g/dL (3.5-5.0); Alkaline Phosphatase 94 U/L (39-117); Anion Gap 15 (12-20); Aspartate Amino Transferase 20 U/L (5-31); Bilirubin Total 0.6 mg/dL (0.0-1.0); Blood Urea Nitrogen 23 mg/dL (9-16); Calcium 8.8 mg/dL (8.4-10.2); Carbon Dioxide 23 mmol/L (22-29); Chloride 102 mmol/L (96-108); Creatinine Clr Calc Pharmacy 52.9; Estimated Glomerular Filt Rate 52; Glucose Random 106 mg/dL (60-115); Potassium 4.5 mmol/L (3.3-5.1); Sodium 135 mmol/L (135-145)
--- NOTE | 2020-12-29 09:57 | MHC.HEMONCMA ---
Patient present to f/u on anemia. Patient reported having a blood transfusion recently. History reviewed and labs drawn.
[2021-04-06 13:58] VITALS: BP 119/64; PULSE 108; RESP 12; TEMP 36.3; O2SAT 96; BMI 43.8
[2021-04-06 14:03] LABS: MANUAL DIFF FLAG NO
[2021-04-06 14:09] LABS: Basophils Percent Auto 0.4 % (0-2); Eosinophils Absolute Auto 0.1 X10*3/uL (0.0-0.4); Eosinophils Percent Auto 1.2 % (0-4); Hematocrit 30.9 % (37-47); Hemoglobin 9.7 g/dl (12.0-16.0); Imm Gran Abs Auto 0.03 X10*3/uL (0.00-0.03); Imm Gran Pct Auto 0.6 % (0.0-0.4); Lymphocytes Absolute Auto 1.7 X10*3/uL (1.2-4.9); Lymphocytes Percent Auto 34.2 % (20-40); Mean Corpuscular HGB Conc 31.4 g/dl (31.0-35.0); Mean Corpuscular Hemoglobin 29.1 pg (27.0-33.0); Mean Corpuscular Volume 92.8 fL (80-98); Mean Platelet Volume 8.9 fL (9.4-12.3); Monocytes Absolute Auto 0.6 X10*3/uL (0.1-1.2); Monocytes Percent Auto 12.6 % (2-11); Neutrophils Absolute Auto 2.5 X10*3/uL (2.0-8.3); Platelet Count 351 X10*3/uL (160-400); Red Blood Count 3.33 X10*6/uL (4.20-5.50); Red Cell Distribution Width 18.4 % (11.0-16.0); White Blood Count 4.9 X10*3/uL (4.8-10.8)
[2021-04-06 14:18] LABS: D Dimer < 200 NG/ML
--- NOTE | 2021-04-06 14:22 | P.PNHO_ITS ---
Medical Summary - Medical Summary Date of Service: 04/06/21 Chief complaint: Follow-up for: Pulmonary embolism. Medical Summary: DIAGNOSIS: RIGHT LEG DVT. PE. CURRENT THERAPY: STATUS POST THROMBOLYSIS AND IVC FILTER PLACEMENT, September. ELIQUIS 2.5 MG B.I.D, since . Interval History Interval history: This is a pleasant 70 year-old lady, here for a follow up visit. She tells me she has a bad back related to rheumatoid arthritis. She cannot stand for long time. She has had cortisone shots which have not really helped. She is managing. She does feel tired at times. She denies fever nor chills. No headache no dizziness. No chest pain or trouble breathing. She denies abdominal pain nausea vomiting heartburn indigestion. Bowels are working without any gross blood in it. She enjoys a good appetite. She has gained some weight, likely related to the carbs. Denies lower extremity edema. She is in good spirits. Rest of the review of systems is unremarkable. Previous history: She has history of rheumatoid arthritis. She is on methotrexate and Remicade. Last February, she was noted to have a drop in the Hgb to 8.1 grams, from 9.7 gms. She was advised to come in for Anemia work up. She tells me that few weeks ago she felt rather fatigued. Her hemoglobin had dropped down to 7. She was given 2 units of blood. She denies any obvious GI bleeding however she did admit to taking Advil for her arthritis. She is not taking it any more. She uses hydrocodone 2-3 times a day, as needed. She follows with [facility] Landa[facility]. She tells me she has been feeling a bit tired however her energy level is better than before. She has not been sleeping too well. Review of Systems - Constitutional Reports system reviewed and no additional complaints, except as documented - Eyes Reports system reviewed and no additional complaints, except as documented - ENT Reports system reviewed and no additional complaints, except as documented - Cardiovascular Reports system reviewed and no additional complaints, except as documented - Respiratory Reports no additional respiratory complaints - Gastrointestinal Reports system reviewed and no additional complaints, except as documented - Genitourinary Reports no additional female genitourinary complaints - Musculoskeletal Reports system reviewed and no additional complaints, except as documented - Integumentary/Breasts Skin/Breast: Reports no additional skin complaints - Neurologic Reports system reviewed and no additional complaints, except as documented - Psychiatric Reports system reviewed and no additional complaints, except as documented - Endocrine Reports no additional endocrine complaints - Hematologic/Lymphatic Reports system reviewed and no additional complaints, except as documented - Allergic/Immunologic Reports system reviewed and no additional complaints, except as documented PMF Medical History: Medical History (Last Updated 02/28/21 @ 17:47 by Daphne Bryan MD) Barretts esophagus Benign essential hypertension GERD (gastroesophageal reflux disease) History of alcohol abuse History of blood transfusion Hx of deep venous thrombosis Hypercholesterolemia Obesity Obstructive sleep apnea Presence of IVC filter Restless leg syndrome Rheumatoid arthritis Tubular adenoma of colon Venous stasis dermatitis Vitamin D deficiency Functional capacity: uses cane/walker Patient : No Family History: Family History (Last Updated 12/29/20 @ 09:00 by Mady Wilkins) Father History of stomach cancer Mother Surgical History: Surgical History (Last Updated 02/28/21 @ 17:47 by Daphne Bryan MD) History of eyelid surgery History of tonsillectomy Hx of arthroscopic knee surgery Hx of heart artery stent Social History: Social History (Last Updated 04/06/21 @ 14:01 by Berenice De La Cruz) Alcohol History: Alcohol intake: former Alcohol History Details: Alcohol intake frequency: does not drink Tobacco History: Patient Tobacco Use Status: Former Tobacco user Cigarette Packs Per Day: 2 Smoke Quit Date: 1979 Substance Use History: Use of substances other than those prescribed or required for medical reasons : No Nutrition Assessment: Patient : No Oncology Screenings - ECOG Performance Status ECOG Performance Status: 1 Home Medications and Allergies Home Medications Medication Instructions Recorded Confirmed Type hydrocodone-acetaminophen tab PO 12/29/20 03/02/21 History Allergies Allergy/AdvReac Type Severity Reaction Status Date / Time No Known Allergies Allergy Unverified 07/16/20 14:56 [No Known Allergies*] Exam Vital signs: Vital Signs Temp 97.3 F 04/06/21 13:58 Pulse 108 H 04/06/21 13:58 Resp 12 04/06/21 13:58 BP 119/64 04/06/21 13:58 Pulse Ox 96 04/06/21 13:58 Intake & Output 04/05/21 04/06/21 04/06/21 18:59 06:59 18:59 Other: Weight 101.8 kg [place] Weight in Grams [id number] Weight 101.8 kg Body Mass Index 43.8 - Constitutional Present: no acute distress - Routine HEENT Exam Head: Present: normal inspection Eye: Present: normal appearance ENT: Present: mucous membranes moist - Routine Neck Exam Present: full ROM - Routine Respiratory Exam Present: CTAB - Routine Cardiovascular Exam Cardiovascular: Present: RRR, S1, S2 - Routine Abdominal Exam Present: soft, nontender - Routine Rectal Exam Patient deferred: digital exam - Routine Extremities Exam Present: nontender - Routine Back/Spine/Pelvis Exam Back/Spine: Present: full ROM - Routine Skin Exam Present: intact - Routine Neurological Exam Present: alert, oriented X3 - Routine Psychiatric Exam Present: normal affect Data - Labs CBC & Chem 7: 04/06/21 13:52 04/06/21 13:52 Labs: 12/29/20 08:38 Complete Blood Count Auto Diff Routine Comprehensive Met. Panel Routine DDimer [D Dimer] Routine 04/06/21 13:52 Complete Blood Count Auto Diff Routine D Dimer Routine Laboratory Last Values WBC 4.9 X10*3/uL (4.8-10.8) 04/06/21 13:52 RBC 3.33 X10*6/uL (4.20-5.50) L 04/06/21 13:52 Hgb 9.7 g/dl (12.0-16.0) L 04/06/21 13:52 Hct 30.9 % (37-47) L 04/06/21 13:52 MCV 92.8 fL (80-98) 04/06/21 13:52 MCH 29.1 pg (27.0-33.0) 04/06/21 13:52 MCHC 31.4 g/dl (31.0-35.0) 04/06/21 13:52 RDW 18.4 % (11.0-16.0) H 04/06/21 13:52 Plt Count 351 X10*3/uL (160-400) 04/06/21 13:52 MPV 8.9 fL (9.4-12.3) L 04/06/21 13:52 Immature Gran % (Auto) 0.6 % (0.0-0.4) H 04/06/21 13:52 Neut % (Auto) 51.0 % (45-73) 04/06/21 13:52 Lymph % (Auto) 34.2 % (20-40) 04/06/21 13:52 [place] % (Auto) 12.6 % (2-11) H 04/06/21 13:52 Eos % (Auto) 1.2 % (0-4) 04/06/21 13:52 Baso % (Auto) 0.4 % (0-2) 04/06/21 13:52 Lymph # (Auto) 1.7 X10*3/uL (1.2-4.9) 04/06/21 13:52 [place] # (Auto) 0.6 X10*3/uL (0.1-1.2) 04/06/21 13:52 Eos # (Auto) 0.1 X10*3/uL (0.0-0.4) 04/06/21 13:52 Baso # (Auto) 0.0 X10*3/uL (0.0-0.2) 04/06/21 13:52 Abs Immat Gran (auto) 0.03 X10*3/uL (0.00-0.03) 04/06/21 13:52 Absolute Neuts (auto) 2.5 X10*3/uL (2.0-8.3) 04/06/21 13:52 Absolute Nucleated RBC 0.000 X10*3/uL (0.0-0.012) 04/06/21 13:52 Nucleated RBC % (auto) 0.0 /100WBC (0.0-0.2) 04/06/21 13:52 D-Dimer < 200 NG/ML 04/06/21 13:52 Sodium 135 mmol/L (135-145) 12/29/20 08:38 Potassium 4.5 mmol/L (3.3-5.1) 12/29/20 08:38 Chloride 102 mmol/L (96-108) 12/29/20 08:38 Carbon Dioxide 23 mmol/L (22-29) 12/29/20 08:38 Anion Gap 15 (12-20) 12/29/20 08:38 BUN 23 mg/dL (9-16) H 12/29/20 08:38 Creatinine 1.04 mg/dL (0.5-1.4) 12/29/20 08:38 Estim Creat Clear Calc 52.9 12/29/20 08:38 Estimated GFR 52 12/29/20 08:38 Random Glucose 106 mg/dL (60-115) 12/29/20 08:38 Calcium 8.8 mg/dL (8.4-10.2) 12/29/20 08:38 Total Bilirubin 0.6 mg/dL (0.0-1.0) 12/29/20 08:38 AST 20 U/L (5-31) 12/29/20 08:38 ALT 16 U/L (0-31) 12/29/20 08:38 Alkaline Phosphatase 94 U/L (39-117) 12/29/20 08:38 Total Protein 7.0 g/dL (6.5-8.0) 12/29/20 08:38 Albumin 3.9 g/dL (3.5-5.0) 12/29/20 08:38 Progress Note: A/P (1) Pulmonary embolism Problem details: September 2019 with right leg DVT IVC filter placed balloon embolectomy Dr. Oneil October 2019 Status: Acute Assessment and plan: This is a pleasant, 70 year-old lady, with history of sleep apnea; chronic anemia; hypertension; dyslipidemia; rheumatoid arthritis, on methotrexate, and Remicade; acid reflux/Hardin's esophagus. She presented to the hospital October 18 2019, with increasing dyspnea, and right lower extremity pain and swelling. She was found to have a Pulmonary Embolism and right leg Deep Vein Thrombosis. This was most likely related to prolonged sitting, at a conference back in August. No other recent travel, surgery or trauma. She was evaluated by vascular and considered a candidate for thrombolysis. October 21 2019, she had: Placement of vena cava filter. Placement of thrombolysis catheter: Through which she was given tPA. She had a good result. She was then started on anticoagulation with Eliquis. She has been using compression stockings. She has been tolerating the Eliquis. I offered to switch to Xarelto due to insurance reasons however she tells me she has coupons. So she is all set for now. I checked a D-dimer to gauge her response: This is down to <200, it was 237 in December, before this it was 516, previously 4121, from September. I proceeded with the hypercoagulable workup. This came back negative. She tells me she has been feeling rather fatigued. She was noted to be more anemic. I received labs from Dr. Landa's office. Her hemoglobin has dropped. Done to 8.1. Previously 9.7. I requested her to come in for anemia workup. She could have an occult GI bleed related to the anticoagulation. Or it could be medication related, she is on Remicade and methotrexate. Her work up done was non revealing. In the past she has had Anemia of chronic disease. She has mild kidney disease. She has a collagen vascular disorder. Few months ago she was noted to be anemic with hemoglobin down to 7. She did require a couple of units of blood. I am concerned about ongoing GI bleeding. I wanted to referred her to GI however she did not want to at this point. She has completed about 15 months of anticoagulant therapy. She has an IVC filter. Her hemoglobin was 10.4 on 12/29. Today is 9.7. I am concerned about ongoing GI bleeding. PLAN: I lowered the dose of Eliquis to maintenance dose of 2.5 mg b.i.d. Will continue to monitor her carefully. She will return in 3 months for a follow-up visit. Thank you, CC: Dr. Bryan. Dr. Oneil. - Time Spent With Patient Total time spent is greater than 50% in coordination of care (as documented) at patient's floor/unit and/or counseling patient: 15 - 24 minutes
[2021-04-06 14:32] LABS: Alanine Aminotransferase 12 U/L (0-31); Albumin Level 3.9 g/dL (3.5-5.0); Alkaline Phosphatase 70 U/L (39-117); Anion Gap 15 (12-20); Aspartate Amino Transferase 20 U/L (5-31); Bilirubin Total 0.7 mg/dL (0.0-1.0); Blood Urea Nitrogen 21 mg/dL (9-16); Calcium 9.4 mg/dL (8.4-10.2); Carbon Dioxide 24 mmol/L (22-29); Chloride 101 mmol/L (96-108); Creatinine Clr Calc Pharmacy 38.2; Estimated Glomerular Filt Rate 36; Glucose Random 91 mg/dL (60-115); Potassium 4.8 mmol/L (3.3-5.1); Sodium 135 mmol/L (135-145); Total Protein 6.9 g/dL (6.5-8.0)
[2021-04-06 17:47] LABS: Iron 48 mcg/dL (30-160); Lactate Dehydrogenase 207 U/L (122-220); Percent Iron Saturation 12 % (15-50); Total Iron Binding Capacity 411 mcg/dL (228-428); Unsaturated Iron Binding 363 ug/dL
[2021-04-06 18:12] LABS: Ferritin 73 ng/mL (10-250)
[2021-04-06 18:50] LABS: Folate > 20.0 ng/mL (> or = 4.0); Vitamin B12 621 pg/mL (200-900)
--- NOTE | 2021-04-07 11:03 | MHC.HEMONCMA ---
Patient is scheduled to see Dr Melendez on 06/24/2021 at 10:40am. Patient is aware.
== END | disposition home or self-care (01) ==
LOC: HO.ONC 12-29 08:31
PROVIDERS: PCP Internal Medicine; Visit Provider Internal Medicine Medical Oncology
DX: I26.99 Other pulmonary embolism without acute cor pulmonale (principal); I82.401 Acute embolism and thrombosis of unspecified deep veins of right lower extremity; D64.9 Anemia, unspecified; M06.9 Rheumatoid arthritis, unspecified; Z79.01 Long term (current) use of anticoagulants; Z79.899 Other long term (current) drug therapy; Z95.828 Presence of other vascular implants and grafts
CPT/HCPCS: 36415; 80053; 82607; 82728; 82746; 83540; 83615; 85025; 85379; 99214

== ENCOUNTER 2024-09-10 10:45 | Outpatient (AMB) | payer MEDICARE, SELFPAY ==
[2024-09-10 10:46] VITALS: BP 140/82; PULSE 101; O2SAT 96; BMI 40.4
--- NOTE | 2024-09-10 10:46 | A.OFFPC_ITS ---
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 Last seen in 05/03/2024. Patient was advised to have a repeat colonoscopy last 2018. Mammogram is due bone density is due. Review of the notes has been follow-up with Rheumatology on Remicade, methotrexate 8 tablets of 2.5 mg once a week. Patient has been complains of joint pain , has the rheumatoid arthritis. knows about side effects . [facility] Medical History (Updated 09/10/24 @ 19:08 by Daphne Bryan MD) Breast cancer screening by mammogram Pre-op exam Hospital discharge follow-up Symptomatic anemia Pulmonary embolism Anemia Medicare annual wellness visit, initial Presence of IVC filter History of alcohol abuse Venous stasis dermatitis Obesity Vitamin D deficiency Barretts esophagus Benign essential hypertension Restless leg syndrome Obstructive sleep apnea GERD (gastroesophageal reflux disease) Tubular adenoma of colon Rheumatoid arthritis Hx of deep venous thrombosis Hypercholesterolemia Surgical History History of cataract surgery History of eyelid surgery History of tonsillectomy Hx of arthroscopic knee surgery Hx of heart artery stent Family History Father History of stomach cancer Mother Social History Household Members: None Housing: House Do you presently have visiting nurse or other home services: No Alcohol intake: former Patient Tobacco Use Status: Former Tobacco user Tobacco use type: Cigarette Cigarette Packs Per Day: 2 Years Smoked: quit 1979 e-Cigarette/Vaping Use: Never Used Second Hand Smoke Exposure: No service: No Current occupational status: retired Cognitive needs: No Hearing needs: No Vision needs: Yes Questionnaire Thrive Questionnaire Date Thrive assessed: 01/25/24 ABBY-7 AMB Questionnaire ABBY-7 Date ABBY - 7 assessed: 01/10/24 Source: Developed by Drs. Memo Yu, Ely Dunbar, Obed Frazier and colleagues, with an educational james from [employer]. Physical exam (Primary Care) Vital Signs: Last Vital Signs Pulse 101 H 09/10/24 10:46 BP 140/82 H 09/10/24 10:46 Pulse Ox 96 09/10/24 10:46 Oxygen Delivery Method Room Air 09/10/24 10:46 BMI result Body Mass Index 40.4 Tobacco/Smoking Status: Tobacco use Status Tobacco use date assessed 01/10/24 09/10/24 10:49 Patient Tobacco Use Status Former Tobacco user 09/10/24 10:49 Tobacco use type Cigarette 09/10/24 10:49 e-Cigarette/Vaping Use Never Used 09/10/24 10:49 Thrive Assessment: Date of Thrive Assessment Date Thrive assessed 01/25/24 09/10/24 10:49 Const General: alert; No acute distress Eyes Conjunctivae: conjunctivae normal Resp Auscultation: clear to auscultation bilaterally Cardio Rate: regular rate Rhythm: regular rhythm GI Inspection: Yes normal to inspection Extrem General: Yes normal to inspection and No edema Office Procedures Flu Questionnaire Does the patient have a severe egg allergy?: No Does the patient have severe life threatening allergies?: No Does the patient have a fever or illness today?: No Has the patient ever had Guillain-[place] Syndrome?: No Has the patient ever had any past reaction to a flu shot?: No Immunizations Fluarix Triv [id number] (PF) 45 mcg (15 mcg x 3)/0.5 mL IM syringe Performing Provider: Daphne Bryan MD [place] [facility] [place] [facility] Administered by: Verito Peterson LPN on 09/10/24 11:01 Dose Route Admin Location Dispensed Lot Number Expiration Date [facility] [place] Measurer 0.5 mL IM Left Deltoid 0.5 mL [id number] 04/28/25 [id number] [employer] VIS Given Date VIS Provided VIS Publication Date 09/10/24 Single Vaccine 21 Eligibility Eligibility Date Funding Source Not [facility] Eligible 09/10/24 Private Coding Level of Care Code Est Pt Level 4 (67508) Complex EM visit Add On G2211 Diagnoses Rheumatoid arthritis involving multiple sites, unspecified whether rheumatoid factor present M06.9 Rheumatoid arthritis location: multiple sites Rheumatoid factor presence: unspecified presence Hypercholesterolemia E78.00 Benign essential hypertension I10 Hardin's esophagus without dysplasia K22.70 Hardin's esophagus type: without dysplasia Osteopenia, unspecified location M85.80 Osteopenia location: unspecified Tubular adenoma of colon D12.6 Moderate episode of recurrent major depressive disorder F33.1 Active/Remission status: currently active Major depression episode severity: moderate Major depression recurrence: recurrent Closed nondisplaced fracture of medial malleolus of left tibia, sequela S82.55XS Encounter type: sequela Fracture alignment: nondisplaced Laterality: left Breast cancer screening by mammogram Z12.31 Assessment & Plan Assessment & Plan (1) Rheumatoid arthritis: Code(s): M06.9 - Rheumatoid arthritis, unspecified Category: Medical Qualifiers: Rheumatoid arthritis location: multiple sites Rheumatoid factor presence: unspecified presence Qualified Code(s): M06.9 - Rheumatoid arthritis, unspecified Plan: Continue to follow-up with Rheumatology patient is on Remicade, methotrexate. (2) Hypercholesterolemia: Code(s): E78.00 - Pure hypercholesterolemia, unspecified Category: Medical Plan: Avoid fried foods, chicken skin, eggs, butter margarine, pastries and meat. Be it pork or beef they have a lot of cholesterol LDL goal of less than 130 and triglyceride of less than 150 on simvastatin 5 mg once a day and fenofibrate patient will need blood (3) Benign essential hypertension: Comment: September 2019 ejection fraction 65-70% Code(s): I10 - Essential (primary) hypertension Category: Medical Plan: Continue with blood pressure medication. Decrease salt intake and exercise patient is on lisinopril 20 mg once a day (4) Barretts esophagus: Code(s): K22.70 - Hardin's esophagus without dysplasia Category: Medical Qualifiers: Hardin's esophagus type: without dysplasia Qualified Code(s): K22.70 - Hardin's esophagus without dysplasia Plan: Avoid the foods that causes that usually spicy foods, tomato products, juices, coffee, soda and foods that your sensitive to. After eating do not lie down, allow 3-4 hours before in lie down. And keep the head of bed above 30 degrees to avoid the acid from going up. On omeprazole 20 mg once a day (5) Osteopenia: Comment: August 2022 Code(s): M85.80 - Other specified disorders of bone density and structure, unspecified site Category: Medical Qualifiers: Osteopenia location: unspecified Qualified Code(s): M85.80 - Other specified disorders of bone density and structure, unspecified site Plan: Patient is due for a repeat bone density. Patient follows up with the Rheumatology (6) Tubular adenoma of colon: Code(s): D12.6 - Benign neoplasm of colon, unspecified Category: Medical Plan: Patient is reminded about colonoscopy (7) Major depression: Code(s): F32.9 - Major depressive disorder, single episode, unspecified Category: Medical Qualifiers: Active/Remission status: currently active Major depression episode severity: moderate Major depression recurrence: recurrent Qualified Code(s): F33.1 - Major depressive disorder, recurrent, moderate Plan: Continue with counseling and therapy. Patient is on sertraline 25 mg once a day and bupropion (8) Fracture of medial malleolus, closed: Comment: LEFT s/p ORIF 01/2024 Code(s): S82.53XA - Displaced fracture of medial malleolus of unspecified tibia, initial encounter for closed fracture Category: Medical Qualifiers: Encounter type: sequela Fracture alignment: nondisplaced Laterality: left Qualified Code(s): S82.55XS - Nondisplaced fracture of medial malleolus of left tibia, sequela Plan: Doing good, continue to be active (9) Breast cancer screening by mammogram: Code(s): Z12.31 - Encounter for screening mammogram for malignant neoplasm of breast Category: Medical Plan: Mammogram requested Orders: Orders XR DEXA axial skeleton Today M81.0 - Age-related osteoporosis without current pathological fracture, S82.53XA - Displaced fracture of medial malleolus of unspecified tibia, initial encounter for closed fracture MM tomosynthesis screening BI Today Z12.31 - Encounter for screening mammogram for malignant neoplasm of breast Influenza Immunization Today Z23 - Encounter for immunization Medications: New oxycodone-acetaminophen 5-325 mg (Percocet) Partial Fill upon patient request. 1 tab PO BID 60 tabs 0RF pain M06.9 - Rheumatoid arthritis, unspecified
== END 2024-09-10 11:23 | disposition home or self-care (01) ==
PROVIDERS: PCP Internal Medicine; Visit Provider Internal Medicine
DX: M06.9 Rheumatoid arthritis, unspecified (principal); F33.1 Major depressive disorder, recurrent, moderate; E78.00 Pure hypercholesterolemia, unspecified; I10 Essential (primary) hypertension; K22.70 Barrett's esophagus without dysplasia; M85.80 Other specified disorders of bone density and structure, unspecified site; D12.6 Benign neoplasm of colon, unspecified; S82.55XS Nondisplaced fracture of medial malleolus of left tibia, sequela; Z12.31 Encounter for screening mammogram for malignant neoplasm of breast

== ENCOUNTER → 2024-09-10 10:45 | Outpatient (BNVA) | payer MEDICARE, SELFPAY | PROVIDERS: PCP Internal Medicine; Visit Provider Internal Medicine | DX: Z23 Encounter for immunization (principal); M06.9 Rheumatoid arthritis, unspecified; E78.00 Pure hypercholesterolemia, unspecified; I10 Essential (primary) hypertension; K22.70 Barrett's esophagus without dysplasia; M85.80 Other specified disorders of bone density and structure, unspecified site; D12.6 Benign neoplasm of colon, unspecified; F33.1 Major depressive disorder, recurrent, moderate; S82.55XS Nondisplaced fracture of medial malleolus of left tibia, sequela | CPT/HCPCS: 90471; 90656; 99212 ==

== ENCOUNTER 2024-12-25 12:24 | Outpatient (AMB) | payer MEDICARE, SELFPAY ==
--- NOTE | 2024-12-25 12:33 | A.OFFPC_ITS ---
Vital Signs 12/25/24 12:37 Height 4 ft 11 in Weight 190 lb 2 oz BMI 38.4 BP 130/64 Blood Pressure Location Lt brachial Position Sitting Pulse 97 Pulse Source Pulse Oximeter Temp 97.1 F Temp Source Temporal Artery Scan Pulse Oximetry (%) 99 Oxygen Delivery Method Room Air Intake Visit Reasons: RA, HTN Intake Note: Patient is here to follow up on HTN. 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 Segment Assembler: Not Required per policy Accompanied by: Self / Same As Patient Allergies No Known Allergies [No Known Allergies*] Allergy (Verified 12/25/24 12:36) Tobacco use date assessed: 12/25/24 Fall risk assessment: No Falls in past year Last assessed Fall Risk: 12/25/24 Dental Screening Dental Screen Date: 12/25/24 Did you have a dental visit in the last 12 months?: Yes Did you have a dental problem in the last 6 months where you did not have access to dental care?: No Was dental information given to patient?: Patient has dentist [facility] Medical History (Updated 09/10/24 @ 19:08 by Daphne Bryan MD) Breast cancer screening by mammogram Pre-op exam Hospital discharge follow-up Symptomatic anemia Pulmonary embolism Anemia Medicare annual wellness visit, initial Presence of IVC filter History of alcohol abuse Venous stasis dermatitis Obesity Vitamin D deficiency Barretts esophagus Benign essential hypertension Restless leg syndrome Obstructive sleep apnea GERD (gastroesophageal reflux disease) Tubular adenoma of colon Rheumatoid arthritis Hx of deep venous thrombosis Hypercholesterolemia Surgical History History of cataract surgery History of eyelid surgery History of tonsillectomy Hx of arthroscopic knee surgery Hx of heart artery stent Family History Father History of stomach cancer Mother Social History Household Members: None Housing: House Do you presently have visiting nurse or other home services: No Alcohol intake: former Patient Tobacco Use Status: Former Tobacco user Tobacco use type: Cigarette Cigarette Packs Per Day: 2 Years Smoked: quit 1979 e-Cigarette/Vaping Use: Never Used Second Hand Smoke Exposure: No service: No Current occupational status: retired Cognitive needs: Yes (walker, wheelchair, cane) Hearing needs: No Vision needs: Yes (Glasses) Questionnaire PHQ-9 Over the last 2 weeks, how often have you been bothered by any of the following problems? 1. Little interest or pleasure in doing things: not at all 2. Feeling down, depressed, or hopeless: not at all 3. Trouble falling or staying asleep, or sleeping too much: not at all 4. Feeling tired or having little energy: not at all 5. Poor appetite or overeating: not at all 6. Feeling bad about yourself - or that you are a failure or have let yourself or your family down: not at all 7. Trouble concentrating on things, such as reading the newspaper or watching television: not at all 8. Moving or speaking so slowly that other people could have noticed. Or the opposite - being so fidgety or restless that you have been moving around a lot more than usual: not at all 9. Thoughts that you would be better off or of hurting yourself in some way: not at all Total score: 0 Depression Screening Interpretation: Negative Depression Screening Done: Yes Source: Developed by Drs. Memo Yu, Ely Dunbar, Obed Frazier and colleagues, with an educational james from [employer]. Thrive Questionnaire Date Thrive assessed: 12/25/24 I am a: Patient What is your living situation today?: I have a steady place to live Within the past 12 months, did the food you bought not last and you didn't have the money to get more?: Never true Within the past 12 months, did you worry whether your food would run out before you got money to buy more?: Never true Do you have trouble paying for medicines?: No Do you have trouble getting transportation to medical appointments?: No Do you have trouble paying your heating and electricity bill?: No Do you have trouble taking care of your child, family member or friend?: No Do you have trouble with day-to-day activities such as bathing, preparing meals, shopping, managing finances, etc.?: No Are you currently unemployed and looking for a job?: No Are you interested in more education?: No Please select the resources that you would like help with: None Currently or been in a relationship where the following occur: No concerns reported THRIVE Score: 0 AUDIT C Alcohol Use Questionnaire (AUDIT-C) 1. How often do you have a drink containing alcohol?: Never Total Score: 0 ABBY-7 AMB Questionnaire ABBY-7 Date ABBY - 7 assessed: 12/25/24 Feeling nervous, anxious, or on edge: 0 = Not at all Not being able to stop or control worryin = Not at all Worrying too much about different things: 0 = Not at all Trouble relaxin = Not at all Being so restless that it is hard to sit still: 0 = Not at all Becoming easily annoyed or irritable: 0 = Not at all Feeling afraid as if something awful might happen: 0 = Not at all Total ABBY-7 score (0-4 normal; 5-9 mild; 10-14 moderate; 15-21 severe): 0 Source: Developed by Drs. Memo Yu, Ely Dunbar, Obed Frazier and colleagues, with an educational james from [employer]. Physical exam (Primary Care) Vital Signs: Last Vital Signs Temp 97.1 F 12/25/24 12:37 Pulse 97 12/25/24 12:37 BP 130/64 12/25/24 12:37 Pulse Ox 99 12/25/24 12:37 Oxygen Delivery Method Room Air 12/25/24 12:37 BMI result Body Mass Index 38.4 Tobacco/Smoking Status: Tobacco use Status Tobacco use date assessed 12/25/24 12/25/24 12:43 Patient Tobacco Use Status Former Tobacco user 12/25/24 12:43 Tobacco use type Cigarette 12/25/24 12:43 e-Cigarette/Vaping Use Never Used 12/25/24 12:43 PHQ-9: PHQ-9 Score PHQ-9: Total score 0 12/25/24 13:05 Depression Screening Interpretation: Negative Thrive Assessment: Date of Thrive Assessment Date Thrive assessed 12/25/24 12/25/24 12:43 Currently or been in a relationship where the following occur: No concerns reported Const General: alert; No acute distress Eyes Conjunctivae: conjunctivae normal Resp Auscultation: clear to auscultation bilaterally Cardio Rate: regular rate Rhythm: regular rhythm GI Inspection: Yes normal to inspection Extrem General: Yes normal to inspection and No edema Coding Level of Care Code Est Pt Level 4 (72936) Complex EM visit Add On G2211 Diagnoses Rheumatoid arthritis involving multiple sites, unspecified whether rheumatoid factor present M06.9 Rheumatoid arthritis location: multiple sites Rheumatoid factor presence: unspecified presence Hypercholesterolemia E78.00 Obstructive sleep apnea G47.33 Benign essential hypertension I10 Hardin's esophagus without dysplasia K22.70 Hardin's esophagus type: without dysplasia Chronic pulmonary embolism without acute cor pulmonale, unspecified pulmonary embolism type I27.82 Acute cor pulmonale presence: without acute cor pulmonale Chronicity: chronic Pulmonary embolism type: unspecified Impaired fasting glucose R73.01 Tubular adenoma of colon D12.6 Moderate episode of recurrent major depressive disorder F33.1 Active/Remission status: currently active Major depression episode severity: moderate Major depression recurrence: recurrent Assessment & Plan Assessment & Plan (1) Rheumatoid arthritis: Code(s): M06.9 - Rheumatoid arthritis, unspecified Category: Medical Qualifiers: Rheumatoid arthritis location: multiple sites Rheumatoid factor presence: unspecified presence Qualified Code(s): M06.9 - Rheumatoid arthritis, unspecified Plan: Patient continue to follow-up with Rheumatology on Remicade (2) Hypercholesterolemia: Code(s): E78.00 - Pure hypercholesterolemia, unspecified Category: Medical Plan: Avoid fried foods, chicken skin, eggs, butter margarine, pastries and meat. Be it pork or beef they have a lot of cholesterol LDL goal of less than 130 and triglyceride of less than 150 on fenofibrate and simvastatin (3) Obstructive sleep apnea: Comment: cannot tolerate CPAP Code(s): G47.33 - Obstructive sleep apnea (adult) (pediatric) Category: Medical Plan: Discussed about importance of sleep apnea treatment. (4) Benign essential hypertension: Comment: September 2019 ejection fraction 65-70% Code(s): I10 - Essential (primary) hypertension Category: Medical Plan: Continue with blood pressure medication. Decrease salt intake and exercise patient on lisinopril 20 mg once a day (5) Barretts esophagus: Code(s): K22.70 - Hardin's esophagus without dysplasia Category: Medical Qualifiers: Hardin's esophagus type: without dysplasia Qualified Code(s): K22.70 - Hardin's esophagus without dysplasia Plan: Avoid the foods that causes that usually spicy foods, tomato products, juices, coffee, soda and foods that your sensitive to. After eating do not lie down, allow 3-4 hours before in lie down. And keep the head of bed above 30 degrees to avoid the acid from going up. Reminded about EGD and colonoscopy (6) Pulmonary embolism: Comment: September 2019 with right leg DVT IVC filter placed balloon embolectomy Dr. Oneil October 2019 Code(s): I26.99 - Other pulmonary embolism without acute cor pulmonale Category: Medical Qualifiers: Acute cor pulmonale presence: without acute cor pulmonale Chronicity: chronic Pulmonary embolism type: unspecified Qualified Code(s): I27.82 - Chronic pulmonary embolism Plan: Continue with anticoagulation continue to monitor renal function (7) Impaired fasting glucose: Code(s): R73.01 - Impaired fasting glucose Category: Medical Plan: Decrease the amount of carbohydrate intake, pasta, bread, rice and potatoes are all sugar and that is aside from all the sweet stuff, remember that fruits are good but they are Sweet also. (8) Tubular adenoma of colon: Code(s): D12.6 - Benign neoplasm of colon, unspecified Category: Medical Plan: Patient is reminded about colon cancer screening (9) Major depression: Code(s): F32.9 - Major depressive disorder, single episode, unspecified Category: Medical Qualifiers: Active/Remission status: currently active Major depression episode lenard payne: moderate Major depression recurrence: recurrent Qualified Code(s): F33.1 - Major depressive disorder, recurrent, moderate Plan: Continue with present medication Plan History of Present Illness The patient is a 74-year-old female presenting for follow-up regarding obstructive sleep apnea, which remains untreated due to CPAP intolerance, contributing to ongoing health challenges. At this visit, there is considerable focus on her challenges with weight management, given a recent 10-pound weight loss. This includes an exploration of medication adjustments, considering the need to increase dosages to improve efficacy. Her conditions of rheumatoid arthritis, hypercholesterolemia, GERD, hypertension, and past instances of DVT and pulmonary embolism add complexity to her management. Medication continues with Remicade for rheumatoid arthritis, with noted efficacy in recent follow-ups. Lipid levels are maintained under targets with fenofibrate and intimvastatin to manage hypercholesterolemia. Lisinopril is actively co ntrolling her hypertension, while lifestyle modifications are stressed for managing impaired glucose tolerance. Her history of Hardin?s esophagus is managed with ongoing surveillance. There remains a concern about anemia identified previously. The patient is actively engaged in health maintenance programs to address her conditions, with priority given to completing her colonoscopy, mammogram, and bone density tests. Continued pain and sciatica-like symptoms have restricted her mobility. Health Maintenance - Colonoscopy is due - Mammogram is due - Bone density test is due - Patient advised to maintain current lipid management - Discussion on importance of sleep apnea treatment - Monitoring renal function - Continuous engagement with lifestyle modifications focused on diet and exercise Social History - Obesity with ongoing weight management issues - Experiences limitations in mobility due to sciatic pain - Reports difficulties with appetite control despite medication usage - Discussed exercise challenges due to pain and other health considerations Review of Systems - Musculoskeletal: Reports sciatica-like pain in the buttocks area - Appetite: Reports difficulties with managing appetite despite medication Physical Exam Results - Labs: Hemoglobin 9.1, earlier cholesterol levels discussed - Focus on lipid level: LDL target under 130, triglycerides under 150 - Past anemia and cholesterol test with last bad cholesterol noted in 2022 Plan The main focus is on addressing obstructive sleep apnea by discussing alternative treatments and emphasizing therapy adherence. Adjustments in weight management medication are recommended due to current inefficacy. The plan includes completing outstanding health screenings to ensure preventative care continuity. The Remicade regimen continues for rheumatoid arthritis management. Lipid and hypertension control is adequately maintained with current pharmacotherapy. Ongoing education on lifestyle and dietary controls is necessar y to handle impaired glucose regulation. Sciatic pain is a barrier to increased physical activity, suggesting potential exploration of physical therapy options. Regular monitoring of anemia will involve additional evaluations to prevent complications. Patient was informed and verbally consented to the use of an ambient scribe for clinic note documentation during this visit. Discussion Notes The discussion emphasized the significance of managing multiple chronic conditions with a comprehensive approach. A detailed review of the benefits versus alternatives of increasing weight management medication dosages was conducted, with the patient consenting to medication adjustments. The patient understands the need for completing all pending screenings to ensure effective preventative health care management. The conversation also entailed a review of sleep apnea management challenges and possible alternative therapies. The patient acknowledges the importance of intervening early in potential progression regarding Hardin's esophagus and maintaining strict GERD management. There was an educational segment reinforcing the necessity of lifestyle modifications and continuous management of impaired glucose tolerance. This detailed plan in place reflects proactive patient engagement and informed consent for the proposed interventions. Patient Instructions - Follow up on CPAP therapy alternatives and adhere to treatment plans - Increase dosage of weight management medication as discussed - Schedule and complete colonoscopy, mammogram, and bone density test - Continue current lipid management regimen - Maintain blood pressure with lisinopril as prescribed - Manage GERD with lifestyle modifications - Regularly monitor anemia and glucose levels - Consider physical therapy options for sciatic pain - Follow up in three months or as advised by the clinician Medications: Changed From tirzepatide (weight loss) (Zepbound) 2.5 mg (0.5 mL) subcut QWEEK 4 weeks 2 mL 0RF E66.01 - Morbid (severe) obesity due to excess calories, Z68.41 - Body mass index [BMI] 40.0-44.9, adult To tirzepatide (weight loss) 7.5 mg (0.5 mL) subcut QWEEK 2 mL 2RF 4 weeks E66.01 - Morbid (severe) obesity due to excess calories, Z68.41 - Body mass index [BMI] 40.0-44.9, adult From bupropion HCl XL 150 mg PO QAM 180 tabs 0RF F32.A - Depression, unspecified To bupropion HCl XL 150 mg PO BID 180 tabs 1RF F32.A - Depression, unspecified Discontinued sertraline Discontinued Reason: Duplicate 25 mg PO DAILY 30 tabs 3RF F32.9 - Major depressive disorder, single episode, unspecified
[2024-12-25 12:37] VITALS: BP 130/64; PULSE 97; TEMP 36.2; O2SAT 99; BMI 38.4
--- OUTSIDE RECORDS SUMMARY | 2024-12-25 15:14 | XMS_ITS | Patient Health Record ---
Author Organization [facility] Address [address] [place] [id number] Care Team Providers Care Motion Study Technician Name Role Phone Daphne Bryan MD Primary Care Provider Yuliet Boss [phone] Kathryn Tiwari Unavailable Unavailable ALLERGIES No Known Allergies REASON FOR REFERRAL No Information MEDICATIONS Medication SIG (Take, Route, Fr equency, Duration) Notes Start Date End Date Status Omeprazole 20 MG 1 capsule Orally Onc e a day for 30 day(s) Active Fenofibrate Active Quinapril HCl Active Vicodin BID Active Methotrexate Active Folic Acid Active IMMUNIZATIONS Vaccine Route Administration Date Status Comme nts Influenza Unknown 07/04/2018 Administered Influenza Unknown 07/30/2021 Administered SOCIAL HISTORY Sex Assigned At : Social History Observation Description Sex Assigned At Unknown PROBLEMS Problem Type ICD Code Onset Dates Problem Status W/U Status Risk SNOMED Code Notes Problem Esophageal reflux (K21.9) Active confirmed Esophageal refl ux (311078371) Problem Gastro-esophageal reflux disease without esophagitis (K21.9) Active confirmed Gastro-esophage al reflux disease without esophagitis (258939393) Problem Encounter for screening for malignant neoplasm of colon (Z12.11) Active confirmed 202375930 Problem History of adenomatous polyp of colon (Z86.010) Active confirmed 028680665 Problem Gastroesophageal reflux disease (K21.9) Active confirmed Gastroesophagea l reflux disease (351632002) Problem Gastroesophageal reflux disease without esophagitis (K21.9) Active confirmed 684527164 Problem Anemia (D64.9) Active confirmed Anemia (047494962) Problem Anemia, unspecified type (D64.9) Active confirmed 442088282 Problem Esophageal reflux disease (K21.9) Active confirmed Gastroesopha geal reflux disease (599567616) Problem Hardin''s esophagus without dysplasia (K22.70) Active confirmed 793731134 Problem Gastro-esophageal reflux disease with esophagitis, without bleeding (K21.00) Active confirmed Gastro-esophage al reflux disease with esophagitis (629714342) PLAN OF TREATMENT Pending Test Test Name Order Date Hemoccult Cards (Non-Screening) 06/24/20 21 IRON + IBC (FE) 06/24/2021 CBC w DIFF 06/24/2021 Future Test Test Name Order Date UPPER GI ENDOSCOPY 04/09/2013 COLONOSCOPY 04/09/2013 UPPER GI ENDOSCOPY 12/26/2018 COLONOSCOPY 12/26/2018 Insurance Providers Payer Name Payer Address Payer Phone Subscriber Number Group Number Insured Name Patient Relationship to Insured Coverage Start Date Coverage End Date MEDICARE OF [place] [address] [facility] [address] [id number] NATALIE OLIVARES Self - patient is the insured [employer] CLAIMS [address] [place] [address] [id number] NATALIE OLIVARES Self - patient is the insured MEDICAL (GENERAL) HISTORY Medical History History ICD Code Colonoscopy 08-14-2006--1 sm all tubular adenoma removed, diverticulosis and int/ext hemorrhoids; negative colonoscopy in 05/2013 GERD--EGD 05/2013 small to mo derate-sized HH, small area of Hardin's without dysplasia Rheumatoid arthritis Hypertension Recovering alcoholic since 06/1997 Neg. ETT > 3 yrs ago Denies ND,DM,CVA,Lung disease,renal dise ase Shingles Sleep apnea--not using CPAP Urinary incontinence/mild Pulmonary embolus from DVT--s/p IVC filt er--in 2018 EGD 03/2019--moderate-sized H H, no Hardin's on biopsies; mild antral gastritis with bx neg for Hyplori Colonoscopy 03/2019--negative Anemia--s/p blood transfusio ns, most recently as September 2021 when she was hospitalized-she was Hemoccult negative during the hospitalization and had normal iron studies--sees Dr. Tiwari Surgical History Surgery Date(Month/Year) Knee surgery
== END 2024-12-25 13:20 | disposition home or self-care (01) ==
PROVIDERS: PCP Internal Medicine; Visit Provider Internal Medicine
DX: M06.9 Rheumatoid arthritis, unspecified (principal); I27.82 Chronic pulmonary embolism; F33.1 Major depressive disorder, recurrent, moderate; E78.00 Pure hypercholesterolemia, unspecified; G47.33 Obstructive sleep apnea (adult) (pediatric); I10 Essential (primary) hypertension; K22.70 Barrett's esophagus without dysplasia; R73.01 Impaired fasting glucose; D12.6 Benign neoplasm of colon, unspecified

== ENCOUNTER → 2024-12-25 12:24 | Outpatient (BNVA) | payer MEDICARE, SELFPAY | PROVIDERS: PCP Internal Medicine; Visit Provider Internal Medicine | DX: M06.9 Rheumatoid arthritis, unspecified (principal); E78.00 Pure hypercholesterolemia, unspecified; G47.33 Obstructive sleep apnea (adult) (pediatric); I10 Essential (primary) hypertension; K22.70 Barrett's esophagus without dysplasia; I27.82 Chronic pulmonary embolism; R73.01 Impaired fasting glucose; D12.6 Benign neoplasm of colon, unspecified; F33.1 Major depressive disorder, recurrent, moderate | CPT/HCPCS: 99212 ==

== ENCOUNTER 2025-01-17 13:47 | Outpatient (REF) | payer MEDICARE, SELFPAY ==
--- NOTE | ~2025-01-17 | MM_ITS ---
EXAMINATION: DXA BONE DENSITY AXIAL HISTORY: Estrogen deficiency TECHNIQUE: Apcera Dual energy absorptiometry (DEXA) of the lumbar spine, total left hip, and femoral neck was performed. COMPARISON: Comparison is made with the prior examination dated 09/08/2022. FINDINGS: The bone mineral density of the lumbar spine is 1.142 with a T-score of -0.3, and a Z-score of 0.4. This is indicative of normal bone mineral density. This represents a BMD change of 9.1% compared to the prior exam. This is statistically significant. The bone mineral density of the left total hip is 0.880 with a T-score of -1.0, and a Z-score of 0.1. This is indicative of normal bone mineral density. This represents a BMD change of 2.1% compared to the prior exam. This is not statistically significant. The bone mineral density of the left femoral neck is 0.904 with a T-score of -1.0, and a Z-score of 0.4. This is indicative of normal bone mineral density. This represents a BMD change of 4.8% compared to the prior exam. FRACTURE RISK: The FRAX index suggests a ten year probability of major osteoporotic fracture of 17.33%, and of hip fracture 2.6%. MM/XR DEXA axial skeleton IMPRESSION: Based on bone mineral density, and according to World Health Organization (WHO) criteria, the diagnosis is consistent with normal bone mineral density. All bone density values are in grams per centimeter squared (g/cm2). Statistically, 68% of repeat scans fall within 1 SD (+/- 0.010 g/cm2 for AP spine L1-L4) and 1 SD (+/- 0.012 g/cm2 for femur total) FRAX is a trademark of the [employer], a World Health Organization (WHO) Collaborating Center. Electronically signed by: Memo Perera MD 01/17/2025 03:15 PM EDT
== END 2025-01-17 13:48 | disposition home or self-care (01) ==
LOC: HO.MAMMO 13:47
PROVIDERS: PCP Internal Medicine; Visit Provider Internal Medicine
DX: Z12.31 Encounter for screening mammogram for malignant neoplasm of breast (principal); M81.0 Age-related osteoporosis without current pathological fracture; S82.53XA Displaced fracture of medial malleolus of unspecified tibia, initial encounter for closed fracture
CPT/HCPCS: 77063; 77067; 77080

== ENCOUNTER → 2025-01-17 14:30 | Outpatient (BNV) | payer MEDICARE, SELFPAY | PROVIDERS: PCP Internal Medicine; Visit Provider Radiology Diagnostic Radiology | DX: E28.39 Other primary ovarian failure (principal) | CPT/HCPCS: 77080 ==

== ENCOUNTER 2025-04-10 11:43 | Outpatient (AMB) | payer MEDICARE, SELFPAY ==
[2025-04-10 11:46] VITALS: BP 136/69; PULSE 112; RESP 18; TEMP 36.1; O2SAT 97; BMI 35.5
--- NOTE | 2025-04-10 11:46 | A.OFFPC_ITS ---
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 Job Titles: Present Accompanied by: Self / Same As Patient Allergies No Known Allergies [No Known Allergies*] Allergy (Verified 04/10/25 11:52) Medication List - Last Reconciled 04/10/25 by Daphne Bryan MD apixaban (Eliquis) 2.5 mg PO BID bupropion HCl XL 150 mg PO BID calcium carbonate-vitamin D3 600 mg-10 mcg (400 unit) 1 cap PO BID 30 days cyanocobalamin (vitamin B-12) 1,000 mcg PO DAILY fenofibrate 160 mg PO DAILY fluticasone propionate 50 mcg/actuation 1 spray intranasal DAILY folic acid 1 mg PO .QD infliximab (Remicade) every 2 months lisinopril 20 mg PO DAILY methotrexate sodium 20 mg PO TU dmhsnvjxbiog-vyqm-rbswv acid 18-400 mg-mcg (High Potency Multivitamin (w-iron)) 1 tab PO DAILY omeprazole 20 mg PO DAILY@0630 oxycodone-acetaminophen 5-325 mg (Percocet) 1 tab PO BID prednisolone acetate 1% 1 drp ophthalmic-Left BEDTIME semaglutide 0.5 mg (0.1 mL) subcut .once a week simvastatin 5 mg PO BEDTIME [WALKER As directed] Tobacco use date assessed: 04/10/25 Dental Screening Dental Screen Date: 04/10/25 [facility] Medical History (Updated 04/10/25 @ 12:19 by Daphne Bryan MD) Breast cancer screening by mammogram Pre-op exam Hospital discharge follow-up Symptomatic anemia Pulmonary embolism Anemia Medicare annual wellness visit, initial Presence of IVC filter History of alcohol abuse Venous stasis dermatitis Obesity Vitamin D deficiency Barretts esophagus Benign essential hypertension Restless leg syndrome Obstructive sleep apnea GERD (gastroesophageal reflux disease) Tubular adenoma of colon Rheumatoid arthritis Hx of deep venous thrombosis Hypercholesterolemia Surgical History History of cataract surgery History of eyelid surgery History of tonsillectomy Hx of arthroscopic knee surgery Hx of heart artery stent Family History Father History of stomach cancer Mother Social History Household Members: None Housing: House Do you presently have visiting nurse or other home services: No Alcohol intake: former Patient Tobacco Use Status: Former Tobacco user Tobacco use type: Cigarette Cigarette Packs Per Day: 2 Years Smoked: quit 1979 e-Cigarette/Vaping Use: Never Used Second Hand Smoke Exposure: No service: No Current occupational status: retired Cognitive needs: Yes (walker, wheelchair, cane) Hearing needs: No Vision needs: Yes (Glasses) Questionnaire PHQ-9 Over the last 2 weeks, how often have you been bothered by any of the following problems? 1. Little interest or pleasure in doing things: not at all 2. Feeling down, depressed, or hopeless: not at all 3. Trouble falling or staying asleep, or sleeping too much: not at all 4. Feeling tired or having little energy: not at all 5. Poor appetite or overeating: not at all 6. Feeling bad about yourself - or that you are a failure or have let yourself or your family down: not at all 7. Trouble concentrating on things, such as reading the newspaper or watching television: not at all 8. Moving or speaking so slowly that other people could have noticed. Or the opp osite - being so fidgety or restless that you have been moving around a lot more than usual: not at all 9. Thoughts that you would be better off or of hurting yourself in some way: not at all Total score: 0 Depression Screening Interpretation: Negative Depression Screening Done: Yes Source: Developed by Drs. Memo Yu, Ely Dunbar, Obed Frazier and colleagues, with an educational james from [employer]. Thrive Questionnaire Date Thrive assessed: 12/25/24 I am a: Patient What is your living situation today?: I have a steady place to live Within the past 12 months, did the food you bought not last and you didn't have the money to get more?: Never true Within the past 12 months, did you worry whether your food would run out before you got money to buy more?: Never true Do you have trouble paying for medicines?: No Do you have trouble getting transportation to medical appointments?: No Do you have trouble paying your heating and electricity bill?: No Do you have trouble taking care of your child, family member or friend?: No Do you have trouble with day-to-day activities such as bathing, preparing meals, shopping, managing finances, etc.?: No Are you currently unemployed and looking for a job?: No Are you interested in more education?: No Please select the resources that you would like help with: None Currently or been in a relationship where the following occur: I choose not to answer THRIVE Score: 0 AUDIT C Alcohol Use Questionnaire (AUDIT-C) 1. How often do you have a drink containing alcohol?: Never Total Score: 0 ABBY-7 AMB Questionnaire ABBY-7 Date ABBY - 7 assessed: 04/10/25 Feeling nervous, anxious, or on edge: 1 = Several days Not being able to stop or control worryin = Several days Worrying too much about different things: 1 = Several days Trouble relaxin = Several days Being so restless that it is hard to sit still: 0 = Not at all Becoming easily annoyed or irritable: 0 = Not at all Feeling afraid as if something awful might happen: 0 = Not at all Total ABBY-7 score (0-4 normal; 5-9 mild; 10-14 moderate; 15-21 severe): 4 Source: Developed by Drs. Memo Yu, Ely Dunbar, Obed Frazier and colleagues, with an educational james from [employer]. Physical exam (Primary Care) Vital Signs: Last Vital Signs Temp 97 F 04/10/25 11:46 Pulse 112 H 04/10/25 11:46 Resp 18 04/10/25 11:46 BP 136/69 04/10/25 11:46 Pulse Ox 97 04/10/25 11:46 BMI result Body Mass Index 35.5 Tobacco/Smoking Status: Tobacco use Status Tobacco use date assessed 04/10/25 04/10/25 11:52 Patient Tobacco Use Status Former Tobacco user 04/10/25 11:52 Tobacco use type Cigarette 04/10/25 11:52 e-Cigarette/Vaping Use Never Used 04/10/25 11:52 PHQ-9: PHQ-9 Score PHQ-9: Total score 0 04/10/25 12:17 Depression Screening Interpretation: Negative Thrive Assessment: Date of Thrive Assessment Date Thrive assessed 12/25/24 04/10/25 11:52 Currently or been in a relationship where the following occur: I choose not to answer Const General: alert; No acute distress Eyes Conjunctivae: conjunctivae normal Resp Auscultation: clear to auscultation bilaterally Cardio Rate: regular rate Rhythm: regular rhythm GI Inspection: Yes normal to inspection Extrem General: Yes normal to inspection and No edema Coding Level of Care Code Est Pt Level 4 (11944) Complex EM visit Add On G2211 Diagnoses Tubular adenoma of colon D12.6 Impaired fasting glucose R73.01 Benign essential hypertension I10 Hardin's esophagus without dysplasia K22.70 Hardin's esophagus type: without dysplasia Rheumatoid arthritis involving multiple sites, unspecified whether rheumatoid factor present M06.9 Rheumatoid arthritis location: multiple sites Rheumatoid factor presence: unspecified presence Hypercholesterolemia E78.00 Chronic pulmonary embolism without acute cor pulmonale, unspecified pulmonary embolism type I27.82 Acute cor pulmonale presence: without acute cor pulmonale Chronicity: chronic Pulmonary embolism type: unspecified Corneal abrasion, left S05.02XA Assessment & Plan Assessment & Plan (1) Tubular adenoma of colon: Code(s): D12.6 - Benign neoplasm of colon, unspecified Category: Medical Plan: Patient is reminded about colonoscopy (2) Impaired fasting glucose: Code(s): R73.01 - Impaired fasting glucose Category: Medical Plan: Decrease the amount of carbohydrate intake, pasta, bread, rice and potatoes are all sugar and that is aside from all the sweet stuff, remember that fruits are good but they are Sweet also. Patient is reminded about blood work (3) Benign essential hypertension: Comment: September 2019 ejection fraction 65-70% Code(s): I10 - Essential (primary) hypertension Category: Medical Plan: Continue with blood pressure medication. Decrease salt intake and exercise on lisinopril 20 mg once a day patient needs blood work (4) Barretts esophagus: Code(s): K22.70 - Hardin's esophagus without dysplasia Category: Medical Qualifiers: Hardin's esophagus type: without dysplasia Qualified Code(s): K22.70 - Hardin's esophagus without dysplasia Plan: Avoid the foods that causes that usually spicy foods, tomato products, juices, coffee, soda and foods that your sensitive to. After eating do not lie down, allow 3-4 hours before in lie down. And keep the head of bed above 30 degrees t o avoid the acid from going up. (5) Rheumatoid arthritis: Code(s): M06.9 - Rheumatoid arthritis, unspecified Category: Medical Qualifiers: Rheumatoid arthritis location: multiple sites Rheumatoid factor presence: unspecified presence Qualified Code(s): M06.9 - Rheumatoid arthritis, unspecified Plan: Continue to follow-up with Rheumatology (6) Hypercholesterolemia: Code(s): E78.00 - Pure hypercholesterolemia, unspecified Category: Medical Plan: Avoid fried foods, chicken skin, eggs, butter margarine, pastries and meat. Be it pork or beef they have a lot of cholesterol LDL goal of less than 130 and triglyceride of less than 150 (7) Pulmonary embolism: Comment: September 2019 with right leg DVT IVC filter placed balloon embolectomy Dr. Oneil October 2019 Code(s): I26.99 - Other pulmonary embolism without acute cor pulmonale Category: Medical Qualifiers: Acute cor pulmonale presence: without acute cor pulmonale Chronicity: chronic Pulmonary embolism type: unspecified Qualified Code(s): I27.82 - Chronic pulmonary embolism Plan: Continue with anticoagulation but patient is recommended to get blood work (8) Corneal abrasion, left: Comment: Dr Kayleen SERNA Code(s): S05.02XA - Injury of conjunctiva and corneal abrasion without foreign body, left eye, initial encounter Category: Medical Plan History of Present Illness The patient is a 74-year-old female presenting for a follow-up visit. She has a history of rheumatoid arthritis, hypercholesterolemia, gastroesophageal reflux disease, obstructive sleep apnea, hypertension, Hardin's esophagus, lumbar degenerative disc disease, generalized anxiety disorder with depression, and impaired glucose tolerance. She has experienced a 14-pound weight loss recently. Her last colonoscopy was in March 2019, and she is due for another screening. She had a tubular adenoma of the colon identified previously. The patient had a mammogram and bone density test done in December, with the bone density showing normal results. Health Maintenance - Colonoscopy due for screening - Mammogram completed in December - Bone density test completed in December, showing normal results Social History Review of Systems Physical Exam Results - Bone density test: Normal results Plan The patient is reminded to schedule a colonoscopy as she is due for screening, given her history of tubular adenoma of the colon. She is advised to continue w ith her current management for rheumatoid arthritis and to follow up with rheumatology as needed. For her hypertension, she is to continue taking lisinopril 20 mg once daily. The patient is reminded to have blood work done to monitor her impaired glucose tolerance and cholesterol levels, aiming for an LDL goal of less than 130 mg/dL and triglycerides less than 150 mg/dL. She is advised to continue with anticoagulation therapy and to ensure regular blood work is completed. Patient was informed and verbally consented to the use of an ambient scribe for clinic note documentation during this visit. Discussion Notes Patient Instructions - Schedule a colonoscopy as soon as possible. - Continue taking lisinopril 20 mg once daily for blood pressure management. - Follow up with rheumatology for rheumatoid arthritis management. - Get blood work done to monitor glucose and cholesterol levels. - Continue anticoagulation therapy and ensure regular blood work is completed. Medications: New semaglutide 0.5 mg (0.1 mL) subcut .once a week 0.4 mL 0RF Discontinued tirzepatide (weight loss) Discontinued Reason: Patient Completed Course 7.5 mg (0.5 mL) subcut QWEEK 4 weeks 2 mL 2RF E66.01 - Morbid (severe) obesity due to excess calories, Z68.41 - Body mass index [BMI] 40.0-44.9, adult
--- OUTSIDE RECORDS SUMMARY | 2025-04-10 13:53 | XMS_ITS | Patient Health Record ---
Author Organization [facility] Address [address] [place] [id number] Care Team Providers Care Employment Officer Name Role Phone Daphne Bryan MD Primary Care Provider Yuliet Boss Unavailable [phone] Kathryn Tiwari Unavailable Unavailable Allergies No Known Allergies Reason For Referral No Information Medications Medication SIG (Take, Route, Fr equency, Duration) Notes Start Date End Date Status Omeprazole 20 MG 1 capsule Orally Onc e a day for 30 day(s) Active Fenofibrate Active Quinapril HCl Active Vicodin BID Active Methotrexate Active Folic Acid Active Immunizations Vaccine Route Administration Date Status Comme nts Influenza Unknown 07/04/2018 Administered Influenza Unknown 07/30/2021 Administered Problems Problem Type SNOMED Code ICD Code Onset Dates Problem Status W/U Status Risk Notes Problem Esophageal reflux (362068034) Esophageal reflux (K21.9) Active confirmed Problem Gastro-esophageal reflux disease without esophagitis (427840455) Gastro-esophageal reflux disease without esophagitis (K21.9) Active confirmed Problem 922229970 Encounter for screening for malignant neoplasm of colon (Z12.11) Active confirmed Problem 998217761 History of adenomatous polyp of colon (Z86.010) Active confirmed Problem Gastroesophageal reflux disease (305770404) Gastroesophageal reflux disease (K21.9) Active confirmed Problem 930562629 Gastroesophageal reflux disease without esophagitis (K21.9) Active confirmed Problem Anemia (132130325) Anemia (D64.9) Active confir med Problem 954142319 Anemia, unspecified type (D64.9) Active confirmed Problem Gastroesophageal reflux disease (635404525) Esophageal reflux disease (K21.9) Active confirmed Problem 040301559 Hardin''s esophagus without dysplasia (K22.70) Active confirmed Problem Gastro-esophageal reflux disease with esophagitis (331868498) Gastro-esophageal reflux disease with esophagitis, without bleeding (K21.00) Active confirmed Plan Of Treatment Pending Test Test Name Order Date Hemoccult [...] Date MEDICARE OF [place] [address] [place] [address] [id number] NATALIE OLIVARES Self - patient is the insured [employer] CLAIMS [address] [place] [address] [phone] [id number] NATALIE OLIVARES Self - patient is the insured Medical (General) History Medical History History ICD Code Colonoscopy 08-14-2006--1 sm all tubular adenoma removed, diverticulosis and int/ext hemorrhoids; negative colonoscopy in 05/2013 GERD--EGD 05/2013 small to mo derate-sized HH, small area of Hardin's without dysplasia Rheumatoid arthritis Hypertension Recovering alcoholic since 06/1997 Neg. ETT > 3 yrs ago Denies FL,DM,CVA,Lung disease,renal dise ase Shingles Sleep apnea--not using [...]
== END 2025-04-10 12:35 | disposition home or self-care (01) ==
LOC: HO.HMCH 11:44
PROVIDERS: PCP Internal Medicine; Visit Provider Internal Medicine
DX: D12.6 Benign neoplasm of colon, unspecified (principal); M06.9 Rheumatoid arthritis, unspecified; I27.82 Chronic pulmonary embolism; R73.01 Impaired fasting glucose; I10 Essential (primary) hypertension; K22.70 Barrett's esophagus without dysplasia; E78.00 Pure hypercholesterolemia, unspecified; S05.02XA Injury of conjunctiva and corneal abrasion without foreign body, left eye, initial encounter

== ENCOUNTER → 2025-04-10 11:43 | Outpatient (BNVA) | payer MEDICARE, SELFPAY | PROVIDERS: PCP Internal Medicine; Visit Provider Internal Medicine | DX: D12.6 Benign neoplasm of colon, unspecified (principal); R73.01 Impaired fasting glucose; I10 Essential (primary) hypertension; K22.70 Barrett's esophagus without dysplasia; E78.00 Pure hypercholesterolemia, unspecified; I27.82 Chronic pulmonary embolism; S05.02XD Injury of conjunctiva and corneal abrasion without foreign body, left eye, subsequent encounter; M06.9 Rheumatoid arthritis, unspecified; Z87.891 Personal history of nicotine dependence | CPT/HCPCS: 99212 ==

== ENCOUNTER 2025-06-19 15:39 | Outpatient (AMB) | payer MEDICARE, SELFPAY ==
--- NOTE | 2025-06-19 16:04 | MHC.PC.OV ---
Vital Signs 06/19/25 16:05 Height 4 ft 11 in Weight 176 lb 2 oz BMI 35.6 BP 132/66 Blood Pressure Location Lt brachial Position Sitting Pulse 108 H Pulse Source Pulse Oximeter Temp 97.1 F Temp Source Temporal Artery Scan Pulse Oximetry (%) 100 Oxygen Delivery Method Room Air Intake Visit Reasons: Lab results Intake Note: Patient is here to follow up on Lab results. 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 Care Professional: Not Required per policy Accompanied by: Self / Same As Patient Allergies No Known Allergies (No Known Allergies*) Allergy (Verified 06/19/25 16:05) Medication List - Last Reconciled 06/19/25 by Daphne Bryan MD apixaban (Eliquis) 2.5 mg PO BID bupropion HCl XL 150 mg PO BID calcium carbonate-vitamin D3 600 mg-10 mcg (400 unit) 1 cap PO BID 30 days cyanocobalamin (vitamin B-12) 1,000 mcg PO DAILY fenofibrate 160 mg PO DAILY fluticasone propionate 50 mcg/actuation 1 spray intranasal DAILY folic acid 1 mg PO .QD infliximab (Remicade) every 2 months lisinopril 20 mg PO DAILY methotrexate sodium 20 mg PO TU [id number]-[id number] acid 18-400 mg-mcg (High Potency Multivitamin (w-iron)) 1 tab PO DAILY omeprazole 20 mg PO DAILY@0630 oxycodone-acetaminophen 5-325 mg (Percocet) 1 tab PO BID prednisolone acetate 1% 1 drp ophthalmic-Left BEDTIME semaglutide 0.5 mg (0.1 mL) subcut .once a week simvastatin 5 mg PO BEDTIME [WALKER As directed] Tobacco use date assessed: 06/19/25 Fall risk assessment: No Falls in past year Last assessed Fall Risk: 06/19/25 Dental Screening Dental Screen Date: 04/10/25 [facility] Medical History (Updated 04/10/25 @ 12:19 by Daphne Bryan MD) Breast cancer screening by mammogram Pre-op exam Hospital discharge follow-up Symptomatic anemia Pulmonary embolism Anemia Medicare annual wellness visit, initial Presence of IVC filter History of alcohol abuse Venous stasis dermatitis Obesity Vitamin D deficiency Barretts esophagus Benign essential hypertension Restless leg syndrome Obstructive sleep apnea GERD (gastroesophageal reflux disease) Tubular adenoma of colon Rheumatoid arthritis Hx of deep venous thrombosis Hypercholesterolemia Surgical History History of cataract surgery History of eyelid surgery History of tonsillectomy Hx of arthroscopic knee surgery Hx of heart artery stent Family History Father History of stomach cancer Mother Social History Household Members: None Housing: House Do you presently have visiting nurse or other home services: No Alcohol intake: former Patient Tobacco Use Status: Former Tobacco user Tobacco use type: Cigarette Cigarette Packs Per Day: 2 Years Smoked: quit 1980 Packs Per Year: 0 e-Cigarette/Vaping Use: Never Used Second Hand Smoke Exposure: No service: No Current occupational status: retired Cognitive needs: Yes (walker, wheelchair, cane) Hearing needs: No Vision needs: Yes (Glasses) Questionnaire Thrive Questionnaire Date Thrive assessed: 04/10/25 I am a: Patient What is your living situation today?: I have a steady place to live Within the past 12 months, did the food you bought not last and you didn't have the money to get more?: Never true Within the past 12 months, did you worry whether your food would run out before you got money to buy more?: Never true Do you have trouble paying for medicines?: No Do you have trouble getting transportation to medical appointments?: No Do you have trouble paying your heating and electricity bill?: No Do you have trouble taking care of your child, family member or friend?: No Do you have trouble with day-to-day activities such as bathing, preparing meals, shopping, managing finances, etc.?: No Are you currently unemployed and looking for a job?: No Are you interested in more education?: No Please select the resources that you would like help with: None Currently or been in a relationship where the following occur: I choose not to answer THRIVE Score: 0 ABBY-7 AMB Questionnaire ABBY-7 Date ABBY - 7 assessed: 04/10/25 Source: Developed by Drs. Memo Yu, Ely Dunbar, Obed Frazier and colleagues, with an educational james from [employer]. Physical exam (Primary Care) Vital Signs: Last Vital Signs Temp 97.1 F 06/19/25 16:05 Pulse 108 H 06/19/25 16:05 BP 132/66 06/19/25 16:05 Pulse Ox 100 06/19/25 16:05 Oxygen Delivery Method Room Air 06/19/25 16:05 BMI result Body Mass Index 35.6 Tobacco/Smoking Status: Tobacco use Status Tobacco use date assessed 06/19/25 06/19/25 16:10 Patient Tobacco Use Status Former Tobacco user 06/19/25 16:10 Tobacco use type Cigarette 06/19/25 16:10 e-Cigarette/Vaping Use Never Used 06/19/25 16:10 Thrive Assessment: Date of Thrive Assessment Date Thrive assessed 04/10/25 06/19/25 16:10 Currently or been in a relationship where the following occur: I choose not to answer Const General: alert; No acute distress Eyes Conjunctivae: conjunctivae normal Resp Auscultation: clear to auscultation bilaterally Cardio Rate: regular rate Rhythm: regular rhythm GI Inspection: Yes normal to inspection Extrem General: Yes normal to inspection and No edema Coding Level of Care Code Est Pt Level 4 (53779) Complex EM visit Add On G2211 Diagnoses Rheumatoid arthritis involving multiple sites, unspecified whether rheumatoid factor present M06.9 Rheumatoid arthritis location: multiple sites Rheumatoid factor presence: unspecified presence DDD (degenerative disc disease), lumbar M51.36 Anemia D64.9 Tubular adenoma of colon D12.6 Hardin's esophagus without dysplasia K22.70 Hardin's esophagus type: without dysplasia Class 3 severe obesity due to excess calories with serious comorbidity and body mass index (BMI) of 40.0 to 44.9 in adult E66.01; Z68.41 Obesity type: due to excess calories Obesity classification: adult class 3 (BMI >= 40) Serious obesity comorbidity presence: with serious comorbidity Body mass index: BMI 40.0-44.9 Chronic pulmonary embolism without acute cor pulmonale, unspecified pulmonary embolism type I27.82 Pulmonary embolism type: unspecified Chronicity: chronic Acute cor pulmonale presence: without acute cor pulmonale Hypercholesterolemia E78.00 Benign essential hypertension I10 Assessment & Plan Assessment & Plan (1) Rheumatoid arthritis: Code(s): M06.9 - Rheumatoid arthritis, unspecified Category: Medical Qualifiers: Rheumatoid arthritis location: multiple sites Rheumatoid factor presence: unspecified presence Qualified Code(s): M06.9 - Rheumatoid arthritis, unspecified Plan: Continue to follow-up with Rheumatology on Remicade methotrexate (2) DDD (degenerative disc disease), lumbar: Code(s): M51.36 - Other intervertebral disc degeneration, lumbar region Category: Medical Plan: Narcotic pain meds: Is being prescribed with the understanding that these medications are potentially addictive and should be used only when absolutely necessary and must always be secured. Any remaining pills should be safely disposed off appropriately. Patient is advised that narcotics can impaired judgment and one should not drive or operate heavy machinery while taking these medications. Never share these medications with anybody and do not leave them unattended. They will not be replaced under any circumstances. (3) Anemia: Code(s): D64.9 - Anemia, unspecified Category: Medical Plan: Discussed the need to monitor blood count (4) Tubular adenoma of colon: Code(s): D12.6 - Benign neoplasm of colon, unspecified Category: Medical Plan: Patient is due for colonoscopy (5) Barretts esophagus: Code(s): K22.70 - Hardin's esophagus without dysplasia Category: Medical Qualifiers: Hardin's esophagus type: without dysplasia Qualified Code(s): K22.70 - Hardin's esophagus without dysplasia Plan: Avoid the foods that causes that usually spicy foods, tomato products, juices, coffee, soda and foods that your sensitive to. After eating do not lie down, allow 3-4 hours before in lie down. And keep the head of bed above 30 degrees to avoid the acid from going up. (6) Obesity: Code(s): E66.9 - Obesity, unspecified Category: Medical Qualifiers: Obesity type: due to excess calories Obesity classification: adult class 3 (BMI >= 40) Serious obesity comorbidity presence: with serious comorbidity Body mass index: BMI 40.0-44.9 Qualified Code(s): E66.01 - Morbid (severe) obesity due to excess calories; Z68.41 - Body mass index [BMI]40.0-44.9, adult Plan: Diet and exercise (7) Pulmonary embolism: Comment: September 2019 with right leg DVT IVC filter placed balloon embolectomy Dr. Oneil October 2019 Code(s): I26.99 - Other pulmonary embolism without acute cor pulmonale Category: Medical Qualifiers: Pulmonary embolism type: unspecified Chronicity: chronic Acute cor pulmonale presence: without acute cor pulmonale Qualified Code(s): I27.82 - Chronic pulmonary embolism Plan: Continue with anticoagulation on apixaban and will advised to get follow-up blood work (8) Hypercholesterolemia: Code(s): E78.00 - Pure hypercholesterolemia, unspecified Category: Medical Plan: Avoid fried foods, chicken skin, eggs, butter margarine, pastries and meat. Be it pork or beef they have a lot of cholesterol LDL goal of less than 130 and triglyceride of less than 150 patient is on fenofibrate and simvastatin (9) Benign essential hypertension: Comment: September 2019 ejection fraction 65-70% Code(s): I10 - Essential (primary) hypertension Category: Medical Plan: Continue with blood pressure medication. Decrease salt intake and exercise Plan History of Present Illness The patient is a 74-year-old female presenting for a follow-up visit. The patient has a history of rheumatoid arthritis and follows up with the arthritis treatment center, receiving treatment with Remicade and methotrexate. She also has a history of hypercholesterolemia, with the last cholesterol test in April 2023 showing an LDL of 69 mg/dL. The patient suffers from gastroesophageal reflux disease (GERD) and Hardin's esophagus, and she is on a reflux management plan. She has obstructive sleep apnea but cannot tolerate CPAP therapy. The patient has a history of hypertension and impaired glucose tolerance, with normal blood sugar levels noted in recent tests. She also has a history of deep vein thrombosis and pulmonary embolism, for which she is on anticoagulation therapy with apixaban. The patient experiences depression and is currently managing this condition. She is due for a colonoscopy, with the last one performed in 2018. Health Maintenance - Colonoscopy due, last performed in 2018 - Mammogram is up to date - Bone density is up to date Social History Review of Systems Physical Exam Results - Labs: Anemia with hemoglobin of 9.1 g/dL and hematocrit of 28.5% in January 2024 - Labs: Electrolytes and renal function are within normal limits - Labs: Blood sugar is normal - Labs: LDL cholesterol of 69 mg/dL in April 2023 Plan The patient will continue to follow up with rheumatology for rheumatoid arthritis management, including ongoing treatment with Remicade and methotrexate. For hypercholesterolemia, the patient is on fenofibrate and simvastatin, with a target LDL goal of less than 130 mg/dL and triglycerides less than 150 mg/dL. The patient is advised to continue anticoagulation therapy with apixaban due to her history of deep vein thrombosis and pulmonary embolism. A colonoscopy is recommended as the patient is due for this screening. The patient is encouraged to maintain a healthy diet and exercise regimen to manage her weight and improve glucose tolerance. Regular monitoring of blood counts is necessary due to the anemia noted in recent lab results. Patient was informed and verbally consented to the use of an ambient scribe for clinic note documentation during this visit. Discussion Notes Patient Instructions - Continue taking Remicade and methotrexate as prescribed for rheumatoid arthritis. - Take fenofibrate and simvastatin as prescribed to manage cholesterol levels. - Continue anticoagulation therapy with apixaban. - Schedule and complete a colonoscopy as soon as possible. - Follow a healthy diet and exercise regularly to manage weight and glucose levels. - Monitor blood counts regularly and report any significant changes. Orders: Orders Complete Blood Count Auto Diff Today - Chronic pulmonary embolism Lipid Panel Today E78.00 - Pure hypercholesterolemia, unspecified, I2 - Chronic pulmonary embolism Free T4 (Free Thyroxine) Today - Chronic pulmonary embolism Thyroid Stimulating Hormone Today - Chronic pulmonary embolism Hemoglobin A1c Today - Chronic pulmonary embolism Ferritin Today . - Chronic pulmonary embolism Reticulocyte Count Today - Chronic pulmonary embolism Comprehensive Met. Panel Today - Chronic pulmonary embolism Vitamin B12 and Folate Today - Chronic pulmonary embolism Vitamin D 25-OH Total Today - Chronic pulmonary embolism IRON PROFILE Today . - Chronic pulmonary embolism Uric Acid Today I2 - Chronic pulmonary embolism
[2025-06-19 16:05] VITALS: BP 132/66; PULSE 108; TEMP 36.2; O2SAT 100; BMI 35.6
== END 2025-06-19 16:38 | disposition home or self-care (01) ==
LOC: HO.HMCH 15:40
PROVIDERS: PCP Internal Medicine; Visit Provider Internal Medicine
DX: M06.9 Rheumatoid arthritis, unspecified (principal); E66.01 Morbid (severe) obesity due to excess calories; Z68.41 Body mass index [BMI] 40.0-44.9, adult; I27.82 Chronic pulmonary embolism; M51.369 Other intervertebral disc degeneration, lumbar region without mention of lumbar back pain or lower extremity pain; D64.9 Anemia, unspecified; D12.6 Benign neoplasm of colon, unspecified; K22.70 Barrett's esophagus without dysplasia; E78.00 Pure hypercholesterolemia, unspecified; I10 Essential (primary) hypertension

== ENCOUNTER → 2025-06-19 15:39 | Outpatient (BNVA) | payer MEDICARE, SELFPAY | PROVIDERS: PCP Internal Medicine; Visit Provider Internal Medicine | DX: M06.9 Rheumatoid arthritis, unspecified (principal); M51.369 Other intervertebral disc degeneration, lumbar region without mention of lumbar back pain or lower extremity pain; D64.9 Anemia, unspecified; D12.6 Benign neoplasm of colon, unspecified; K22.70 Barrett's esophagus without dysplasia; E66.01 Morbid (severe) obesity due to excess calories; Z68.41 Body mass index [BMI] 40.0-44.9, adult; I27.82 Chronic pulmonary embolism; E78.00 Pure hypercholesterolemia, unspecified; I10 Essential (primary) hypertension; Z71.3 Dietary counseling and surveillance | CPT/HCPCS: 99212 ==

== ENCOUNTER 2025-08-01 11:54 | Outpatient (REF) | payer MEDICARE, SELFPAY ==
[2025-08-01 13:24] LABS: MANUAL DIFF FLAG NO
[2025-08-01 14:02] LABS: Hematocrit 26.0 % (37.0-47.0); Hemoglobin 7.5 g/dl (12.0-16.0); Imm Gran Abs Auto 0.02 X10*3/uL (0.00-0.03); Imm Gran Pct Auto 0.3 % (0.0-0.4); Lymphocytes Absolute Auto 2.0 X10*3/uL (1.2-4.9); Mean Corpuscular HGB Conc 28.8 g/dl (31.0-35.0); Mean Corpuscular Hemoglobin 21.7 pg (27.0-33.0); Mean Corpuscular Volume 75.4 fL (80.0-98.0); NRBC Abs Auto 0.000 X10*3/uL (0.0-0.012); NRBC Pct Auto 0.0 /100WBC (0.0-0.2); Platelet Count 409 X10*3/uL (160-400); Red Blood Count 3.45 X10*6/uL (4.20-5.50); Reticulocytes Absolute 0.057 X10*6/uL (0.026-0.095); White Blood Count 6.5 X10*3/uL (4.8-10.8)
[2025-08-01 14:26] LABS: Alanine Aminotransferase 8 U/L (0-31); Albumin Level 3.7 g/dL (3.5-5.0); Alkaline Phosphatase 70 U/L (39-117); Anion Gap 11 (12-20); Aspartate Amino Transferase 26 U/L (5-31); Blood Urea Nitrogen 18 mg/dL (9-16); Calcium 8.9 mg/dL (8.4-10.2); Carbon Dioxide 23 mmol/L (22-29); Chloride 109 mmol/L (96-108); Cholesterol 132 mg/dL (<200); Estimated Glomerular Filt Rate 59; HDL Cholesterol 56 mg/dL (>40); Iron 25 mcg/dL (30-160); Percent Iron Saturation 6 % (15-50); Potassium 4.2 mmol/L (3.3-5.1); Sodium 139 mmol/L (135-145); Total Iron Binding Capacity 387 mcg/dL (228-428); Total Protein 7.5 g/dL (6.5-8.0); Triglycerides 83 mg/dL (<150); Unsaturated Iron Binding 362 ug/dL; Uric Acid 5.8 mg/dL (2.4-5.7)
[2025-08-01 14:53] LABS: Ferritin 9 ng/mL (10-250); Free T4 (Free Thyroxine) 0.94 ng/dL (0.71-1.85); Thyroid Stimulating Hormone 1.49 uIU/mL (0.32-4.0)
[2025-08-01 14:58] LABS: Folate > 20.0 ng/mL (> or = 4.0); Vitamin B12 1303 pg/mL (200-900)
== END 2025-08-01 11:55 | disposition home or self-care (01) ==
LOC: HO.HMGCLDS 11:54
PROVIDERS: PCP Internal Medicine; Visit Provider Internal Medicine
DX: I27.82 Chronic pulmonary embolism (principal); E78.00 Pure hypercholesterolemia, unspecified; Z13.1 Encounter for screening for diabetes mellitus; Z13.21 Encounter for screening for nutritional disorder; Z13.0 Encounter for screening for diseases of the blood and blood-forming organs and certain disorders involving the immune mechanism
CPT/HCPCS: 36415; 80053; 80061; 82306; 82607; 82728; 82746; 83036; 83540; 84439; 84443; 84550; 85025; 85045

== ENCOUNTER 2025-08-04 10:28 | Outpatient (AMB) | payer MEDICARE, SELFPAY ==
[2025-08-04 10:34] VITALS: BP 138/86; PULSE 103; TEMP 36.1; O2SAT 97; BMI 36.0
--- NOTE | 2025-08-04 10:34 | A.OFFPC_ITS ---
Vital Signs 08/04/25 10:34 Height 4 ft 11 in Weight 178 lb 2.136 oz BMI 36.0 BP 138/86 Blood Pressure Location Lt brachial Position Sitting Pulse 103 H Pulse Source Pulse Oximeter Temp 97.0 F Temp Source Temporal Artery Scan Pulse Oximetry (%) 97 Oxygen Delivery Method Room Air Intake Visit Reasons: RA Allergies No Known Allergies (No Known Allergies*) Allergy (Verified 08/04/25 10:38) Medication List - Last Reconciled 08/04/25 by Daphne Bryan MD apixaban (Eliquis) 2.5 mg PO BID ascorbate calcium (vitamin C) 500 mg PO DAILY bupropion HCl XL 150 mg PO BID calcium carbonate-vitamin D3 600 mg-10 mcg (400 unit) 1 cap PO BID 30 days cyanocobalamin (vitamin B-12) 1,000 mcg PO DAILY fenofibrate 160 mg PO DAILY ferrous sulfate (Feosol) 325 mg PO DAILY fluticasone propionate 50 mcg/actuation 1 spray intranasal DAILY folic acid 1 mg PO .QD infliximab (Remicade) every 2 months lisinopril 20 mg PO DAILY methotrexate sodium 20 mg PO TU cjxjjgpxupij-rzpl-aqzct acid 18-400 mg-mcg (High Potency Multivitamin (w-iron)) 1 tab PO DAILY omeprazole 20 mg PO DAILY@0630 oxycodone-acetaminophen 5-325 mg (Percocet) 1 tab PO BID prednisolone acetate 1% 1 drp ophthalmic-Left BEDTIME sennosides-docusate sodium 8.6-50 mg (Senna Plus) 2 tab-caps (2 x 8.6-50 mg) PO BEDTIME simvastatin 5 mg PO BEDTIME [WALKER As directed] Tobacco use date assessed: 08/04/25 Fall risk assessment: 2 + Falls in past year Last assessed Fall Risk: 08/04/25 Dental Screening Dental Screen Date: 08/04/25 Did you have a dental visit in the last 12 months?: Yes Did you have a dental problem in the last 6 months where you did not have access to dental care?: No Was dental information given to patient?: Patient has dentist [facility] Medical History Breast cancer screening by mammogram Pre-op exam Hospital discharge follow-up Symptomatic anemia Pulmonary embolism Anemia Medicare annual wellness visit, initial Presence of IVC filter History of alcohol abuse Venous stasis dermatitis Obesity Vitamin D deficiency Barretts esophagus Benign essential hypertension Restless leg syndrome Obstructive sleep apnea GERD (gastroesophageal reflux disease) Tubular adenoma of colon Rheumatoid arthritis Hx of deep venous thrombosis Hypercholesterolemia Surgical History History of cataract surgery History of eyelid surgery History of tonsillectomy Hx of arthroscopic knee surgery Hx of heart artery stent Family History Father History of stomach cancer Mother Social History Household Members: None Housing: House Do you presently have visiting nurse or other home services: No Alcohol intake: former Patient Tobacco Use Status: Former Tobacco user Tobacco use type: Cigarette Cigarette Packs Per Day: 2 Years Smoked: quit 1979 e-Cigarette/Vaping Use: Never Used Second Hand Smoke Exposure: No service: No Current occupational status: retired Cognitive needs: Yes (walker, wheelchair, cane) Hearing needs: No Vision needs: Yes (Glasses) Questionnaire PHQ-9 Over the last 2 weeks, how often have you been bothered by any of the following problems? 1. Little interest or pleasure in doing things: not at all 2. Feeling down, depressed, or hopeless: not at all 3. Trouble falling or staying asleep, or sleeping too much: not at all 4. Feeling tired or having little energy: not at all 5. Poor appetite or overeating: not at all 6. Feeling bad about yourself - or that you are a failure or have let yourself or your family down: not at all 7. Trouble concentrating on things, such as reading the newspaper or watching television: not at all 8. Moving or speaking so slowly that other people could have noticed. Or the opposite - being so fidgety or restless that you have been moving around a lot more than usual: not at all 9. Thoughts that you would be better off or of hurting yourself in some way: not at all Total score: 0 Depression Screening Interpretation: Negative Depression Screening Done: Yes Source: Developed by Drs. Memo Yu, Ely Dunbar, Obed Frazier and colleagues, with an educational james from [employer] (formerly [employer]). Thrive Questionnaire Date Thrive assessed: 04/10/25 I am a: Patient What is your living situation today?: I have a steady place to live Within the past 12 months, did the food you bought not last and you didn't have the money to get more?: Never true Within the past 12 months, did you worry whether your food would run out before you got money to buy more?: Never true Do you have trouble paying for medicines?: No Do you have trouble getting transportation to medical appointments?: No Do you have trouble paying your heating and electricity bill?: No Do you have trouble taking care of your child, family member or friend?: No Do you have trouble with day-to-day activities such as bathing, preparing meals, shopping, managing finances, etc.?: No Are you currently unemployed and looking for a job?: No Are you interested in more education?: No Please select the resources that you would like help with: None Currently or been in a relationship where the following occur: I choose not to answer THRIVE Score: 0 AUDIT C Alcohol Use Questionnaire (AUDIT-C) 1. How often do you have a drink containing alcohol?: Never 3. How often do you have six or more drinks on one occasion?: Never Total Score: 0 ABBY-7 AMB Questionnaire ABBY-7 Date ABBY - 7 assessed: 04/10/25 Feeling nervous, anxious, or on edge: 1 = Several days Not being able to stop or control worryin = Several days Worrying too much about different things: 1 = Several days Trouble relaxin = Several days Being so restless that it is hard to sit still: 0 = Not at all Becoming easily annoyed or irritable: 0 = Not at all Feeling afraid as if something awful might happen: 0 = Not at all Total ABBY-7 score (0-4 normal; 5-9 mild; 10-14 moderate; 15-21 severe): 4 Source: Developed by Drs. Memo Yu, Ely Dunbar, Obed Frazier and colleagues, with an educational james from [employer] (formerly [employer]). Physical exam (Primary Care) Vital Signs: Last Vital Signs Temp 97.0 F 08/04/25 10:34 Pulse 103 H 08/04/25 10:34 BP 138/86 08/04/25 10:34 Pulse Ox 97 08/04/25 10:34 Oxygen Delivery Method Room Air 08/04/25 10:34 BMI result Body Mass Index 36.0 Tobacco/Smoking Status: Tobacco use Status Tobacco use date assessed 08/04/25 08/04/25 10:40 Patient Tobacco Use Status Former Tobacco user 08/04/25 10:40 Tobacco use type Cigarette 08/04/25 10:40 e-Cigarette/Vaping Use Never Used 08/04/25 10:40 PHQ-9: PHQ-9 Score PHQ-9: Total score 0 08/04/25 10:44 Depression Screening Interpretation: Negative Thrive Assessment: Date of Thrive Assessment Date Thrive assessed 04/10/25 08/04/25 10:40 Currently or been in a relationship where the following occur: I choose not to answer Const General: alert; No acute distress Eyes Conjunctivae: conjunctivae normal Resp Auscultation: clear to auscultation bilaterally Cardio Rate: regular rate Rhythm: regular rhythm GI Inspection: Yes normal to inspection Extrem General: Yes normal to inspection and No edema Coding Level of Care Code Est Pt Level 4 (38740) Complex EM visit Add On G2211 Diagnoses Hardin's esophagus without dysplasia K22.70 Hardin's esophagus type: without dysplasia Iron deficiency anemia D50.9 Moderate episode of recurrent major depressive disorder F33.1 Active/Remission status: currently active Major depression episode severity: moderate Major depression recurrence: recurrent Benign essential hypertension I10 Hypercholesterolemia E78.00 Chronic pulmonary embolism without acute cor pulmonale, unspecified pulmonary embolism type I27.82 Acute cor pulmonale presence: without acute cor pulmonale Chronicity: chronic Pulmonary embolism type: unspecified Impaired fasting glucose R73.01 Tubular adenoma of colon D12.6 Rheumatoid arthritis involving multiple sites, unspecified whether rheumatoid factor present M06.9 Rheumatoid arthritis location: multiple sites Rheumatoid factor presence: unspecified presence Assessment & Plan Assessment & Plan (1) Barretts esophagus: Code(s): K22.70 - Hardin's esophagus without dysplasia Category: Medical Qualifiers: Hardin's esophagus type: without dysplasia Qualified Code(s): K22.70 - Hardin's esophagus without dysplasia Plan: Avoid the foods that causes that usually spicy foods, tomato products, juices, coffee, soda and foods that your sensitive to. After eating do not lie down, allow 3-4 hours before in lie down. And keep the head of bed above 30 degrees to avoid the acid from going up. Patient on omeprazole (2) Iron deficiency anemia: Code(s): D50.9 - Iron deficiency anemia, unspecified Category: Medical Plan: Discussed about needing iron and vitamin-C. (3) Major depression: Code(s): F32.9 - Major depressive disorder, single episode, unspecified Category: Medical Qualifiers: Active/Remission status: currently active Major depression episode severity: moderate Major depression recurrence: recurrent Qualified Code(s): F33.1 - Major depressive disorder, recurrent, moderate Plan: Stable (4) Benign essential hypertension: Comment: September 2019 ejection fraction 65-70% Code(s): I10 - Essential (primary) hypertension Category: Medical Plan: Continue with blood pressure medication. Decrease salt intake and exercise patient is on lisinopril 20 mg once a day (5) Hypercholesterolemia: Code(s): E78.00 - Pure hypercholesterolemia, unspecified Category: Medical Plan: Avoid fried foods, chicken skin, eggs, butter margarine, pastries and meat. Be it pork or beef they have a lot of cholesterol LDL goal of less than 130 and triglyceride of less than 150 on fenofibrate 160 mg once a day and simvastatin 5 mg at bedtime (6) Pulmonary embolism: Comment: September 2019 with right leg DVT IVC filter placed balloon embolectomy Dr. Oneil October 2019 Code(s): I26.99 - Other pulmonary embolism without acute cor pulmonale Category: Medical Qualifiers: Acute cor pulmonale presence: without acute cor pulmonale Chronicity: chronic Pulmonary embolism type: unspecified Qualified Code(s): I27.82 - Chronic pulmonary embolism Plan: Continuing with anticoagulation but concerns with anemia this time (7) Impaired fasting glucose: Code(s): R73.01 - Impaired fasting glucose Category: Medical Plan: Decrease the amount of carbohydrate intake, pasta, bread, rice and potatoes are all sugar and that is aside from all the sweet stuff, remember that fruits are good but they are Sweet also. (8) Tubular adenoma of colon: Code(s): D12.6 - Benign neoplasm of colon, unspecified Category: Medical Plan: Patient is reminded about colonoscopy (9) Rheumatoid arthritis: Code(s): M06.9 - Rheumatoid arthritis, unspecified Category: Medical Qualifiers: Rheumatoid arthritis location: multiple sites Rheumatoid factor presence: unspecified presence Qualified Code(s): M06.9 - Rheumatoid arthritis, unspecified Plan: Continue to follow-up with Rheumatology. Narcotic pain meds: Is being prescribed with the understanding that these medications are potentially a ddictive and should be used only when absolutely necessary and must always be secured. Any remaining pills should be safely disposed off appropriately. Patient is advised that narcotics can impaired judgment and one should not drive or operate heavy machinery while taking these medications. Never share these medications with anybody and do not leave them unattended. They will not be replaced under any circumstances. Plan History of Present Illness The patient is a 74-year-old female presenting for follow-up of multiple chronic conditions and preventative care. The patient has a history of rheumatoid arthritis, which has been managed with medication and regular follow-ups with a receiving checker. She reports occasional flare-ups that impact her mobility, requiring adjustments in her pain management regimen. The patient has hypercholesterolemia, with an LDL cholesterol level of 60 mg/dL, managed with simvastatin and fenofibrate. Her cholesterol management plan includes maintaining an LDL goal of less than 130 mg/dL and triglycerides of less than 150 mg/dL. The patient has a history of gastroesophageal reflux disease (GERD) and is currently on omeprazole for management. She also has Hardin's esophagus, which requires regular monitoring. The patient has obstructive sleep apnea but cannot tolerate CPAP therapy. Alternative management strategies have not been discussed in detail. The patient has hypertension, managed with lisinopril 20 mg once daily. The patient has a history of pulmonary embolism in 2019 and has an IVC filter in place. She is on anticoagulation therapy, but there are concerns about anemia. The patient has iron deficiency anemia, with a hemoglobin level of 7.5 g/dL, iron level of 25 mcg/dL, and ferritin level of 9 ng/mL. She has been advised to take iron supplements and vitamin C to improve absorption. A blood transfusion has been discussed due to the low hemoglobin level. The patient has anxiety disorder and depression, which are being managed with medication and regular follow-ups. The patient is due for a colonoscopy, as her last test was in 2019. Health Maintenance - Colonoscopy is due, last performed in 2019. - Mammogram is up to date. - Bone density is up to date. - Patient advised to take iron supplements and vitamin C for iron deficiency anemia. Social History Review of Systems Physical Exam Results - Labs: Hemoglobin 7.5 g/dL, Iron 25 mcg/dL, Ferritin 9 ng/mL, LDL cholesterol 60 mg/dL. - Labs: Electrolytes normal, renal function good, blood sugar normal, liver fu nction fine. Plan Patient was informed and verbally consented to the use of an ambient scribe for clinic note documentation during this visit. 1. Rheumatoid Arthritis The patient is advised to continue follow-up with rheumatology for management of rheumatoid arthritis and to adjust pain management as needed for flare-ups. 2. Hypercholesterolemia The patient is to continue simvastatin and fenofibrate to maintain LDL cholesterol below 130 mg/dL and triglycerides below 150 mg/dL. 3. Gastroesophageal Reflux Disease (Gerd) The patient is to continue omeprazole for management of GERD symptoms. 4. Obstructive Sleep Apnea The patient is unable to tolerate CPAP therapy; alternative management strategies need to be considered. 5. Hypertension The patient is to continue lisinopril 20 mg once daily for blood pressure management. 6. Iron Deficiency Anemia The patient is advised to take iron supplements and vitamin C to improve absorption and a blood transfusion is being considered due to low hemoglobin levels. 7. Preventative Care: Colonoscopy Due The patient is reminded to schedule a colonoscopy as the last one was performed in 2019. Discussion Notes I discussed with the patient the management of her chronic conditions, including the continuation of current medications for rheumatoid arthritis, hypercholesterolemia, GERD, and hypertension. We also addressed the need for a colonoscopy and the potential for a blood transfusion due to her anemia. The risks and benefits of a blood transfusion were explained, including potential complications such as infections and allergic reactions. Patient Instructions - Continue taking all prescribed medications as directed. - Schedule a colonoscopy as soon as possible. - Take iron supplements and vitamin C to help with iron absorption. - Follow up with rheumatology for rheumatoid arthritis management. - Be aware of the signs of anemia and seek medical attention if symptoms worsen. Orders: Referrals Gastroenterology Referral D50.9 - Iron deficiency anemia, unspecified Medications: Changed From oxycodone-acetaminophen 5-325 mg (Percocet) Partial Fill upon patient request. 1 tab PO BID 60 tabs 0RF pain M06.9 - Rheumatoid arthritis, unspecified To oxycodone-acetaminophen 5-325 mg (Percocet) Partial Fill upon patient request. 1 tab PO Q8H PRN 75 tabs 0RF pain M06.9 - Rheumatoid arthritis, unspecified
== END 2025-08-04 11:02 | disposition home or self-care (01) ==
LOC: HO.HMCH 10:29
PROVIDERS: PCP Internal Medicine; Visit Provider Internal Medicine
DX: K22.70 Barrett's esophagus without dysplasia (principal); F33.1 Major depressive disorder, recurrent, moderate; I27.82 Chronic pulmonary embolism; M06.9 Rheumatoid arthritis, unspecified; I10 Essential (primary) hypertension; D50.9 Iron deficiency anemia, unspecified; E78.00 Pure hypercholesterolemia, unspecified; R73.01 Impaired fasting glucose; D12.6 Benign neoplasm of colon, unspecified

== ENCOUNTER → 2025-08-04 10:28 | Outpatient (BNVA) | payer MEDICARE, SELFPAY | PROVIDERS: PCP Internal Medicine; Visit Provider Internal Medicine | DX: K22.70 Barrett's esophagus without dysplasia (principal); D50.9 Iron deficiency anemia, unspecified; F33.1 Major depressive disorder, recurrent, moderate; I10 Essential (primary) hypertension; E78.00 Pure hypercholesterolemia, unspecified; I27.82 Chronic pulmonary embolism; R73.01 Impaired fasting glucose; D12.6 Benign neoplasm of colon, unspecified; M06.9 Rheumatoid arthritis, unspecified; K21.9 Gastro-esophageal reflux disease without esophagitis; G47.30 Sleep apnea, unspecified | CPT/HCPCS: 96127; 99212 ==

== ENCOUNTER → 2025-08-12 09:00 | Outpatient (BNV) | payer MEDICARE, SELFPAY | PROVIDERS: PCP Internal Medicine; Referring Provider Internal Medicine; Visit Provider Internal Medicine | DX: D50.9 Iron deficiency anemia, unspecified (principal); Z86.718 Personal history of other venous thrombosis and embolism; Z79.01 Long term (current) use of anticoagulants | CPT/HCPCS: 99204; G2211 ==

== ENCOUNTER 2025-09-04 11:28 | Day surgery (SDC) | payer MEDICARE, SELFPAY ==
--- NOTE | 2025-09-02 09:59 | HO.ANESPROP2 ---
Documented by User: Kandace Sanchez NP 09/02/25 13:34 HPI - Anesthesia Eval Consult details Narrative: 74 yr old female for upper endoscopy, colonoscopy Iron deficiency anemia: following with [facility] hem/onc, last visit 08/12/25, received 1 unit PRBCs for Hgb 7.1 on 08/12/25. Started on iron infusions; Hgb improved 11/4 labs 9.1/31.6 Right leg DVT/pulmonary embolism. Status post thrombolysis and IVC filter placement September 2019: on eliquis Collagen vascular disease and is on Remicade and methotrexate. JUSTIN: could not tolerate CPAP PMFSH Active Problems Active Problems: All Active Problems (Updated 08/12/25 @ 12:18 by Anika Chow MD) Iron deficiency anemia (Acute) Corneal abrasion, left (Acute) Fracture of medial malleolus, closed (Acute) Major depression (Acute) Folic acid deficiency (Acute) Frequency of micturition (Acute) Depression (Acute) COVID-19 virus infection (Acute) Vertigo (Acute) Osteopenia (Acute) Encounter for subsequent annual wellness visit (AWV) in Medicare patient (Acute) Impaired fasting glucose (Acute) Anemia (Chronic) Right leg DVT (Acute) DDD (degenerative disc disease), lumbar (Acute) Anxiety and depression (Acute) Pulmonary embolism (Acute) Breast cancer screening by mammogram (Acute) Tubular adenoma of colon (Acute) Obesity (Acute) Barretts esophagus (Acute) Benign essential hypertension (Acute) Obstructive sleep apnea (Acute) GERD (gastroesophageal reflux disease) (Acute) Rheumatoid arthritis (Acute) Hypercholesterolemia (Acute) Past Medical History Medical History Breast cancer screening by mammogram Pre-op exam Hospital discharge follow-up Symptomatic anemia Pulmonary embolism Anemia Medicare annual wellness visit, initial Presence of IVC filter History of alcohol abuse Venous stasis dermatitis Obesity Vitamin D deficiency Barretts esophagus Benign essential hypertension Restless leg syndrome Obstructive sleep apnea GERD (gastroesophageal reflux disease) Tubular adenoma of colon Rheumatoid arthritis Hx of deep venous thrombosis Hypercholesterolemia Family History Family History Father History of stomach cancer Mother Family history of problems with anesthesia: No Surgical History Surgical History History of ankle surgery (01/2024) S/P IVC filter (2019) History of esophagogastroduodenoscopy (EGD) (2019) Hx of colonoscopy (2019) History of cataract surgery History of eyelid surgery History of tonsillectomy Hx of arthroscopic knee surgery Hx of heart artery stent History of Problems with Anesthesia: No Social History Social History Household Members: None Housing: House Do you presently have visiting nurse or other home services: No Alcohol intake: former Patient Tobacco Use Status: Former Tobacco user Tobacco use type: Cigarette Cigarette Packs Per Day: 2 Years Smoked: quit 1979 e-Cigarette/Vaping Use: Never Used Second Hand Smoke Exposure: No Use of substances other than those prescribed or required for medical reasons: No Have you been hit, kicked, punched, or otherwise hurt by someone within the past year? If so, by whom?: No Are you DNR?: No Advance Directives: No (will bring dos) Advance Directives Information Provided: Yes Advance Directives on File: No service: No Current occupational status: retired Cognitive needs: Yes (walker, wheelchair, cane) Hearing needs: No Vision needs: Yes (Glasses) Meds Allergies Allergy/AdvReac Type Severity Reaction Status Date / Time No Known Allergies (No Known Allergy Verified 08/04/25 10:38 Allergies*) Home Medications ?Medication ?Instructions ?Recorded ?Confirmed ?Last Taken ?Type infliximab 100 mg intravenous See Rx Instructions .Route .COMPLEX 10/11/21 09/02/25 08/07/25 History solution (Remicade) methotrexate sodium 2.5 mg tablet 20 mg PO TU 01/24/24 09/02/25 08/26/25 History prednisolone acetate 1 % eye 1 drp ophthalmic-Left BEDTIME 01/24/24 09/02/25 01/23/24 History drops,suspension multivitamin 1 tab PO DAILY 09/02/25 09/02/25 Unknown History Exam Pertinent Lab Results Pertinent Lab Results: Laboratory Tests 08/01/25 09/02/25 12:02 10:06 WBC 6.0 RBC 3.89 L Hgb 9.1 L D Hct 31.6 L D Plt Count 333 Sodium 139 Potassium 4.2 Chloride 109 H BUN 18 H Creatinine 0.92 Narrative Narrative: ECHO 12/2023 Conclusions: - Normal left ventricular cavity size. There is mildly increased left ventricular wall thickness. The left ventricular systolic function is hyperdynamic. The visually estimated ejection fraction is >70%. There is no evidence of regional wall motion abnormalities. Diastolic function is indeterminate on the basis of available data. - Normal right ventricular cavity size and systolic function EKG 12/2023 Sinus rhythm, PACs, rate 100 Assessment and Plan Final Anesthetic Review Family History of Problems with Anesthesia: No History of Problems with Anesthesia: No Documented by User: Fatimah Clay MD 09/04/25 13:11 PMF Past Medical History Medical History Breast cancer screening by mammogram Pre-op exam Hospital discharge follow-up Symptomatic anemia Pulmonary embolism Anemia Medicare annual wellness visit, initial Presence of IVC filter History of alcohol abuse Venous stasis dermatitis Obesity Vitamin D deficiency Barretts esophagus Benign essential hypertension Restless leg syndrome Obstructive sleep apnea GERD (gastroesophageal reflux disease) Tubular adenoma of colon Rheumatoid arthritis Hx of deep venous thrombosis Hypercholesterolemia Family History Family History Father History of stomach cancer Mother Surgical History Surgical History History of ankle surgery (01/2024) S/P IVC filter (2019) History of esophagogastroduodenoscopy (EGD) (2018) Hx of colonoscopy (2018) History of cataract surgery History of eyelid surgery History of tonsillectomy Hx of arthroscopic knee surgery Hx of heart artery stent Social History Social History Household Members: None Housing: House Do you presently have visiting nurse or other home services: No Alcohol intake: former Patient Tobacco Use Status: Former Tobacco user Tobacco use type: Cigarette Cigarette Packs Per Day: 2 Years Smoked: quit 1979 e-Cigarette/Vaping Use: Never Used Second Hand Smoke Exposure: No Use of substances other than those prescribed or required for medical reasons: No Have you been hit, kicked, punched, or otherwise hurt by someone within the past year? If so, by whom?: No Are you DNR?: No Advance Directives: No (will bring dos) Advance Directives Information Provided: Yes Advance Directives on File: No service: No Current occupational status: retired Cognitive needs: Yes (walker, wheelchair, cane) Hearing needs: No Vision needs: Yes (Glasses) Meds Allergies Allergy/AdvReac Type Severity Reaction Status Date / Time No Known Allergies (No Known Allergy Verified 08/04/25 10:38 Allergies*) Home Medications ?Medication ?Instructions ?Recorded ?Confirmed ?Last Taken ?Type infliximab 100 mg intravenous See Rx Instructions .Route .COMPLEX 10/11/21 09/02/25 08/07/25 History solution (Remicade) methotrexate sodium 2.5 mg tablet 20 mg PO TU 01/24/24 09/02/25 08/26/25 History prednisolone acetate 1 % eye 1 drp ophthalmic-Left BEDTIME 01/24/24 09/02/25 01/23/24 History drops,suspension multivitamin 1 tab PO DAILY 09/02/25 09/02/25 Unknown History Exam Airway Mallampati Class: II TM Dist: <=3cm Neck ROM: Limited Heart: rrr Lungs: cta Assessment and Plan Assessment Anesthesia Assessment: Anesthesia Plan Discussed and Chart Reviewed Final Anesthetic Review NPO: Yes ASA Class: III Final Preanesthetic Review: No Changes in Pt Med Stat, Meds/Allgs Chart Reviewed, Consent Obtained/Reviewed and Anes Risks/Benef Reviewed Patient Risk: Intermediate Anesthetic Plan Anesthetic Plan: MAC: and Agree w/ Assess. and Plan Disposition: Standard PACU
[2025-09-02 12:07] VITALS: BMI 36.0
[2025-09-04 11:55] VITALS: BP 163/91; PULSE 102; RESP 20; TEMP 36.1; O2SAT 97; BMI 35.9
[2025-09-04] MEDS: Lactated Ringers 1,000 ML 100 ML IVCONT (12:27)
[2025-09-04 14:54] VITALS: BP 124/64; PULSE 102; RESP 15; TEMP 36.7; O2SAT 96
[2025-09-04 15:05] VITALS: BP 166/73; PULSE 110; RESP 19; TEMP 36.8; O2SAT 99
[2025-09-04 15:15] VITALS: BP 174/84; PULSE 106; RESP 18; TEMP 36.8; O2SAT 97
--- NOTE | 2025-09-04 15:26 | P.BOP_ITS ---
Brief Operative Note Date of Service: 09/04/25 Pre-op diagnosis: Anemia Post-op diagnosis: other (Gastritis/Healing gastric ulcer, Hiatal hernia, GERD, Diverticulosis) Procedure: EGD with biopsies, Colonoscopy to the cecum Surgeon: Memo Melendez MD Anesthesia: MAC Was an Excavating Machine Operator used for this Procedure?: No Estimated blood loss (mL): 2.0 Pathology: other (A. 2nd/3rd portions of duodenum B. Gastric antrum C. EG Junction at 35cm) Condition: stable Disposition: PACU
--- NOTE | 2025-09-05 01:43 | OP_ITS ---
DATE OF SERVICE: 09/04/2025 SURGEON: Memo Melendez MD INDICATIONS: The patient presents for evaluation of anemia. Full consent has been obtained from her for this, including risks of bleeding and perforation. PREOPERATIVE DIAGNOSIS: Anemia. POSTOPERATIVE DIAGNOSIS: PROCEDURE PERFORMED: Esophagogastroduodenoscopy with biopsies, and colonoscopy to the cecum. ESTIMATED BLOOD LOSS: COMPLICATIONS: ANESTHESIA: Medication used, monitored anesthesia care. ASSISTANTS: SPECIMENS: POSTOPERATIVE DIAGNOSES: Anemia, gastritis with probable healing ulcer, rule out celiac disease, hiatal hernia with associated reflux, diverticulosis, and internal hemorrhoids. DESCRIPTION OF PROCEDURE: The patient was placed in the left lateral decubitus position. The Olympus video gastroscope was passed in the posterior oropharynx and upper esophagus under direct vision. The scope was passed slowly to the distal esophagus. The gastroesophageal junction appeared at 35 cm. This had some slight irregularity consistent with reflux and possible small areas of Hardin's mucosa. There was no esophagitis nor any lesions. The scope entered the stomach. There was a small hiatal hernia. The scope was advanced to the pylorus and the duodenum was cannulated to the descending portion. The duodenum including the bulb appeared normal without mass or ulceration. Biopsies were obtained from the second and third portions of the duodenum. The scope was withdrawn back to the stomach. The gastric antrum had an area along the greater curvature with some edema and a several millimeters central erosion, which overall I suspect represented a healing ulcer. There was some overlying exudate there as well. There was no sign of any bleeding nor any gross evidence of malignancy. The area was somewhat friable. The remainder of the antrum and body appeared normal with good peristalsis. Biopsies were obtained from the area of the suspected healing ulcer. The scope was retroflexed visualizing the proximal stomach carefully, which appeared normal, without any sign of mass or ulceration. The scope was straightened and withdrawn back to the esophagus. Biopsies were obtained at the EG junction at 35 cm. Proximal to this, the esophageal mucosa appeared normal. The scope was withdrawn from the patient. She was turned around for the colonoscopy. The digital rectal exam revealed prominent hemorrhoidal tissue. The Olympus video pediatric colonoscope was entered into the rectum and advanced to the cecum. As the scope was being advanced to the cecum she did have some vomiting and the anesthesia provider was concerned about possible aspiration, although she never dropped her saturations and was never in respiratory distress. However at that point, due to the further risk of vomiting and aspiration, the anesthesia provider felt it best not to give her anymore sedation. As such, she became very awake towards the second half of the colonoscopy. While she was awake, I was trying to get in the cecum, which was unfortunately difficult and uncomfortable for her. However, ultimately with abdominal pressure, I was able to reach the cecum. I did visualize a normal-appearing cecal pouch with appendiceal orifice and a normal-appearing ileocecal valve. The entire cecum was well visualized. The scope was then slowly withdrawn assessing all mucosal surfaces carefully. Preparation was excellent. I did not visualize any sign of polyps, colitis, nor angiodysplasia. There was a moderate amount of diverticulosis in the sigmoid and descending colon. In the rectum, the scope was retroflexed visualizing some small internal hemorrhoids, but no other pathology. The rectal mucosa appeared normal. The scope was straightened and withdrawn from the patient. She tolerated both procedures well and was returned to the recovery area in stable condition. IMPRESSION: 1. Probable small healing ulcer in gastric antrum, rule out Helicobacter pylori. 2. Rule out celiac disease. 3. Hiatal hernia with associated reflux, rule out Hardin esophagus. 4. Diverticulosis. 5. Internal and external hemorrhoids. PLAN: The results of the pathology will be checked. In discussion with her daughter and the patient, she does advise me that she has been using Advil 2 to 3 times a week. This would certainly account for the upper endoscopy findings of the small suspected healing ulcer. The upper endoscopy findings and her chronic use of a blood thinner would account for her anemia as well, At this point, I advised her to stay off all NSAIDs including Advil and aspirin long-term, particularly while on Eliquis. She was advised to resume her Eliquis in 48 hours. She was advised to resume iron, but use it twice a day to help with the anemia. She was also advised to use omeprazole twice a day rather than just once a day and I will send her a prescription for that. She will continue to have periodic blood counts with Dr. Tiwari and/or Dr. Bryan to be sure things are stable and hopefully improving. I will plan to see her in the office as well in followup. She was advised to call sooner if need be. Of note, I did review the situation that caused her to be very uncomfortable during the colonoscopy with both her and her daughter in detail. Both the daughter and the patient understood all of the above and were comfortable with the plan. MD EVETTE Leos/MAURY / [id number] MTDD
== END 2025-09-04 15:59 | disposition home or self-care (01) ==
PROVIDERS: PCP Internal Medicine; Visit Provider Internal Medicine
PROC: (CPT 45378; principal; 2025-09-04 13:00)
DX: D50.9 Iron deficiency anemia, unspecified (principal); Z86.0101 Personal history of adenomatous and serrated colon polyps; K57.30 Diverticulosis of large intestine without perforation or abscess without bleeding; K64.8 Other hemorrhoids; K64.4 Residual hemorrhoidal skin tags; K29.50 Unspecified chronic gastritis without bleeding; K22.70 Barrett's esophagus without dysplasia; K44.9 Diaphragmatic hernia without obstruction or gangrene; K21.9 Gastro-esophageal reflux disease without esophagitis; I10 Essential (primary) hypertension; M06.9 Rheumatoid arthritis, unspecified; Z86.711 Personal history of pulmonary embolism; Z86.718 Personal history of other venous thrombosis and embolism; G47.33 Obstructive sleep apnea (adult) (pediatric); Z79.01 Long term (current) use of anticoagulants; Z79.899 Other long term (current) drug therapy; Z87.891 Personal history of nicotine dependence; Z98.890 Other specified postprocedural states
CPT/HCPCS: 45378; 43239; 88305; 88313; 88342; J1805; J2003; J2704; J3010

== ENCOUNTER 2025-09-26 11:47 | Emergency (ER) | payer MEDICARE, SELFPAY ==
--- NOTE | ~2025-09-26 | XR_ITS ---
EXAMINATION: XR SHOULDER, LEFT CLINICAL INFORMATION: R shoulder pain COMPARISON: None available. TECHNIQUE: Three views of the left shoulder. FINDINGS: Mild-moderate acromioclavicular arthritis. There is superior subluxation of the humeral head with respect to glenoid, which can be seen with rotator cuff pathology. Limited evaluation of patellofemoral joint space on the provided view. No visible acute fracture or dislocation. No abnormal soft tissue calcification. XR/XR shoulder LT min 2V IMPRESSION: No evidence of acute fracture. Superior subluxation of the humeral head with respect to glenoid, can be seen with rotator cuff pathology. Acromioclavicular arthritis. Electronically signed by: Teofilo Khan MD 09/26/2025 03:42 PM [facility]
--- NOTE | ~2025-09-26 | CT_ITS ---
EXAMINATION: CT NECK SOFT TISSUE WITH IV CONTRAST HISTORY: ?abscess/infection to base of L skull TECHNIQUE: Helical axial images were obtained through the neck after IV contrast administration per department protocol. Sagittal and coronal reformatted images were also obtained and reviewed. This CT exam was performed with one or more of the following dose reduction techniques: automated exposure control, adjustment of the mA and/or kV according to patient size, use of iterative reconstruction technique. DLP: 546 mGy-cm COMPARISON: Head CT from the same day and cervical spine CT December 2023 FINDINGS: There is a thick walled fluid collection in the paraspinal muscles of the left upper posterior neck at the C2-C4 vertebral body levels. This measures 2.3 x 3.3 x 3.3 cm. There is some surrounding fat stranding and a small amount of fluid. There is overlying skin thickening. This most likely represents an abscess. Differential would include changes related to trauma/hematoma. This is new from cervical spine CT January 20 Orbits: Unremarkable. Sinuses/Mastoid air cells: Membranous soft tissue thickening in the floor of the right maxillary sinus. The visualized paranasal sinuses are otherwise clear. Brain: Prominent right transverse sinus and jugular bulb. The visualized portion of the brain is otherwise unremarkable. Salivary glands: The bilateral parotid and submandibular glands are unremarkable. Nasopharynx/Oropharynx: Unremarkable. Lymph nodes: There are small cervical lymph nodes. There are no enlarged lymph nodes. Thyroid gland: The left lobe is small. There is a 7 x 10 mm nodule in the lower right lobe. Vessels: There is normal enhancement of the carotid and jugular vessels bilaterally. Larynx/Trachea: No laryngeal abnormality is identified. The airway is patent. Lung Apices: The visualized lung apices are clear. Atherosclerotic disease. The superior mediastinum is otherwise unremarkable. Bones: Old right rib fractures. Degenerative changes of the spine. Mild anterior subluxation of C3 with respect to C4 and C4 with respect to C5 measuring 2 to 3 mm. This is similar to prior cervical spine CT from December 2023. Degenerative spondylosis and disc space narrowing from C4-5 through T4-5. Bilateral multilevel facet arthritis, left greater than right. Degenerative changes at the C1 dens articulation. Mild curvature of the lower cervical and thoracic spine. Degenerative changes of the right temporomandibular joint. Poor dentition. CT/CT soft tissue neck w IV con IMPRESSION: 2.3 x 3.3 cm thick-walled fluid collection in the left left posterior paraspinal muscles adjacent from C2 to C4, small amount of surrounding fluid fat stranding and overlying skin thickening. Most likely represents an abscess. Differential would include changes related to trauma. This is new from cervical spine CT December 2023. Multilevel degenerative changes of the spine. Electronically signed by: Kristina Xiao MD 09/26/2025 04:30 PM [facility]
--- NOTE | ~2025-09-26 | CT_ITS ---
EXAMINATION: CT HEAD WITHOUT CONTRAST CLINICAL INFORMATION: L arm weakness COMPARISON: CT of the head on January 24, 2024 TECHNIQUE: Contiguous axial imaging was performed from the skull base to vertex without intravenous administration of contrast. This CT examination was performed using dose optimization techniques as appropriate, variously including the following: *Automated exposure control *Adjustment of mA and/or kV according to patient size (this includes techniques or standardized protocols for targeted exams where dose is matched to indication/reason for exam; i.e. extremities or head) *Use of iterative reconstruction technique FINDINGS: Brain parenchyma: Extensive patchy and confluent hypodensity in the white matter of bilateral cerebral hemispheres, similar to prior examination. No shift of midline structures, mass effect, parenchymal hemorrhage or evidence of acute territorial infarct. Ventricles/extra-axial CSF spaces: Generalized prominence of the ventricles and extra-axial CSF spaces likely represents age appropriate brain volume loss. No hydrocephalus. No extra-axial fluid collection. Extracranial structures/skull: Mild mucosal thickening of the ethmoid air cells and right maxillary sinus. Bilateral mastoid air cells are clear. No depressed skull fracture. CT/CT head/brain wo IV con IMPRESSION: No acute intracranial pathology. Electronically signed by: Mo Davis MD 09/26/2025 04:17 PM [facility] [place]
[2025-09-26 11:57] VITALS: BP 146/87; PULSE 113; RESP 18; TEMP 37.2; O2SAT 97; BMI 28.2
--- NOTE | 2025-09-26 11:57 | ED_ITS ---
HPI - General Adult General Chief complaint: General Medical Stated complaint: lump on left side neck, left arm and cheek swollen Time Seen by Provider: 09/26/25 14:46 Source: patient and family (daughter) Mode of arrival: ambulatory Limitations: no limitations History of Present Illness ED Provider: ROSALINA SHELDON PA-C HPI narrative: 74 y/o female with PMHx significant for rheumatoid arthritis, HTN, DVT and PE on eliquis presents to the ED tee for evaluation of a lump to her left neck x5 days. Pain is described as constantly dull and sharp with movement. Pain improved with ice and oxycodone, which she takes at baseline PRN. No radiation of pain. Denies headache, fever, chills, sore throat, difficulty swallowing. No trauma to the area. She also reports reports left sided shoulder pain and left arm weakness that began 2-3 days ago when she knocked into a wall while using her walker. She denies falling to the ground. No head strike or LOC. Since, has had pain to the outer aspect of the shoulder, primarily with movement. Reports difficulty lifting the arm due to pain. Denies any numbness/tingling of the LUE. Related Data Home Medications ?Medication ?Instructions ?Recorded ?Confirmed infliximab 100 mg intravenous See Rx Instructions .Rou te .COMPLEX 10/11/21 09/02/25 solution (Remicade) methotrexate sodium 2.5 mg tablet 20 mg PO TU 01/24/24 09/02/25 prednisolone acetate 1 % eye 1 drp ophthalmic-Left BED TIME 01/24/24 09/02/25 drops,suspension multivitamin 1 tab PO DAILY 09/02/2502/21 Previous Rx's ?Medication ?Instructions ?Recorded WALKER #1 ea 03/18/24 fluticasone propionate 50 1 spray intranasal DAILY #16 grams 03/25/24 mcg/actuation nasal spray,suspension cyanocobalamin (vitamin B-12) 1,000 mcg PO DAILY #90 t abs 04/11/25 1,000 mcg tablet omeprazole 20 mg capsule,delayed 20 mg PO DAILY@0630 # 90 caps 06/26/25 release bupropion HCl 150 mg 24 hr tablet, 150 mg PO BID #180 tabs 07/24/25 extended release simvastatin 5 mg tablet 5 mg PO BEDTIME #90 tabs ascorbate calcium (vitamin C) 500 500 mg PO DAILY #30 tabs 08/01/25 mg tablet ferrous sulfate 325 mg (65 mg 325 mg PO DAILY #90 tabs 08/01/25 iron) tablet (Feosol) sennosides 8.6 mg-docusate sodium 2 tab-cap (2 x 8.6-5 0 mg) PO 08/01/25 50 mg capsule (Senna Plus) BEDTIME #60 caps oxycodone-acetaminophen 5 mg-325 1 tab PO Q8H PRN pain #75 tabs 08/04/25 mg tablet (Percocet) apixaban 2.5 mg tablet (Eliquis) 2.5 mg PO BID #180 ta bs 09/19/25 calcium 600 mg (as 1 cap PO BID 30 days #60 cap s 09/19/25 carbonate)-vitamin D3 10 mcg (400 unit) capsule fenofibrate 160 mg tablet 160 mg PO DAILY #90 tabs folic acid 1 mg tablet 1 mg PO .QD #30 tabs 5 lisinopril 20 mg tablet 20 mg PO DAILY #90 tabs 08/31 11/23 multivitamin-ferrous 1 tab PO DAILY #90 tabs 08/31 11/23 fumarate-folic acid 18 mg-400 mcg tablet (High Potency Multivitamin (w-iron)) cephalexin 500 mg capsule 500 mg PO QID 7 days #28 cap s 09/26/25 doxycycline hyclate 100 mg tablet 100 mg PO BID 7 days #14 tabs 09/26/25 Allergies Allergy/AdvReac Type Severity Reaction Status Date / Time No Known Allergies (No Known Allergy Verified 09/26/25 12:01 Allergies*) Review of Systems 2 Review of Systems: Yes all other systems are reviewed and are negative [facility] Past Medical History Attestation statement: The following information was validated with the patient. Source: old records reviewed Medical History Breast cancer screening by mammogram Pre-op exam Hospital discharge follow-up Symptomatic anemia Pulmonary embolism Anemia Medicare annual wellness visit, initial Presence of IVC filter History of alcohol abuse Venous stasis dermatitis Obesity Vitamin D deficiency Barretts esophagus Benign essential hypertension Restless leg syndrome Obstructive sleep apnea GERD (gastroesophageal reflux disease) Tubular adenoma of colon Rheumatoid arthritis Hx of deep venous thrombosis Hypercholesterolemia Surgical History History of ankle surgery (01/2024) S/P IVC filter (2019) History of esophagogastroduodenoscopy (EGD) (2019) Hx of colonoscopy (2019) History of cataract surgery History of eyelid surgery History of tonsillectomy Hx of arthroscopic knee surgery Hx of heart artery stent Family History Family History Father History of stomach cancer Mother Social History Social History Household Members: None Housing: House Are you a primary home health care worker to a significant other at home: No Do you presently have visiting nurse or other home services: No Alcohol intake: former Patient Tobacco Use Status: Former Tobacco user Tobacco use type: Cigarette Cigarette Packs Per Day: 2 Years Smoked: quit 1979 e-Cigarette/Vaping Use: Never Used Second Hand Smoke Exposure: No Advance Directives Date on File: 01/24/24 service: No Current occupational status: retired Cognitive needs: Yes (walker, wheelchair, cane) Hearing needs: No Vision needs: Yes (Glasses) Physical Exam ED Vital Signs: Vital Signs - 24 hr 09/26/25 15:56 09/26/25 17:25 09/26/25 18:07 Temperature 98.5 F 98.5 F Pulse Rate 109 H 109 H Respiratory Rate 20 16 16 Blood Pressure 168/84 H 168/84 H Pulse Oximetry 95 95 Oxygen Delivery Method Room Air Room Air BMI result Body Mass Index 28.2 hypertensive, tachycardic General: Well appearing, in no acute distress. Skin: Warm, dry, intact. No rashes or lesions. Head: Normocephalic, atraumatic. EENT: Hearing is intact b/l. Conjunctiva clear. PERRLA. EOM intact. Moist mucous membranes.? Neck: +see photo of posterior neck below. 5cm x 5cm area of erythema and area of induration noted to base of L skull, ttp, no palpable fluctuance, no pointing, no overlying open wounds. no midline c spine tenderness or step off. FROM intact to c spine. Negative Kernig's/Brudzinski's. Cardiac: Chest wall symmetric. RRR Lungs: Normal respiratory effort without accessory muscle use. CTA bilaterally Back: No midline spinous or paraspinal tenderness. No step off deformity. Ext: + no overlying swelling or deformity to left shoulder. Tender to palpation over deltoid region. No palpable deformity, crepitus, fluctuance. Pain with abduction/extension of the left shoulder. Able to abduct to approximately 45? before reported pain. 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 Neuro: AOx3. Normal speech. Ambulating with steady gait. NIH Stroke Scale Internal: Initial- Upon Arrival Level of Consciousness: Alert Level of Consciousness Questions: Answers both questions correctly Level of Consciousness Commands: Performs both tasks correctly Best Gaze: Normal Visual: No visual loss Facial Palsy: Normal Motor Arm (Right): No drift Motor Arm (Left): No drift Motor Leg (Right): No drift Motor Leg (Left): No drift Limb Ataxia: Absent Sensory: Normal Best Language: No aphasia Dysarthia: Normal Extinction and Inattention: No abnormality Score: 0 Course Course Course Narrative: Rapid medical examination performed in triage by Beata Sheehan PA-C: Patient is a 74 year old assigned female at presenting to the emergency department with left sided neck thickness and left sided facial cheek puffiness and inability to left upper extremity. Detailed physical exam and review of systems are deferred to the registration rep. Labs ordered. Patient placed back in the waiting room pending room availability and results. Reevaluation(s) Reevaluation #1: Patient has leukocytosis to 12.9 with left shift. Chemistry without acute electrolyte abnormality requiring intervention. No FRANK. Random glucose 123, no anion gap. Liver function WNL. Lactic WNL. Blood culture sent. CT head unremarkable. CT soft tissue neck showing: CT soft tissue neck w IV con IMPRESSION: 2.3 x 3.3 cm thick-walled fluid collection in the left left posterior paraspinal muscles adjacent from C2 to C4, small amount of surrounding fluid fat stranding and overlying skin thickening. Most likely represents an abscess. Differential would include changes related to trauma. This is new from cervical spine CT December 2023. Multilevel degenerative changes of the spine. I did have my attending, Dr. Dinh, perform bedside ultrasound. See his procedure note. He suspects possible hematoma secondary to AC use. Given leukocytosis and suspicion of abscess on CT - I discussed case w/ general surgeon dr. daniel. He has reviewed case and is recommending outpatient management with oral abx and warm compresses. advised outpatient follow up in his office. Discussed all workup results and plan with patient and her daughter bedside. I have marked the area with skin pen. I will be starting patient on doxycycline and Keflex. I have advised warm compresses. Referral to General surgery provided. Regarding her left shoulder pain, there is no evidence of fracture on x-ray. There is superior subluxation of the humeral head with respect to the glenoid, concerning for rotator cuff pathology. Patient placed in sling. Advised outpatient follow up with ortho - referral provided. Patient has remained stable throughout ED visit today. Discussed worrisome signs and symptoms and when to return to the ED. All questions answered at this time. Patient is agreeable with disposition and stable for discharge. 09/27/2025 1351 Beata Sheehan PA-C ---> Patient's / blood culture was positive for gram+ cocci in clusters. Given patient has active infection / neck abscess, I called and spoke with the patient who states she feels worse and her left arm is now not operational. Told patient to come back to the ER immediately. Patient agreed. Medications Administered Discontinued Medications Generic Name Dose Route Start Last Admin Trade Name Juan PRN Reason Stop Dose Admin Iohexol 100 ml 09/26/25 15:47 09/26/25 15:47 Iohexol 350 Mg/Ml 100 Ml Infus..Btl IV 09/26/25 15:48 60 ml ONCE ONE Administration Morphine Sulfate 4 mg 09/26/25 15:17 09/26/25 15:56 Morphine Sulfate 4 Mg/Ml Cartridge IVPUSH 09/26/25 15:18 4 mg ONCE ONE Administration Protocol Procedures Procedure Narrative Procedure Narrative: EMERGENCY ULTRASOUND INTERPRETATION- Limited skin and soft tissue [This study was ordered, performed, and interpreted by myself. The study reveals: Impression: ?Some muscular heterogenous collection appearing no internal vascular signals. Well demarcated consistent with area of collection under the neck posterior muscles on CT. Hematoma with clot favored over abscess. No overlying cellulitis changes or fascial fluid [Indication: Swelling Skin: ?Detailed findings above with heterogenous collection suggestive mostly of hematoma with clot Performed by: ?Dameon Wang MD ?Images were stored ] Orthopedic Splinting/Casting Injury #1: Side: left Upper Extremity Injury Location: shoulder Upper Extremity Immobilizer: sling/shoulder immobilizer Medical Decision Making Medical Decision Making [facility] Narrative: 74 y/o female with PMHx significant for rheumatoid arthritis, HTN, DVT and PE on eliquis presents to the ED tee for evaluation of a lump to her left neck x5 days. she is tachycardic, afebrile. she is well appearing, in NAD. on exam, there is a 5cm x 5cm area of erythema and area of induration noted to base of L skull, ttp, no palpable fluctuance, no pointing, no overlying open wounds. no midline c spine tenderness or step off. FROM intact to c spine. Negative Kernig's/Brudzinski's. 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 Differential Diagnosis Differential Diagnoses: The differential diagnosis associated with the presentation includes as above. Admission/Observation Consideration of admission/observation: Escalation of care including admission/observation considered Considered admission to medicine for IV abx - general surgery recommending d/c home w/ oral abx with outpatient follow up. Consult Healthcare Provider Management of the patient was discussed with: Certified Substance Abuse Counselor general surgery - dr. daniel Lab Data [facility] Lab Attestation statement: I reviewed the patient's lab results. as above. 09/26/25 12:33 09/26/25 12:33 Labs: Lab Results 09/26/25 09/26/25 Range/Units 12:33 16:12 WBC 12.9 H (4.8-10.8) X10*3/uL RBC 4.22 (4.20-5.50) X10*6/uL Hgb 10.4 L (12.0-16.0) g/dl Hct 33.6 L (37.0-47.0) % MCV 79.6 L (80.0-98.0) fL MCH 24.6 L (27.0-33.0) pg MCHC 31.0 (31.0-35.0) g/dl RDW 22.5 H (11.0-16.0) % Plt Count 388 (160-400) X10*3/uL MPV 9.1 L (9.4-12.3) fL Immature Gran % (Auto) 0.5 H (0.0-0.4) % Neut % (Auto) 81.1 H (45-73) % Lymph % (Auto) 9.0 L (20-40) % [place] % (Auto) 8.9 (2-11) % Eos % (Auto) 0.2 (0-4) % Baso % (Auto) 0.3 (0-2) % Lymph # (Auto) 1.2 (1.2-4.9) X10*3/uL [place] # (Auto) 1.2 (0.1-1.2) X10*3/uL Eos # (Auto) 0.0 (0.0-0.4) X10*3/uL Baso # (Auto) 0.0 (0.0-0.2) X10*3/uL Abs Immat Gran (auto) 0.07 H (0.00-0.03) X10*3/uL Absolute Neuts (auto) 10.4 H (2.0-8.3) x10*3/uL Absolute Nucleated RBC 0.000 (0.0-0.012) X10*3/uL Nucleated RBC % (auto) 0.0 (0.0-0.2) /100WBC Sodium 138 (135-145) mmol/L Potassium 3.4 (3.3-5.1) mmol/L Chloride 107 (96-108) mmol/L Carbon Dioxide 22 (22-29) mmol/L Anion Gap 12 (12-20) BUN 14 (9-16) mg/dL Creatinine 0.82 (0.5-1.4) mg/dL Estim Creat Clear Calc 62.0 Estimated GFR > 60 Random Glucose 123 H (60-115) mg/dL Lactic Acid 1.4 (0.5-2.0) mmol/L Calcium 9.3 (8.4-10.2) mg/dL Magnesium 1.9 (1.6-2.6) mg/dL Total Bilirubin 0.6 (0.0-1.0) mg/dL AST 19 (5-31) U/L ALT 10 (0-31) U/L Alkaline Phosphatase 87 (39-117) U/L Total Protein 7.6 (6.5-8.0) g/dL Albumin 3.5 (3.5-5.0) g/dL Independent Interpretation I performed an independent interpretation of an: CT Scan Interpretation: ct head w/o bleed ct soft tissue neck showing fluid collection adjacent to left cervical paraspinal muscels xr left shoulder w/o fracture Radiology Impression Discussion of test interpretation with radiology: I have reviewed the radiologist's reading. Radiologist Impression: EXAMINATION: XR SHOULDER, LEFT CLINICAL INFORMATION: R shoulder pain COMPARISON: None available. TECHNIQUE: Three views of the left shoulder. FINDINGS: Mild-moderate acromioclavicular arthritis. There is superior subluxation of the humeral head with respect to glenoid, which can be seen with rotator cuff pathology. Limited evaluation of patellofemoral joint space on the provided view. No visible acute fracture or dislocation. No abnormal soft tissue calcification. XR/XR shoulder LT min 2V IMPRESSION: No evidence of acute fracture. Superior subluxation of the humeral head with respect to glenoid, can be seen with rotator cuff pathology. Acromioclavicular arthritis. Electronically signed by: Teofilo Khan MD 09/26/2025 03:42 PM [facility] Procedure(s): CT head/brain wo IV con Accession Number(s): [id number] cc: Daphne Bryan MD; Rosalina Sheldon~ Report Number: [id number]: Total DLP = 595.00 mGy-cm Reason for Exam: L arm weakness EXAMINATION: CT HEAD WITHOUT CONTRAST CLINICAL INFORMATION: L arm weakness COMPARISON: CT of the head on January 24, 2024 TECHNIQUE: Contiguous axial imaging was performed from the skull base to vertex without intravenous administration of contrast. This CT examination was performed using dose optimization techniques as appropriate, variously including the following: *Automated exposure control *Adjustment of mA and/or kV according to patient size (this includes techniques or standardized protocols for targeted exams where dose is matched to indication/reason for exam; i.e. extremities or head) *Use of iterative reconstruction technique FINDINGS: Brain parenchyma: Extensive patchy and confluent hypodensity in the white matter of bilateral cerebral hemispheres, similar to prior examination. No shift of midline structures, mass effect, parenchymal hemorrhage or evidence of acute territorial infarct. Ventricles/extra-axial CSF spaces: Generalized prominence of the ventricles and extra-axial CSF spaces likely represents age appropriate brain volume loss. No hydrocephalus. No extra-axial fluid collection. Extracranial structures/skull: Mild mucosal thickening of the ethmoid air cells and right maxillary sinus. Bilateral mastoid air cells are clear. No depressed skull fracture. CT/CT head/brain wo IV con IMPRESSION: No acute intracranial pathology. Electronically signed by: Mo Davis MD 09/26/2025 04:17 PM [facility] Procedure(s): CT soft tissue neck w IV con Accession Number(s): [id number] cc: Daphne Bryan MD; Rosalina Sheldon~ Report Number: [id number]: Total DLP = 545.00 mGy-cm Reason for Exam: ?abscess/infection to base of L skull EXAMINATION: CT NECK SOFT TISSUE WITH IV CONTRAST HISTORY: ?abscess/infection to base of L skull TECHNIQUE: Helical axial images were obtained through the neck after IV contrast administration per department protocol. Sagittal and coronal reformatted images were also obtained and reviewed. This CT exam was performed with one or more of the following dose reduction techniques: automated exposure control, adjustment of the mA and/or kV according to patient size, use of iterative reconstruction technique. DLP: 546 mGy-cm COMPARISON: Head CT from the same day and cervical spine CT December 2023 FINDINGS: There is a thick walled fluid collection in the paraspinal muscles of the left upper posterior neck at the C2-C4 vertebral body levels. This measures 2.3 x 3.3 x 3.3 cm. There is some surrounding fat stranding and a small amount of fluid. There is overlying skin thickening. This most likely represents an abscess. Differential would include changes related to trauma/hematoma. This is new from cervical spine CT January 20 Orbits: Unremarkable. Sinuses/Mastoid air cells: Membranous soft tissue thickening in the floor of the right maxillary sinus. The visualized paranasal sinuses are otherwise clear. Brain: Prominent right transverse sinus and jugular bulb. The visualized portion of the brain is otherwise unremarkable. Salivary glands: The bilateral parotid and submandibular glands are unremarkable. Nasopharynx/Oropharynx: Unremarkable. Lymph nodes: There are small cervical lymph nodes. There are no enlarged lymph nodes. Thyroid gland: The left lobe is small. There is a 7 x 10 mm nodule in the lower right lobe. Vessels: There is normal enhancement of the carotid and jugular vessels bilaterally. Larynx/Trachea: No laryngeal abnormality is identified. The airway is patent. Lung Apices: The visualized lung apices are clear. Atherosclerotic disease. The superior mediastinum is otherwise unremarkable. Bones: Old right rib fractures. Degenerative changes of the spine. Mild anterior subluxation of C3 with respect to C4 and C4 with respect to C5 measuring 2 to 3 mm. This is similar to prior cervical spine CT from December 2023. Degenerative spondylosis and disc space narrowing from C4-5 through T4-5. Bilateral multilevel facet arthritis, left greater than right. Degenerative changes at the C1 dens articulation. Mild curvature of the lower cervical and thoracic spine. Degenerative changes of the right temporomandibular joint. Poor dentition. CT/CT soft tissue neck w IV con IMPRESSION: 2.3 x 3.3 cm thick-walled fluid collection in the left left posterior paraspinal muscles adjacent from C2 to C4, small amount of surrounding fluid fat stranding and overlying skin thickening. Most likely represents an abscess. Differential would include changes related to trauma. This is new from cervical spine CT December 2023. Multilevel degenerative changes of the spine. Electronically signed by: Kristina Xiao MD 09/26/2025 04:30 PM [facility] Independent Historian Clinical information obtained from an independent historian. History obtained from or confirmed by: Other (daughter) External Record Review External record reviewed: Inpatient record Prescription Management I considered prescription management with: Pain Medication and Antibiotic (doxy, keflex) Social Determinants Patient?s care significantly limited by Social Determinants of Health including: Other Social Determinant of Health Critical Care Time Critical Care Time Critical Care Time: Yes Total Critical Care Time: 40 Attestation: Critical care time in the amount of 40 minutes has been provided to the patient in terms of direct patient care, frequent reevaluation, consultation with general surgery, review and interpretation of medical data and results, and management of potentially life-threatening conditions. This is all outside of any medical procedures. Discharge Plan Discharge Clinical Impression: Abscess, Injury of left rotator cuff Patient Disposition: Home, Self-Care Instructions: Rotator Cuff Injury (ED), Abscess (ED), Rotator Cuff Injury Exercises (DC) Additional Instructions: You were evaluated in the ED today for left-sided neck pain. Your blood work demonstrates an elevated white count. The CT scan of your neck shows a small fluid collection just adjacent to your left cervical paraspinal muscles. This could represent either an abscess or a hematoma (collection of blood). The recommendation from our general surgeon is to start you on antibiotics. Continue applying WARM compresses to the area. General surgery would like to follow up your outpatient. I have provided you with yanna Suero. Call their office to make an appointment. You will not call you. The area was also marked with skin pen. Please keep the area clean and dry. You will be given a prescription for antibiotics (Keflex and Doxycycline). Please take the antibiotics as directed for the full course of the medication. If this progresses you may have to have the area incised and drained. On doxycycline, do not take pills immediately before going to bed and swallow pills with plenty of water. Avoid direct sunlight, iron, antacids, and Pepto Bismol. Call your provider if you develop new ringing in your ears, new problems hearing, dizziness, difficulty swallowing, rash, abdominal discomfort, nausea, or diarrhea. On a cephalosporin?antibiotic (keflex) softer bowel movements are to be expected. Call your provider if you move your bowels more than 4 times a day, your bowel movements are almost all liquid, or you get a rash.? I recommend you take Tylenol 650mg every 6 hours as needed for pain. You may also continue taking your Oxycodone as needed. Regarding your left shoulder pain, x-rays show possible rotator cuff injury. We have placed you in a sling. Please wear this as needed for comfort. Remove your arm and engage in gentle range of motion of the shoulder to prevent frozen shoulder. I would like you to follow up with the orthopedic provider. I have provided you with a referral. Call their office to establish care. They will not call you. Return to the Emergency Department if you experience fevers greater than 100.4F, increase in area of redness or swelling, increasing amount of discharge from the area, increased tenderness around the area, or any other concerning symptoms. Prescriptions: New cephalexin 500 mg capsule 500 mg PO QID 7 Days Qty: 28 0RF doxycycline hyclate 100 mg tablet 100 mg PO BID 7 Days Qty: 14 0RF No Action (DME) WALKER See Rx Instructions .Route .MEDSUPPLY Qty: 1 0RF Rx Instructions: As directed fluticasone propionate 50 mcg/actuation spray,suspension 1 spray INTRANASAL DAILY Qty: 16 3RF Rx Instructions: administer into each nostril cyanocobalamin (vitamin B-12) 1,000 mcg tablet 1,000 mcg PO DAILY Qty: 90 2RF omeprazole 20 mg capsule,delayed release(DR/EC) 20 mg PO DAILY@0630 Qty: 90 0RF simvastatin 5 mg tablet 5 mg PO BEDTIME Qty: 90 3RF bupropion HCl 150 mg tablet extended release 24 hr 150 mg PO BID Qty: 180 1RF ferrous sulfate [Feosol] 325 mg (65 mg iron) tablet 325 mg PO DAILY Qty: 90 1RF ascorbate calcium (vitamin C) 500 mg tablet 500 mg PO DAILY Qty: 30 4RF Senna Plus 8.6-50 mg capsule 2 tab-cap PO BEDTIME Qty: 60 3RF folic acid 1 mg tablet 1 mg PO .QD Qty: 30 3RF fenofibrate 160 mg tablet 160 mg PO DAILY Qty: 90 0RF lisinopril 20 mg tablet 20 mg PO DAILY Qty: 90 0RF Eliquis 2.5 mg tablet 2.5 mg PO BID Qty: 180 0RF calcium carbonate-vitamin D3 600 mg-10 mcg (400 unit) capsule 1 cap PO BID 30 Days Qty: 60 0RF High Potency Multivit (w-iron) 18-400 mg-mcg tablet 1 tab PO DAILY Qty: 90 0RF infliximab [Remicade] 100 mg Recon Soln See Rx Instructions .ROUTE .COMPLEX Rx Instructions: every 2 months methotrexate sodium 2.5 mg tablet 20 mg PO TU prednisolone acetate 1 % drops,suspension 1 drp ophthalmic-Left BEDTIME multivitamin Tablet 1 tab PO DAILY oxycodone-acetaminophen [Percocet] 5-325 mg tablet 1 tab PO Q8H PRN (Reason: pain) Qty: 75 0RF Rx Instructions: Partial Fill upon patient request. Referrals: [facility] [place] General Surgeons [Provider Group, General Surgery] [facility] [place] Orthopedic Surgeons [Provider Group] Referral Note: rotator cuff injury Po,Daphne Rodriguez MD [Primary Care Provider, Internal Medicine] Interventions: ED Discharge Assessment Last Done: 09/26/25 18:07 Discharge Date/Time: 09/26/25 18:08 Print Language: Cook Islander
[2025-09-26 12:42] LABS: MANUAL DIFF FLAG NO
[2025-09-26 12:44] LABS: Hematocrit 33.6 % (37.0-47.0); Hemoglobin 10.4 g/dl (12.0-16.0); Imm Gran Abs Auto 0.07 X10*3/uL (0.00-0.03); Imm Gran Pct Auto 0.5 % (0.0-0.4); Lymphocytes Absolute Auto 1.2 X10*3/uL (1.2-4.9); Mean Corpuscular HGB Conc 31.0 g/dl (31.0-35.0); Mean Corpuscular Hemoglobin 24.6 pg (27.0-33.0); Mean Corpuscular Volume 79.6 fL (80.0-98.0); NRBC Abs Auto 0.000 X10*3/uL (0.0-0.012); NRBC Pct Auto 0.0 /100WBC (0.0-0.2); Platelet Count 388 X10*3/uL (160-400); Red Blood Count 4.22 X10*6/uL (4.20-5.50); White Blood Count 12.9 X10*3/uL (4.8-10.8)
[2025-09-26 13:00] LABS: Alanine Aminotransferase 10 U/L (0-31); Albumin Level 3.5 g/dL (3.5-5.0); Alkaline Phosphatase 87 U/L (39-117); Anion Gap 12 (12-20); Aspartate Amino Transferase 19 U/L (5-31); Blood Urea Nitrogen 14 mg/dL (9-16); Calcium 9.3 mg/dL (8.4-10.2); Carbon Dioxide 22 mmol/L (22-29); Chloride 107 mmol/L (96-108); Creatinine Clr Calc Pharmacy 62.0; Estimated Glomerular Filt Rate > 60; Magnesium 1.9 mg/dL (1.6-2.6); Potassium 3.4 mmol/L (3.3-5.1); Sodium 138 mmol/L (135-145); Total Protein 7.6 g/dL (6.5-8.0)
[2025-09-26] MEDS: iohexoL 350 MG/ML 100 ML INFUS..BTL IV (15:47)
[2025-09-26 15:56] VITALS: RESP 20
[2025-09-26 17:25] VITALS: BP 168/84; PULSE 109; RESP 16; TEMP 36.9; O2SAT 95
[2025-09-26 18:07] VITALS: BP 168/84; PULSE 109; RESP 16; TEMP 36.9; O2SAT 95
== END 2025-09-26 18:08 | disposition home or self-care (01) ==
PROVIDERS: Physician Assistant Medical; Emergency Provider Emergency Medicine; PCP Internal Medicine
DX: M25.511 Pain in right shoulder (principal); R53.1 Weakness; I10 Essential (primary) hypertension; I26.99 Other pulmonary embolism without acute cor pulmonale; Z79.01 Long term (current) use of anticoagulants; Z79.899 Other long term (current) drug therapy
CPT/HCPCS: 36415; 70450; 70491; 73030; 80053; 83605; 83735; 85025; 87040; 87077; 87186; 87205; 99284; J2270; Q9967

== ENCOUNTER → 2025-09-26 15:16 | Outpatient (BNV) | payer MEDICARE, SELFPAY | PROVIDERS: Emergency Provider Emergency Medicine; PCP Internal Medicine; Visit Provider Radiology Diagnostic Ultrasound | DX: Z03.89 Encounter for observation for other suspected diseases and conditions ruled out (principal) | CPT/HCPCS: 70450; 70491 ==

== ENCOUNTER 2025-09-27 15:00 | Inpatient (IN) | payer MEDICARE, SELFPAY ==
--- NOTE | ~2025-09-27 | CT_ITS ---
EXAMINATION: CT SOFT TISSUE NECK WITH CONTRAST CLINICAL INFORMATION: Follow-up for neck abscess left suboccipital region. COMPARISON: 09/26/[address] TECHNIQUE: Helical imaging of the neck performed without contrast was performed in the axial plane. Sagittal and coronal reformatted imaging was constructed from the axial data set. This CT examination was performed using dose optimization techniques as appropriate, variously including the following: *Automated exposure control *Adjustment of mA and/or kV according to patient size (this includes techniques or standardized protocols for targeted exams where dose is matched to indication/reason for exam; i.e. extremities or head) *Use of iterative reconstruction technique FINDINGS: Study is limited without the benefit of IV contrast. Given that the fluid collections in the left suboccipital semispinalis musculature were originally only visible with the benefit of IV contrast, comment cannot currently be made on the gross presence or absence of these fluid collections in comparison with the prior examination. There is persistent swelling of the left semispinalis muscles, with abutting inflammation and obscuration of the deep paraspinal fat planes, similar to the recent prior exam without definite significant change. Lymph Nodes: -Reactive lymphadenopathy again noted. No pathologic lymph nodes. Carotid Sheath Structures: -Mild to moderate calcification of the right greater than left carotid bulbs. Carotid sheath structures otherwise grossly normal allowing for noncontrast technique. Salivary Glands: -Fatty change of both the parotid and submandibular glands. Tongue Base/Floor of Mouth: -Normal Mucosal Space: -Normal unenhanced appearance. Visceral Space: -Thyroid gland: The left thyroid lobe is small. The previously seen 10 mm nodule in the right lobe is not well seen on today's examination. -The larynx is normal. -The subglottic trachea is normal. -The cervical esophagus is normal. Retropharangeal Space: -Normal. No prevertebral space abnormality. Parapharyngeal Fat Planes: -Preserved and undisturbed. Public Speaking Professor Spaces: -Normal. Anterior Cervical Space: -Normal. Imaged Intracranial Contents: -No mass affect or edema. The skull base appears normal. Globes and Orbits: -Normal. Paranasal Sinuses/Mastoids/Tympanic Spaces: -Normally aerated bilaterally. Lung Apices and Superior Mediastinal Structures: -Imaged lung apices are clear and superior mediastinal structures are normal. Bony Structures: -No pathologic bone lesions. No fractures. -Multilevel spondylosis of the cervical spine with left greater than right multilevel facet hypertrophy. The left C4-C5 facets are somewhat irregular, which is nonspecific, although the possibility of septic arthropathy of this facet joint should be at least considered. (Series 7, image 36). CT/CT soft tissue neck wo IV con IMPRESSION: 1. Limited examination without the benefit of IV contrast. The subtle complex fluid collection seen in the left semispinalis musculature spanning C2-C4 was only definitively visible with postcontrast imaging on the prior study, and although is likely not significantly changed, exact measurements/comparison cannot be performed. There is persistent inflammation in the left paraspinous neck region with enlargement of the left semispinalis muscles, similar to the prior exam. The degree of inflammation surrounding the enlarged musculature appears similar. 2. Multilevel spondylosis of the cervical spine with left greater than right multilevel facet hypertrophy. The left C4-C5 facets are somewhat irregular, which is nonspecific, although the possibility of septic arthropathy of this facet joint should be at least considered as a source of the above process. 3. Remainder of the examination is without significant change. No extension of inflammation into the posterior cervical space, or prevertebral/retropharyngeal spaces. Electronically signed by: Grady Salgado MD 09/30/2025 12:55 PM JOSE INIGUEZ
--- NOTE | 2025-09-27 15:08 | ED.GENADULT ---
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 Patient states that she was seen yesterday for a left sided neck abscess and started on antibiotics when she got called today and told that her blood cultures were positive and she should return. Patient states that since discharge she has had worsening left shoulder pain. Patient denies any other complaints at this time. Relieving factors: none Exacerbating factors: none Associated symptoms: denies other symptoms Related Data Home Medications ?Medication ?Instructions ?Recorded ?Confirmed infliximab 100 mg intravenous See Rx Instructions .Route .COMPLEX 10/11/21 09/02/25 solution (Remicade) methotrexate sodium 2.5 mg tablet 20 mg PO TU 01/24/24 09/02/25 prednisolone acetate 1 % eye 1 drp ophthalmic-Left BEDTIME 01/24/24 09/02/25 drops,suspension multivitamin 1 tab PO DAILY 09/02/25 09/02/25 sennosides 8.6 mg-docusate sodium 2 tab-cap PO BEDTIME PRN 09/27/25 09/27/25 50 mg capsule (Senna Plus) Constipation simvastatin 5 mg tablet 5 mg PO DAILY 09/27/25 09/27/25 Previous Rx's ?Medication ?Instructions ?Recorded WALKER #1 ea 03/18/24 fluticasone propionate 50 1 spray intranasal DAILY #16 grams 03/25/24 mcg/actuation nasal spray,suspension cyanocobalamin (vitamin B-12) 1,000 mcg PO DAILY #90 tabs 04/11/25 1,000 mcg tablet omeprazole 20 mg capsule,delayed 20 mg PO DAILY@0630 #90 caps 06/26/25 release bupropion HCl 150 mg 24 hr tablet, 150 mg PO BID #180 tabs 07/24/25 extended release ascorbate calcium (vitamin C) 500 500 mg PO DAILY #30 tabs 08/01/25 mg tablet ferrous sulfate 325 mg (65 mg 325 mg PO DAILY #90 tabs 08/01/25 iron) tablet (Feosol) oxycodone-acetaminophen 5 mg-325 1 tab PO Q8H PRN pain #75 tabs 08/04/25 mg tablet (Percocet) apixaban 2.5 mg tablet (Eliquis) 2.5 mg PO BID #180 tabs 09/19/25 calcium 600 mg (as 1 cap PO BID 30 days #60 caps 09/19/25 carbonate)-vitamin D3 10 mcg (400 unit) capsule fenofibrate 160 mg tablet 160 mg PO DAILY #90 tabs 09/19/25 folic acid 1 mg tablet 1 mg PO .QD #30 tabs 09/19/25 lisinopril 20 mg tablet 20 mg PO DAILY #90 tabs 09/19/25 multivitamin-ferrous 1 tab PO DAILY #90 tabs 09/19/25 fumarate-folic acid 18 mg-400 mcg tablet (High Potency Multivitamin (w-iron)) cephalexin 500 mg capsule 500 mg PO QID 7 days #28 caps 09/26/25 doxycycline hyclate 100 mg tablet 100 mg PO BID 7 days #14 tabs 09/26/25 Allergies Allergy/AdvReac Type Severity Reaction Status Date / Time No Known Allergies (No Known Allergy Verified 09/27/25 15:14 Allergies*) Review of Systems Constitutional: Constitutional: Reports as per HPI Eyes: Eyes: Reports as per HPI ENT: Reports as per HPI Cardiovascular: Cardiovascular: Reports as per HPI Respiratory: Respiratory: Reports as per HPI Gastrointestinal: Gastrointestinal: Reports as per HPI Genitourinary: Genitourinary: Reports as per HPI Musculoskeletal: Musculoskeletal: Reports as per HPI Integumentary/Breasts: Skin/Breast: Reports as per HPI Neurologic: Reports as per HPI Psychiatric: Psychiatric: Reports as per HPI Endocrine: Endocrine: Reports as per HPI Hematologic/Lymphatic: Hematologic/Lymphatic: Reports as per HPI Allergic/Immunologic: Allergic/Immunologic: Reports as per HPI [facility] Past Medical History Attestation statement: The following information was validated with the patient. (all information validated with the patient's daughter) Source: old records reviewed, obtained from family (patient's daughter provided additional history and confirmed the history provided by the patient. ) and nursing notes reviewed Medical History Muscle abscess Breast cancer screening by mammogram Pre-op exam Hospital discharge follow-up Symptomatic anemia Pulmonary embolism Anemia Medicare annual wellness visit, initial Presence of IVC filter History of alcohol abuse Venous stasis dermatitis Obesity Vitamin D deficiency Barretts esophagus Benign essential hypertension Restless leg syndrome Obstructive sleep apnea GERD (gastroesophageal reflux disease) Tubular adenoma of colon Rheumatoid arthritis Hx of deep venous thrombosis Hypercholesterolemia Surgical History History of ankle surgery (01/2024) S/P IVC filter (2019) History of esophagogastroduodenoscopy (EGD) (2018) Hx of colonoscopy (2018) History of cataract surgery History of eyelid surgery History of tonsillectomy Hx of arthroscopic knee surgery Hx of heart artery stent Family History Family History Father History of stomach cancer Mother Social History Social History Household Members: None Housing: House Are you a primary hearing care practitioner to a significant other at home: No Do you presently have visiting nurse or other home services: No Alcohol intake: former Patient Tobacco Use Status: Former Tobacco user Tobacco use type: Cigarette Cigarette Packs Per Day: 2 Years Smoked: quit 1980 Smoked in Last 30 Days: No e-Cigarette/Vaping Use: Never Used Second Hand Smoke Exposure: No Use of substances other than those prescribed or required for medical reasons: No Advance Directives: Yes Advance Directives on File: Yes Advance Directives Date on File: 01/24/24 Do you have a plan to hurt others: No Plan service: No Current occupational status: retired Cognitive needs: Yes (walker, wheelchair, cane) Hearing needs: No Vision needs: Yes (Glasses) Physical Exam ED Vital Signs: Vital Signs - 24 hr 09/27/25 15:10 Temperature 98.7 F Pulse Rate 103 H Respiratory Rate 20 Blood Pressure 134/74 Pulse Oximetry 99 Oxygen Delivery Method Room Air BMI result Body Mass Index 35.1 Const General: cooperative, no acute distress, alert and awake Nutritional Appearance: well nourished Orientation/consciousness: patient oriented x3 HENMT Head: Yes normal to inspection and Yes atraumatic Ears: hearing grossly normal bilaterally and external ears normal General nose exam: Normal external nose present, no nasal discharge noted and no epistaxis Face and sinus: Yes normal facial exam, No abrasion and No laceration Mouth: Normal oral and palatal mucosa present, no drooling and no muffled voice Eyes General: appearance normal, both eyes and all related structures Periorbital: periorbital findings normal Eyelids: Yes eyelids normal Conjunctivae: conjunctivae normal Pupils: Equal, round and reactive pupils present EOM: EOMs intact bilaterally Neck Other: Neck: Yes full ROM (with pain) Resp Effort & Inspection: normal respiratory effort and able to speak in complete sentences Cardio Rate: tachycardic Rhythm: regular rhythm Neuro General: patient oriented x3, moves all extremities and CN's II-XI intact bilaterally Cranial nerves: Yes Equal, round and reactive pupils present Cognition (Neuro): normal cognition Extrem General: Yes normal to inspection, Yes full ROM and Yes capillary refill normal Psych Appearance: grossly normal Mental Status: mental status grossly normal Affect: normal affect Attitude: cooperative Thought process: Normal thought process present Thought content: Normal thought content present Insight: Good insight present (Psych) Course Course Course Narrative: This is a Rapid Medical Examination (RME) performed by Mirta Sheldon PA-C in triage. Full HPI, ROS, assessment and treatment plan per primary provider in the Main ED. Hx: 74 yo F here as an expect for positive blood cultures. seen here yesterday for neck abscess, dc home on abx, took first dose this morning. Plan: labs, lactic, blood cultures Medications Administered Generic Name Dose Route Start Last Admin Trade Name Freq PRN Reason Stop Dose Admin Vancomycin HCl 2,000 mg in 500 mls @ 250 mls/hr 09/27/25 16:03 09/27/25 16:17 Vancomycin/Ns IV 09/27/25 18:02 250 mls/hr ONCE ONE Administration Discontinued Medications Generic Name Dose Route Start Last Admin Trade Name Freq PRN Reason Stop Dose Admin Ceftriaxone Sodium 2 gm/ 50 mls @ 100 mls/hr 09/27/25 15:27 09/27/25 16:14 Sodium Chloride IV 09/27/25 15:56 Infused ONCE ONE Infusion Lidocaine HCl 20 ml 09/27/25 15:33 09/27/25 15:45 Lidocaine Hcl 1 % 20 Ml Vial SUBCUT 09/27/25 15:34 20 ml ONCE ONE Administration Morphine Sulfate 4 mg 09/27/25 16:19 09/27/25 16:30 Morphine Sulfate 4 Mg/Ml Cartridge IVPUSH 09/27/25 16:20 4 mg ONCE ONE Administration Protocol Ondansetron HCl 4 mg 09/27/25 16:19 09/27/25 16:30 Ondansetron Hcl 4 Mg/2 Ml Vial IVPUSH 09/27/25 16:20 4 mg ONCE ONE Administration Medical Decision Making Medical Decision Making MDM Narrative: Patient is a 74 year old assigned female at with a history of RA, HTN, 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 Patient's physical exam was as noted in the physical exam portion of this note. Patient's blood work showed WBC count of 12.8, CRP of 25.06, and ESR of 112. Patient's blood culture from 09/26/2025 had one that grew positive for gram-positive cocci in clusters. Patient's CT soft tissue neck from 09/26/2025 showed 2.3 x 3.3 cm thick walled fluid filled collection of the left posterior paraspinal muscle adjacent of C2-C4 with small amount of fat stranding in the surrounding fluid. Patient received IV vanc + ceftriaxone and morphine. I considered the patient to be possibly septic at 1603 on 09/27/2025. I spoke with the general surgeon post production assistant who came and incised the area - getting some pus out, and agreed to continue to follow the patient as a consult. I spoke with the hospitalist team who agreed to admission for continued IV antibiotics and monitoring. I explained my physical exam findings as well as all test results to the patient and the patient's daughter. I answered all questions asked by the patient and the patient's daughter. Patient and the patient's daughter verbalized agreement and understanding with this treatment plan and admission. Differential Diagnosis Differential Diagnoses: The differential diagnosis associated with the presentation includes Sepsis Neck abscess Cellulitis Admission/Observation Consideration of admission/observation: Escalation of care including admission/observation considered Patient admitted as noted in the MDM Rationale portion of this note. Consult Healthcare Provider Management of the patient was discussed with: Hospitalist (agreed to admission as noted in the MDM Rationale portion of this note. ) and Machine Mover (consulted with the general surgeon as noted in the MDM Rationale portion of this note. ) Lab Data [facility] Lab Attestation statement: I reviewed the patient's lab results. My interpretation of these results are in the MDM Rationale portion of this note. 09/27/25 15:34 09/27/25 15:36 Labs: Lab Results 09/27/25 09/27/25 Range/Units 15:34 15:36 WBC 12.8 H (4.8-10.8) X10*3/uL RBC 4.10 L (4.20-5.50) X10*6/uL Hgb 10.3 L (12.0-16.0) g/dl Hct 32.9 L (37.0-47.0) % MCV 80.2 (80.0-98.0) fL MCH 25.1 L (27.0-33.0) pg MCHC 31.3 (31.0-35.0) g/dl RDW 21.8 H (11.0-16.0) % Plt Count 442 H (160-400) X10*3/uL MPV 8.9 L (9.4-12.3) fL Immature Gran % (Auto) 0.4 (0.0-0.4) % Neut % (Auto) 71.7 (45-73) % Lymph % (Auto) 15.0 L (20-40) % Haines % (Auto) 11.1 H (2-11) % Eos % (Auto) 1.4 (0-4) % Baso % (Auto) 0.4 (0-2) % Lymph # (Auto) 1.9 (1.2-4.9) X10*3/uL Haines # (Auto) 1.4 H (0.1-1.2) X10*3/uL Eos # (Auto) 0.2 (0.0-0.4) X10*3/uL Baso # (Auto) 0.1 (0.0-0.2) X10*3/uL Abs Immat Gran (auto) 0.05 H (0.00-0.03) X10*3/uL Absolute Neuts (auto) 9.2 H (2.0-8.3) x10*3/uL Absolute Nucleated RBC 0.000 (0.0-0.012) X10*3/uL Nucleated RBC % (auto) 0.0 (0.0-0.2) /100WBC ESR 112 H (0-20) MM/HR Sodium 139 (135-145) mmol/L Potassium 3.3 (3.3-5.1) mmol/L Chloride 106 (96-108) mmol/L Carbon Dioxide 23 (22-29) mmol/L Anion Gap 13 (12-20) BUN 19 H (9-16) mg/dL Creatinine 0.87 (0.5-1.4) mg/dL Estim Creat Clear Calc 49.9 Estimated GFR > 60 Random Glucose 99 (60-115) mg/dL Lactic Acid 1.3 (0.5-2.0) mmol/L Calcium 9.4 (8.4-10.2) mg/dL Magnesium 1.9 (1.6-2.6) mg/dL Total Bilirubin 0.5 (0.0-1.0) mg/dL AST 23 (5-31) U/L ALT 10 (0-31) U/L Alkaline Phosphatase 94 (39-117) U/L C-Reactive Protein 25.06 H (< or = 0.50) mg/dL Total Protein 8.0 (6.5-8.0) g/dL Albumin 3.6 (3.5-5.0) g/dL Independent Interpretation I performed an independent interpretation of an: CT Scan Interpretation: My interpretation is in agreement with the radiologist's impression of this imaging study as written below. EXAMINATION: CT NECK SOFT TISSUE WITH IV CONTRAST HISTORY: ?abscess/infection to base of L skull TECHNIQUE: Helical axial images were obtained through the neck after IV contrast administration per department protocol. Sagittal and coronal reformatted images were also obtained and reviewed. This CT exam was performed with one or more of the following dose reduction techniques: automated exposure control, adjustment of the mA and/or kV according to patient size, use of iterative reconstruction technique. DLP: 546 mGy-cm COMPARISON: Head CT from the same day and cervical spine CT December 2023 FINDINGS: There is a thick walled fluid collection in the paraspinal muscles of the left upper posterior neck at the C2-C4 vertebral body levels. This measures 2.3 x 3.3 x 3.3 cm. There is some surrounding fat stranding and a small amount of fluid. There is overlying skin thickening. This most likely represents an abscess. Differential would include changes related to trauma/hematoma. This is new from cervical spine CT January 20 Orbits: Unremarkable. Sinuses/Mastoid air cells: Membranous soft tissue thickening in the floor of the right maxillary sinus. The visualized paranasal sinuses are otherwise clear. Brain: Prominent right transverse sinus and jugular bulb. The visualized portion of the brain is otherwise unremarkable. Salivary glands: The bilateral parotid and submandibular glands are unremarkable. Nasopharynx/Oropharynx: Unremarkable. Lymph nodes: There are small cervical lymph nodes. There are no enlarged lymph nodes. Thyroid gland: The left lobe is small. There is a 7 x 10 mm nodule in the lower right lobe. Vessels: There is normal enhancement of the carotid and jugular vessels bilaterally. Larynx/Trachea: No laryngeal abnormality is identified. The airway is patent. Lung Apices: The visualized lung apices are clear. Atherosclerotic disease. The superior mediastinum is otherwise unremarkable. Bones: Old right rib fractures. Degenerative changes of the spine. Mild anterior subluxation of C3 with respect to C4 and C4 with respect to C5 measuring 2 to 3 mm. This is similar to prior cervical spine CT from December 2023. Degenerative spondylosis and disc space narrowing from C4-5 through T4-5. Bilateral multilevel facet arthritis, left greater than right. Degenerative changes at the C1 dens articulation. Mild curvature of the lower cervical and thoracic spine. Degenerative changes of the right temporomandibular joint. Poor dentition. CT/CT soft tissue neck w IV con IMPRESSION: 2.3 x 3.3 cm thick-walled fluid collection in the left left posterior paraspinal muscles adjacent from C2 to C4, small amount of surrounding fluid fat stranding and overlying skin thickening. Most likely represents an abscess. Differential would include changes related to trauma. This is new from cervical spine CT December 2023. Multilevel degenerative changes of the spine. Electronically signed by: Kristina Xiao MD 09/26/2025 04:30 PM [facility] Dictated By: Kristina Xiao MD Signed By: Electronically signed by Kristina Xiao MD 09/26/25 [id number] Radiology Impression Discussion of test interpretation with radiology: I have reviewed the radiologist's reading. Independent Historian Clinical information obtained from an independent historian. History obtained from or confirmed by: Other (patient's daughter provided additional history and confirmed the history provided by the patient. ) Critical Care Time Critical Care Time Critical Care Time: Yes Total Critical Care Time: 48 Attestation: I spent 48 minutes of Critical Care Time with this patient. This does not include time spent on separately reported billable procedures. Discharge Plan Discharge Clinical Impression: Abscess, neck, Blood culture positive Patient Disposition: Admitted As Inpatient
[2025-09-27 15:10] VITALS: BP 134/74; PULSE 103; RESP 20; TEMP 37.1; O2SAT 99; BMI 35.1
[2025-09-27 15:43] LABS: Hematocrit 32.9 % (37.0-47.0); Hemoglobin 10.3 g/dl (12.0-16.0); Imm Gran Abs Auto 0.05 X10*3/uL (0.00-0.03); Imm Gran Pct Auto 0.4 % (0.0-0.4); Lymphocytes Absolute Auto 1.9 X10*3/uL (1.2-4.9); MANUAL DIFF FLAG NO; Mean Corpuscular HGB Conc 31.3 g/dl (31.0-35.0); Mean Corpuscular Hemoglobin 25.1 pg (27.0-33.0); Mean Corpuscular Volume 80.2 fL (80.0-98.0); NRBC Abs Auto 0.000 X10*3/uL (0.0-0.012); NRBC Pct Auto 0.0 /100WBC (0.0-0.2); Platelet Count 442 X10*3/uL (160-400); Red Blood Count 4.10 X10*6/uL (4.20-5.50); White Blood Count 12.8 X10*3/uL (4.8-10.8)
[2025-09-27] MEDS: Lidocaine HCl 1 % 20 ML VIAL SUBCUT (15:45)
--- NOTE | 2025-09-27 15:57 | P.CONGS_ITS ---
History of Present Illness Consult details Consult date: 09/27/25 Narrative: 74F here in the ED because of positive blood cultures. She was here in the ED yesterday because of a lump on the nexk. She first started noticing this about 5 days ago. Her daughter says that there was some redness and swelling of the adjacent area so she was brought in yesterday. She had a CT scan showing a small fluid collection possible abscess in the paraspinal muscles on the left. She was discharged on antobiotics with plans to ffup in the office. Her blood cultures however grew pm positive cocci so she was called by the ED today to return to the ER. She has had no fever. Her daughter says the swelling actually seems to have improved a little bit. She admits to mild tenderness on the area. She denies recent insect bite or trauma to the area. She has multiple medical problems including PE/DVT, on anticoagulation, rheumatoid arthritis, chronic back pain, HTN, depressionand GERD. She is able to drive but has limited mobility in view of her joint pains. Review of Systems 2 Constitutional: Constitutional: Denies chills and Denies fever(s) Cardiovascular: Cardiovascular: Denies chest pain, Denies dyspnea and Reports dyspnea on exertion Respiratory: Respiratory: Denies cough, Denies dyspnea and Reports dyspnea on exertion Gastrointestinal: Gastrointestinal: Denies hematochezia and Denies change in bowel habits Genitourinary: Genitourinary: Denies hematuria Musculoskeletal: Musculoskeletal: Denies back pain, Reports arthralgias and Reports limited range of motion Neurologic: Denies focal weakness and Denies convulsions Psychiatric: Psychiatric: Denies depression and Denies mood swings [facility] Past Medical History Medical History Muscle abscess Breast cancer screening by mammogram Pre-op exam Hospital discharge follow-up Symptomatic anemia Pulmonary embolism Anemia Medicare annual wellness visit, initial Presence of IVC filter History of alcohol abuse Venous stasis dermatitis Obesity Vitamin D deficiency Barretts esophagus Benign essential hypertension Restless leg syndrome Obstructive sleep apnea GERD (gastroesophageal reflux disease) Tubular adenoma of colon Rheumatoid arthritis Hx of deep venous thrombosis Hypercholesterolemia Family History Family History Father History of stomach cancer Mother Surgical History Surgical History History of ankle surgery (01/2024) S/P IVC filter (2019) History of esophagogastroduodenoscopy (EGD) (2018) Hx of colonoscopy (2018) History of cataract surgery History of eyelid surgery History of tonsillectomy Hx of arthroscopic knee surgery Hx of heart artery stent Social History Social History Household Members: None Housing: House Housing Other:: Single floor Are you a primary home care provider to a significant other at home: No Do you presently have visiting nurse or other home services: No Alcohol intake: former Patient Tobacco Use Status: Former Tobacco user Tobacco use type: Cigarette Cigarette Packs Per Day: 2 Years Smoked: quit 1979 e-Cigarette/Vaping Use: Never Used Second Hand Smoke Exposure: No Advance Directives Date on File: 01/24/24 service: No Current occupational status: retired Cognitive needs: Yes (walker, wheelchair, cane) Hearing needs: No Vision needs: Yes (Glasses) Meds Allergies Allergy/AdvReac Type Severity Reaction Status Date / Time No Known Allergies (No Known Allergy Verified 09/27/25 15:14 Allergies*) Home Medications ?Medication ?Instructions ?Recorded ?Confirmed ?Last Taken ?Type infliximab 100 mg intravenous See Rx Instructions .Rou te .COMPLEX 10/11/21 09/27/25 08/07/25 History solution (Remicade) methotrexate sodium 2.5 mg tablet 12.5 mg PO TH@0900 0 01/24/24 09/27/25 09/18/25 History prednisolone acetate 1 % eye 1 drp ophthalmic-Left Q2D 01/24/24 09/27/25 01/23/24 History drops,suspension multivitamin 1 tab PO DAILY 09/02/25 1107/2409/27/25 History folic acid 1 mg tablet 1 mg PO DAILY 09/27/2509/2709/27/25 History sennosides 8.6 mg-docusate sodium 2 tab-cap PO BEDTIME PRN 09/27/25 09/27/25 Unknown History 50 mg capsule (Senna Plus) Constipation simvastatin 5 mg tablet 5 mg PO DAILY 09/27/2509/2709/27/25 History Physical Exam 2 Vital Signs: Vital Signs: Last Vital Signs Temp 98.7 F 09/27/25 15:10 Pulse 103 H 09/27/25 15:10 Resp 20 09/27/25 15:10 BP 134/74 09/27/25 15:10 Pulse Ox 99 09/27/25 15:10 O2 Del Method Room Air 09/27/25 15:10 BMI result Body Mass Index 35.1 Const: General: comfortable and no acute distress O rientation/consciousness: patient oriented x3 Neck: Other: vauge wide induration on the left posterolateral neck, no fluctuance, mild cellulitis, mild tenderness Neck: Yes no lymphadenopathy Resp: Auscultation: clear to auscultation bilaterally Cardio: Rhythm: regular rhythm GI: Palpation (GI): Soft to palpation, nontender and no guarding Neuro: General: patient oriented x3 Results Labs 09/28/25 07:08 09/29/25 07:19 Labs: Abnormal lab results 09/27/25 Range/Units 15:34 WBC 12.8 H (4.8-10.8) X10*3/uL RBC 4.10 L (4.20-5.50) X10*6/uL Hgb 10.3 L (12.0-16.0) g/dl Hct 32.9 L (37.0-47.0) % MCH 25.1 L (27.0-33.0) pg RDW 21.8 H (11.0-16.0) % Plt Count 442 H (160-400) X10*3/uL MPV 8.9 L (9.4-12.3) fL Lymph % (Auto) 15.0 L (20-40) % [place] % (Auto) 11.1 H (2-11) % [place] # (Auto) 1.4 H (0.1-1.2) X10*3/uL Abs Immat Gran (auto) 0.05 H (0.00-0.03) X10*3/uL Absolute Neuts (auto) 9.2 H (2.0-8.3) x10*3/uL Short CBC 09/27/25 Range/Units 15:34 WBC 12.8 H (4.8-10.8) X10*3/uL Hgb 10.3 L (12.0-16.0) g/dl Hct 32.9 L (37.0-47.0) % Plt Count 442 H (160-400) X10*3/uL All other labs normal. [address] [address] [address] Scan Report Signed Patient: Wendy Ulloa MR#: [id number] : 1950 Acct:[id number] Age/Sex: 74 / F ADM Date: 09/26/25 Loc: HO.ED Attending Dr: Ordering Physician: Rosalina Sheldon Date of Service: 09/26/25 Procedure(s): CT soft tissue neck w IV con Accession Number(s): [id number] cc: Daphne Bryan MD; Rosalina Sheldon~ Report Number: [id number]: Total DLP = 545.00 mGy-cm Reason for Exam: ?abscess/infection to base of L skull EXAMINATION: CT NECK SOFT TISSUE WITH IV CONTRAST HISTORY: ?abscess/infection to base of L skull TECHNIQUE: Helical axial images were obtained through the neck after IV contrast administration per department protocol. Sagittal and coronal reformatted images were also obtained and reviewed. This CT exam was performed with one or more of the following dose reduction techniques: automated exposure control, adjustment of the mA and/or kV according to patient size, use of iterative reconstruction technique. DLP: 546 mGy-cm COMPARISON: Head CT from the same day and cervical spine CT December 2023 FINDINGS: There is a thick walled fluid collection in the paraspinal muscles of the left upper posterior neck at the C2-C4 vertebral body levels. This measures 2.3 x 3.3 x 3.3 cm. There is some surrounding fat stranding and a small amount of fluid. There is overlying skin thickening. This most likely represents an abscess. Differential would include changes related to trauma/hematoma. This is new from cervical spine CT January 20 Assessment and Plan (1) Muscle abscess: Status: Acute 74F with multiple medical problems as described above, with an abscess in the paraspinal muscle, about 3 in size. She is on anticoagulation. I explained to her and her daughter it is best to drain this by aspirating with a large bore needle. I explained the technque of the procedure and she had given verbal consent. Aspiration with a g18 needle showed about 5 cm of purulent material. This was sent for cultures. She will be admitted for IV abx in view of bacteremia. I will follow along while she is in the hospital. I also explained to her that it may be necessary to repeat the aspiration depending on her clinical course. Procedures Date of Service Date of Service: 09/29/25 Abscess I/D Site: neck Anesthetic used: lidocaine 1% Technique: needle aspiration Amount of fluid (mL): 5 Packing used?: none Additional comments: The area was prepped and draped. Lidocaine 1% was used for local anesthesia. I used a g18 needle into the deep space of the left posterior neck. About 5 cc of blood and purulent material was drained. Dressings were applied.She tolerated the procedure well.
[2025-09-27 16:01] LABS: Anion Gap 13 (12-20)
[2025-09-27 16:03] LABS: Alanine Aminotransferase 10 U/L (0-31); Albumin Level 3.6 g/dL (3.5-5.0); Alkaline Phosphatase 94 U/L (39-117); Aspartate Amino Transferase 23 U/L (5-31); Blood Urea Nitrogen 19 mg/dL (9-16); Calcium 9.4 mg/dL (8.4-10.2); Carbon Dioxide 23 mmol/L (22-29); Chloride 106 mmol/L (96-108); Creatinine Clr Calc Pharmacy 49.9; Estimated Glomerular Filt Rate > 60; Magnesium 1.9 mg/dL (1.6-2.6); Potassium 3.3 mmol/L (3.3-5.1); Sodium 139 mmol/L (135-145); Total Protein 8.0 g/dL (6.5-8.0)
[2025-09-27] MEDS: vancomycin/NS 2,000 MG/500 ML PLAST..BAG 250 MG IV (16:17)
[2025-09-27 16:37] LABS: Erythrocyte Sedimentation Rate 112 MM/HR (0-20)
--- NOTE | 2025-09-27 17:41 | PM.IMHP ---
History of Present Illness Date of Service: 09/27/25 Attending physician on admission: Misha Armstrong Chief Complaint: neck abcess 74 year old assigned female at with a history of RA, HTN, 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 on 09/26/25-she came to ed left sided neck abscess and started on antibiotics when she got called today and told that her blood cultures were positive and she should return. Yesterday patient left home it was thought the patient has either hematoma versus abscess-will discharge yesterday with p.o. antibiotics and ask for using warm compresses-to the patient called back because of positive blood cultures. She says that all symptoms started a week ago when she went her neck is having some soreness, afterwards she started noticing a bump. In addition patient says that she bumped her shoulder few days back-she has chronic shoulder pain but it is more pain than usual now since then. Patient denies any trauma to the neck or scratching or erythema. Denies any neurological symptoms including pain radiation, weakness numbness or any blurred vision or dizziness. Able to move all extremities and neck. WBC count today 12.8, CRP 25.06. Blood cultures from yesterday grew gram positive cocci in clusters 1/2. CT soft tissue neck scan from 09/26 showed 2.3x3.3cm thick-walled fluid filled collection in the left posterior paraspinal muscle adjacent of C2-C4 with small amount of fat stranding in the fluid. Consulted with the general surgery team who performed a bed sized I&D and wound cultures sent. Admission was requested due to bacteremia and neck abscess Review of Systems Review of Systems: as above. Yes all other systems are reviewed and are negative [facility] Medical History Muscle abscess Breast cancer screening by mammogram Pre-op exam Hospital discharge follow-up Symptomatic anemia Pulmonary embolism Anemia Medicare annual wellness visit, initial Presence of IVC filter History of alcohol abuse Venous stasis dermatitis Obesity Vitamin D deficiency Barretts esophagus Benign essential hypertension Restless leg syndrome Obstructive sleep apnea GERD (gastroesophageal reflux disease) Tubular adenoma of colon Rheumatoid arthritis Hx of deep venous thrombosis Hypercholesterolemia Family History Father History of stomach cancer Mother Surgical History History of ankle surgery (01/2024) S/P IVC filter (2019) History of esophagogastroduodenoscopy (EGD) (2019) Hx of colonoscopy (2019) History of cataract surgery History of eyelid surgery History of tonsillectomy Hx of arthroscopic knee surgery Hx of heart artery stent Social History Household Members: None Housing: House Are you a primary home care nurse to a significant other at home: No Do you presently have visiting nurse or other home services: No Alcohol intake: former Patient Tobacco Use Status: Former Tobacco user Tobacco use type: Cigarette Cigarette Packs Per Day: 2 Years Smoked: quit 1980 Smoked in Last 30 Days: No e-Cigarette/Vaping Use: Never Used Second Hand Smoke Exposure: No Use of substances other than those prescribed or required for medical reasons: No Advance Directives: Yes Advance Directives on File: Yes Advance Directives Date on File: 01/24/24 Do you have a plan to hurt others: No Plan service: No Current occupational status: retired Cognitive needs: Yes (walker, wheelchair, cane) Hearing needs: No Vision needs: Yes (Glasses) Meds Allergies Allergy/AdvReac Type Severity Reaction Status Date / Time No Known Allergies (No Known Allergy Verified 09/27/25 15:14 Allergies*) Active Medications: Current Medications Acetaminophen (Acetaminophen 325 Mg Tablet) 650 mg PO Q6H PRN PRN Reason: Pain, Mild 1-3,fever,headache Calcium Carbonate (Calcium Carbonate 750 Mg Tab.Chew) 750 mg PO Q4H PRN PRN Reason: Heartburn Vancomycin HCl (Vancomycin/Ns) 2,000 mg in 500 mls @ 250 mls/hr IV ONCE ONE Stop: 09/27/25 18:02 Last Admin: 09/27/25 16:17 Dose: 250 mls/hr Cefepime HCl (Maxipime) 2 gm in 50 mls @ 100 mls/hr IV Q12H [facility] Magnesium Hydroxide (Milk Of Magnesia 30 Ml Oral.Susp) 30 ml PO DAILY PRN PRN Reason: Constipation Melatonin (Melatonin 3 Mg Tablet) 6 mg PO BEDTIME PRN PRN Reason: Insomnia Pharmacy Consult (Consult Rx Vancomycin Dosing) 1 each MISCELLANE DAILY PRN PRN Reason: Consult order Sodium Chloride (0.9 % Sodium Chloride Flush 3 Ml Syringe) 3 ml IVFLUSH QSHIFT [facility] Home Medications ?Medication ?Instructions ?Recorded ?Confirmed ?Last Taken ?Type infliximab 100 mg intravenous See Rx Instructions .Route .COMPLEX 10/11/21 09/27/25 08/07/25 History solution (Remicade) methotrexate sodium 2.5 mg tablet 12.5 mg PO TH@0900 01/24/24 09/27/25 09/18/25 History prednisolone acetate 1 % eye 1 drp ophthalmic-Left Q2D 01/24/24 09/27/25 01/23/24 History drops,suspension multivitamin 1 tab PO DAILY 09/02/25 09/27/25 09/27/25 History folic acid 1 mg tablet 1 mg PO DAILY 09/27/25 09/27/25 09/27/25 History sennosides 8.6 mg-docusate sodium 2 tab-cap PO BEDTIME PRN 09/27/25 09/27/25 Unknown History 50 mg capsule (Senna Plus) Constipation simvastatin 5 mg tablet 5 mg PO DAILY 09/27/25 09/27/25 09/27/25 History Physical Exam Vital Signs and Narrative: Vital Signs: Last Vital Signs Temp 98.7 F 09/27/25 15:10 Pulse 103 H 09/27/25 15:10 Resp 20 09/27/25 15:10 BP 134/74 09/27/25 15:10 Pulse Ox 99 09/27/25 15:10 O2 Del Method Room Air 09/27/25 15:10 BMI result Body Mass Index 35.1 Appearance: Alert.? Oriented X3.? Eyes: Pupils equal, round and reactive to light.? Sclera nonicteric.? neck : neck swelling cvs: rrr, [id number] , no murmur res: clear to auscultation ,no rhonchii or wheezing abd: no rebound or guarding ,nt, bs present. ext pulses present , no cyanosis . neuro: axo3 , nonfocal. Results Labs 09/27/25 15:34 09/27/25 15:36 Labs: Laboratory Results - last 24 hr 09/27/25 09/27/25 15:34 15:36 MCV 80.2 MCH 25.1 L MCHC 31.3 RDW 21.8 H Plt Count 442 H MPV 8.9 L Immature Gran % (Auto) 0.4 Neut % (Auto) 71.7 Lymph % (Auto) 15.0 L [place] % (Auto) 11.1 H Eos % (Auto) 1.4 Baso % (Auto) 0.4 Lymph # (Auto) 1.9 [place] # (Auto) 1.4 H Eos # (Auto) 0.2 Baso # (Auto) 0.1 Abs Immat Gran (auto) 0.05 H Absolute Neuts (auto) 9.2 H Absolute Nucleated RBC 0.000 Nucleated RBC % (auto) 0.0 ESR 112 H Anion Gap 13 Estim Creat Clear Calc 49.9 Estimated GFR > 60 Random Glucose 99 Lactic Acid 1.3 Calcium 9.4 Magnesium 1.9 Total Bilirubin 0.5 AST 23 ALT 10 Alkaline Phosphatase 94 C-Reactive Protein 25.06 H Total Protein 8.0 Albumin 3.6 Assessment and Plan (1) Bacteremia: Status: Acute (2) Sepsis: Qualifiers: Sepsis type: sepsis due to unspecified organism Sepsis acute organ dysfunction status: unspecified Qualified Code(s): A41.9 - Sepsis, unspecified organism Status: Acute Plan 74 year old assigned female at with a history of RA, HTN, DVT / PE on eliquis, MDD, anemia, and alcohol use disorder several years in recovery, and left posterior neck abscess : 1. sepsis sec Bacteremia/neck abscess: tachycardia, leukocytosis 12.8, lactic acid normal elevated esr and crp. Blood culture 10/31: Gram-positive cocci in cluster, 2nd blood culture pending. 09/26: CTA head and negative. CT neck :2.3 x 3.3 cm thick-walled fluid collection in the left left posterior paraspinal muscles adjacent from C2 to C4, small amount of surrounding fluid fat stranding and overlying skin thickening. Most likely represents an abscess. Differential would include changes related to trauma. This is new from cervical spine CT December 2023. Multilevel degenerative changes of the spine. plan: Patient is status post I and D by surgery, follow cultures, repeated blood culture also sent. Continue IV vanco/cefepime Monitored closely Surgery follow-up 2. Left shoulder pain: xray:No evidence of acute fracture. Superior subluxation of the humeral head with respect to glenoid, can be seen with rotator cuff pathology. plan :pain control, pt/ot Rest of the medication for her chronic conditions including rheumatoid arthritis, hypotension, DVT and PE and depression we will continue. DVT prophylaxis: David Above management discussed with the patient and her daughter at bedside in detail length they both understand and in agreement with the above plan, time spent 70 minute, patient is full code. Quality Stroke Does the patient have a stroke diagnosis?: No VTE Prior VTE?: No VTE Risk Level:: Medical - low VTE Device Contraindication: N/A - Device Ordered VTE Drug Contraindication: N/A - Med Ordered
--- NOTE | 2025-09-27 17:53 | PHA.MEDREC ---
Pharmacy Consult ? Medication Reconciliation Pharmacy has completed the medication reconciliation.Med rec complete, spoke to patient and compared with pharmacy claims history. She gets remicade infusion at a different instituition but is unsure of the dose, she gets this infused every 2 months
--- NOTE | 2025-09-27 18:50 | PHA.PROG ---
Addendum entered by Fernanda Boyle [facility] 09/28/25 10:03: 09/28/25 - SCR improved, adjusted dose to 1500 mg q24h for predicted AUC of 473 Original Note: Admission Date/Time: September 27, 2025 17:06 Indication: SKIN AND SKIN STRUCTURE Weight in k.925 kg Adjusted body weight in Kg: [place] body weight in Kg: Obesity Dosing Indication % IBW: Serum Creatinine - Last 168 Hours 09/27/25 15:36 Creatinine 0.87 Estimated CrCl and GFR - Last 168 Hours 09/27/25 15:36 Estim Creat Clear Calc 49.9 Estimated GFR > 60 Vancomycin Loading Dose: 2000 MG Current Vancomycin Dosing Regimen: 1250 MG Q 24 HOURS Vancomycin Monitoring using AUC goal of 400 - 600 range with trough as surrogate marker: Date and Time for next Vancomycin Level to be drawn: 09/29/25 1400 Pharmacist Comments on Vancomycin Plan: WILL CHECK LEVEL AFTER 2 DOSES Vancomycin dosing will take advantage of [employer] as a clinical decision support tool that uses Bayesian modeling to calculate individual patient's pharmacokinetic parameters and forecast the patient's drug concentration time course with the target goal AUC 24 range of 400 - 600 mg/L/hr.
[2025-09-27] MEDS: cefEPime HCl/D5W 2 GM/50 ML PIGGYBACK IV (19:26)
[2025-09-27 19:34] VITALS: BP 169/85; PULSE 108; RESP 18; TEMP 36.8; O2SAT 99
--- NOTE | 2025-09-27 19:56 | HO.NURTONUR ---
Pt was seen here for left posterior neck abscess diagnosed on 09/26/2025. Was called to come back for positive blood cultures ( positive for gram-positive cocci in clusters) and worsening left shoulder pain. In ED Patient received IV vanc + ceftriaxone and morphine. Surgery was consulted and incised the area - getting some pus out, and agreed to continue to follow the patient as a consult. Pt A&Ox3, ambulates with walker, takes pills whole. Bilateral 20G IVs.
[2025-09-27] MEDS: buPROPion HCl XL 150 MG TAB.ER.24H PO (21:54)
[2025-09-27] MEDS: Calcium + Vitamin D 250 MG TABLET 500 MG PO (21:54)
[2025-09-27 22:32] VITALS: BMI 37.1
[2025-09-27 22:42] VITALS: BP 190/74; PULSE 116; RESP 18; TEMP 37.4; O2SAT 99
[2025-09-28] VITALS (9 sets, daily range): BP systolic 136–180; BP diastolic 60–85; PULSE 86–109; RESP 16–18; TEMP 36.3–37.1; O2SAT 94–99
[2025-09-28] MEDS: oxyCODONE HCl Immed Release 5 MG TABLET PO ×3 (06:14→23:13)
[2025-09-28] MEDS: cefEPime HCl/D5W 2 GM/50 ML PIGGYBACK IV ×2 (06:15→20:19)
[2025-09-28] MEDS: Flu Vacc TS2025-26(6mo up)/PF 0.5 ML SYRINGE IM (06:28)
[2025-09-28 08:07] LABS: Hematocrit 32.3 % (37.0-47.0); Hemoglobin 9.7 g/dl (12.0-16.0); Mean Corpuscular HGB Conc 30.0 g/dl (31.0-35.0); Mean Corpuscular Hemoglobin 24.5 pg (27.0-33.0); Mean Corpuscular Volume 81.6 fL (80.0-98.0); NRBC Abs Auto 0.000 X10*3/uL (0.0-0.012); NRBC Pct Auto 0.0 /100WBC (0.0-0.2); Platelet Count 329 X10*3/uL (160-400); Red Blood Count 3.96 X10*6/uL (4.20-5.50); White Blood Count 9.9 X10*3/uL (4.8-10.8)
--- NOTE | 2025-09-28 08:14 | P.PNIM_ITS ---
Subjective Subjective Date of Service: 09/28/25 Interval History: neck abcess Review of Systems neck pain seems somewhat improving no other new symptoms no fevers Review of Systems: Yes all other systems are reviewed and are negative Physical Exam 2 Exam: Exam: Appearance: Alert.? Oriented X3.?? neck : neck swelling cvs: rrr, [id number] . res: clear to auscultation ,no rhonchii or wheezing abd: no rebound or guarding ,nt, bs present. ext pulses present , no cyanosis . neuro: axo3 , nonfocal. Vital Signs: Vital Signs: Last Vital Signs Temp 97.4 F 09/28/25 03:23 Pulse 103 H 09/28/25 03:23 Resp 16 09/28/25 03:23 BP 150/67 H 09/28/25 03:23 Pulse Ox 94 09/28/25 03:23 O2 Del Method Room Air 09/28/25 03:23 BMI result Body Mass Index 37.1 Objective Data Active Medications Acetaminophen (Acetaminophen 325 Mg Tablet) 650 mg PO Q6H PRN PRN Reason: Pain, Mild 1-3,fever,headache Last Admin: 09/27/25 23:08 Dose: 650 mg Documented By: MALLORY Comments: Pt refusing rectal temp, oral temp 99.3F HR 116 Amlodipine Besylate (Amlodipine Besylate 5 Mg Tablet) 5 mg PO BEDTIME [facility]; Protocol Last Admin: 09/27/25 23:07 Dose: 5 mg Documented By: MALLORY Apixaban (Apixaban 2.5 Mg Tablet) 2.5 mg PO BID [facility] Last Admin: 09/27/25 21:54 Dose: 2.5 mg Documented By: RICHIE Ascorbic Acid (Ascorbic Acid 500 Mg Tablet) 500 mg PO DAILY [facility] Bupropion HCl (Bupropion Hcl Xl 150 Mg Tab.Er.24h) 150 mg PO BID [facility] Last Admin: 09/27/25 21:54 Dose: 150 mg Documented By: RICHIE Calcium Carbonate (Calcium Carbonate 750 Mg Tab.Chew) 750 mg PO Q4H PRN PRN Reason: Heartburn Calcium Carbonate/Cholecalciferol (Calcium + Vitamin D 250 Mg Tablet) 500 mg PO BID [facility] Last Admin: 09/27/25 21:54 Dose: 500 mg Documented By: RICHIE Cyanocobalamin (Cyanocobalamin (Vitamin B-12) 1,000 Mcg Tablet) 1,000 mcg PO DAILY [facility] Ferrous Sulfate (Ferrous Sulfate 324 Mg Tablet.) 324 mg PO DAILY [facility] Fluticasone Propionate (Fluticasone Propionate Nasal 16 Gm [place]) 1 spray NOSTRIL-B DAILY [facility] Folic Acid (Folic Acid 1 Mg Tablet) 1 mg PO DAILY [facility] Cefepime HCl (Maxipime) 2 gm in 50 mls @ 100 mls/hr IV Q12H [facility] Last Infusion: 09/28/25 07:47 Dose: Infused Documented By: MAEVE Vancomycin HCl 1,250 mg/ (Sodium Chloride) 250 mls @ 166.667 mls/hr IV Q24H [facility] Lisinopril (Lisinopril 20 Mg Tablet) 20 mg PO DAILY [facility]; Protocol Magnesium Hydroxide (Milk Of Magnesia 30 Ml Oral.Susp) 30 ml PO DAILY PRN PRN Reason: Constipation Melatonin (Melatonin 3 Mg Tablet) 6 mg PO BEDTIME PRN PRN Reason: Insomnia Methotrexate (Methotrexate Sodium 2.5 Mg Tablet) 12.5 mg PO TH@0900 [facility] Multivitamins/Vitamin C (Multivitamin Tablet) 1 tab PO DAILY [facility] Omeprazole (Omeprazole 20 Mg Capsule.) 20 mg PO DAILY@0630 [facility] Last Admin: 09/28/25 06:14 Dose: 20 mg Documented By: MALLORY Oxycodone HCl (Oxycodone Hcl Immed Release 5 Mg Tablet) 5 mg PO Q8H PRN PRN Reason: Pain, Moderate(Pain Scale 4-6) Last Admin: 09/28/25 06:14 Dose: 5 mg Documented By: MALLORY Pharmacy Consult (Consult Rx Vancomycin Dosing) 1 each MISCELLANE DAILY PRN PRN Reason: Consult order Prednisolone Acetate (Prednisolone Acetate 1 % Oph Susp 5 Ml Drpbtl) 1 drop EYE-LEFT Q2D [facility] Senna/Docusate Sodium (Sennosides/Docusate Sodium Tablet) 2 tab PO BEDTIME PRN PRN Reason: Constipation Sodium Chloride (0.9 % Sodium Chloride Flush 3 Ml Syringe) 3 ml IVFLUSH QSHIFT [facility] Last Admin: 09/28/25 01:39 Dose: Not Given Documented By: MALLORY Non-Admin Reason: Previously Administered Labs 09/28/25 07:08 09/28/25 07:08 Labs: Laboratory Results - last 24 hr 09/27/25 09/27/25 15:34 15:36 MCV 80.2 MCH 25.1 L MCHC 31.3 RDW 21.8 H Plt Count 442 H MPV 8.9 L Immature Gran % (Auto) 0.4 Neut % (Auto) 71.7 Lymph % (Auto) 15.0 L [place] % (Auto) 11.1 H Eos % (Auto) 1.4 Baso % (Auto) 0.4 Lymph # (Auto) 1.9 [place] # (Auto) 1.4 H Eos # (Auto) 0.2 Baso # (Auto) 0.1 Abs Immat Gran (auto) 0.05 H Absolute Neuts (auto) 9.2 H Absolute Nucleated RBC 0.000 Nucleated RBC % (auto) 0.0 ESR 112 H Anion Gap 13 Estim Creat Clear Calc 49.9 Estimated GFR > 60 Random Glucose 99 Lactic Acid 1.3 Calcium 9.4 Magnesium 1.9 Total Bilirubin 0.5 AST 23 ALT 10 Alkaline Phosphatase 94 C-Reactive Protein 25.06 H Total Protein 8.0 Albumin 3.6 Assessment and Plan (1) Abscess, neck: Status: Acute (2) Bacteremia: Status: Acute Plan 74 year old assigned female at with a history of RA, HTN, 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 leukocytosis improved, lactic acid normal elevated esr and crp. Blood culture 1/2: Gram-positive -staph species ,2nd culture negative . neck cultures -pending repeat blood cultures pending 09/26: CTA head and negative. CT neck :2.3 x 3.3 cm thick-walled fluid collection in the left left posterior paraspinal muscles adjacent from C2 to C4, small amount of surrounding fluid fat stranding and overlying skin thickening. Most likely represents an abscess. Differential would include changes related to trauma. This is new from cervical spine CT December 2023. Multilevel degenerative changes of the spine. plan: Patient is status post I and D by surgery, follow cultures- as above. Continue IV vanco/cefepime Monitored closely Surgery follow-up Left shoulder pain: xray:No evidence of acute fracture. Superior subluxation of the humeral head with respect to glenoid, can be seen with rotator cuff pathology. plan :pain control, pt/ot Rest of the medication for her chronic conditions including rheumatoid arthritis, hypotension, DVT and PE and depression we will continue. DVT prophylaxis: Eliquis ongoing need : bcateremia /neck abcess -need IV antibiotics, monitor for symptoms, renal function electrolytes monitoring, vanco trough monitoring, PT OT Quality Stroke Does the patient have a stroke diagnosis?: No VTE Prior VTE?: No VTE Risk Level:: Medical - low VTE Device Contraindication: N/A - Device Ordered VTE Drug Contraindication: N/A - Med Ordered
[2025-09-28 08:21] LABS: Anion Gap 11 (12-20); Blood Urea Nitrogen 15 mg/dL (9-16); Calcium 8.9 mg/dL (8.4-10.2); Carbon Dioxide 21 mmol/L (22-29); Chloride 111 mmol/L (96-108); Creatinine Clr Calc Pharmacy 58.9; Estimated Glomerular Filt Rate > 60; Potassium 3.4 mmol/L (3.3-5.1); Sodium 140 mmol/L (135-145)
[2025-09-28 08:22] LABS: Creatinine Clr Calc Pharmacy 58.1; Estimated Glomerular Filt Rate > 60
[2025-09-28] MEDS: Ferrous Sulfate 324 MG TABLET.DR PO (09:17)
[2025-09-28] MEDS: Calcium + Vitamin D 250 MG TABLET 500 MG PO ×2 (09:17→20:17)
[2025-09-28] MEDS: buPROPion HCl XL 150 MG TAB.ER.24H PO ×2 (09:18→20:17)
[2025-09-28] MEDS: 0.9 % Sodium Chloride Flush 3 ML SYRINGE IVFLUSH ×3 (09:26→20:19)
--- NOTE | 2025-09-28 09:50 | P.PNGS_ITS ---
Subjective Subjective Date of Service: 09/28/25 Interval history: Feels better after aspiration of abscess yesterday No fever No new complaints - she does state that she is unable to sleep in the hospital Physical Exam 2 Vital Signs: Vital Signs: Last Vital Signs Temp 98.7 F 09/28/25 08:00 Pulse 99 09/28/25 08:00 Resp 18 09/28/25 08:00 BP 176/82 H 09/28/25 09:17 Pulse Ox 99 09/28/25 08:00 O2 Del Method Room Air 09/28/25 08:00 BMI result Body Mass Index 37.1 Const: General: comfortable and no acute distress Neck: Other: Induration is much improved the left posterolateral neck, no fluctuance Resp: Effort & Inspection: normal respiratory effort Cardio: Rate: regular rate GI: Palpation (GI): Soft to palpation Objective Data Active Medications Acetaminophen (Acetaminophen 325 Mg Tablet) 650 mg PO Q6H PRN PRN Reason: Pain, Mild 1-3,fever,headache Last Admin: 09/27/25 23:08 Dose: 650 mg Documented By: MALLORY Comments: Pt refusing rectal temp, oral temp 99.3F HR 116 Amlodipine Besylate (Amlodipine Besylate 5 Mg Tablet) 5 mg PO BEDTIME [facility]; Protocol Last Admin: 09/27/25 23:07 Dose: 5 mg Documented By: MALLORY Apixaban (Apixaban 2.5 Mg Tablet) 2.5 mg PO BID [facility] Last Admin: 09/28/25 09:18 Dose: 2.5 mg Documented By: MAEVE Ascorbic Acid (Ascorbic Acid 500 Mg Tablet) 500 mg PO DAILY [facility] Last Admin: 09/28/25 09:17 Dose: 500 mg Documented By: MAEVE Bupropion HCl (Bupropion Hcl Xl 150 Mg Tab.Er.24h) 150 mg PO BID [facility] Last Admin: 09/28/25 09:18 Dose: 150 mg Documented By: MAEVE Calcium Carbonate (Calcium Carbonate 750 Mg Tab.Chew) 750 mg PO Q4H PRN PRN Reason: Heartburn Calcium Carbonate/Cholecalciferol (Calcium + Vitamin D 250 Mg Tablet) 500 mg PO BID [facility] Last Admin: 09/28/25 09:17 Dose: 500 mg Documented By: MAEVE Cyanocobalamin (Cyanocobalamin (Vitamin B-12) 1,000 Mcg Tablet) 1,000 mcg PO DAILY [facility] Last Admin: 09/28/25 09:17 Dose: 1,000 mcg Documented By: MAEVE Ferrous Sulfate (Ferrous Sulfate 324 Mg Tablet.) 324 mg PO DAILY [facility] Last Admin: 09/28/25 09:17 Dose: 324 mg Documented By: MAEVE Fluticasone Propionate (Fluticasone Propionate Nasal 16 Gm [place]) 1 spray NOSTRIL-B DAILY [facility] Folic Acid (Folic Acid 1 Mg Tablet) 1 mg PO DAILY [facility] Last Admin: 09/28/25 09:17 Dose: 1 mg Documented By: MAEVE Cefepime HCl (Maxipime) 2 gm in 50 mls @ 100 mls/hr IV Q12H [facility] Last Infusion: 09/28/25 07:47 Dose: Infused Documented By: MAEVE Vancomycin HCl 1,250 mg/ (Sodium Chloride) 250 mls @ 166.667 mls/hr IV Q24H [facility] Lisinopril (Lisinopril 20 Mg Tablet) 20 mg PO DAILY [facility]; Protocol Last Admin: 09/28/25 09:17 Dose: 20 mg Documented By: MAEVE Comments: Magnesium Hydroxide (Milk Of Magnesia 30 Ml Oral.Susp) 30 ml PO DAILY PRN PRN Reason: Constipation Melatonin (Melatonin 3 Mg Tablet) 6 mg PO BEDTIME PRN PRN Reason: Insomnia Methotrexate (Methotrexate Sodium 2.5 Mg Tablet) 12.5 mg PO TH@0900 [facility] Multivitamins/Vitamin C (Multivitamin Tablet) 1 tab PO DAILY [facility] Last Admin: 09/28/25 09:17 Dose: 1 tab Documented By: MAEVE Omeprazole (Omeprazole 20 Mg Capsule.) 20 mg PO DAILY@0630 [facility] Last Admin: 09/28/25 06:14 Dose: 20 mg Documented By: MALLROY Oxycodone HCl (Oxycodone Hcl Immed Release 5 Mg Tablet) 5 mg PO Q8H PRN PRN Reason: Pain, Moderate(Pain Scale 4-6) Last Admin: 09/28/25 06:14 Dose: 5 mg Documented By: MALLORY Pharmacy Consult (Consult Rx Vancomycin Dosing) 1 each MISCELLANE DAILY PRN PRN Reason: Consult order Prednisolone Acetate (Prednisolone Acetate 1 % Oph Susp 5 Ml Drpbtl) 1 drop EYE-LEFT Q2D [facility] Senna/Docusate Sodium (Sennosides/Docusate Sodium Tablet) 2 tab PO BEDTIME PRN PRN Reason: Constipation Sodium Chloride (0.9 % Sodium Chloride Flush 3 Ml Syringe) 3 ml IVFLUSH QSHIFT [facility] Last Admin: 09/28/25 09:26 Dose: 3 ml Documented By: MAEVE Labs 09/28/25 07:08 09/28/25 07:08 Labs: Laboratory Results - last 24 hr 09/27/25 09/27/25 09/28/25 15:34 15:36 07:08 MCV 80.2 81.6 MCH 25.1 L 24.5 L MCHC 31.3 30.0 L RDW 21.8 H 21.8 H Plt Count 442 H 329 D MPV 8.9 L 10.0 Immature Gran % (Auto) 0.4 Neut % (Auto) 71.7 Lymph % (Auto) 15.0 L [place] % (Auto) 11.1 H Eos % (Auto) 1.4 Baso % (Auto) 0.4 Lymph # (Auto) 1.9 [place] # (Auto) 1.4 H Eos # (Auto) 0.2 Baso # (Auto) 0.1 Abs Immat Gran (auto) 0.05 H Absolute Neuts (auto) 9.2 H Absolute Nucleated RBC 0.000 0.000 Nucleated RBC % (auto) 0.0 0.0 ESR 112 H Anion Gap 13 11 L Estim Creat Clear Calc 49.9 58.9 Estimated GFR > 60 Random Glucose 99 Lactic Acid 1.3 Calcium 9.4 Magnesium 1.9 Total Bilirubin 0.5 AST 23 ALT 10 Alkaline Phosphatase 94 C-Reactive Protein 25.06 H Total Protein 8.0 Albumin 3.6 09/28/25 09/28/25 07:08 07:08 MCV MCH MCHC RDW Plt Count MPV Immature Gran % (Auto) Neut % (Auto) Lymph % (Auto) [place] % (Auto) Eos % (Auto) Baso % (Auto) Lymph # (Auto) [place] # (Auto) Eos # (Auto) Baso # (Auto) Abs Immat Gran (auto) Absolute Neuts (auto) Absolute Nucleated RBC Nucleated RBC % (auto) ESR Anion Gap Estim Creat Clear Calc 58.1 Estimated GFR > 60 > 60 Random Glucose 105 Lactic Acid Calcium 8.9 Magnesium Total Bilirubin AST ALT Alkaline Phosphatase C-Reactive Protein Total Protein Albumin Microbiology Microbiology Results: Microbiology 09/27/25 15:50 Gram Stain - Final Neck Routine Culture - Preliminary Culture in progress. Procedures Date of Service Date of Service: 09/28/25 Progress Note: A&P Assessment and plan (1) Abscess, neck: Status: Acute Assessment and Plan: Needle aspiration done Area much improved, significantly less indurated Looks well overall Await culture reports Antibiotics No further surgical intervention planned at this time Family updated Time Spent With Patient Time: Total time managing care of this patient today ____ minutes. Quality Stroke Does the patient have a stroke diagnosis?: No VTE Prior VTE?: No VTE Risk Level:: Medical - low VTE Device Contraindication: N/A - Device Ordered VTE Drug Contraindication: N/A - Med Ordered
--- NOTE | 2025-09-28 09:53 | MHC.CM.PN ---
CM addressed IMM with Patient. Patient lives alone in a house and uses a walker. Per MD, Patient may require LT IV ABX at dc; a referral has been made to [facility]. CM has initiated and will follow for dc planning. PCP is Dr. Bryan and Daughter/Constance is the HCP and will transport at dc.
[2025-09-29] VITALS (7 sets, daily range): BP systolic 146–168; BP diastolic 59–94; PULSE 90–104; RESP 16–18; TEMP 36.1–37.1; O2SAT 95–100
[2025-09-29] MEDS: cefEPime HCl/D5W 2 GM/50 ML PIGGYBACK IV (06:10)
[2025-09-29 07:56] LABS: Creatinine Clr Calc Pharmacy 61.3; Estimated Glomerular Filt Rate > 60
--- NOTE | 2025-09-29 08:30 | PM.PNGS ---
Subjective Subjective Date of Service: 09/29/25 Interval history: Says she is okay? Left neck feels better No fever Physical Exam Vital Signs: Vital Signs: Last Vital Signs Temp 97 F 09/29/25 04:00 Pulse 102 H 09/29/25 04:00 Resp 16 09/29/25 04:00 BP 155/75 H 09/29/25 04:00 Pulse Ox 95 09/29/25 04:00 O2 Del Method Room Air 09/29/25 04:00 BMI result Body Mass Index 37.1 Const: General: comfortable and no acute distress Neck: Other: Left neck induration has improved significantly, no cellulitis, no fluctuance Resp: Effort & Inspection: normal respiratory effort Cardio: Rate: regular rate Objective Data Active Medications Acetaminophen (Acetaminophen 325 Mg Tablet) 975 mg PO Q6H PRN PRN Reason: Pain, Mild 1-3,fever,headache Last Admin: 09/29/25 06:13 Dose: 975 mg Documented By: DEONTE Amlodipine Besylate (Amlodipine Besylate 5 Mg Tablet) 5 mg PO BEDTIME [facility]; Protocol Last Admin: 09/28/25 17:58 Dose: 5 mg Documented By: MAEVE Comments: per Dr richi mac to give early Apixaban (Apixaban 2.5 Mg Tablet) 2.5 mg PO BID [facility] Last Admin: 09/28/25 20:17 Dose: 2.5 mg Documented By: DEONTE Ascorbic Acid (Ascorbic Acid 500 Mg Tablet) 500 mg PO DAILY [facility] Last Admin: 09/28/25 09:17 Dose: 500 mg Documented By: MAEVE Bupropion HCl (Bupropion Hcl Xl 150 Mg Tab.Er.24h) 150 mg PO BID [facility] Last Admin: 09/28/25 20:17 Dose: 150 mg Documented By: DEONTE Calcium Carbonate (Calcium Carbonate 750 Mg Tab.Chew) 750 mg PO Q4H PRN PRN Reason: Heartburn Calcium Carbonate/Cholecalciferol (Calcium + Vitamin D 250 Mg Tablet) 500 mg PO BID [facility] Last Admin: 09/28/25 20:17 Dose: 500 mg Documented By: DEONTE Cyanocobalamin (Cyanocobalamin (Vitamin B-12) 1,000 Mcg Tablet) 1,000 mcg PO DAILY [facility] Last Admin: 09/28/25 09:17 Dose: 1,000 mcg Documented By: MAEVE Ferrous Sulfate (Ferrous Sulfate 324 Mg Tablet.) 324 mg PO DAILY [facility] Last Admin: 09/28/25 09:17 Dose: 324 mg Documented By: MAEVE Fluticasone Propionate (Fluticasone Propionate Nasal 16 Gm [place]) 1 spray NOSTRIL-B DAILY [facility] Last Admin: 09/28/25 11:50 Dose: Not Given Documented By: MAEVE Non-Admin Reason: not in pt bin Folic Acid (Folic Acid 1 Mg Tablet) 1 mg PO DAILY [facility] Last Admin: 09/28/25 09:17 Dose: 1 mg Documented By: MAEVE Cefepime HCl (Maxipime) 2 gm in 50 mls @ 100 mls/hr IV Q12H [facility] Last Admin: 09/29/25 06:10 Dose: 100 mls/hr Documented By: DEONTE Vancomycin HCl 1,500 mg/ (Sodium Chloride) 500 mls @ 333.333 mls/hr IV Q24H [facility] Last Infusion: 09/28/25 19:54 Dose: Infused Documented By: MAEVE Lisinopril (Lisinopril 20 Mg Tablet) 20 mg PO DAILY [facility]; Protocol Last Admin: 09/28/25 09:17 Dose: 20 mg Documented By: MAEVE Comments: Magnesium Hydroxide (Milk Of Magnesia 30 Ml Oral.Susp) 30 ml PO DAILY PRN PRN Reason: Constipation Melatonin (Melatonin 3 Mg Tablet) 6 mg PO BEDTIME PRN PRN Reason: Insomnia Methotrexate (Methotrexate Sodium 2.5 Mg Tablet) 12.5 mg PO TH@0900 [facility] Morphine Sulfate (Morphine Sulfate 4 Mg/Ml Cartridge) 2 mg IVPUSH Q6H PRN; Protocol PRN Reason: Pain, Severe (Pain Scale 7-10) Last Admin: 09/29/25 04:01 Dose: 2 mg Documented By: DEONTE Multivitamins/Vitamin C (Multivitamin Tablet) 1 tab PO DAILY [facility] Last Admin: 09/28/25 09:17 Dose: 1 tab Documented By: MAEVE Omeprazole (Omeprazole 20 Mg Capsule.) 20 mg PO DAILY@0630 [facility] Last Admin: 09/29/25 06:11 Dose: 20 mg Documented By: DEONTE Oxycodone HCl (Oxycodone Hcl Immed Release 5 Mg Tablet) 5 mg PO Q8H PRN PRN Reason: Pain, Moderate(Pain Scale 4-6) Last Admin: 09/28/25 23:13 Dose: 5 mg Documented By: DEONTE Pharmacy Consult (Consult Rx Vancomycin Dosing) 1 each MISCELLANE DAILY PRN PRN Reason: Consult order Prednisolone Acetate (Prednisolone Acetate 1 % Oph Susp 5 Ml Drpbtl) 1 drop EYE-LEFT Q2D [facility] Last Admin: 09/28/25 11:50 Dose: Not Given Documented By: MAEVE Non-Admin Reason: not in pt bin Senna/Docusate Sodium (Sennosides/Docusate Sodium Tablet) 2 tab PO BEDTIME PRN PRN Reason: Constipation Sodium Chloride (0.9 % Sodium Chloride Flush 3 Ml Syringe) 3 ml IVFLUSH QSHIFT [facility] Last Admin: 09/28/25 20:19 Dose: 3 ml Documented By: DEONTE Labs 09/28/25 07:08 09/29/25 07:19 Labs: Laboratory Results - last 24 hr 09/29/25 07:19 Estim Creat Clear Calc 61.3 Estimated GFR > 60 Microbiology Microbiology Results: Microbiology 09/27/25 15:36 Blood Culture - Preliminary Blood - Venous No growth after 24 hours. 09/27/25 15:36 Blood Culture - Preliminary Blood - Venous No growth after 24 hours. 09/27/25 15:50 Gram Stain - Final Neck Routine Culture - Preliminary Culture in progress. Procedures Date of Service Date of Service: 09/29/25 Progress Note: A&P Assessment and plan (1) Abscess, neck: Status: Acute Assessment and Plan: Much improved after needle aspiration Continue antibiotics Cultures growing Gram-positive bacteria, final report Warm compresses Doing well Okay to [place] home from surgical standpoint with the appropriate antibiotics Time Spent With Patient Time: Total time managing care of this patient today ____ minutes. Quality Stroke Does the patient have a stroke diagnosis?: No VTE Prior VTE?: No VTE Risk Level:: Medical - low VTE Device Contraindication: N/A - Device Ordered VTE Drug Contraindication: N/A - Med Ordered
[2025-09-29] MEDS: Calcium + Vitamin D 250 MG TABLET 500 MG PO ×2 (08:48→20:09)
[2025-09-29] MEDS: buPROPion HCl XL 150 MG TAB.ER.24H PO ×2 (08:49→20:09)
[2025-09-29] MEDS: Ferrous Sulfate 324 MG TABLET.DR PO (08:49)
[2025-09-29] MEDS: 0.9 % Sodium Chloride Flush 3 ML SYRINGE IVFLUSH ×2 (08:50→16:29)
[2025-09-29] MEDS: oxyCODONE HCl Immed Release 5 MG TABLET PO (08:52)
--- NOTE | 2025-09-29 14:03 | P.CDIM_ITS ---
PROVIDER RESPONSE TEXT: To clarify, the appropriate diagnosis supported by the clinical indicators: muscle QUERY TEXT: PHYSICIAN'S DOCUMENTATION REQUEST Date of Query: 09/29/2025 01:12 PM EST Patient Name: Wendy Ulloa Admit Date: 09/27/2025 Dear Enrico Fowler MD, A review of the medical record indicates additional documentation may be needed. Please review below and update the documentation accordingly. Clinical Indicators: patient with neck abscess s/p I&D/Aspiration with a g18 needle showed about 5 cm of purulent material sent for cultures IV Vancomycin, IV Cefepime Based on the above, could you clarify the appropriate depth of the drainage procedure: skin subcutaneous tissue/fat muscle Other (explain) Clinically unable to determine (explain) Thank you, Dinorah Bruce RN Use of terms such as suspected, likely, concern for, or probable (associated with a specific diagnosis that is being evaluated, monitored, or treated as if it exists) are acceptable and can be coded in the inpatient setting, when documented at the time of discharge. Please use your independent medical judgment in providing your response. THIS QUERY IS PART OF THE PERMANENT MEDICAL RECORD
--- NOTE | 2025-09-29 14:58 | MHC.CM.PN ---
EMR REVIEWED AND PER MD ROUNDS, PATIENT IS NOT MEDICALLY CLEARED FOR DISCHARGE DUE TO MANAGEMENT OF NECK ABSCESS/BACTEREMIA, CULTURES PENDING.
--- NOTE | 2025-09-29 15:01 | HE.PHANOTE ---
VANCO DOSE ADJUSTMENT BASED ON SCR AND TROUGH OF 14.6 DOSE CONTINUED AT 1500 Q 24H. NEXT LEVEL 10/01 @ 1400
--- NOTE | 2025-09-29 15:52 | W.PM.IDCN ---
History of Present Illness Data of Consult Service Date: 09/29/25 Requesting physician: Misha Armstrong Primary Care Provider: Daphne Bryan MD HPI Reason for consult: MSSA bacteremia,neck abscess She presents with pain left neck and shoulder for three days. Neck abscess present and drained Dr Fowler. Blood cultures and earlier abscess drainage showed MSSA. Review of Systems Review of Systems: Yes all other systems are reviewed and are negative PMFSH Past Medical History Medical History Muscle abscess Breast cancer screening by mammogram Pre-op exam Hospital discharge follow-up Symptomatic anemia Pulmonary embolism Anemia Medicare annual wellness visit, initial Presence of IVC filter History of alcohol abuse Venous stasis dermatitis Obesity Vitamin D deficiency Barretts esophagus Benign essential hypertension Restless leg syndrome Obstructive sleep apnea GERD (gastroesophageal reflux disease) Tubular adenoma of colon Rheumatoid arthritis Hx of deep venous thrombosis Hypercholesterolemia Family History Family History Father History of stomach cancer Mother Family history: reviewed and not pertinent Surgical History Surgical History History of ankle surgery (01/2024) S/P IVC filter (2019) History of esophagogastroduodenoscopy (EGD) (2018) Hx of colonoscopy (2018) History of cataract surgery History of eyelid surgery History of tonsillectomy Hx of arthroscopic knee surgery Hx of heart artery stent Social History Social History Household Members: None Housing: House Housing Other:: Single floor Are you a primary home care assistant to a significant other at home: No Do you presently have visiting nurse or other home services: No Alcohol intake: former Patient Tobacco Use Status: Former Tobacco user Tobacco use type: Cigarette Cigarette Packs Per Day: 2 Years Smoked: quit 1979 e-Cigarette/Vaping Use: Never Used Second Hand Smoke Exposure: No Advance Directives Date on File: 01/24/24 service: No Current occupational status: retired Cognitive needs: Yes (walker, wheelchair, cane) Hearing needs: No Vision needs: Yes (Glasses) Meds Allergies Allergy/AdvReac Type Severity Reaction Status Date / Time No Known Allergies (No Known Allergy Verified 09/27/25 15:14 Allergies*) Active Medications: Current Medications Acetaminophen (Acetaminophen 325 Mg Tablet) 975 mg PO Q6H PRN PRN Reason: Pain, Mild 1-3,fever,headache Last Admin: 09/29/25 06:13 Dose: 975 mg Amlodipine Besylate (Amlodipine Besylate 5 Mg Tablet) 5 mg PO BEDTIME [facility]; Protocol Last Admin: 09/28/25 17:58 Dose: 5 mg Apixaban (Apixaban 2.5 Mg Tablet) 2.5 mg PO BID [facility] Last Admin: 09/29/25 08:49 Dose: 2.5 mg Ascorbic Acid (Ascorbic Acid 500 Mg Tablet) 500 mg PO DAILY [facility] Last Admin: 09/29/25 08:49 Dose: 500 mg Bupropion HCl (Bupropion Hcl Xl 150 Mg Tab.Er.24h) 150 mg PO BID [facility] Last Admin: 09/29/25 08:49 Dose: 150 mg Calcium Carbonate (Calcium Carbonate 750 Mg Tab.Chew) 750 mg PO Q4H PRN PRN Reason: Heartburn Calcium Carbonate/Cholecalciferol (Calcium + Vitamin D 250 Mg Tablet) 500 mg PO BID [facility] Last Admin: 09/29/25 08:48 Dose: 500 mg Cyanocobalamin (Cyanocobalamin (Vitamin B-12) 1,000 Mcg Tablet) 1,000 mcg PO DAILY [facility] Last Admin: 09/29/25 08:49 Dose: 1,000 mcg Ferrous Sulfate (Ferrous Sulfate 324 Mg Tablet.Dr) 324 mg PO DAILY [facility] Last Admin: 09/29/25 08:49 Dose: 324 mg Fluticasone Propionate (Fluticasone Propionate Nasal 16 Gm [place]) 1 spray NOSTRIL-B DAILY [facility] Last Admin: 09/29/25 10:07 Dose: Not Given Folic Acid (Folic Acid 1 Mg Tablet) 1 mg PO DAILY [facility] Last Admin: 09/29/25 08:49 Dose: 1 mg Cefepime HCl (Maxipime) 2 gm in 50 mls @ 100 mls/hr IV Q12H [facility] Last Infusion: 09/29/25 08:50 Dose: Infused Vancomycin HCl 1,500 mg/ (Sodium Chloride) 500 mls @ 333.333 mls/hr IV Q24H [facility] Last Infusion: 09/28/25 19:54 Dose: Infused Lisinopril (Lisinopril 20 Mg Tablet) 20 mg PO DAILY [facility]; Protocol Last Admin: 09/29/25 08:49 Dose: 20 mg Magnesium Hydroxide (Milk Of Magnesia 30 Ml Oral.Susp) 30 ml PO DAILY PRN PRN Reason: Constipation Melatonin (Melatonin 3 Mg Tablet) 6 mg PO BEDTIME PRN PRN Reason: Insomnia Methotrexate (Methotrexate Sodium 2.5 Mg Tablet) 12.5 mg PO TH@0900 [facility] Morphine Sulfate (Morphine Sulfate 4 Mg/Ml Cartridge) 2 mg IVPUSH Q6H PRN; Protocol PRN Reason: Pain, Severe (Pain Scale 7-10) Last Admin: 09/29/25 13:09 Dose: 2 mg Multivitamins/Vitamin C (Multivitamin Tablet) 1 tab PO DAILY [facility] Last Admin: 09/29/25 08:49 Dose: 1 tab Omeprazole (Omeprazole 20 Mg Capsule.Dr) 20 mg PO DAILY@0630 [facility] Last Admin: 09/29/25 06:11 Dose: 20 mg Oxycodone HCl (Oxycodone Hcl Immed Release 5 Mg Tablet) 5 mg PO Q8H PRN PRN Reason: Pain, Moderate(Pain Scale 4-6) Last Admin: 09/29/25 08:52 Dose: 5 mg Pharmacy Consult (Consult Rx Vancomycin Dosing) 1 each MISCELLANE DAILY PRN PRN Reason: Consult order Prednisolone Acetate (Prednisolone Acetate 1 % Oph Susp 5 Ml Drpbtl) 1 drop EYE-LEFT Q2D [facility] Last Admin: 09/28/25 11:50 Dose: Not Given Senna/Docusate Sodium (Sennosides/Docusate Sodium Tablet) 2 tab PO BEDTIME PRN PRN Reason: Constipation Sodium Chloride (0.9 % Sodium Chloride Flush 3 Ml Syringe) 3 ml IVFLUSH QSHIFT [facility] Last Admin: 09/29/25 08:50 Dose: 3 ml Home Medications ?Medication ?Instructions ?Recorded ?Confirmed ?Last Taken ?Type infliximab 100 mg intravenous See Rx Instructions .Route .COMPLEX 10/11/21 09/27/25 08/07/25 History solution (Remicade) methotrexate sodium 2.5 mg tablet 12.5 mg PO TH@0900 01/24/24 09/27/25 09/18/25 History prednisolone acetate 1 % eye 1 drp ophthalmic-Left Q2D 03/27/24 11/29/25 03/26/24 History drops,suspension multivitamin 1 tab PO DAILY 09/02/25 09/27/25 09/27/25 History folic acid 1 mg tablet 1 mg PO DAILY 09/27/25 09/27/25 09/27/25 History sennosides 8.6 mg-docusate sodium 2 tab-cap PO BEDTIME PRN 09/27/25 09/27/25 Unknown History 50 mg capsule (Senna Plus) Constipation simvastatin 5 mg tablet 5 mg PO DAILY 09/27/25 09/27/25 09/27/25 History Physical Exam Vital Signs: Vital Signs: Last Vital Signs Temp 98.7 F 09/29/25 15:32 Pulse 101 H 09/29/25 15:32 Resp 18 09/29/25 15:32 BP 160/70 H 09/29/25 15:32 Pulse Ox 99 09/29/25 15:32 O2 Del Method Room Air 09/29/25 15:32 BMI result Body Mass Index 37.1 Const: General: cooperative HEENT: Head: Yes normal to inspection Face and sinus: Yes normal facial exam Mouth: Normal oral and palatal mucosa present Teeth and gingiva: dentition normal Eyes: General: appearance normal, both eyes and all related structures Pupils: Equal, round and reactive pupils present Neck: Other: left occipital neck area abscess Resp: Effort & Inspection: normal respiratory effort Cardio: Rate: regular rate Rhythm: regular rhythm GI: Palpation (GI): Soft to palpation and nontender : General: Yes no CVA tenderness Back/Spine/Pelvis: Back: no CVA tenderness Skin: General skin exam: no rashes or lesions noted Neuro: General: moves all extremities Cranial nerves: Yes Equal, round and reactive pupils present Extrem: General: Yes normal to inspection Psych: Appearance: grossly normal Results Labs 09/28/25 07:08 09/29/25 07:19 Labs: BMP 09/29/25 07:19 Creatinine 0.73 Microbiology Microbiology Results: Microbiology 09/27/25 15:50 Neck Gram Stain - Final 09/27/25 15:50 Neck Routine Culture - Preliminary Staphylococcus aureus 09/27/25 15:36 Blood - Venous Blood Culture - Preliminary No growth after 24 hours. 09/27/25 15:36 Blood - Venous Blood Culture - Preliminary No growth after 24 hours. Assessment and Plan (1) Muscle abscess: Status: Acute (2) Abscess, neck: Status: Acute (3) Bacteremia: Status: Acute (4) Sepsis: Qualifiers: Sepsis type: sepsis due to unspecified organism Sepsis acute organ dysfunction status: unspecified Qualified Code(s): A41.9 - Sepsis, unspecified organism Status: Acute Plan Patient has MSSA bacteremia Source likely neck,less likely shoulder NKDA Would change antibiotics to Kefzol alone 2 g every 8 hours. Probably 4 weeks Kefzol. Would stop Cefepime and Vancomycin Orthopedics to evaluate shoulder. Check TTE.
[2025-09-29] MEDS: Butalb/Acetamin/Caff 50/325/40 TABLET 1 TAB PO ×2 (17:05→21:10)
--- NOTE | 2025-09-29 17:33 | HO.PM.IMPN ---
Subjective Subjective Date of Service: 09/29/25 Interval History: Bacteremia, still has some neck pain and headache Review of Systems As above. Review of Systems: Yes all other systems are reviewed and are negative Physical Exam Exam: Exam: Appearance: Alert.? Oriented X3.?? neck : neck swelling cvs: rrr, [id number] . res: clear to auscultation ,no rhonchii or wheezing abd: no rebound or guarding ,nt, bs present. ext pulses present , no cyanosis . neuro: axo3 , nonfocal. Vital Signs: Vital Signs: Last Vital Signs Temp 98.7 F 09/29/25 15:32 Pulse 101 H 09/29/25 15:32 Resp 18 09/29/25 15:32 BP 160/70 H 09/29/25 15:32 Pulse Ox 99 09/29/25 15:32 O2 Del Method Room Air 09/29/25 15:32 BMI result Body Mass Index 37.1 Objective Data Active Medications Acetaminophen/Butalbital/Caffeine (Butalb/Acetamin/Caff 50/325/40 Tablet) 1 tab PO Q4H PRN PRN Reason: Headache Last Admin: 09/29/25 17:05 Dose: 1 tab Documented By: JUAN Amlodipine Besylate (Amlodipine Besylate 5 Mg Tablet) 5 mg PO BEDTIME [facility]; Protocol Last Admin: 09/28/25 17:58 Dose: 5 mg Documented By: MAEVE Comments: per Dr richi mac to give early Apixaban (Apixaban 2.5 Mg Tablet) 2.5 mg PO BID [facility] Last Admin: 09/29/25 08:49 Dose: 2.5 mg Documented By: JUAN Ascorbic Acid (Ascorbic Acid 500 Mg Tablet) 500 mg PO DAILY [facility] Last Admin: 09/29/25 08:49 Dose: 500 mg Documented By: JUAN Bupropion HCl (Bupropion Hcl Xl 150 Mg Tab.Er.24h) 150 mg PO BID [facility] Last Admin: 09/29/25 08:49 Dose: 150 mg Documented By: JUAN Calcium Carbonate (Calcium Carbonate 750 Mg Tab.Chew) 750 mg PO Q4H PRN PRN Reason: Heartburn Calcium Carbonate/Cholecalciferol (Calcium + Vitamin D 250 Mg Tablet) 500 mg PO BID [facility] Last Admin: 09/29/25 08:48 Dose: 500 mg Documented By: JUAN Cyanocobalamin (Cyanocobalamin (Vitamin B-12) 1,000 Mcg Tablet) 1,000 mcg PO DAILY [facility] Last Admin: 09/29/25 08:49 Dose: 1,000 mcg Documented By: JUAN Ferrous Sulfate (Ferrous Sulfate 324 Mg Tablet.) 324 mg PO DAILY [facility] Last Admin: 09/29/25 08:49 Dose: 324 mg Documented By: JUAN Fluticasone Propionate (Fluticasone Propionate Nasal 16 Gm [place]) 1 spray NOSTRIL-B DAILY [facility] Last Admin: 09/29/25 10:07 Dose: Not Given Documented By: JUAN Non-Admin Reason: Patient Refused Folic Acid (Folic Acid 1 Mg Tablet) 1 mg PO DAILY [facility] Last Admin: 09/29/25 08:49 Dose: 1 mg Documented By: JUAN Cefazolin Sodium/Dextrose (Ancef) 2 gm in 50 mls @ 100 mls/hr IV Q8H [facility] Last Infusion: 09/29/25 17:07 Dose: Infused Documented By: JUAN Lisinopril (Lisinopril 20 Mg Tablet) 20 mg PO DAILY [facility]; Protocol Last Admin: 09/29/25 08:49 Dose: 20 mg Documented By: JUAN Magnesium Hydroxide (Milk Of Magnesia 30 Ml Oral.Susp) 30 ml PO DAILY PRN PRN Reason: Constipation Melatonin (Melatonin 3 Mg Tablet) 6 mg PO BEDTIME PRN PRN Reason: Insomnia Methotrexate (Methotrexate Sodium 2.5 Mg Tablet) 12.5 mg PO TH@0900 [facility] Morphine Sulfate (Morphine Sulfate 4 Mg/Ml Cartridge) 2 mg IVPUSH Q6H PRN; Protocol PRN Reason: Pain, Severe (Pain Scale 7-10) Last Admin: 09/29/25 13:09 Dose: 2 mg Documented By: JUAN Multivitamins/Vitamin C (Multivitamin Tablet) 1 tab PO DAILY [facility] Last Admin: 09/29/25 08:49 Dose: 1 tab Documented By: JUAN Omeprazole (Omeprazole 20 Mg Capsule.) 20 mg PO DAILY@0630 [facility] Last Admin: 09/29/25 06:11 Dose: 20 mg Documented By: DEONTE Oxycodone HCl (Oxycodone Hcl Immed Release 5 Mg Tablet) 5 mg PO Q8H PRN PRN Reason: Pain, Moderate(Pain Scale 4-6) Last Admin: 09/29/25 08:52 Dose: 5 mg Documented By: JUAN Pharmacy Consult (Consult Rx Vancomycin Dosing) 1 each MISCELLANE DAILY PRN PRN Reason: Consult order Prednisolone Acetate (Prednisolone Acetate 1 % Oph Susp 5 Ml Drpbtl) 1 drop EYE-LEFT Q2D [facility] Last Admin: 09/28/25 11:50 Dose: Not Given Documented By: MAEVE Non-Admin Reason: not in pt bin Senna/Docusate Sodium (Sennosides/Docusate Sodium Tablet) 2 tab PO BEDTIME PRN PRN Reason: Constipation Sodium Chloride (0.9 % Sodium Chloride Flush 3 Ml Syringe) 3 ml IVFLUSH QSHIFT [facility] Last Admin: 09/29/25 16:29 Dose: 3 ml Documented By: JUAN Labs 09/28/25 07:08 09/29/25 07:19 Labs: Laboratory Results - last 24 hr 09/29/25 09/29/25 07:19 14:10 Estim Creat Clear Calc 61.3 Estimated GFR > 60 Random Vancomycin 14.6 L Microbiology Microbiology Results: Microbiology 09/27/25 15:50 Gram Stain - Final Neck Routine Culture - Preliminary Staphylococcus aureus 09/27/25 15:36 Blood Culture - Preliminary Blood - Venous No growth after 24 hours. 09/27/25 15:36 Blood Culture - Preliminary Blood - Venous No growth after 24 hours. Assessment and Plan (1) Abscess, neck: Status: Acute (2) Bacteremia: Status: Acute Plan 74 year old assigned female at with a history of RA, HTN, 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 leukocytosis improved, lactic acid normal elevated esr and crp. Blood culture 1/2: Gram-positive -staph species ,2nd culture negative . neck cultures -pending repeat blood cultures pending 09/26: CTA head and negative. CT neck :2.3 x 3.3 cm thick-walled fluid collection in the left left posterior paraspinal muscles adjacent from C2 to C4, small amount of surrounding fluid fat stranding and overlying skin thickening. Most likely represents an abscess. Differential would include changes related to trauma. This is new from cervical spine CT December 2023. Multilevel degenerative changes of the spine. plan: added echo-staph bacteremia Patient is status post I and D by surgery, follow cultures- as above. Continue IV vanco/cefepime Monitored closely Surgery follow-up Left shoulder pain: xray:No evidence of acute fracture. Superior subluxation of the humeral head with respect to glenoid, can be seen with rotator cuff pathology. plan :pain control, pt/ot Rest of the medication for her chronic conditions including rheumatoid arthritis, hypotension, DVT and PE and depression we will continue. DVT prophylaxis: Eliquis ongoing need : bcateremia /neck abcess -need IV antibiotics, monitor for symptoms, renal function electrolytes monitoring, vanco trough monitoring, PT OT Quality Stroke Does the patient have a stroke diagnosis?: No VTE Prior VTE?: No VTE Risk Level:: Medical - low VTE Device Contraindication: N/A - Device Ordered VTE Drug Contraindication: N/A - Med Ordered
[2025-09-30 03:18] VITALS: BP 151/76; PULSE 102; RESP 18; TEMP 36.7; O2SAT 95
--- NOTE | 2025-09-30 07:00 | CA_ITS ---
Transthoracic Echocardiogram Patient (Last, First, Middle): Wendy Ulloa L Gender: Female Date of : 1950 Age: 74 Procedure Date: 09/30/2025 Procedure Type: Transthoracic Echocardiogram [place] [facility] [place] Height: 149.86 cm Weight: 83.01 kg BSA: 1.78 m2 Heart Rate: 89 bpm BP: 151 / 76 mmHg Surgical Coder: SARAH Referring MD: Misha Armstrong MD Symptoms: staph bacteremia Study Quality: Adequate ECG Rhythm: Sinus Conclusions: - The left ventricular systolic function is normal. The calculated ejection fraction is 68% by biplane method. - No obvious valvular pathology seen on this study. Findings Left Ventricle Normal left ventricular cavity size. There is mildly increased left ventricular wall thickness. The left ventricular systolic function is normal. The calculated ejection fraction is 68% by biplane method. There is no evidence of regional wall motion abnormalities. Evidence suggests grade I (mild) diastolic dysfunction. Right Ventricle Normal right ventricular cavity size and systolic function. Atria Both atria are normal in size. Aortic Valve There is mild calcification of the aortic valve. There is no aortic valve stenosis. There is no aortic valve regurgitation. Mitral Valve There is mild mitral annular calcification. There is trace mitral valve regurgitation. There is no mitral valve stenosis. Pulmonic Valve The pulmonic valve is likely normal. Tricuspid Valve Normal tricuspid valve structure. There is trace tricuspid valve regurgitation. There is no evidence of pulmonary hypertension. Great Vessels The asc aorta and aortic arch are normal in size. Venous The inferior vena cava is normal in size and collapses greater than 50% with inspiration. Pericardium/Pleural There is no evidence of pericardial effusion. Prior Study Comparison No significant change compared to prior study dated: 01/25/2024. Recommendations, Care & Conclusions No obvious valvular pathology seen on this study. Measurements 2D Linear Measurements IVSd: 1.17 0.6-0.9/0.6-1.0 cm LVIDd: 3.01 3.9-5.3/4.2-5.9 cm LVIDd Index: 1.69 2.4-3.2/2.2-3.1 cm/m2 LVIDs: 1.91 2.0-3.6 cm LVPWd: 1.16 0.7-1.1 cm LA Diam: 3.30 2.7-3.8/3.0-4.0 cm LAIDs Index: 1.85 1.5-2.3 cm/m2 LV Mass: 130.00 67-162/88-224 g LV Mass Index: 73.04 43-95/49-115 g/m2 LVOT Diam: 1.90 3.0+(-)1.3 cm 2D Systolic Function EF 4C: 66.00 >55% EF 2C: 71.00 >55% EF BiP: 68.20 >55% Mitral Valve MV Pk E: 1.15 MV PK A: 1.32 MV Decel Time: 206.00 E/A: 0.90 E'Lateral: 9.79 E'Medial: 5.44 E/E' Med: 21.10 E/E' Lat: 11.70 PHT: 60.00 MVA PHT: 3.67 Decel [place]: 5.59 Aortic Valve AoV Pk Mansoor: 2.08 AoV Mn Mansoor: 1.58 AoV VTI: 0.42 AoV Pk Grad: 17.00 Aov Mn Grad: 11.00 ALEJANDRA Cont.VTI: 1.67 LVOT LVOT Pk Mansoor: 1.29 LVOT Mn Mansoor: 0.92 LVOT VTI: 0.25 LVOT Pk Grad: 7.00 LVOT Mn Grad: 4.00 LVOT Diam: 1.90 LVOT Area: 2.84 Diastolic Function MV Pk E: 1.15 MV Pk A: 1.32 E/A: 0.90 E'Medial: 5.44 E/E' Med: 21.10 E' Laterial: 9.79 E/E' Lat: 11.70 Right Ventricle TAPSE (mm): 22.60 TVS' Mansoor: 11.60 Tricuspid Valve TR Pk Mansoor: 1.89 TR Pk Grad: 14.00 RA Press: 3.00 RVSP: 17.00 Great Vessels Aorta Sinus of Valsalva: 3.00 2.0-3.5 cm Ao Asc: 3.50 2.1-3.4 cm Ao Arch: 2.60 Pulmonary Veins Pulm Vein S/D 1.40 Pulmonary Valve PV Pk Mansoor: 1.12 Peak PV Grad: 5.00 Updated in Other Vendor System with Status of Final Asaf Monsalve MD electronically signed on 10/01/2025 11:34:08 AM with status of Final
[2025-09-30 07:20] LABS: Creatinine Clr Calc Pharmacy 56.7; Estimated Glomerular Filt Rate > 60
[2025-09-30 07:48] VITALS: BP 142/62; PULSE 105; RESP 18; TEMP 36.4; O2SAT 98
[2025-09-30] MEDS: buPROPion HCl XL 150 MG TAB.ER.24H PO ×2 (08:11→21:39)
[2025-09-30] MEDS: Calcium + Vitamin D 250 MG TABLET 500 MG PO ×2 (08:11→21:39)
[2025-09-30] MEDS: Ferrous Sulfate 324 MG TABLET.DR PO (08:11)
[2025-09-30] MEDS: oxyCODONE HCl Immed Release 5 MG TABLET PO ×2 (08:14→17:02)
[2025-09-30] MEDS: 0.9 % Sodium Chloride Flush 3 ML SYRINGE IVFLUSH ×3 (08:19→21:41)
[2025-09-30] MEDS: prednisoLONE Acetate 1 % Oph Susp 5 ML DRPBTL 1 DROP EYE-LEFT (09:25)
--- NOTE | 2025-09-30 10:44 | PM.EVENT ---
Event Note Date of Service: 09/30/25 Event Note: Xr significant for rtc arthropathy no acute intervention warranted see out patient prn Time Spent With Patient Time: Total time managing care of this patient today ____ minutes.
[2025-09-30 12:00] VITALS: BP 166/77; PULSE 95; RESP 14; TEMP 37.1; O2SAT 96
--- NOTE | 2025-09-30 15:13 | MHC.CM.PN ---
NO PIC OR MIDLINE IN OF THIS NOTE NECK CT COMPLETED. ORTHO CONSULT NEEDED FOR SHOULDER ASSESSMENT CM AWAITING FINAL IV ABX PLAN. CURRENTLY KEFZOL 2 G Q8H IS RECOMMENDATION. [facility] AND [facility] FOLLOWING
[2025-09-30 15:50] VITALS: BP 155/68; PULSE 94; RESP 16; TEMP 36.7; O2SAT 97
[2025-09-30] MEDS: Butalb/Acetamin/Caff 50/325/40 TABLET 1 TAB PO ×2 (17:03→23:31)
--- NOTE | 2025-09-30 18:06 | P.PNIM_ITS ---
Subjective Subjective Date of Service: 09/30/25 Interval History: Has some neck pain still, staph bacteremia Review of Systems Seems somewhat improving Denies new complaints except as above neck pain Review of Systems: Yes all other systems are reviewed and are negative Physical Exam 2 Exam: Exam: Appearance: Alert.? Oriented X3.?? neck : neck swelling cvs: rrr, [id number] . res: clear to auscultation ,no rhonchii or wheezing abd: no rebound or guarding ,nt, bs present. ext pulses present , no cyanosis . neuro: axo3 , nonfocal. Vital Signs: Vital Signs: Last Vital Signs Temp 98.0 F 09/30/25 15:50 Pulse 94 09/30/25 15:50 Resp 16 09/30/25 15:50 BP 155/68 H 09/30/25 15:50 Pulse Ox 97 09/30/25 15:50 O2 Del Method Room Air 09/30/25 15:50 BMI result Body Mass Index 37.1 Objective Data Active Medications Acetaminophen/Butalbital/Caffeine (Butalb/Acetamin/Caff 50/325/40 Tablet) 1 tab PO Q4H PRN PRN Reason: Headache Last Admin: 09/30/25 17:03 Dose: 1 tab Documented By: JAMES Amlodipine Besylate (Amlodipine Besylate 5 Mg Tablet) 5 mg PO BEDTIME [facility]; Protocol Last Admin: 09/29/25 20:09 Dose: 5 mg Documented By: DEONTE Apixaban (Apixaban 2.5 Mg Tablet) 2.5 mg PO BID [facility] Last Admin: 09/30/25 08:10 Dose: 2.5 mg Documented By: JAMES Ascorbic Acid (Ascorbic Acid 500 Mg Tablet) 500 mg PO DAILY [facility] Last Admin: 09/30/25 08:11 Dose: 500 mg Documented By: JAMES Bupropion HCl (Bupropion Hcl Xl 150 Mg Tab.Er.24h) 150 mg PO BID [facility] Last Admin: 09/30/25 08:11 Dose: 150 mg Documented By: JAMES Calcium Carbonate (Calcium Carbonate 750 Mg Tab.Chew) 750 mg PO Q4H PRN PRN Reason: Heartburn Calcium Carbonate/Cholecalciferol (Calcium + Vitamin D 250 Mg Tablet) 500 mg PO BID [facility] Last Admin: 09/30/25 08:11 Dose: 500 mg Documented By: JAMES Cyanocobalamin (Cyanocobalamin (Vitamin B-12) 1,000 Mcg Tablet) 1,000 mcg PO DAILY [facility] Last Admin: 09/30/25 08:10 Dose: 1,000 mcg Documented By: JAMES Ferrous Sulfate (Ferrous Sulfate 324 Mg Tablet.) 324 mg PO DAILY [facility] Last Admin: 09/30/25 08:11 Dose: 324 mg Documented By: JAMES Fluticasone Propionate (Fluticasone Propionate Nasal 16 Gm [place]) 1 spray NOSTRIL-B DAILY [facility] Last Admin: 09/30/25 11:16 Dose: Not Given Documented By: JAMES Non-Admin Reason: Patient Refused Folic Acid (Folic Acid 1 Mg Tablet) 1 mg PO DAILY [facility] Last Admin: 09/30/25 08:10 Dose: 1 mg Documented By: JAMES Cefazolin Sodium/Dextrose (Ancef) 2 gm in 50 mls @ 100 mls/hr IV Q8H [facility] Last Infusion: 09/30/25 17:41 Dose: Infused Documented By: JAMES Lisinopril (Lisinopril 20 Mg Tablet) 20 mg PO DAILY [facility]; Protocol Last Admin: 09/30/25 08:11 Dose: 20 mg Documented By: JAMES Magnesium Hydroxide (Milk Of Magnesia 30 Ml Oral.Susp) 30 ml PO DAILY PRN PRN Reason: Constipation Melatonin (Melatonin 3 Mg Tablet) 6 mg PO BEDTIME PRN PRN Reason: Insomnia Methotrexate (Methotrexate Sodium 2.5 Mg Tablet) 12.5 mg PO TH@0900 [facility] Morphine Sulfate (Morphine Sulfate 4 Mg/Ml Cartridge) 2 mg IVPUSH Q6H PRN; Protocol PRN Reason: Pain, Severe (Pain Scale 7-10) Last Admin: 09/30/25 09:33 Dose: 2 mg Documented By: JAMES Multivitamins/Vitamin C (Multivitamin Tablet) 1 tab PO DAILY [facility] Last Admin: 09/30/25 08:10 Dose: 1 tab Documented By: JAMES Omeprazole (Omeprazole 20 Mg Capsule.) 20 mg PO DAILY@0630 [facility] Last Admin: 09/30/25 06:30 Dose: 20 mg Documented By: DEONTE Oxycodone HCl (Oxycodone Hcl Immed Release 5 Mg Tablet) 5 mg PO Q8H PRN PRN Reason: Pain, Moderate(Pain Scale 4-6) Last Admin: 09/30/25 17:02 Dose: 5 mg Documented By: JAMES Pharmacy Consult (Consult Rx Vancomycin Dosing) 1 each MISCELLANE DAILY PRN PRN Reason: Consult order Prednisolone Acetate (Prednisolone Acetate 1 % Oph Susp 5 Ml Drpbtl) 1 drop EYE-LEFT Q2D [facility] Last Admin: 09/30/25 09:25 Dose: 1 drop Documented By: JAMES Senna/Docusate Sodium (Sennosides/Docusate Sodium Tablet) 2 tab PO BEDTIME PRN PRN Reason: Constipation Last Admin: 09/30/25 08:26 Dose: 2 tab Documented By: JAMES Sodium Chloride (0.9 % Sodium Chloride Flush 3 Ml Syringe) 3 ml IVFLUSH QSHIFT [facility] Last Admin: 09/30/25 17:06 Dose: 3 ml Documented By: JAMES Labs 09/28/25 07:08 09/30/25 06:26 Labs: Laboratory Results - last 24 hr 09/30/25 06:26 Hold Purple Top SEE NOTE Estim Creat Clear Calc 56.7 Estimated GFR > 60 Microbiology Microbiology Results: Microbiology 09/27/25 15:50 Gram Stain - Final Neck Routine Culture - Final Staphylococcus aureus 09/27/25 15:36 Blood Culture - Preliminary Blood - Venous No growth after 48 hours. 09/27/25 15:36 Blood Culture - Preliminary Blood - Venous No growth after 48 hours. 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 leukocytosis improved, lactic acid normal elevated esr and crp. Blood culture 1/2: Gram-positive -staph species ,2nd culture negative . neck cultures -pending repeat blood cultures pending 09/26: CTA head and negative. CT neck :2.3 x 3.3 cm thick-walled fluid collection in the left left posterior paraspinal muscles adjacent from C2 to C4, small amount of surrounding fluid fat stranding and overlying skin thickening. Most likely represents an abscess. Differential would include changes related to trauma. This is new from cervical spine CT December 2023. Multilevel degenerative changes of the spine. plan: Symptoms are improving, but has some neck pain-repeat ct neck added. added echo-staph bacteremia Patient is status post I and D by surgery, initial blood culture /2 as well as neck culture sent by surgery: Staph aureus(mssa).Repeat blood culture negative@48hrs ID recommended probably need 4 weeks of Kefzol, PICC line ordered Monitored closely Left shoulder pain: xray:No evidence of acute fracture. Superior subluxation of the humeral head with respect to glenoid, can be seen with rotator cuff pathology. Seen by orthopedics:rtc arthropathy plan :pain control, follow up outpatient pt /ot eval Rest of the medication for her chronic conditions including rheumatoid arthritis, hypotension, DVT and PE and depression we will continue. DVT prophylaxis: Eliquis ongoing need : bcateremia /neck abcess -need IV antibiotics, monitor for symptoms, renal function electrolytes monitoring, vanco trough monitoring, PT OT Quality Stroke Does the patient have a stroke diagnosis?: No VTE Prior VTE?: No VTE Risk Level:: Medical - low VTE Device Contraindication: N/A - Device Ordered VTE Drug Contraindication: N/A - Med Ordered
[2025-09-30 19:08] VITALS: BP 124/72; PULSE 98; RESP 20; TEMP 36.6; O2SAT 98
[2025-09-30 23:31] VITALS: BP 142/78; PULSE 92; RESP 18; TEMP 36.4; O2SAT 97
[2025-10-01 03:56] VITALS: BP 140/78; PULSE 93; RESP 18; TEMP 36.3; O2SAT 95
[2025-10-01] MEDS: oxyCODONE HCl Immed Release 5 MG TABLET PO (06:34)
[2025-10-01 07:45] VITALS: BP 164/80; PULSE 92; RESP 20; TEMP 36.6; O2SAT 95
[2025-10-01 07:46] LABS: Hematocrit 28.9 % (37.0-47.0); Hemoglobin 8.8 g/dl (12.0-16.0); Mean Corpuscular HGB Conc 30.4 g/dl (31.0-35.0); Mean Corpuscular Hemoglobin 24.4 pg (27.0-33.0); Mean Corpuscular Volume 80.1 fL (80.0-98.0); NRBC Abs Auto 0.000 X10*3/uL (0.0-0.012); NRBC Pct Auto 0.0 /100WBC (0.0-0.2); Platelet Count 394 X10*3/uL (160-400); Red Blood Count 3.61 X10*6/uL (4.20-5.50); White Blood Count 7.4 X10*3/uL (4.8-10.8)
--- NOTE | 2025-10-01 07:55 | P.PNGS_ITS ---
Subjective Subjective Date of Service: 10/01/25 Interval history: Admits to pain on the left neck but better No fevers No other complaints Physical Exam 2 Vital Signs: Vital Signs: Last Vital Signs Temp 97.9 F 10/01/25 07:45 Pulse 92 10/01/25 07:45 Resp 20 10/01/25 07:45 BP 164/80 H 10/01/25 07:45 Pulse Ox 95 10/01/25 07:45 O2 Del Method Room Air 10/01/25 07:45 BMI result Body Mass Index 37.1 Const: General: comfortable and no acute distress Neck: Other: Induration in the left neck much improved, still with some tenderness but less, no cellulitis, no fluctuance Resp: Effort & Inspection: normal respiratory effort Cardio: Rate: regular rate Objective Data Active Medications Acetaminophen/Butalbital/Caffeine (Butalb/Acetamin/Caff 50/325/40 Tablet) 1 tab PO Q4H PRN PRN Reason: Headache Last Admin: 09/30/25 23:31 Dose: 1 tab Documented By: APPLE Amlodipine Besylate (Amlodipine Besylate 5 Mg Tablet) 5 mg PO BEDTIME [facility]; Protocol Last Admin: 09/30/25 21:39 Dose: 5 mg Documented By: APPLE Apixaban (Apixaban 2.5 Mg Tablet) 2.5 mg PO BID [facility] Last Admin: 09/30/25 21:39 Dose: 2.5 mg Documented By: APPLE Ascorbic Acid (Ascorbic Acid 500 Mg Tablet) 500 mg PO DAILY [facility] Last Admin: 09/30/25 08:11 Dose: 500 mg Documented By: JAMES Bupropion HCl (Bupropion Hcl Xl 150 Mg Tab.Er.24h) 150 mg PO BID [facility] Last Admin: 09/30/25 21:39 Dose: 150 mg Documented By: APPLE Calcium Carbonate (Calcium Carbonate 750 Mg Tab.Chew) 750 mg PO Q4H PRN PRN Reason: Heartburn Calcium Carbonate/Cholecalciferol (Calcium + Vitamin D 250 Mg Tablet) 500 mg PO BID [facility] Last Admin: 09/30/25 21:39 Dose: 500 mg Documented By: APPLE Cyanocobalamin (Cyanocobalamin (Vitamin B-12) 1,000 Mcg Tablet) 1,000 mcg PO DAILY [facility] Last Admin: 09/30/25 08:10 Dose: 1,000 mcg Documented By: JAMES Ferrous Sulfate (Ferrous Sulfate 324 Mg Tablet.) 324 mg PO DAILY [facility] Last Admin: 09/30/25 08:11 Dose: 324 mg Documented By: JAMES Fluticasone Propionate (Fluticasone Propionate Nasal 16 Gm [place]) 1 spray NOSTRIL-B DAILY [facility] Last Admin: 09/30/25 11:16 Dose: Not Given Documented By: JAMES Non-Admin Reason: Patient Refused Folic Acid (Folic Acid 1 Mg Tablet) 1 mg PO DAILY [facility] Last Admin: 09/30/25 08:10 Dose: 1 mg Documented By: JAMES Cefazolin Sodium/Dextrose (Ancef) 2 gm in 50 mls @ 100 mls/hr IV Q8H [facility] Last Infusion: 10/01/25 00:01 Dose: Infused Documented By: APPLE Lisinopril (Lisinopril 20 Mg Tablet) 20 mg PO DAILY [facility]; Protocol Last Admin: 09/30/25 08:11 Dose: 20 mg Documented By: JAMES Magnesium Hydroxide (Milk Of Magnesia 30 Ml Oral.Susp) 30 ml PO DAILY PRN PRN Reason: Constipation Melatonin (Melatonin 3 Mg Tablet) 6 mg PO BEDTIME PRN PRN Reason: Insomnia Methotrexate (Methotrexate Sodium 2.5 Mg Tablet) 12.5 mg PO TH@0900 [facility] Morphine Sulfate (Morphine Sulfate 4 Mg/Ml Cartridge) 2 mg IVPUSH Q6H PRN; Protocol PRN Reason: Pain, Severe (Pain Scale 7-10) Last Admin: 09/30/25 21:40 Dose: 2 mg Documented By: APPLE Multivitamins/Vitamin C (Multivitamin Tablet) 1 tab PO DAILY [facility] Last Admin: 09/30/25 08:10 Dose: 1 tab Documented By: JAMES Omeprazole (Omeprazole 20 Mg Capsule.) 20 mg PO DAILY@0630 [facility] Last Admin: 10/01/25 05:56 Dose: 20 mg Documented By: APPLE Oxycodone HCl (Oxycodone Hcl Immed Release 5 Mg Tablet) 5 mg PO Q8H PRN PRN Reason: Pain, Moderate(Pain Scale 4-6) Last Admin: 10/01/25 06:34 Dose: 5 mg Documented By: APPLE Pharmacy Consult (Consult Rx Vancomycin Dosing) 1 each MISCELLANE DAILY PRN PRN Reason: Consult order Prednisolone Acetate (Prednisolone Acetate 1 % Oph Susp 5 Ml Drpbtl) 1 drop EYE-LEFT Q2D [facility] Last Admin: 09/30/25 09:25 Dose: 1 drop Documented By: JAMES Senna/Docusate Sodium (Sennosides/Docusate Sodium Tablet) 2 tab PO BEDTIME PRN PRN Reason: Constipation Last Admin: 09/30/25 08:26 Dose: 2 tab Documented By: JAMES Sodium Chloride (0.9 % Sodium Chloride Flush 3 Ml Syringe) 3 ml IVFLUSH QSHIFT [facility] Last Admin: 09/30/25 21:41 Dose: 3 ml Documented By: APPLE Labs 10/01/25 06:54 09/30/25 06:26 Labs: Laboratory Results - last 24 hr 10/01/25 06:54 MCV 80.1 MCH 24.4 L MCHC 30.4 L RDW 21.7 H Plt Count 394 MPV 9.1 L Absolute Nucleated RBC 0.000 Nucleated RBC % (auto) 0.0 Microbiology Microbiology Results: Microbiology 09/27/25 15:50 Gram Stain - Final Neck Routine Culture - Final Staphylococcus aureus Procedures Date of Service Date of Service: 10/01/25 Progress Note: A&P Assessment and plan (1) Muscle abscess: Status: Acute Assessment and Plan: Significant clinical improvement after aspiration Cultures show staph aureus Induration much improved Cat scan and MRI findings noted - possible small residual fluid collections In view of significant improvement, I would continue to antibiotic treatment She does not have any fever Looks well overall We will follow Discussed with hospitalist Time Spent With Patient Time: Total time managing care of this patient today ____ minutes. Quality Stroke Does the patient have a stroke diagnosis?: No VTE Prior VTE?: No VTE Risk Level:: Medical - low VTE Device Contraindication: N/A - Device Ordered VTE Drug Contraindication: N/A - Med Ordered
[2025-10-01 08:06] LABS: Anion Gap 11 (12-20); Blood Urea Nitrogen 13 mg/dL (9-16); Calcium 9.1 mg/dL (8.4-10.2); Carbon Dioxide 26 mmol/L (22-29); Chloride 107 mmol/L (96-108); Creatinine Clr Calc Pharmacy 56.7; Estimated Glomerular Filt Rate > 60; Potassium 3.4 mmol/L (3.3-5.1); Sodium 141 mmol/L (135-145)
[2025-10-01 08:07] LABS: Creatinine Clr Calc Pharmacy 56.7; Estimated Glomerular Filt Rate > 60
[2025-10-01] MEDS: buPROPion HCl XL 150 MG TAB.ER.24H PO ×2 (08:10→20:06)
[2025-10-01] MEDS: Ferrous Sulfate 324 MG TABLET.DR PO (08:10)
[2025-10-01] MEDS: Calcium + Vitamin D 250 MG TABLET 500 MG PO ×2 (08:10→20:06)
[2025-10-01] MEDS: 0.9 % Sodium Chloride Flush 3 ML SYRINGE IVFLUSH ×3 (08:18→20:09)
[2025-10-01] MEDS: Butalb/Acetamin/Caff 50/325/40 TABLET 1 TAB PO ×2 (11:53→16:13)
--- NOTE | 2025-10-01 11:54 | HO.PICC ---
PICC Line Insertion NPICC Diagnosis: MRSA/Neck abscess Indication: 6wks ABT Pertinent Labs: reviewed Technique: Following informed consent including risks, benefits and alternatives and using sterile technique including cap and mask, sterile gown, glove and drape, the right arm was prepped and draped in the usual sterile fashion of full barrier technique with G. Following completion of [place] Protocol the skin and soft tissues were anesthetized with 1% Lidocaine plain. Using ultrasound guidance, right brachial vein access was obtained. Over an 0.018 wire through peel-away sheath, a 4fr single lumen PASV PICC line was positioned. Catheter length is 37cm internal length, 0cm external length, for a total trimmed length of 37cm. The procedure was performed in [facility]. Tip verification was performed by Estee Vance with Sherlock 3CG. Tip located in SVC. Ultrasound was used to document vein patency and for needle entry. A formal ultrasound picture and cardiac rhythm strip was recorded. [employer] has released the line for use and it is currently dressed with a StatLock, Tegaderm, and CHG disc. Verification has been performed for blood return and line patency. Arm Circumference: 28cm Equipment: [employer] POWERPICC SOLO catheter with Sherlock 3CG tip Catheter Type: 4FR single lumen PASV Lot #: [id number]
[2025-10-01 12:00] VITALS: BP 147/76; PULSE 99; RESP 20; TEMP 36.8; O2SAT 99
--- NOTE | 2025-10-01 13:10 | P.PNIM_ITS ---
Subjective Subjective Date of Service: 10/01/25 Interval History: neck pain Physical Exam 2 Vital Signs: Vital Signs: Last Vital Signs Temp 98.2 F 10/01/25 12:00 Pulse 99 10/01/25 12:00 Resp 20 10/01/25 12:00 BP 147/76 H 10/01/25 12:00 Pulse Ox 99 10/01/25 12:00 O2 Del Method Room Air 10/01/25 12:00 BMI result Body Mass Index 37.1 Const: General: comfortable and no acute distress Neck: Other: Induration in the left neck much improved, still with some tenderness but less, no cellulitis, no fluctuance Resp: Effort & Inspection: normal respiratory effort Cardio: Rate: regular rate Objective Data Active Medications Acetaminophen/Butalbital/Caffeine (Butalb/Acetamin/Caff 50/325/40 Tablet) 1 tab PO Q4H PRN PRN Reason: Headache Last Admin: 10/01/25 11:53 Dose: 1 tab Documented By: JAMES Amlodipine Besylate (Amlodipine Besylate 5 Mg Tablet) 5 mg PO BEDTIME [facility]; Protocol Last Admin: 09/30/25 21:39 Dose: 5 mg Documented By: APPLE Apixaban (Apixaban 2.5 Mg Tablet) 2.5 mg PO BID [facility] Last Admin: 10/01/25 11:54 Dose: 2.5 mg Documented By: JAMES Ascorbic Acid (Ascorbic Acid 500 Mg Tablet) 500 mg PO DAILY [facility] Last Admin: 10/01/25 08:10 Dose: 500 mg Documented By: JAMES Bupropion HCl (Bupropion Hcl Xl 150 Mg Tab.Er.24h) 150 mg PO BID [facility] Last Admin: 10/01/25 08:10 Dose: 150 mg Documented By: JAMES Calcium Carbonate (Calcium Carbonate 750 Mg Tab.Chew) 750 mg PO Q4H PRN PRN Reason: Heartburn Calcium Carbonate/Cholecalciferol (Calcium + Vitamin D 250 Mg Tablet) 500 mg PO BID [facility] Last Admin: 10/01/25 08:10 Dose: 500 mg Documented By: JAMES Cyanocobalamin (Cyanocobalamin (Vitamin B-12) 1,000 Mcg Tablet) 1,000 mcg PO DAILY [facility] Last Admin: 10/01/25 08:10 Dose: 1,000 mcg Documented By: JAMES Ferrous Sulfate (Ferrous Sulfate 324 Mg Tablet.) 324 mg PO DAILY [facility] Last Admin: 10/01/25 08:10 Dose: 324 mg Documented By: JAMES Fluticasone Propionate (Fluticasone Propionate Nasal 16 Gm [place]) 1 spray NOSTRIL-B DAILY [facility] Last Admin: 10/01/25 08:36 Dose: 1 spray Documented By: JAMES Folic Acid (Folic Acid 1 Mg Tablet) 1 mg PO DAILY [facility] Last Admin: 10/01/25 08:10 Dose: 1 mg Documented By: JAMES Cefazolin Sodium/Dextrose (Ancef) 2 gm in 50 mls @ 100 mls/hr IV Q8H [facility] Last Infusion: 10/01/25 08:40 Dose: Infused Documented By: JAMES Lisinopril (Lisinopril 20 Mg Tablet) 20 mg PO DAILY [facility]; Protocol Last Admin: 10/01/25 08:10 Dose: 20 mg Documented By: JAMES Magnesium Hydroxide (Milk Of Magnesia 30 Ml Oral.Susp) 30 ml PO DAILY PRN PRN Reason: Constipation Melatonin (Melatonin 3 Mg Tablet) 6 mg PO BEDTIME PRN PRN Reason: Insomnia Methotrexate (Methotrexate Sodium 2.5 Mg Tablet) 12.5 mg PO TH@0900 [facility] Morphine Sulfate (Morphine Sulfate 4 Mg/Ml Cartridge) 2 mg IVPUSH Q6H PRN; Protocol PRN Reason: Pain, Severe (Pain Scale 7-10) Last Admin: 10/01/25 11:53 Dose: 2 mg Documented By: JAMES Multivitamins/Vitamin C (Multivitamin Tablet) 1 tab PO DAILY [facility] Last Admin: 10/01/25 08:10 Dose: 1 tab Documented By: JAMES Omeprazole (Omeprazole 20 Mg Capsule.) 20 mg PO DAILY@0630 [facility] Last Admin: 10/01/25 05:56 Dose: 20 mg Documented By: APPLE Oxycodone HCl (Oxycodone Hcl Immed Release 5 Mg Tablet) 5 mg PO Q8H PRN PRN Reason: Pain, Moderate(Pain Scale 4-6) Last Admin: 10/01/25 06:34 Dose: 5 mg Documented By: APPLE Pharmacy Consult (Consult Rx Vancomycin Dosing) 1 each MISCELLANE DAILY PRN PRN Reason: Consult order Prednisolone Acetate (Prednisolone Acetate 1 % Oph Susp 5 Ml Drpbtl) 1 drop EYE-LEFT Q2D [facility] Last Admin: 09/30/25 09:25 Dose: 1 drop Documented By: JAMES Senna/Docusate Sodium (Sennosides/Docusate Sodium Tablet) 2 tab PO BEDTIME PRN PRN Reason: Constipation Last Admin: 09/30/25 08:26 Dose: 2 tab Documented By: JAMES Sodium Chloride (0.9 % Sodium Chloride Flush 3 Ml Syringe) [facility] Last Admin: 10/01/25 08:18 Dose: 3 ml Documented By: JAMES Sodium Chloride (0.9 % Sodium Chloride Flush 10 Ml Syringe) [facility] 10/01/25 06:54 10/01/25 06:54 Labs: Laboratory Results - last 24 hr 10/01/25 10/01/25 10/01/25 06:54 06:54 06:54 MCV 80.1 MCH 24.4 L MCHC 30.4 L RDW 21.7 H Plt Count 394 MPV 9.1 L Absolute Nucleated RBC 0.000 Nucleated RBC % (auto) 0.0 Anion Gap 11 L Estim Creat Clear Calc 56.7 56.7 Estimated GFR > 60 > 60 Random Glucose 96 Calcium 9.1 Assessment and Plan (1) Muscle abscess: Status: Acute Plan 74F PMH RA, DVT/PE on eliquis, HTN, mood disorder, etoh dependence in remission, neck abscess sent in for positive blood culture with MSSA Sepsis due to MSSA bacteremia due to neck abscesses and 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, C5 spinous process osteomyelitis Underwent aspiration of neck abscess, blood cultures now negative, plan for 6 weeks of IV cefazolin, PICC line placed echo without vegetations History of DVT/PE Continue apixaban Mood disorder Continue bupropion Hypertension Lisinopril, amlodipine RA Methotrexate DVT prophylaxis on apixaban Full code reason for continued hospitalization: Setting up long-term IV antibiotics Quality Stroke Does the patient have a stroke diagnosis?: No VTE Prior VTE?: No VTE Risk Level:: Medical - low VTE Device Contraindication: N/A - Device Ordered VTE Drug Contraindication: N/A - Med Ordered
--- NOTE | 2025-10-01 13:38 | MHC.CM.PN ---
Addendum entered by Lois Queen RN 10/01/25 16:36: IMM 10/01/25 DELIVERED TO BEDSIDE Addendum entered by Lois Queen RN 10/01/25 16:35: JAVIER SHORT UNABLE TO OFFER, DTR TICO [phone] NOTIFED AND PLAN WILL BE FOR PPT TO DC TO [facility] 10/02 AT 11AM Addendum entered by Lois Queen RN 10/01/25 13:49: CM RECEIVED MESSAGE FROM DTR TICO [phone] REQUESTING JAVIER SHORT, CM AWAITING RESPONSE IN [facility] Original Note: EMR REVIEWED, PER HOSPITALIST PT WILL NEED 6WKS IV KEFZOL Q HRS, CM ATTEMPTED TO MEET W/PT TO DISCUSS STR OPTIONS PT LIVES ALONE AND HAS LIMITED ROM IN [facility], PT BRANDI GETTING PICC LINE, CM CONTACTED PT'S HCP/DTR JOSE AT #ON FILE AND HE REPORTED PT'S LOCAL DTR TICO WORKS AT [facility] HOWEVER THEY WILL NOT DO SHELTER IV ABX, JOSE AGREEABLE TO SNF REFERRAL W/[facility] FIRST CHOICE. [facility] OFFERING BED AND DC PREBOOKED FOR 11AM.
[2025-10-01 15:37] VITALS: BP 137/67; PULSE 100; RESP 16; TEMP 36.8; O2SAT 97
[2025-10-01] MEDS: 0.9 % Sodium Chloride Flush 10 ML SYRINGE IVFLUSH (17:14)
[2025-10-01 19:49] VITALS: BP 134/60; PULSE 96; RESP 18; TEMP 36.3; O2SAT 97
[2025-10-02] VITALS: BP 146/70; PULSE 97; RESP 18; TEMP 37.1; O2SAT 96
[2025-10-02] MEDS: 0.9 % Sodium Chloride Flush 3 ML SYRINGE IVFLUSH ×2 (00:04→07:49)
[2025-10-02] MEDS: 0.9 % Sodium Chloride Flush 10 ML SYRINGE IVFLUSH ×2 (00:06→07:58)
[2025-10-02] MEDS: oxyCODONE HCl Immed Release 5 MG TABLET PO ×2 (00:07→10:56)
[2025-10-02 02:50] VITALS: BP 171/80; PULSE 96; RESP 18; TEMP 36.6; O2SAT 99
[2025-10-02] MEDS: Butalb/Acetamin/Caff 50/325/40 TABLET 1 TAB PO ×2 (04:39→08:18)
[2025-10-02 07:27] LABS: Hematocrit 29.1 % (37.0-47.0); Hemoglobin 9.0 g/dl (12.0-16.0); Mean Corpuscular HGB Conc 30.9 g/dl (31.0-35.0); Mean Corpuscular Hemoglobin 25.0 pg (27.0-33.0); Mean Corpuscular Volume 80.8 fL (80.0-98.0); NRBC Abs Auto 0.000 X10*3/uL (0.0-0.012); NRBC Pct Auto 0.0 /100WBC (0.0-0.2); Platelet Count 321 X10*3/uL (160-400); Red Blood Count 3.60 X10*6/uL (4.20-5.50); White Blood Count 8.7 X10*3/uL (4.8-10.8)
[2025-10-02 07:38] LABS: Anion Gap 13 (12-20); Blood Urea Nitrogen 11 mg/dL (9-16); Calcium 9.1 mg/dL (8.4-10.2); Carbon Dioxide 24 mmol/L (22-29); Chloride 107 mmol/L (96-108); Creatinine Clr Calc Pharmacy 65.8; Estimated Glomerular Filt Rate > 60; Potassium 3.6 mmol/L (3.3-5.1); Sodium 140 mmol/L (135-145)
[2025-10-02] MEDS: buPROPion HCl XL 150 MG TAB.ER.24H PO (07:56)
[2025-10-02] MEDS: Ferrous Sulfate 324 MG TABLET.DR PO (07:56)
[2025-10-02] MEDS: prednisoLONE Acetate 1 % Oph Susp 5 ML DRPBTL 1 DROP EYE-LEFT (07:56)
[2025-10-02] MEDS: Calcium + Vitamin D 250 MG TABLET 500 MG PO (07:57)
[2025-10-02 08:00] VITALS: BP 168/79; PULSE 96; RESP 18; TEMP 36.7; O2SAT 95
[2025-10-02] MEDS: Milk of Magnesia 30 ML ORAL.SUSP PO (08:19)
--- NOTE | 2025-10-02 10:41 | PM.DS ---
DS: Providers Provider Date of Service: 10/02/25 Date of admission: 09/27/25 17:06 Date of discharge: 10/02/25 Primary care physician: Daphne Bryan MD Consults: 09/27/25 17:18 Consult to General Surgery Routine Consulting Provider: [facility] [place] [facility] Reason for consultation: Neck abscess 09/28/25 15:22 Consult to Infectious Diseases Routine Consulting Provider: [facility] Reason for consultation: staph bacteremia/neck abcess Has provider been notified: No 09/30/25 10:00 Consult to Orthopedics Routine Consulting Provider: [facility] Reason for consultation: Shoulder subluxation left DS: Diagnosis Discharge Diagnosis (1) Muscle abscess: Status: Acute DS: Summary Hospital Course Hospital Course: from initial hpi: 74 year old assigned female at with a history of RA, HTN, 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 on 09/26/25-she came to ed left sided neck abscess and started on antibiotics when she got called today and told that her blood cultures were positive and she should return. Yesterday patient left home it was thought the patient has either hematoma versus abscess-will discharge yesterday with p.o. antibiotics and ask for using warm compresses-to the patient called back because of positive blood cultures. She says that all symptoms started a week ago when she went her neck is having some soreness, afterwards she started noticing a bump. In addition patient says that she bumped her shoulder few days back-she has chronic shoulder pain but it is more pain than usual now since then. Patient denies any trauma to the neck or scratching or erythema. Denies any neurological symptoms including pain radiation, weakness numbness or any blurred vision or dizziness. Able to move all extremities and neck. WBC count today 12.8, CRP 25.06. Blood cultures from yesterday grew gram positive cocci in clusters 1/2. CT soft tissue neck scan from 09/26 showed 2.3x3.3cm thick-walled fluid filled collection in the left posterior paraspinal muscle adjacent of C2-C4 with small amount of fat stranding in the fluid. Consulted with the general surgery team who performed a bed sized I&D and wound cultures sent. 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 She underwent aspiration of neck abscess and had ulcer grew MSSA. Blood cultures became negative and plan is for 6 weeks of IV cefazolin to be completed 11/08/2025, PICC line was placed and antibiotics will be completed at senior care facility. Echo was without vegetation. For history of DVT and PE was continued on apixaban. For mood disorder continued on bupropion. For hypertension continued on lisinopril and amlodipine. For RA continue methotrexate. Time Attestation Discharge Coordination Time (in mins): 33 Quality: Safe Use of Opioids Does Pt have an Active Cancer Diagnosis on the Problem List?: No Quality: Stroke Does the patient have a stroke diagnosis?: No Physical Exam Vital Signs: Vital Signs: Last Vital Signs Temp 98.1 F 10/02/25 08:00 Pulse 96 10/02/25 08:00 Resp 18 10/02/25 08:00 BP 168/79 H 10/02/25 08:00 Pulse Ox 95 10/02/25 08:00 O2 Del Method Room Air 10/02/25 08:00 BMI result Body Mass Index 37.1 Const: General: comfortable and no acute distress Neck: Other: Induration in the left neck much improved, still with some tenderness but less, no cellulitis, no fluctuance Resp: Effort & Inspection: normal respiratory effort Cardio: Rate: regular rate DS: Data Data Completed and Pending Completed studies during hospitalization [Text1]: Procedures Introduction of Anesthetic Agent into Peripheral Nerves and Plexi, Percutaneous Approach (01/26/24) Reposition Left Tibia with Internal Fixation Device, Open Approach (01/26/24) Transfusion of Nonautologous Red Blood Cells into Peripheral Vein, Percutaneous Approach (10/11/21) Labs on day of discharge: Laboratory Results - last 24 hr 10/02/25 06:52 WBC 8.7 RBC 3.60 L Hgb 9.0 L Hct 29.1 L MCV 80.8 MCH 25.0 L MCHC 30.9 L RDW 21.5 H Plt Count 321 MPV 9.5 Absolute Nucleated RBC 0.000 Nucleated RBC % (auto) 0.0 Sodium 140 Potassium 3.6 Chloride 107 Carbon Dioxide 24 Anion Gap 13 BUN 11 Creatinine 0.68 Estim Creat Clear Calc 65.8 Estimated GFR > 60 Random Glucose 88 Calcium 9.1 Preliminary micro results at discharge 09/27/25 15:36 Blood Culture - Preliminary Blood - Venous No growth after 48 hours. 09/27/25 15:36 Blood Culture - Preliminary Blood - Venous No growth after 48 hours. Discharge Plan Discharge Anticipated Discharge Date/Time: 10/02/25 10:26 Patient Disposition: Xfer SNF Discharge Diagnosis: mssa bacteremia Referrals: CRISTOPHER CURRY [Other] - 1 Week Referral Note: SHORT TERM REHAB Po,Daphne Rodriguez MD [Primary Care Provider, Internal Medicine] - 1 Week Discharge Medications: New cefazolin in dextrose (iso-os) 2 gram/50 mL Piggyback 50 ml IV Q8H 42 Days Qty: 0 0RF amlodipine 5 mg Tablet 5 mg PO BEDTIME Qty: 0 0RF Protocol: Hold for SBP< HOLD for SBP < : 90 oxycodone 5 mg tablet 5 mg PO Q8H PRN (Reason: pain (scale score 7-10)) Qty: 10 0RF Rx Instructions: Partial Fill upon patient request. Continued (DME) WALKER See Rx Instructions .Route .MEDSUPPLY Qty: 1 0RF Rx Instructions: As directed fluticasone propionate 50 mcg/actuation spray,suspension 1 spray INTRANASAL DAILY Qty: 16 3RF Rx Instructions: administer into each nostril cyanocobalamin (vitamin B-12) 1,000 mcg tablet 1,000 mcg PO DAILY Qty: 90 2RF omeprazole 20 mg capsule,delayed release(DR/EC) 20 mg PO DAILY@0630 Qty: 90 0RF bupropion HCl 150 mg tablet extended release 24 hr 150 mg PO BID Qty: 180 1RF ferrous sulfate [Feosol] 325 mg (65 mg iron) tablet 325 mg PO DAILY Qty: 90 1RF ascorbate calcium (vitamin C) 500 mg tablet 500 mg PO DAILY Qty: 30 4RF fenofibrate 160 mg tablet 160 mg PO DAILY Qty: 90 0RF lisinopril 20 mg tablet 20 mg PO DAILY Qty: 90 0RF Eliquis 2.5 mg tablet 2.5 mg PO BID Qty: 180 0RF calcium carbonate-vitamin D3 600 mg-10 mcg (400 unit) capsule 1 cap PO BID 30 Days Qty: 60 0RF infliximab [Remicade] 100 mg Recon Soln See Rx Instructions .ROUTE .COMPLEX Rx Instructions: every 2 months methotrexate sodium 2.5 mg tablet 12.5 mg PO TH@0900 prednisolone acetate 1 % drops,suspension 1 drp ophthalmic-Left Q2D multivitamin Tablet 1 tab PO DAILY simvastatin 5 mg tablet 5 mg PO DAILY Senna Plus 8.6-50 mg capsule 2 tab-cap PO BEDTIME PRN (Reason: Constipation) folic acid 1 mg tablet 1 mg PO DAILY oxycodone-acetaminophen [Percocet] 5-325 mg tablet 1 tab PO Q8H PRN (Reason: pain) Qty: 75 0RF Rx Instructions: Partial Fill upon patient request. Discontinued cephalexin 500 mg capsule 500 mg PO QID 7 Days Qty: 28 0RF doxycycline hyclate 100 mg tablet 100 mg PO BID 7 Days Qty: 14 0RF Discharge Orders: Discharge Order (Routine); Ordered 10/02/25 Ordered By: Ga Moore Diet: Advance to usual diet Activity on Discharge: As tolerated Stand Alone Forms: Patient Portal Discharge page Print Language: Trinidadian Care Plan Goals: recovery Health Concerns: mssa bacteremia Plan of Treatment: 6 weeks iv ancef, end date nov 08, 2025 Assessment: see above
--- NOTE | 2025-10-02 10:47 | MHC.CM.PN ---
Pt will transfer to [facility] today at 11am via [facility]. Pt, dtr and RN aware of plan.
== END 2025-10-02 11:25 | disposition skilled nursing facility (03) | DRG 872 ==
LOC: HO.ED 16:24 → HO.EDOVER 17:12 → HO.IMC 19:39
PROVIDERS: Physician Assistant Medical; Admitting Provider Internal Medicine; Emergency Provider Emergency Medicine; PCP Internal Medicine; Visit Provider Internal Medicine
DX: A41.01 Sepsis due to Methicillin susceptible Staphylococcus aureus (principal); M60.08 Infective myositis, other site; M46.22 Osteomyelitis of vertebra, cervical region; I10 Essential (primary) hypertension; M06.9 Rheumatoid arthritis, unspecified; Z23 Encounter for immunization; Z87.891 Personal history of nicotine dependence; Z86.718 Personal history of other venous thrombosis and embolism; Z86.711 Personal history of pulmonary embolism; Z79.01 Long term (current) use of anticoagulants; Z79.620 Long term (current) use of immunosuppressive biologic; Z79.631 Long term (current) use of antimetabolite agent; Z79.899 Other long term (current) drug therapy
CPT/HCPCS: 36415; 36573; 70450; 70490; 70491; 70543; 72141; 73030; 80048; 80053; 80202; 82565; 83605; 83735; 85025; 85027; 85652; 86140; 87040; 87070; 87077; 87186; 87205; 90656; 93306; 97110; 97161; 97165; 99284; 99285; A9585; C1751; J0690; J0692; J0696; J2003; J2270; J2405; J3373; J3374; Q9967

== ENCOUNTER 2025-09-27 17:06 | Outpatient (BNV) | payer MEDICARE, SELFPAY | END 2025-09-30 11:49 | PROVIDERS: Admitting Provider Internal Medicine; Emergency Provider Emergency Medicine; PCP Internal Medicine; Visit Provider Radiology Diagnostic Radiology | DX: M47.812 Spondylosis without myelopathy or radiculopathy, cervical region (principal) | CPT/HCPCS: 70490; 70543; 72141 ==

== ENCOUNTER 2025-09-27 17:06 | Outpatient (BNV) | payer MEDICARE, SELFPAY | END 2025-09-30 07:00 | PROVIDERS: Admitting Provider Internal Medicine; Emergency Provider Emergency Medicine; PCP Internal Medicine; Visit Provider Internal Medicine | DX: I51.89 Other ill-defined heart diseases (principal); R78.81 Bacteremia; I35.8 Other nonrheumatic aortic valve disorders; I34.81 Nonrheumatic mitral (valve) annulus calcification | CPT/HCPCS: 93306 ==

== ENCOUNTER → 2025-09-27 17:06 | Outpatient (BNV) | payer MEDICARE, SELFPAY | PROVIDERS: Admitting Provider Internal Medicine; Emergency Provider Emergency Medicine; PCP Internal Medicine; Visit Provider Internal Medicine | DX: L02.11 Cutaneous abscess of neck (principal); M60.009 Infective myositis, unspecified site; R78.81 Bacteremia | CPT/HCPCS: 99222 ==

== ENCOUNTER → 2025-09-27 17:06 | Outpatient (BNV) | payer MEDICARE, SELFPAY | PROVIDERS: Admitting Provider Internal Medicine; Emergency Provider Emergency Medicine; PCP Internal Medicine; Visit Provider Internal Medicine | DX: R78.81 Bacteremia (principal); A41.9 Sepsis, unspecified organism | CPT/HCPCS: 99222 ==

== ENCOUNTER → 2025-09-27 17:06 | Outpatient (BNV) | payer MEDICARE, SELFPAY | PROVIDERS: Admitting Provider Internal Medicine; Emergency Provider Emergency Medicine; PCP Internal Medicine; Visit Provider Surgery | DX: L02.11 Cutaneous abscess of neck (principal); M60.009 Infective myositis, unspecified site | CPT/HCPCS: 10060; 99024; 99222 ==

== ENCOUNTER 2025-10-15 15:33 | Outpatient (AMB) | payer MEDICARE, SELFPAY ==
--- NOTE | 2025-10-15 15:39 | MHC.OFFVIS ---
Vital Signs 10/15/25 15:52 Height 4 ft 11 in Weight 183 lb BMI 37.0 Pulse 105 H Pulse Source Pulse Oximeter Temp 98.1 F Temp Source Oral Pulse Oximetry (%) 97 Oxygen Delivery Method Room Air Intake Visit Reasons: [facility] Reff/ Bacteremia Allergies No Known Allergies (No Known Allergies*) Allergy (Verified 10/15/25 15:53) HPI HPI [facility] Reff/ Bacteremia: Details: I had seen her in hospital on 09/29 for MSSA bacteremia. She had neck abscess as likely source She is taking Kefzol and is tired of taking antibiotics [facility] Medical History Muscle abscess Breast cancer screening by mammogram Pre-op exam Hospital discharge follow-up Symptomatic anemia Pulmonary embolism Anemia Medicare annual wellness visit, initial Presence of IVC filter History of alcohol abuse Venous stasis dermatitis Obesity Vitamin D deficiency Barretts esophagus Benign essential hypertension Restless leg syndrome Obstructive sleep apnea GERD (gastroesophageal reflux disease) Tubular adenoma of colon Rheumatoid arthritis Hx of deep venous thrombosis Hypercholesterolemia Surgical History History of ankle surgery (01/2024) S/P IVC filter (2019) History of esophagogastroduodenoscopy (EGD) (2018) Hx of colonoscopy (2018) History of cataract surgery History of eyelid surgery History of tonsillectomy Hx of arthroscopic knee surgery Hx of heart artery stent Family History Father History of stomach cancer Mother Social History Household Members: None Housing: House Housing Other:: Single floor Are you a primary child care worker to a significant other at home: No Do you presently have visiting nurse or other home services: No Alcohol intake: former Patient Tobacco Use Status: Former Tobacco user Tobacco use type: Cigarette Cigarette Packs Per Day: 2 Years Smoked: quit 1979 e-Cigarette/Vaping Use: Never Used Second Hand Smoke Exposure: No Advance Directives Date on File: 01/24/24 service: No Current occupational status: retired Cognitive needs: Yes (walker, wheelchair, cane) Hearing needs: No Vision needs: Yes (Glasses) Review of Systems Const All systems reviewed & are unremarkable except as noted in HPI and below Physical Exam Vital Signs: Last Vital Signs Temp 98.1 F 10/15/25 15:52 Pulse 105 H 10/15/25 15:52 Pulse Ox 97 10/15/25 15:52 Oxygen Delivery Method Room Air 10/15/25 15:52 BMI result Body Mass Index 37.0 Const General: cooperative Orientation/consciousness: patient oriented x3 HEENT Head: Yes normal to inspection Mouth: Normal oral and palatal mucosa present Eyes General: appearance normal, both eyes and all related structures Pupils: Equal, round and reactive pupils present Resp Effort & Inspection: normal respiratory effort Cardio Rate: regular rate Rhythm: regular rhythm GI Palpation (GI): Soft to palpation and nontender General: Yes no CVA tenderness Back/Spine/Pelvis Back: no CVA tenderness Skin General skin exam: no rashes or lesions noted Neuro General: patient oriented x3 Cranial nerves: Yes CN's II-XII intact bilaterally and Yes Equal, round and reactive pupils present Extrem General: Yes normal to inspection Psych Appearance: grossly normal Assessment & Plan Assessment & Plan (1) Sepsis: Code(s): A41.9 - Sepsis, unspecified organism Category: Medical Qualifiers: Sepsis acute organ dysfunction status: unspecified Sepsis type: sepsis due to unspecified organism Qualified Code(s): A41.9 - Sepsis, unspecified organism Plan Abscess neck resolved No endocarditis Orders: Orders IR cvc remove any age 1210/15/25 A41.9 - Sepsis, unspecified organism Coding Level of Care Code Est Pt Level 3 (32764) Diagnoses Sepsis, due to unspecified organism, unspecified whether acute organ dysfunction present A41.9 Sepsis acute organ dysfunction status: unspecified Sepsis type: sepsis due to unspecified organism
[2025-10-15 15:52] VITALS: PULSE 105; TEMP 36.7; O2SAT 97; BMI 37.0
== END 2025-10-15 16:59 | disposition home or self-care (01) ==
LOC: HO.HID 15:33
PROVIDERS: PCP Internal Medicine; Visit Provider Internal Medicine
DX: A41.9 Sepsis, unspecified organism (principal)
CPT/HCPCS: 99213

== ENCOUNTER → 2025-10-15 15:33 | Outpatient (BNVA) | payer MEDICARE, SELFPAY | PROVIDERS: PCP Internal Medicine; Visit Provider Internal Medicine | DX: A41.9 Sepsis, unspecified organism (principal) | CPT/HCPCS: 99212 ==